=== PATIENT | female | born 1965 | race Caucasian/White ===

== ENCOUNTER 2017-06-29 08:18 | Day surgery (SDC) | payer OTHER ==
--- NOTE | 2017-06-16 23:54 | HP ---
CC: Marbin Gomes DO, [facility] * ADMISSION HISTORY AND PHYSICAL: DATE OF ADMISSION: 06/29/17 ATTENDING SURGEON: Jc Kaplan MD * (EULOGIO Davidson, dictating). CHIEF COMPLAINT: Symptomatic cholelithiasis. HISTORY OF PRESENT ILLNESS: This is a 51-year-old female who over the past year or so has been experiencing recurrent right upper quadrant abdominal pain. She describes pain sometimes before and sometimes after eating that occurs in the right upper quadrant and radiates to the right scapular region. She has accompanying nausea, queasiness, belching and bloating. She has not really had any change in her stools. She denies dark urine. She has not had any fevers or chills. She did present to the [facility] ED and workup at that time included an ultrasound on 04/03/17 showing multiple gallstones, but no evidence of acute cholecystitis. She was placed on Actigall by her PCP, Dr. Gomes. At the time of followup, there was apparently some improvement while on Actigall, but not consistently. She was referred to our office. There is a positive family history of gallbladder disease in her mother. She was seen by Dr. Kaplan on 06/13/17, at which time her history and studies were reviewed. Of note, she did have normal liver function tests on lab work from 04/14/17. CBC at that time was also normal. Dr. Kaplan has discussed with her the indications for surgery, the risks, benefits, and alternatives. She understands the expected perioperative course, she would like to proceed as scheduled with laparoscopic cholecystectomy. PAST MEDICAL HISTORY: 1. Morbid obesity (the patient has lost a total of 173 pounds related to both intentional efforts as well as to consequences from recent separation from her . She feels that her weight has stabilized and in fact has increased a few pounds in the recent months). 2. Obstructive sleep apnea (diagnosed when she was morbidly obese. She never tolerated CPAP. She feels that it is currently not a problem for her as she does not have witnessed apneic episodes). 3. Postoperative DVT following arthroscopic knee surgery in 2009 without any other episodes. She has bilateral carpal tunnel syndrome for which she uses wrist splints p.r.n. 4. She is treated for hypertension. She has history of asthma, GERD, anxietyand depression, and osteoarthritis involving primarily the knees. PAST SURGICAL HISTORY: Includes: 1. Laparoscopic Mckenzie fundoplication approximately 20 years ago. 2. Right knee arthroscopy in 2009. 3. x3 via a low transverse incision with tubal ligation at the time of the last . No surgical or anesthesia complications other than the postoperative DVT as noted above. CURRENT MEDICATIONS: 1. Metoprolol 50 mg once daily. 2. Ursodiol 300 mg b.i.d. 3. Potassium chloride 10 mEq daily. 4. Omeprazole 20 mg daily. 5. Diclofenac 50 mg daily. 6. Escitalopram 20 mg daily. 7. Magnesium oxide 400 mg 2 tablets q.h.s. 8. Multivitamin once daily. 9. ProAir HFA MDI p.r.n. (does not use frequently). 10. Tramadol 50 mg q.6 hours p.r.n. (does not use frequently) DRUG ALLERGIES: CECLOR (the patient does not recall reaction; she has taken amoxicillin without any problems). VICODIN (exacerbation of her asthma; she has tolerated Tylenol with codeine without problems). FAMILY HISTORY: Negative for anesthesia problems, bleeding or clotting disorders. SOCIAL HISTORY: The patient currently lives alone, though does have a boyfriend who sometimes stays with her. 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 She denies use of tobacco. She drinks alcohol rarely. She denies other drug use. REVIEW OF SYSTEMS: General: No recent constitutional symptoms or acute illnesses other than those described in the HPI and past medical history. Cardiovascular: She is treated for hypertension. She was evaluated twice in the past for chest pain and tightness with a negative nuclear stress test at each of those times. Respiratory: No recent exacerbations of her asthma. GI: As above per HPI. She does have some GERD symptoms, which are well controlled with omeprazole. She underwent colonoscopy in 2015, which by her chart record was a normal study. : No problems reported. Endocrine: No diabetes or thyroid dysfunction. VASCULAR TECHNOLOGIST: She is up-to-date with mammogram done this month reportedly normal. Pelvic exam and Pap smear is due. No interval problems reported. PHYSICAL EXAMINATION GENERAL: Well-nourished obese female, in no acute distress. VITAL SIGNS: Height 60 inches, weight 194 pounds, BMI 38. Temperature 98.1, blood pressure 122/80, pulse 64 and regular. HEENT: Pupils equal and round, reactive. EOMs intact. No conjunctival pallor. Oropharynx: Teeth in good repair. No intraoral lesions. NECK: No lymphadenopathy, thyromegaly, or masses. HEART: Regular rate and rhythm. No murmur noted. LUNGS: Clear to auscultation. No rales or wheezes. BREASTS: Not examined. ABDOMEN: Well-healed laparoscopic incisions in the upper abdomen and low transverse incision by history. Soft with mild tenderness in the right upper quadrant. Negative Alvarez sign. No palpable masses or organomegaly. No other areas of tenderness. GENITALIA: Not done. RECTAL: Not done. BACK: No spinous process or CVA tenderness. EXTREMITIES: No edema. NEUROLOGICAL: Grossly intact. SKIN: Warm and dry. No suspicious rashes or lesions noted. IMPRESSION: Symptomatic cholelithiasis. PLAN: Laparoscopic cholecystectomy. EULOGIO DAVIDSON [id number]/CPS #: [id number] MTDD
[~2017-06-29 08:18] MED LIST: Buffered Lidocaine 0.9% SYRIN* 5 ML/SYR SYRINGE INTRADERM ONE
[2017-06-29] MEDS ORDERED: ceFAZolin 2 GM PREMIX (*) 2 GM/50 ML BAG IVPB ONE (08:32)
[2017-06-29] MEDS ORDERED: Buffered Lidocaine 0.9% SYRIN* 5 ML/SYR SYRINGE ONE (08:33)
[2017-06-29] MEDS ORDERED: Famotidine IV* 10 MG/ML 2 ML (20 mg) ONE (09:51)
[2017-06-29] MEDS ORDERED: Midazolam* 1 MG/ML 2 ML VIAL (2 MG) ONE (09:51)
[2017-06-29] MEDS ORDERED: Bupivacaine 0.25% SDV* 30 ML ONE (10:50)
[2017-06-29] MEDS ORDERED: Cisatracurium* 2 MG/ML MDV 5 ML ONE (11:08)
[2017-06-29] MEDS ORDERED: fentaNYL* 50 MCG/ML 2 ML VIAL (100 MCG VIAL) ONE ×2 (11:17→12:31)
[2017-06-29] MEDS ORDERED: Labetalol IV* 5 MG/ML 20 ML VIAL ONE (11:20)
[2017-06-29] MEDS ORDERED: fentaNYL* 50 MCG/ML 2 ML VIAL (100 MCG VIAL) IV PRN (11:45)
[2017-06-29] MEDS ORDERED: DiMENhydriNATE IV* 50 MG/ML VIAL IV PUSH PRN (11:45)
[2017-06-29] MEDS ORDERED: PROCHLORPERAZINE INJ 5 MG/ML 2 ML VIAL IV PRN (11:45)
[2017-06-29] MEDS ORDERED: Acetaminophen TAB* 325 MG PO PRN (11:45)
[2017-06-29] MEDS ORDERED: Ondansetron INJ* 2 MG/ML VIAL IV PRN (11:45)
[2017-06-29] MEDS ORDERED: Levalbuterol 1.25MG/0.5ML NEB INH PRN (11:45)
[2017-06-29] MEDS ORDERED: Ketorolac INJ* 30 MG/ML 1 ML VIAL ONE (11:57)
--- NOTE | 2017-06-29 12:04 | PN ---
Progress Note - Progress Note Date of Service: 06/29/17 Note: Brief Operative Note: Preop Dx: symptomatic cholelithiasis Postop Dx: same Procedure: laparoscopic cholecystectomy Anesthesia: GET Surgeon: Rosaura Asst: EULOGIO Carlson Fluids: 1300ml EBL: 50 ml Drains: none Specimen: GB Findings: dictated
[2017-06-29] MEDS ORDERED: Acetaminop/Codeine 30 MG TAB* 1 TAB (300 MG/30 MG) PO PRN (12:05)
[2017-06-29] MEDS ORDERED: Levalbuterol HFA INHALER* 1 PUFF MDI ONE (12:12)
[2017-06-29] MEDS ORDERED: Acetaminop/Codeine 30 MG TAB* 1 TAB (300 MG/30 MG) ONE (13:12)
[2017-06-29 14:44] VITALS: BP 142/80
--- NOTE | 2017-06-29 23:47 | OP ---
CC: Dr. Marbin Gomes * DATE OF OPERATION: 06/29/17 - [facility] DATE OF : 63 SURGEON: Jc Kaplan MD LITHOGRAPHIC PROOFER: EULOGIO Davidson ANESTHESIOLOGIST: Albania Hall MD ANESTHESIA: General anesthetic, local infiltration. PRE-OP DIAGNOSIS: Symptomatic cholelithiasis. POST-OP DIAGNOSIS: Symptomatic cholelithiasis. OPERATIVE PROCEDURE: Laparoscopic cholecystectomy. DESCRIPTION OF PROCEDURE: The patient was supine on the operative table. After adequate general anesthetic, compression stockings, Vesta Hugger warmer, and intravenous antibiotics, the abdomen was prepped with antiseptic, draped in a sterile fashion. Local infiltrative anesthesia was administered and right upper quadrant 5-mm incision was created and Visiport cannula was placed under direct vision. Peritoneum was insufflated with carbon dioxide. Additional cannulae, 5 mm supraumbilical and anterior axillary line and 12 mm subxiphoid, were placed through small stab wounds under direct vision. The gallbladder was not acutely inflamed. It was tented upward. Areolar tissue was taken down off the cystic duct and cystic artery. Cystic artery had an anterior and posterior branch. Cystic duct was taken well clear of the common duct, clipped and divided. Artery branches were clipped and divided. Gallbladder was taken off the liver bed with electrocautery. Hemostasis was excellent. There was no spillage. The gallbladder was removed through the subxiphoid port without difficulty. The operative field was well irrigated with warm saline solution. Free fluid was suctioned out. Hemostasis was again confirmed. The epigastric port was closed using an Endo Close device using 0 Vicryl and then skin was closed with 5-0 Vicryl in all cases followed by Steri-Strips. She tolerated the procedure well, was awakened, extubated, and brought to Recovery in good condition. No complications. No drains. Pathologic specimen gallbladder. Sponge and instrument counts were correct. Estimated blood loss was 50 mL. [id number]/[facility] #: [id number] [facility] HOSPITALBelinda
== END 2017-06-29 14:44 | disposition home or self-care (01) ==
LOC: OR 08:18
PROVIDERS: ATTEND Surgery
DX: K80.10 Calculus of gallbladder with chronic cholecystitis without obstruction (principal); E66.01 Morbid (severe) obesity due to excess calories; Z68.38 Body mass index [BMI] 38.0-38.9, adult; I10 Essential (primary) hypertension; J45.909 Unspecified asthma, uncomplicated; G47.33 Obstructive sleep apnea (adult) (pediatric); K21.9 Gastro-esophageal reflux disease without esophagitis; F41.9 Anxiety disorder, unspecified; F32.9 Major depressive disorder, single episode, unspecified; Z88.5 Allergy status to narcotic agent; Z88.1 Allergy status to other antibiotic agents
CPT/HCPCS: 88304; A9270-GY; J0690; J1885; J2250; J3010

== ENCOUNTER 2017-12-26 11:00 | Inpatient (IN) | payer OTHER ==
--- NOTE | 2018-04-23 20:46 | HP ---
HISTORY AND PHYSICAL: DATE OF ADMISSION/SURGERY: 05/01/18 DATE OF OFFICE VISIT: 04/18/18 SURGEON: Saray Cummings MD * (DICTATED BY EULOGIO MADERA) PROCEDURE: Right total knee arthroplasty. CHIEF COMPLAINT: Right knee pain. HISTORY OF PRESENT ILLNESS: Ms. Carpenter is a 52-year-old female with complaints of right knee pain. She has failed conservative treatment and elected to proceed with a right total knee arthroplasty, which is scheduled for 05/01/18. PAST MEDICAL HISTORY: 1. Hypertension. 2. History of a DVT following a knee scope. 3. Asthma. 4. Depression. 5. Anxiety. 6. GERD. 7. Melanoma. PAST SURGICAL HISTORY: 1. Cholecystectomy. 2. Melanoma removal. 3. Right knee arthroscopy. 4. Hernia repair. 5. x3. 6. Tubal ligation. CURRENT MEDICATIONS: 1. Tramadol 50 mg 3 times a day. 2. Omeprazole 20 mg daily. 3. ProAir HFA. 4. Metoprolol 50 mg daily. 5. Tylenol as needed. 6. Sulindac. 7. Vitamin D. 8. Hair, Skin and Nail vitamin. 9. Metformin b.i.d. ALLERGIES: CECLOR, VICODIN, ORANGES. FAMILY HISTORY: Cancer, diabetes, stroke, and rheumatoid arthritis. SOCIAL HISTORY: She is a 52-year-old female. She lives with her partner. She does not smoke, use drugs or alcohol. REVIEW OF SYSTEMS: A complete 14-point review of systems was reviewed with the patient. It was positive for GERD, asthma, and DVT in 2009 following a right knee scope. She denies history of HIV, hepatitis, or anesthesia problems. PHYSICAL EXAMINATION GENERAL: She is well developed, well nourished, in no acute distress. VITAL SIGNS: She stands 5 feet tall, weighs 232 pounds. Her blood pressure is 140/86, her heart rate is 64. HEENT: Normocephalic, atraumatic. NECK: Supple. No palpable lymph nodes. PULMONARY: Lungs are clear to auscultation bilaterally. CARDIO: Regular rate and rhythm. Strong S1, S2. ABDOMEN: Soft, nontender, nondistended. NEUROLOGICAL: She is alert and oriented x3. MUSCULOSKELETAL: Right lower extremity, the skin is intact. There are no open wounds or abrasions. There is a moderate joint effusion. She has tenderness over the medial and lateral joint line. Range of motion 10 to 120 degrees of flexion with patellofemoral crepitus. There is a 15 degree valgus deformity of the right knee. ASSESSMENT AND PLAN: Ms. Carpenter is a 52-year-old female with end-stage osteoarthritis of the right knee. She has failed conservative treatment and elected to proceed with a right total knee arthroplasty, which is scheduled for 05/01/[address] Cummings discussed the risks, the benefits of the surgery at today's visit and all of her questions were answered. She will follow with Dr. Cummings 2 weeks after the surgery. EULOGIO MADERA [id number]/[facility] #: [id number] MTDD
[2018-04-30] MEDS ORDERED: Buffered Lidocaine 0.9% SYRIN* 5 ML/SYR SYRINGE INTRADERM ONE (15:22)
[2018-05-01] MEDS ORDERED: Famotidine IV* 10 MG/ML 2 ML (20 mg) IV ONE (06:00)
--- OUTSIDE RECORDS SUMMARY | 2018-05-01 08:37 | XMS REPORT ---
:1965 External Reference #:[id number] Author Organization [facility] Address [address] [place] [address] [place] [address] Phone [phone] Care Team Providers Name Role Phone Hattie Lawson DO Primary Care Physician Unavailable Payers Type Date Identification Numbers Payment Provider Subscriber Commercial Effective: Policy Number: [id number] Masoud Brady 2017 Group Number: [id number] [address] PayID: [id number] [place] [address] Medigap Part B Expires: 2017 Policy Number: BS Lizzie Brady [id number] PayID: [id number] [address] [address] [place]arden [address] Medigap Part B Effective: 2009 Policy Number: BS Monserrat MAHI Brady [id number] Expires: 2009 PayID: [id number] [address] [address] [place] Bearden [address] Problems Date Description Provider Status Onset: 02/26/2015 Carpal tunnel syndrome Velma Perez M.D. Active Onset: 02/26/2015 Muscle twitch Velma Perez M.D. Active Onset: 11/27/2017 Localized, primary osteoarthritis Saray Cummings M.D. Active Onset: 03/01/2018 Skin sensation disturbance Waldo Mcconnell M.D. Active Onset: 03/01/2018 Neck pain Waldo Mcconnell M.D. Active Onset: 03/01/2018 Abnormal results function studies of Waldo Mcconnell M.D. Active central nervous system Onset: 03/01/2018 Chronic fatigue syndrome Waldo Mcconnell M.D. 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 Cigarette Use Never Smoked Cigarettes ETOH Use Rarely consumes alcohol Smoking Patient has never smoked Recreational Drug Use Denies Drug Use Daily Caffeine Ice tea twice a week Exercise Type/Frequency Exercises sporadically Allergies, Adverse Reactions, Alerts Date Description Reaction Status Severity Comments 09/24/2004 Ceclor active 02/25/2015 Vicodin "Asthma attack" active Severe 04/28/2015 Oranges active 04/03/2007 NKDA inactive Medications Medication Date Status Form Strength Qnty SIG Indications Ordering Provider Alprazolam 03/01 Active Tablets 2mg 2tabs take 1 45 R94.02 /2017 min prior Justin Mcconnell to MRI, may repeat X 1 at time of MRI if remains anxious. Do not drive after taking Tramadol HCL Active Tablets 50mg 1 tab po Unknown /0000 tid prn pain Omeprazole Active Tablets 20mg 1 by Unknown /0000 DR mouth every day Proair HFA Active Aerosol 108(90Bas 2 puffs Unknown /0000 e) by mouth mcg/Act every 4 - 6 hours as needed Metoprolol Active Tablets 50mg 1 by Unknown Tartrate /0000 mouth daily Tylenol Active Tablets 325mg 2 po as Unknown /0000 needed Sulindac Active 1 tAB Unknown /0000 Everyday Vitamin D 1000MG 00 Active Unknown /0000 Metformin HCL 00 Active Tablets 500mg 1 Tab Unknown /0000 Twice Daily Fluconazole 07/07 Hx Tablets 150mg 2tabs One Saida Pritchett /2016 tablet MD Jc - once 02/28 daily directed Acetaminophen-Cod 06/16 Hx Tablets 300-15mg 20tab 1-2 tabs Saida quintanilla # s by mouth MD Jc - every 4h 02/28 as needed pain Flexeril 05/26 Hx Tablets 10mg 21tab 1 po tid Rodney Mckeon /2007 s prn Justin James - 06/25 Amoxicillin 05/23 Hx Tablets 500mg 30tab 1 po tid Rodney Mckeon s jl James M.D. - days 06/25 Proventil Hx Aerosol 90mcg/Act 2 Puffs Unknown /0000 PO qid - 04/27 Motrin Hx Tablets 200mg 120ta 1 PO prn Evaristo, /0000 bs EULOGIO Linda - 01/28 Flovent Hx Aerosol 220mcg/Ac 2 Puffs Barken, /0000 t PO bid MD Garry - 06/25 Serevent Diskus Hx Aerosol 50mcg/Dos 3unit 1 puff Barken, / e s bid MD Garry - 06/25 Hydrochlorothiazi Hx Tablets 12.5mg 16tab 1 po qd Rodney Campa. de / buffy James M.D. - 06/25 Benicar Hx Tablets 20mg 16tab 1 po qd Rodney E. / buffy James M.D. - 06/25 Diclofenac Sodium Hx Tablets 50mg take one Unknown /0000 DR tablet by - mouth 02/28 Furosemide Hx Tablets 20mg 1 by Unknown /0000 mouth every morning Potassium Hx Capsules 10Meq 1 by Unknown Chloride ER /0000 ER mouth - every day 02/28 Ursodiol Hx Capsules 300mg take 1 Unknown /0000 capsule - by mouth 02/28 twice a day Vitamin Minerals Hx Unknown For Hair And Skin / - 02/28 Medications Administered in Office Medication Date Status Form Strength Qnty SIG Indications Ordering Provider Inj, Administered Injection Uriahtono Hamilton Regadenoson, 015 Barton, 0.1 MG M.D., FACC, FASNC Inj, Administered Injection Laly Regadenoson, 015 [place], 0.1 MG M.D. Technetium TC Administered Injection Uriah Hamilton 99M 015 Nicol Barton M.D., FACC, Per Unit Dose FASNC Up To 40 Millicuries Technetium TC Administered Injection Laly 99M 015 Nicol Hathaway M.D. Per Unit Dose Up To 40 Millicuries Vital Signs Date Vital Result Comment 04/18/2018 Height 60 inches 5'0" Weight 232.00 lb Heart Rate 64 /min BP Systolic 140 mmHg BP Diastolic 86 mmHg BMI (Body Mass Index) 45.3 kg/m2 03/01/2018 Height 60 inches 5'0" Weight 226.50 lb Heart Rate 76 /min BP Systolic 152 mmHg BP Diastolic 90 mmHg BMI (Body Mass Index) 44.2 kg/m2 11/27/2017 Height 60 inches 5'0" Weight 222.00 lb Heart Rate 58 /min BP Systolic 126 mmHg BP Diastolic 80 mmHg Respiratory Rate 20 /min Body Temperature 97.6 F Pain Level 9 BMI (Body Mass Index) 43.4 kg/m2 07/07/2017 Heart Rate 72 /min BP Systolic Sitting 146 mmHg BP Diastolic Sitting 92 mmHg Respiratory Rate 16 /min Body Temperature 97.8 F 06/16/2017 Heart Rate 64 /min BP Systolic 122 mmHg BP Diastolic 80 mmHg Respiratory Rate 16 /min Body Temperature 98.1 F 06/13/2017 Height 60 inches 5'0" Weight 194.00 lb Heart Rate 64 /min BP Systolic 134 mmHg BP Diastolic 84 mmHg Respiratory Rate 16 /min Body Temperature 97.9 F BMI (Body Mass Index) 37.9 kg/m2 12/22/2015 Height 60 inches 5'0" Weight 297.00 lb Heart Rate 64 /min BP Systolic Sitting 122 mmHg BP Diastolic Sitting 70 mmHg Respiratory Rate 14 /min BMI (Body Mass Index) 58.0 kg/m2 05/11/2015 Height 60 inches 5'0" Weight 311.00 lb no shoes Heart Rate 66 /min BP Systolic Sitting 126 mmHg Ra, Lg cuff BP Diastolic Sitting 78 mmHg Ra, Lg cuff BP Systolic Standing 128 mmHg Ra BP Diastolic Standing 78 mmHg Ra Respiratory Rate 16 /min BMI (Body Mass Index) 60.7 kg/m2 Ejection Fraction 50-60% 10/27/2009 04/28/2015 Height 60 inches 5'0" Weight 313.00 lb Heart Rate 64 /min 74 BP Systolic Sitting 110 mmHg right arm, large cuff BP Diastolic Sitting 72 mmHg right arm, large cuff BP Systolic Standing 110 mmHg right arm, large cuff BP Diastolic Standing 68 mmHg right arm, large cuff Respiratory Rate 20 /min BMI (Body Mass Index) 61.1 kg/m2 Ejection Fraction 55-60% 10/27/09 02/26/2015 Height 60 inches 5'0" Weight 308.00 lb Heart Rate 64 /min BP Systolic Sitting 138 mmHg BP Diastolic Sitting 76 mmHg Respiratory Rate 16 /min BMI (Body Mass Index) 60.1 kg/m2 11/10/2008 Height 59.5 inches 4'11.50" Weight 126.00 lb Heart Rate 68 /min BP Systolic Sitting 136 mmHg BP Diastolic Sitting 86 mmHg BMI (Body Mass Index) 25.0 kg/m2 06/25/2008 Height 60 inches 5'0" Weight 292.00 lb Heart Rate 85 /min BP Systolic Sitting 136 mmHg BP Diastolic Sitting 90 mmHg BMI (Body Mass Index) 57.0 kg/m2 05/26/2008 Height 60 inches 5'0" BP Systolic Sitting 146 mmHg BP Diastolic Sitting 84 mmHg 05/23/2008 Height 60 inches 5'0" Weight 297.00 lb Heart Rate 60 /min BP Systolic Sitting 140 mmHg BP Diastolic Sitting 80 mmHg BMI (Body Mass Index) 58.0 kg/m2 04/04/2007 Height 60 inches 5'0" Weight 282.00 lb Heart Rate 80 /min BP Systolic Sitting 104 mmHg BP Diastolic Sitting 80 mmHg BMI (Body Mass Index) 55.1 kg/m2 Results Test Date Test Result H/L Range Note CBC Auto Diff 04/18/2018 White Blood Count 7.7 10^3/uL 3.5-10.8 1 Red Blood Count 4.64 10^6/uL 4.00-5.40 1 Hemoglobin 14.5 g/dL 12.0-16.0 1 Hematocrit 43 % 35-47 1 Mean Corpuscular Volume 92 fL 80-97 1 Mean Corpuscular Hemoglobin 31 pg 27-31 1 Mean Corpuscular HGB Conc 34 g/dL 31-36 1 Red Cell Distribution Width 13 % 10.5-15 1 Platelet Count 303 10^3/uL 150-450 1 Mean Platelet Volume 7.9 um3 7.4-10.4 1 Abs Neutrophils 3.9 10^3/uL 1.5-7.7 1 Abs Lymphocytes 3.0 10^3/uL 1.0-4.8 1 Abs Monocytes 0.6 10^3/uL 0-0.8 1 Abs Eosinophils 0.2 10^3/uL 0-0.6 1 Abs Basophils 0 10^3/uL 0-0.2 1 Abs Nucleated RBC 0 10^3/uL 1 Granulocyte % 50.4 % 38-83 1 Lymphocyte % 39.5 % 25-47 1 Monocyte % 7.4 % High 0-7 1 Eosinophil % 2.3 % 0-6 1 Basophil % 0.4 % 0-2 1 Nucleated Red Blood Cells % 0.1 1 Urinalysis Profile 04/18/2018 Urine Color Yellow 1 Urine Appearance Clear 1 Urine Specific [place] 1.027 1.010-1.030 1 Urine pH 5.0 5-9 1 Urine Urobilinogen Negative Negative 1 Urine Ketones Negative Negative 1 Urine Protein Negative Negative 1 Urine Leukocytes 1+ Negative 1 Urine Blood Negative Negative 1 Urine Nitrite Negative Negative 1 Urine Bilirubin Negative Negative 1 Urine Glucose Negative Negative 1 Urine White Blood Cell Trace(0-5/hpf) Absent 1 Urine Red Blood Cell 1+(3-5/hpf) Absent 1 Urine Bacteria Absent Absent 1 Urine Squamous Epithelial Cell Present Absent 1 Comp Metabolic Panel 04/18/2018 Sodium 140 mmol/L 135-145 1 Potassium 4.3 mmol/L 3.5-5.0 1 Chloride 104 mmol/L 101-111 1 Co2 Carbon Dioxide 30 mmol/L 22-32 1 Anion Gap 6 mmol/L 2-11 1 Glucose 64 mg/dL Low 70-100 1 Blood Urea Nitrogen 18 mg/dL 6-24 1 Creatinine 0.66 mg/dL 0.51-0.95 1 BUN/Creatinine Ratio 27.3 High 8-20 1 Calcium 9.2 mg/dL 8.6-10.3 1 Total Protein 6.5 g/dL 6.4-8.9 1 Albumin 3.9 g/dL 3.2-5.2 1 Globulin 2.6 g/dL 2-4 1 Albumin/Globulin Ratio 1.5 1-3 1 Total Bilirubin 0.40 mg/dL 0.2-1.0 1 Alkaline Phosphatase 73 U/L 34-104 1 Alt 11 U/L 7-52 1 Ast 15 U/L 13-39 1 Egfr Non- 93.7 >60 1 Egfr 113.4 >60 1, 2 Inr/Protime 04/18/2018 Inr 0.86 0.77-1.02 1 Laboratory test finding 04/18/2018 Partial Thrombo Time 33.8 seconds 26.0 -36.3 1, 3 PTT Type & Screen 04/18/2018 Patient Blood Type O Positive 1 Antibody Screen NEGATIVE 1 Urine Culture And 04/18/2018 Urine Culture SEE RESULT BELOW 1, 4 Sensitivities Vitamin B12 And Folate 03/09/2018 Vitamin B12 336 pg/mL 180-914 5 Serum Folic Acid (Folate) > 20.00 ng/mL >3.99 6 Laboratory test finding 03/09/2018 TSH (Thyroid Stim Horm) 1.60 mcIU/mL 0.34-5.60 7 Free T4 (Free Thyroxine) 1.02 ng/dL 0.61-1.12 8 Laboratory test finding 03/09/2018 Erythrocyte Sed Rate 22 mm/Hr 0-30 9 C Reactive Protein 1.35 mg/L <8.01 10 Basic Metabolic Panel 03/09/2018 Sodium 140 mmol/L 135-145 Potassium 4.2 mmol/L 3.5-5.0 Chloride 105 mmol/L 101-111 Co2 Carbon Dioxide 28 mmol/L 22-32 Anion Gap 7 mmol/L 2-11 Glucose 83 mg/dL 70-100 Blood Urea Nitrogen 18 mg/dL 6-24 Creatinine 0.60 mg/dL 0.51-0.95 BUN/Creatinine Ratio 30.0 High 8-20 Calcium 9.2 mg/dL 8.6-10.3 Egfr Non- 104.6 >60 Egfr 126.5 >60 11 Laboratory test 06/29/2017 Surgical Pathology SEE RESULT BELOW 12 finding Laboratory test 01/26/2016 Methylmalonic Acid Mma 0.12 nmol/mL <=0.40 13 finding C Reactive Protein 5.31 mg/L High < 5.00 14 Comp Metabolic Panel 12/02/2015 Sodium 138 mmol/L 133-145 Potassium 3.6 mmol/L 3.5-5.0 Chloride 98 mmol/L Low 101-111 Co2 Carbon Dioxide 27 mmol/L 22-32 Anion Gap 13 mmol/L High 2-11 Glucose 102 mg/dL High 70-100 Blood Urea Nitrogen 14 mg/dL 6-24 Creatinine 0.81 mg/dL 0.51-0.95 BUN/Creatinine Ratio 17.3 8-20 Calcium 9.6 mg/dL 8.6-10.3 Total Protein 7.2 g/dL 6.4-8.9 Albumin 4.2 g/dL 3.2-5.2 Globulin 3.0 g/dL 2-4 Albumin/Globulin Ratio 1.4 1-3 Total Bilirubin 1.10 mg/dL High 0.2-1.0 Alkaline Phosphatase 80 U/L 34-104 Alt 41 U/L 7-52 Ast 33 U/L 13-39 Egfr Non- 74.5 >60 Egfr 95.9 >60 15 Protein Electrophoresis 12/02/2015 Total Protein(Pep) 7.4 g/dL 6.3 - 7.9 Albumin 3.2 g/dL 3.4-4.7 Alpha-1 Globulin 0.3 g/dL 0.1-0.3 Alpha-2 Globulin 1.1 g/dL 0.6-1.0 Beta Globulin 1.5 g/dL 0.7-1.2 Gamma Globulin 1.3 g/dL 0.6-1.6 Albumin/Globulin Ratio 0.78 Impression See Comment 16 Volatiles Panel Serum 03/13/2015 Volatile Screen See Comment 17 Methanol Not Detected mg/dL 18 Ethanol Not Detected mg/dL 19 Acetone Level Not Detected mg/dL 20 Isopropanol Not Detected mg/dL 21 Ssa/SSB Abs Igg 03/13/2015 SS-A/Ro Antibody <0.2 U 22 SS-B/La Antibody <0.2 U 23 Laboratory test finding 03/13/2015 TSH (Thyroid Stim Horm) 2.74 ?IU/mL 0.34-5.60 Free T4 (Free Thyroxine) 0.87 ng/mL 0.61-1.12 Vitamin B12 276 pg/mL 180-914 24 Folic Acid (Folate) 19.03 ng/mL >3.99 Homocysteine 9 mcmol/L 25 Jojo (Antinuclear Antibodies) Negative Negative Erythrocyte Sed Rate 30 mm/Hr 0-30 C Reactive Protein 7.68 mg/L High < 5.00 26 Lyme Disease Serology Negative Negative 27 CMP Panel 03/13/2015 Sodium 139 mmol/L 133-145 Potassium 4.1 mmol/L 3.5-5.0 Chloride 102 mmol/L 101-111 Co2 Carbon Dioxide 30 mmol/L 22-32 Anion Gap 7 mmol/L 2-11 Glucose 101 mg/dL High 70-100 Blood Urea Nitrogen 14 mg/dL 6-24 Creatinine 0.73 mg/dL 0.51-0.95 BUN/Creatinine Ratio 19.2 8-20 Calcium 9.1 mg/dL 8.6-10.3 Total Protein 6.7 g/dL 6.4-8.9 Albumin 3.8 g/dL 3.2-5.2 Globulin 2.9 g/dL 2-4 Albumin/Globulin Ratio 1.3 1-3 Total Bilirubin 0.50 mg/dL 0.2-1.0 Alkaline Phosphatase 80 U/L 34-104 Alt 20 U/L 7-52 Ast 17 U/L 13-39 Egfr Non- 84.4 >60 Egfr 108.5 >60 28 CBC W/Auto Diff 03/13/2015 White Blood Count 7.9 10^3/uL 4.8-10.8 Red Blood Count 4.55 10^6/uL 4.0-5.4 Hemoglobin 13.5 g/dL 12.0-16.0 Hematocrit 41 % 35-47 Mean Corpuscular Volume 90 fL 80-97 Mean Corpuscular Hemoglobin 30 pg 27-31 Mean Corpuscular HGB Conc 33 g/dL 31-36 Red Cell Distribution Width 14 % 10.5-15 Platelet Count 295 10^3/uL 150-450 Mean Platelet Volume 8 um3 7.4-10.4 Abs Neutrophils 4.5 10^3/uL 1.5-7.7 Abs Lymphocytes 2.5 10^3/uL 1.0-4.8 Abs Monocytes 0.6 10^3/uL 0-0.8 Abs Eosinophils 0.2 10^3/uL 0-0.6 Abs Basophils 0 10^3/uL 0-0.2 Abs Nucleated RBC 0.01 10^3/uL Granulocyte % 57.3 % 38-83 Lymphocyte % 32.1 % 25-47 Monocyte % 7.5 % 1-9 Eosinophil % 2.7 % 0-6 Basophil % 0.4 % 0-2 Nucleated Red Blood Cells % 0.1 Comp Metabolic Panel 05/23/2007 One Over Creatinine 1.42 29 Anion Gap 6.0 mmol/L 2-11 29, 30 Albumin/Globulin Ratio 1.2 1-3 29 Albumin 3.5 GM/DL Low 3.6-5.4 29 Alkaline Phosphatase 67 U/L 30-110 29 Alt (SGPT) 24 U/L 14-54 29 Ast (Sgot) 19 U/L 12-42 29 BUN 5 mg/dL Low 6-24 29 Calcium 8.8 mg/dL 8.7-10.2 29 Chloride 106 mmol/L 101-111 29 Co2 (Carbon Dioxide) 28.0 mmol/L 22-32 29 Globulin 2.9 GM/DL 2-4 29 Glucose 89 mg/dL 70-105 29 Potassium 4.1 mmol/L 3.5-5.0 29 Sodium 140 mmol/L 135-145 29 Bilirubin Total 0.5 mg/dL 0.4-1.5 29 Total Protein 6.4 GM/DL 6.2-8.1 29 BUN/Creatinine Ratio 7.1 Low 8-20 29 Creatinine 0.7 mg/dL 0.5-1.4 29 Lipid Profile 05/23/2007 Cholesterol 213 mg/dL High Less Than 200 29, 31 (Trig/Chol/HDL) Triglyceride 106 mg/dL 40-200 29 High Density Lipoprotein 40 mg/dL 40-60 29 Low Density Lipoprotein 152 mg/dL High Less Than 100 29, 32 Cholesterol/HDL Ratio 5.33 AVERAGE High 1-4.44 29 Laboratory test finding 05/23/2007 TSH 1.79 MIU/ML 0.34-5.60 29 CBC W/ Electronic Diff 05/23/2007 White Blood Count 6.8 CUMM 4.8-10.8 33 Abs Basophils 0 0-0.2 33 Abs Eosinophils 0.1 0-0.6 33 Absolute Neutrophil Count 3.8 1.5-7.7 33 Abs Lymphs 2.5 1.0-4.8 33 Abs Mononuclear 0.4 0-0.8 33 Basophil % 0.2 % 0-2 33 Hematocrit 36 % 35-47 33 Hemoglobin 12.7 g/dL 12.0-16.0 33 Eosinophil % 1.6 % 0-6 33 Gran % 55.6 % 38-83 33 Lymph % 36.8 % 20-45 33 Mean Corpuscular HGB Cone 35 g/dL 32-36 33 Mean Corpuscular Hemoglob 31 pg 27-31 33 Mean Corpuscular Volume 88 um3 79-97 33 Mean Platelet Volume 7.8 um3 7.4-10.4 33 Mononuclear % 5.8 % 1-9 33 Platelet Count 339 CUMM 150-450 33 Red Cell Count 4.14 CUMM Low 4.2-5.4 33 Redcell Distribution WDTH 13 % 10.5-15 33 1 AA 10 2 Because ethnic data is not always readily available, this report includes an eGFR for both -Americans and non- Americans. The National Kidney Disease Education Program (NKDEP) does not endorse the use of the MDRD equation for patients that are not between the ages of 18 and 70, are , have extremes of body size, muscle mass, or nutritional status, or are non- or non-. According to the National Kidney Foundation, irrespective of diagnosis, the stage of the disease is based on the level of kidney function: Stage Description GFR(mL/min/1.73 m(2)) 1 Kidney damage with normal or decreased GFR 90 2 Kidney damage with mild decrease in GFR 60-89 3 Moderate decrease in GFR 30-59 4 Severe decrease in GFR 15-29 5 Kidney failure <15 (or dialysis) 3 05/01 4 SEE RESULT BELOW Name: EILEEN BRADY : [address]: Saray Cummings MD Acct: [id number] Unit: [id number] AGE: 52 Location: [facility] Re04/18/18 SEX: F Status: REG REF SPEC: [id number] NATA: 04/18/18-[address]: Saray Cummings MD REQ: [id number] RECD: 04/18/182480 STATUS: COMP _ SOURCE: URINE SPDESC: ORDERED: Urine Culture COMMENTS: 05/01 QUERIES: Urine Source: Clean Catch Procedure Result Reported Site Urine Culture Final 04/19/18- 1602 ML No growth of clinically significant organisms * ML - Main Lab . END OF REPORT DEPARTMENT OF PATHOLOGY, [address] [place] [address] Cameron Rojas M.D. Director [facility] # [id number] 5 Normal Range 180 to 914 Indeterminate Range 145 to 180 Deficient Range <145 6 [facility] lab Copy Result to: HATTIE LAWSON ([id number]) 7 [facility] lab Copy Result to: HATTIE LAWSON ([id number]) 8 [facility] lab Copy Result to: HATTIE LAWSON ([id number]) 9 [facility] lab Copy Result to: HATTIE LAWSON ([id number]) 10 [facility] lab Copy Result to: HATTIE LAWSON ([id number]) 11 Because ethnic data is not always readily available, this report includes an eGFR for both -Americans and non- Americans. The National Kidney Disease Education Program (NKDEP) does not endorse the use of the MDRD equation for patients that are not between the ages of 18 and 70, are , have extremes of body size, muscle mass, or nutritional status, or are non- or non-. According to the National Kidney Foundation, irrespective of diagnosis, the stage of the disease is based on the level of kidney function: Stage Description GFR(mL/min/1.73 m(2)) 1 Kidney damage with normal or decreased GFR 90 2 Kidney damage with mild decrease in GFR 60-89 3 Moderate decrease in GFR 30-59 4 Severe decrease in GFR 15-29 5 Kidney failure <15 (or dialysis) 12 SEE RESULT BELOW Name: EILEEN BRADY : [address]: Jc Kaplan MD Acct: [id number] Unit: [id number] AGE: 51 Location: [place] Re06/29/17 SEX: F Status: [facility] SPEC: [id number] NATA: 06/29/17- [facility] DR: Jc Kaplan MD REQ: [id number] RECD: 06/29/179915 STATUS: SOUT _ ORDERED: LEVEL 3 FINAL DIAGNOSIS Gallbladder, cholecystectomy: -- Chronic cholecystitis with cholelithiasis. PRE-OPERATIVE DIAGNOSIS Calculus of gallbladder with chronic cholecystitis GROSS DESCRIPTION The specimen is received in formalin labeled, Gallbladder, and consists of a 9.8 x 2.5 x 1.7 cm previously disrupted gallbladder. The serosa is glistening smooth to wrinkled will-pink. Within the lumen and the container there are multiple yellow-brown intact and fragmented choleliths ranging from minute to 0.7 cm in greatest dimension admixed with a small amount of yellow viscid bile. The mucosa is velvety to reticulated will and the wall thickness averages 0.1 cm. Cheese Pancake Roller sections, one cassette. Signed (signature on file) Cameron Rojas MD 1101 END OF REPORT * ML=Testing performed at Main Lab DEPARTMENT OF PATHOLOGY, [address] [place] [address] Cameron Rojas M.D. Director [facility] # [id number] 13 Test Performed by: [place] [address] Human Service Technician: Cj Zuniga II, M.D., Ph.D. 14 Acute inflammation: >10.00 15 Because ethnic data is not always readily available, this report includes an eGFR for both -Americans and non- Americans. The National Kidney Disease Education Program (NKDEP) does not endorse the use of the MDRD equation for patients that are not between the ages of 18 and 70, are , have extremes of body size, muscle mass, or nutritional status, or are non- or non-. According to the National Kidney Foundation, irrespective of diagnosis, the stage of the disease is based on the level of kidney function: Stage Description GFR(mL/min/1.73 m(2)) 1 Kidney damage with normal or decreased GFR 90 2 Kidney damage with mild decrease in GFR 60-89 3 Moderate decrease in GFR 30-59 4 Severe decrease in GFR 15-29 5 Kidney failure <15 (or dialysis) 16 RESULT: No apparent monoclonal protein on serum electrophoresis. Test Performed by: [address] [address] Human Service Technician: Cj Zuniga II, M.D., Ph.D. 17 Sample aliquot received, original unopened sample is preferred. 18 REFERENCE VALUE Not detected (Positive results are quantitated) >=10 (Toxic concentration) 19 REFERENCE VALUE Not detected (Positive results are quantitated) >=400 (Toxic concentration) 20 REFERENCE VALUE Not detected (Positive results are quantitated) >=10 (Toxic concentration) 21 REFERENCE VALUE Not detected (Positive results are quantitated) >=10 (Toxic concentration) Test Performed by: [address] [address] Human Service Technician: Cj Zuniga II, M.D., Ph.D. 22 REFERENCE VALUE <1.0 (Negative) 23 REFERENCE VALUE <1.0 (Negative) Test Performed by: [place] [address] Human Service Technician: Cj Zuniga II, M.D., Ph.D. 24 Normal Range 180 to 914 Indeterminate Range 145 to 180 Deficient Range <145 25 REFERENCE VALUE <=13 (Fasting) Test Performed by: [place] [address] Human Service Technician: Cj Zuniga II, M.D., Ph.D. 26 Acute inflammation: >10.00 27 Serologic response to B. burgdorferi infection is not detected, but cannot rule out early infection during which low or undetectable antibody levels to B. burgdorferi may be present. If clinically indicated, a new serum specimen should be submitted in 7-14 days. Test Performed by: [place] [address] Human Service Technician: Cj Zuniga II, M.D., Ph.D. 28 Because ethnic data is not always readily available, this report includes an eGFR for both -Americans and non- Americans. The National Kidney Disease Education Program (NKDEP) does not endorse the use of the MDRD equation for patients that are not between the ages of 18 and 70, are , have extremes of body size, muscle mass, or nutritional status, or are non- or non-. According to the National Kidney Foundation, irrespective of diagnosis, the stage of the disease is based on the level of kidney function: Stage Description GFR(mL/min/1.73 m(2)) 1 Kidney damage with normal or decreased GFR 90 2 Kidney damage with mild decrease in GFR 60-89 3 Moderate decrease in GFR 30-59 4 Severe decrease in GFR 15-29 5 Kidney failure <15 (or dialysis) 29 FASTING PATIENT MAY HAVE RESULTS PER DOCTOR'S AUTHORIZATION. Questions regarding this report should be directed to your doctor. 30 Anion gap measurement may be of limited value in the presence of any alkalosis, especially in a combined acid base disorder. . 31 Classification: Borderline High . 32 CALCULATED LDL APPROXIMATES THE VALUE OF A DIRECT LDL MEASUREMENT. Classification: Borderline High . 33 PATIENT MAY HAVE RESULTS PER DOCTOR'S AUTHORIZATION. Questions regarding this report should be directed to your doctor. Procedures Date CPT Code Description Status 03/15/2018 19488 Nerve Conduction 07-08 Studies Completed 06/29/2017 50116 Laparoscopy Cholecystectomy Completed 06/29/2017 70463 Laparoscopy Cholecystectomy Completed 12/01/2015 47360 Nerve Conduction 03-04 Studies Completed 05/04/2015 66083 Stress Test Completed 05/04/2015 70593 Myocardial Perfusion Imaging Tomographic (Spect) Completed Multiple Studies 05/04/2015 41743 Myocardial Perfusion Imaging Tomographic (Spect) Completed Multiple Studies 04/28/2015 08127 EKG Tracing & Interpretation Completed 03/31/2015 62379 Nerve Conduction 07-08 Studies Completed Encounters Type Date Location Provider CPT E/M Dx Office Visit 03/01/2018 [facility] Waldo Mcconnell M.D. 86354 R20.2 10:30a [facility] R25.3 M54.2 R94.02 R53.82 Office Visit 12/28/2017 8:50a [facility] [place] [address] L91.8 [place]acida L82.1 L81.3 D23.72 Z08 Z85.820 Office Visit 11/27/2017 8:30a [facility] Saray Cummings M.D. 05819 M25.561 C.M.A. M25.562 M25.461 M25.462 M17.0 M21.061 M21.062 Office Visit 06/13/2017 10:30a [facility] Kaplan, 72509 K80.10 Rocio Anderson Office Visit 12/22/2015 3:45p [facility] Velma Perez, 11120 R20.2 Services Of Rocio Anderson G56.02 G56.01 Office Visit 05/11/2015 1:40p [facility] Layne Delaney, 91654 R07.9 Community Chest Officer AT [facility] [place] DANIELLE SONG, [facility] Office Visit 04/28/2015 3:00p [facility], 66343 R07.9 Rocio AT [facility] [place] DANIELLE SONG, [facility] E66.09 G47.33 Office Visit 02/26/2015 9:30a [facility] Velma Perez, 33782 354.0 M.D. 781.0 780.57 782.0 794.09 Office Visit 10/18/2009 12:15a [facility] Benson Johnson M.D. 80983 780.59 Hospitalists 530.81 553.3 278.00 Office Visit 10/17/2009 3:30a [facility] Benson Johnson M.D. 00386 786.50 Hospitalists 401.9 272.4 278.00 530.81 Office Visit 06/25/2008 10:00a [facility] AT [facility], 59646 493.90 [facility] Office Visit 05/26/2008 10:15a [facility] AT [facility], 38319 723.1 [facility]. Office Visit 05/23/2008 9:40a [facility] AT [facility], 88903 465.9 [facility].D 401.1 493.90 Office Visit 05/23/2008 9:30a [facility] AT [facility], 24544 465.9 [facility].D 401.1 493.90 Office Visit 04/04/2007 3:30p [facility] AT [facility], 76374 493.90 [facility] 401[facility]1 Plan of Care Future Appointment(s):05/01/2018 9:30 am - Daniel Albert PA-C at [facility]05/01/2018 9:30 am - EULOGIO Rowland at [facility]05/11/2018 9:15 am - Saray Cummings M.D. at [facility]04/25/2018 2:00 pm - Waldo Mcconnell M.D. at [place]/ [facility]07/05/2018 1:20 pm - Gaston Hernandez MD at [facility] Dermat[facility] AT Oqvtcjxk25/02/2018 9:30 am - Saray Cummings [facility].D. [facility] - Saray Cummings M.D.M25.561 Pain in right kneeFollow up:Follow up: 2 weeks after xmxibclK33.461 Effusion, right kneeM17.11 Unilateral primary osteoarthritis, right kneeM21.061 Valgus deformity , not elsewhere classified, right knee
--- OUTSIDE RECORDS SUMMARY | 2018-05-01 08:37 | XMS REPORT ---
:1965 External Reference #:[id number] [facility] Address [address] [place] [address] [place] [address] Phone [phone] Care Team Providers Name Role Phone Hattie Lawson DO Primary Care Physician Unavailable Payers Type Date Identification Numbers Payment Provider Subscriber Commercial Effective: Policy Number: [id number] Masoud Brady 2017 Group Number: [id number] [address] PayID: [id number] [place] [address] Medigap Part B Expires: 2017 Policy Number: BS Lizzie Brady [id number] PayID: [id number] [address] [address] [place] [address] Medigap Part B Effective: 2009 Policy Number: BS Monserrat MAHI Brady [id number] Expires: 2009 PayID: [id number] [address] [address] [place] [address] Problems Date Description Provider Status Onset: 02/26/2015 [...] Marital Status 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 Cigarette Use Never Smoked Cigarettes ETOH [...] Form Strength Qnty SIG Indications Ordering Provider Tramadol HCL Active Tablets 50mg 1 tab po Unknown /0000 tid prn pain Omeprazole Active Tablets 20mg 1 by Unknown /0000 DR mouth twice daily Proair HFA Active Aerosol 108(90Bas 2 puffs Unknown /0000 e) by mouth mcg/Act every 4 - 6 hours as needed Metoprolol Active Tablets 50mg 1 by Unknown Tartrate /0000 mouth daily Tylenol Active Tablets 325mg 2 po as Unknown /0000 needed Sulindac Active 1 tAB Unknown /0000 Everyday Metformin HCL Active Tablets 500mg 1 Tab Unknown /0000 Twice Daily Multi Vitamin 00 Active Tablets 1 by Unknown Daily /0000 mouth every day Alprazolam 03/01 Hx Tablets 2mg 2tabs take 1 45 R94.02 Waldo /2017 min prior Jayesh M.D. - to MRI, 04/24 repeat X 1 at time of MRI if remains anxious. Do not drive after taking Fluconazole 07/07 Hx Tablets 150mg 2tabs One Saida Pritchett /2016 tablet MD Jc - once 02/28 daily directed Acetaminophen-Cod 06/16 Hx Tablets 300-15mg 20tab 1-2 tabs Saida Pritchett eine # s by mouth MD Jc - every 4h 02/28 as needed pain Flexeril 05/26 Hx Tablets 10mg 21tab 1 po tid Rodney Mckeon /German s prn Justin James - 06/25 Amoxicillin 05/23 Hx Tablets 500mg 30tab 1 po tid Rodney Mckeon s jl James M.D. - days 06/25 Proventil Hx Aerosol 90mcg/Act 2 Puffs Unknown /0000 PO qid - 04/27 Motrin Hx Tablets 200mg 120ta 1 PO prn Evaristo, /0000 bs EULOGIO Linda - 01/28 Flovent Hx Aerosol 220mcg/Ac 2 Puffs Barken, 0000 t PO bid MD Garry - 06/25 Serevent Diskus Hx Aerosol 50mcg/Dos 3unit 1 puff Barken, e s bid MD Garry - 06/25 Hydrochlorothiazi Hx Tablets 12.5mg 16tab 1 po qd Rodney Mckeon de buffy James M.D. - 06/25 Benicar Hx Tablets 20mg 16tab 1 po qd Rodney Mckeon buffy James M.D. - 06/25 Diclofenac Sodium [...] by mouth 02/28 twice a day Vitamin D 1000MG Hx Unknown /0000 - 04/24 Vitamin Minerals Hx Unknown For Hair And Skin - 02/28 Medications Administered in Office Medication Date Status Form Strength Qnty SIG Indications Ordering Provider Inj, Administered Injection Uriah Hamilton Regadenoson, 015 Mick, 0.1 MG M.D., FACC, FASNC Inj, Administered Injection Laly Regadenoson, 015 [place], 0.1 MG M.D. Technetium TC Administered Injection Uriah Hamilton 99M Nicol Dao M.D., DANIELLE, Per Unit Dose FASNC Up To 40 Millicuries Technetium TC Administered Injection Laly 99M Nicol Clancy M.D. Per Unit Dose Up To 40 Millicuries Vital Signs Date Vital Result Comment 04/25/2018 Height 60 inches 5'0" Weight 233.00 lb Heart Rate 58 /min BP Systolic 118 mmHg BP Diastolic 76 mmHg Respiratory Rate 20 /min Pain Level 6 O2 % BldC Oximetry 98 % BMI (Body Mass Index) 45.5 kg/m2 04/18/2018 Height 60 inches 5'0" Weight 232.00 [...] 1 Urine Appearance Clear 1 Urine Specific [place] 1.027 1.010-1.030 1 Urine pH 5.0 5-9 [...] Distribution WDTH 13 % 10.5-15 33 1 05/01 2 Because ethnic data is not always [...] [address]: Saray Cummings MD Acct: [id number] Unit: [id number] AGE: 52 Location: [facility] Re04/18/18 SEX: F Status: REG REF SPEC: [id number] NATA: 04/18/18-[address] [facility] [address]: Saray Cummings MD REQ: [id number] RECD: 04/18/18 STATUS: COMP _ SOURCE: URINE SPDESC: ORDERED: Urine Culture COMMENTS: JOZEF 05/01 QUERIES: Urine Source: Clean Catch Procedure Result Reported Site Urine Culture Final 04/19/18- 1602 ML No growth of clinically significant organisms * ML - Main Lab . END OF REPORT DEPARTMENT OF PATHOLOGY, [address] [place] [address] Cameron Rojas M.D. Director [facility] # [id number] 5 Normal Range 180 to 914 Indeterminate Range 145 to 180 Deficient Range <145 6 [facility] Copy Result to: HATTIE LAWSON ([id number]) 7 [facility] Copy Result to: HATTIE LAWSON ([id number]) 8 [facility] Copy Result to: LOURDES LAWSONZEB DAWKINS ([id number]) 9 [facility] Copy Result to: HATTIE LAWSON MARIZA ([id number]) 10 [facility] Copy Result to: RENNY HATTIE MARIZA ([id number]) 11 Because ethnic data is not always [...] [address]: Jc Kaplan MD Acct: [id number] Unit: [id number] AGE: 51 Location: [place] Re06/29/17 SEX: F Status: [facility] SPEC: [id number] NATA: 06/29/17- [facility] DR: Jc Kaplan MD REQ: [id number] RECD: 06/29/17 STATUS: SOUT _ ORDERED: LEVEL 3 FINAL [...] and the wall thickness averages 0.1 cm. Laboratory Sampler sections, one cassette. Signed (signature on file) Cameron Rojas MD 110 END OF REPORT * ML=Testing performed at Main Lab DEPARTMENT OF PATHOLOGY, [address] [place] [address] Cameron Rojas M.D. Director [facility] # [id number] 13 Test Performed by: [facility] [place] [address] Validation Technician: Cj Zuniga II, M.D., Ph.D. 14 [...] protein on serum electrophoresis. Test Performed by: [place] [address] Validation Technician: Cj Zuniga II, M.D., Ph.D. 17 [...] quantitated) >=10 (Toxic concentration) Test Performed by: [address] [address] Validation Technician: Cj Zuniga II, M.D., Ph.D. 22 REFERENCE VALUE <1.0 (Negative) 23 REFERENCE VALUE <1.0 (Negative) Test Performed by: [place] [address] Validation Technician: Cj Zuniga II, M.D., Ph.D. 24 Normal Range 180 to 914 Indeterminate Range 145 to 180 Deficient Range <145 25 REFERENCE VALUE <=13 (Fasting) Test Performed by: [place] [address] Validation Technician: Cj Zuniga II, M.D., Ph.D. 26 Acute inflammation: >10.00 27 Serologic response to B. burgdorferi infection is not detected, but cannot rule out early infection during which low or undetectable antibody levels to B. burgdorferi may be present. If clinically indicated, a new serum specimen should be submitted in 7-14 days. Test Performed by: [place] [address] Validation Technician: Cj Zuniga II, M.D., Ph.D. 28 [...] Procedures Date CPT Code Description Status 03/15/2018 89308 Nerve Conduction 07-08 Studies Completed 06/29/2017 98093 Laparoscopy Cholecystectomy Completed 06/29/2017 81988 Laparoscopy Cholecystectomy Completed 12/01/2015 80166 Nerve Conduction 03-04 Studies Completed 05/04/2015 70303 Stress Test Completed 05/04/2015 69925 Myocardial Perfusion Imaging Tomographic (Spect) Completed Multiple Studies 05/04/2015 04985 Myocardial Perfusion Imaging Tomographic (Spect) Completed Multiple Studies 04/28/2015 01201 EKG Tracing & Interpretation Completed 03/31/2015 05317 Nerve Conduction 07-08 Studies Completed Encounters Type Date Location Provider CPT E/M Dx Office Visit 03/01/2018 [place] Suha Mcconnell M.D. 18963 R20.2 10:30a Services Of Rocio R25.3 M54.2 R94.02 R53.82 Office Visit 12/28/2017 8:50a [facility] [place] [address] L91.8 [place] L82.1 L81.3 D23.72 Z08 Z85.820 Office Visit 11/27/2017 8:30a [facility] Saray Cummings M.D. 18036 M25.561 [facility] M25.562 M25.461 M25.462 M17.0 M21.061 M21.062 Office Visit 06/13/2017 10:30a [facility] Jc Kaplan, 44763 K80.10 Rocio Anderson Office Visit 12/22/2015 3:45p [place] [facility] Velma Perez, 24020 R20.2 Services Of Rocio Anderson G56.02 G56.01 Office Visit 05/11/2015 1:40p [facility] Layne Delaney, 87756 R07.9 [place] AT [facility] [place] , DANIELLE, [facility] Office Visit 04/28/2015 3:00p [facility] Layne Delaney, 35370 R07.9 [place] AT [facility] [place] DANIELLE SONG, FSCAI E66.09 G47.33 Office Visit 02/26/2015 9:30a [facility] Velma Perez, 69464 354.0 M.DYen 781.0 780.57 782.0 794.09 Office Visit 10/18/2009 12:15a [facility] Benson Johnson M.D. 09352 780.59 Hospitalists 530.81 553.3 278.00 Office Visit 10/17/2009 3:30a [facility] Benson Johnson M.D. 81955 786.50 Hospitalists 401.9 272.4 278.00 530.81 Office Visit 06/25/2008 10:00a [facility] AT [facility], 39741 493.90 [facility] M.D. 401.1 Office Visit 05/26/2008 10:15a [facility] AT [facility], 21298 723.1 [facility] M.D. Office Visit 05/23/2008 9:40a [facility] AT [facility], 11698 465.9 [facility] M.D. 401.1 493.90 Office Visit 05/23/2008 9:30a [facility] AT [facility], 57150 465.9 [facility] M.D. 401.1 493.90 Office Visit 04/04/2007 3:30p [facility] AT [facility], 82247 493.90 [facility] M.D. 401.1 Plan of Care Future Appointment(s):07/11/2018 8:15 am - Waldo Mcconnell M.D. at [place]/ [place] [facility]05/01/2018 11:30 am - Daniel Albert PA-C at [facility]05/01/2018 11:30 am - EULOGIO Rowland at [facility]05/11/2018 9:15 am - Saray Cummings M.D. at [facility]07/05/2018 1:20 pm - Gaston Hernandez MD at [facility] Dermat[facility] AT Cexxobgp70/02/2018 11:30 am - Saray Cummings M.D. at [facility]04/25/2018 - Waldo Mcconnell M.D.R25.3 FasciculationFollow up:Follow up 12 gcpiuF41.02 Abnormal brain scanR53.82 Chronic fatigue, ekowjhrabjcX19.02 Carpal tunnel syndrome, left upper limb
--- OUTSIDE RECORDS SUMMARY | 2018-05-01 08:38 | XMS REPORT ---
:1965 External Reference #:[id number] Author Organization [facility] Address [address] [place] [address] [place] [address] Phone [phone] Care Team Providers Name Role Phone Hattie Lawson DO Primary Care Physician Unavailable Payers Type Date Identification Numbers Payment Provider Subscriber Commercial Effective: Policy Number: [id number] Masoud Brady 2017 Group Number: [id number] [address] PayID: [id number] [place] [address] Medigap Part B Expires: 2017 Policy Number: BS Lizzie Brady [id number] PayID: [id number] [address] [address] [place] [address] Medigap Part B Effective: 2009 Policy Number: BS Monserrat MAHI rBady [id number] Expires: 2009 PayID: [id number] [address] [address] [place]arden [address] Problems Date Description Provider Status Onset: 02/26/2015 [...] Marital Status 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 Technetium TC Administered Injection [...] Test Date Test Result H/L Range Note Basic Metabolic Panel 03/09/2018 Sodium 140 mmol/L 135-145 Potassium 4.2 mmol/L 3.5-5.0 Chloride 105 mmol/L 101-111 Co2 Carbon Dioxide 28 mmol/L 22-32 Anion Gap 7 mmol/L 2-11 Glucose 83 mg/dL 70-100 Blood Urea Nitrogen 18 mg/dL 6-24 Creatinine 0.60 mg/dL 0.51-0.95 BUN/Creatinine Ratio 30.0 High 8-20 Calcium 9.2 mg/dL 8.6-10.3 Egfr Non- 104.6 >60 Egfr 126.5 >60 1 Laboratory test finding 03/09/2018 Erythrocyte Sed Rate 22 mm/Hr 0-30 2 C Reactive Protein 1.35 mg/L <8.01 3 Vitamin B12 And Folate Serum 03/09/2018 Vitamin B12 336 pg/mL 180-914 4 Folic Acid (Folate) > 20.00 ng/mL >3.99 5 Laboratory test finding 03/09/2018 TSH (Thyroid Stim Horm) 1.60 mcIU/mL 0.34-5.60 6 Free T4 (Free Thyroxine) 1.02 ng/dL 0.61-1.12 7 Laboratory test 06/29/2017 Surgical Pathology SEE RESULT BELOW 8 finding Laboratory test 01/26/2016 Methylmalonic Acid Mma 0.12 nmol/mL <=0.40 9 finding C Reactive Protein 5.31 mg/L High < 5.00 10 Comp Metabolic Panel 12/02/2015 Sodium 138 mmol/L [...] Egfr Non- 74.5 >60 Egfr 95.9 >60 11 Protein Electrophoresis 12/02/2015 Total Protein(Pep) 7.4 g/dL 6.3 - 7.9 Albumin 3.2 g/dL 3.4-4.7 Alpha-1 Globulin 0.3 g/dL 0.1-0.3 Alpha-2 Globulin 1.1 g/dL 0.6-1.0 Beta Globulin 1.5 g/dL 0.7-1.2 Gamma Globulin 1.3 g/dL 0.6-1.6 Albumin/Globulin Ratio 0.78 Impression See Comment 12 Volatiles Panel Serum 03/13/2015 Volatile Screen See Comment 13 Methanol Not Detected mg/dL 14 Ethanol Not Detected mg/dL 15 Acetone Level Not Detected mg/dL 16 Isopropanol Not Detected mg/dL 17 Ssa/SSB Abs Igg 03/13/2015 SS-A/Ro Antibody <0.2 U 18 SS-B/La Antibody <0.2 U 19 Laboratory test finding 03/13/2015 TSH (Thyroid Stim Horm) 2.74 ?IU/mL 0.34-5.60 Free T4 (Free Thyroxine) 0.87 ng/mL 0.61-1.12 Vitamin B12 276 pg/mL 180-914 20 Folic Acid (Folate) 19.03 ng/mL >3.99 Homocysteine 9 mcmol/L 21 Jojo (Antinuclear Antibodies) Negative Negative Erythrocyte Sed Rate 30 mm/Hr 0-30 C Reactive Protein 7.68 mg/L High < 5.00 22 Lyme Disease Serology Negative Negative 23 CMP Panel 03/13/2015 Sodium 139 mmol/L 133-145 [...] Egfr Non- 84.4 >60 Egfr 108.5 >60 24 CBC W/Auto Diff 03/13/2015 White Blood Count [...] Metabolic Panel 05/23/2007 One Over Creatinine 1.42 25 Anion Gap 6.0 mmol/L 2-11 25, 26 Albumin/Globulin Ratio 1.2 1-3 25 Albumin 3.5 GM/DL Low 3.6-5.4 25 Alkaline Phosphatase 67 U/L 30-110 25 Alt (SGPT) 24 U/L 14-54 25 Ast (Sgot) 19 U/L 12-42 25 BUN 5 mg/dL Low 6-24 25 Calcium 8.8 mg/dL 8.7-10.2 25 Chloride 106 mmol/L 101-111 25 Co2 (Carbon Dioxide) 28.0 mmol/L 22-32 25 Globulin 2.9 GM/DL 2-4 25 Glucose 89 mg/dL 70-105 25 Potassium 4.1 mmol/L 3.5-5.0 25 Sodium 140 mmol/L 135-145 25 Bilirubin Total 0.5 mg/dL 0.4-1.5 25 Total Protein 6.4 GM/DL 6.2-8.1 25 BUN/Creatinine Ratio 7.1 Low 8-20 25 Creatinine 0.7 mg/dL 0.5-1.4 25 Lipid Profile 05/23/2007 Cholesterol 213 mg/dL High Less Than 200 25, 27 (Trig/Chol/HDL) Triglyceride 106 mg/dL 40-200 25 High Density Lipoprotein 40 mg/dL 40-60 25 Low Density Lipoprotein 152 mg/dL High Less Than 100 25, 28 Cholesterol/HDL Ratio 5.33 AVERAGE High 1-4.44 25 Laboratory test finding 05/23/2007 TSH 1.79 MIU/ML 0.34-5.60 25 CBC W/ Electronic Diff 05/23/2007 White Blood Count 6.8 CUMM 4.8-10.8 29 Abs Basophils 0 0-0.2 29 Abs Eosinophils 0.1 0-0.6 29 Absolute Neutrophil Count 3.8 1.5-7.7 29 Abs Lymphs 2.5 1.0-4.8 29 Abs Mononuclear 0.4 0-0.8 29 Basophil % 0.2 % 0-2 29 Hematocrit 36 % 35-47 29 Hemoglobin 12.7 g/dL 12.0-16.0 29 Eosinophil % 1.6 % 0-6 29 Gran % 55.6 % 38-83 29 Lymph % 36.8 % 20-45 29 Mean Corpuscular HGB Cone 35 g/dL 32-36 29 Mean Corpuscular Hemoglob 31 pg 27-31 29 Mean Corpuscular Volume 88 um3 79-97 29 Mean Platelet Volume 7.8 um3 7.4-10.4 29 Mononuclear % 5.8 % 1-9 29 Platelet Count 339 CUMM 150-450 29 Red Cell Count 4.14 CUMM Low 4.2-5.4 29 Redcell Distribution WDTH 13 % 10.5-15 29 1 Because ethnic data is not always readily [...] 15-29 5 Kidney failure <15 (or dialysis) 2 [facility] Copy Result to: HATTIE LAWSON ([id number]) 3 [facility] Copy Result to: HATTIE LAWSON ([id number]) 4 Normal Range 180 to 914 Indeterminate Range 145 to 180 Deficient Range <145 5 [facility] Result to: HATTIE LAWSON ([id number]) 6 [facility] Copy Result to: HATTIE LAWSON ([id number]) 7 [facility] Copy Result to: HATTIE LAWSON ([id number]) 8 SEE RESULT BELOW Name: EILEEN BRADY : [address]: Jc Kaplan MD Acct: [id number] Unit: [id number] AGE: 51 Location: OR Re06/29/17 SEX: F Status: DEP [facility] SPEC: [id number] NATA: 06/29/17- [facility] DR: Jc Kaplan MD REQ: [id number] RECD: 06/29/172040 STATUS: SOUT _ ORDERED: LEVEL 3 FINAL [...] and the wall thickness averages 0.1 cm. Ordained Minister sections, one cassette. Signed (signature on file) Cameron Rojas MD 1101 END OF REPORT * ML=Testing performed at Main Lab DEPARTMENT OF PATHOLOGY, [address] [place] [address] Cameron Rojas M.D. Director [facility] # [id number] 9 Test Performed by: [place] [id number] Care Aide: Cj Zuniga II, M.D., Ph.D. 10 Acute inflammation: >10.00 11 Because ethnic data is not always [...] 5 Kidney failure <15 (or dialysis) 12 RESULT: No apparent monoclonal protein on serum electrophoresis. Test Performed by: [address] [address] Care Aide: Cj Zuniga II, M.D., Ph.D. 13 Sample aliquot received, original unopened sample is preferred. 14 REFERENCE VALUE Not detected (Positive results are quantitated) >=10 (Toxic concentration) 15 REFERENCE VALUE Not detected (Positive results are quantitated) >=400 (Toxic concentration) 16 REFERENCE VALUE Not detected (Positive results are quantitated) >=10 (Toxic concentration) 17 REFERENCE VALUE Not detected (Positive results are quantitated) >=10 (Toxic concentration) Test Performed by: [place] [address] Care Aide: Cj Zuniga II, M.D., Ph.D. 18 REFERENCE VALUE <1.0 (Negative) 19 REFERENCE VALUE <1.0 (Negative) Test Performed by: [address] [address] Care Aide: Cj Zuniga II, M.D., Ph.D. 20 Normal Range 180 to 914 Indeterminate Range 145 to 180 Deficient Range <145 21 REFERENCE VALUE <=13 (Fasting) Test Performed by: [place] [id number] Care Aide: Cj Zuniga II, M.D., Ph.D. 22 Acute inflammation: >10.00 23 Serologic response to B. burgdorferi infection is not detected, but cannot rule out early infection during which low or undetectable antibody levels to B. burgdorferi may be present. If clinically indicated, a new serum specimen should be submitted in 7-14 days. Test Performed by: [place] [address] Care Aide: Cj Zuniga II, M.D., Ph.D. 24 Because ethnic data is not always readily [...] 15-29 5 Kidney failure <15 (or dialysis) 25 FASTING PATIENT MAY HAVE RESULTS PER DOCTOR'S AUTHORIZATION. Questions regarding this report should be directed to your doctor. 26 Anion gap measurement may be of limited value in the presence of any alkalosis, especially in a combined acid base disorder. . 27 Classification: Borderline High . 28 CALCULATED LDL APPROXIMATES THE VALUE OF A DIRECT LDL MEASUREMENT. Classification: Borderline High . 29 PATIENT MAY HAVE RESULTS PER DOCTOR'S AUTHORIZATION. Questions regarding this report should be directed to your doctor. Procedures Date CPT Code Description Status 03/15/2018 03730 Nerve Conduction 07-08 Studies Completed 06/29/2017 14417 Laparoscopy Cholecystectomy Completed 06/29/2017 03455 Laparoscopy Cholecystectomy Completed 12/01/2015 86150 Nerve Conduction 03-04 Studies Completed 05/04/2015 84010 Stress Test Completed 05/04/2015 14709 Myocardial Perfusion Imaging Tomographic (Spect) Completed Multiple Studies 05/04/2015 28586 Myocardial Perfusion Imaging Tomographic (Spect) Completed Multiple Studies 04/28/2015 89658 EKG Tracing & Interpretation Completed 03/31/2015 42329 Nerve Conduction 07-08 Studies Completed Encounters Type Date Location Provider CPT E/M Dx Office Visit 03/01/2018 [facility] Waldo Mcconnell M.D. 36896 R20.2 10:30a [facility] [place] R25.3 M54.2 R94.02 R53.82 Office Visit 12/28/2017 8:50a [facility] [place] [address] L91.8 [place] L82.1 L81.3 D23.72 Z08 Z85.820 Office Visit 11/27/2017 8:30a [facility] Saray Cummings M.D. 23331 M25.561 C.M.AYen M25.562 M25.461 M25.462 M17.0 M21.061 M21.062 Office Visit 06/13/2017 10:30a [facility] Jc Kaplan, 49344 K80.10 Rocio Anderson Office Visit 12/22/2015 3:45p [facility] Velma Perez, 51351 R20.2 Services Of Rocio Anderson G56.02 G56.01 Office Visit 05/11/2015 1:40p [facility] Layne Delaney, 50073 R07.9 [place] AT [facility] DANIELLE SONG, [facility] Office Visit 04/28/2015 3:00p [facility] Layne Delaney, 49053 R07.9 Rocio AT [facility] DANIELLE SONG, [facility] E66.09 G47.33 Office Visit 02/26/2015 9:30a [facility] Velma Perez, 70350 354.0 M.Melba 781.0 780.57 782.0 794.09 Office Visit 10/18/2009 12:15a [facility] Assmey vaughan M.D. 38072 780.59 Hospitalists 530.81 553.3 278.00 Office Visit 10/17/2009 [facility] 13593 786.50 Hospitalists 401.9 272.4 278.00 530.81 Office Visit 06/25/2008 10:00a [facility], [address]1978 493.90 [facility] Office Visit 05/26/2008 10:15a [facility], 84163 723.1 [facility] Visit 05/23/2008 9:40a [facility], 02108 465.9 [facility] 401.1 493.90 Office Visit 05/23/2008 9:30a [facility], 96427 465.9 [facility] 401.1 493.90 Office Visit 04/04/2007 3:30p [facility], 01326 493.90 [facility] 401.1 Plan of Care Future Appointment(s):05/11/2018 9:15 am - Saray Cummings M.D. at [facility]04/25/2018 2:00 pm - Waldo Mcconnell M.D. at [place]07/05/2018 1:20 pm - Gaston Hernandez MD at [facility] Dermat[facility] AT [place]50/02/2018 9:30 am - Saray Cummings M.D. at [facility]04/18/2018 - Saray Cummings M.D.M25.561 Pain in right kneeFollow up:Follow up: 2 weeks after mmadqmwV07.461 Effusion, right kneeM17.11 Unilateral primary osteoarthritis, right kneeM21.061 Valgus deformity , not elsewhere classified, right knee
[2018-05-01] MEDS ORDERED: Famotidine IV* 10 MG/ML 2 ML (20 mg) ONE (08:49)
[2018-05-01] MEDS ORDERED: ceFAZolin 2 GM in NS PREMIX(*) 2 GM/100 ML BAG IVPB ONE (08:50)
[2018-05-01] MEDS ORDERED: Lidocaine 2% PF * 5 ML VIAL ONE ×3 (09:27→12:00)
[2018-05-01] MEDS ORDERED: Ondansetron INJ* 2 MG/ML VIAL ONE (09:27)
[2018-05-01] MEDS ORDERED: Propofol* 10 MG/ML 20 ML BTL IV PUSH ONE (09:27)
[2018-05-01] MEDS ORDERED: ROPIVACAINE 5 MG/ML 30 ML BTL (0.5%) ONE ×2 (09:27→10:55)
[2018-05-01] MEDS ORDERED: Ketorolac INJ* 30 MG/ML 1 ML VIAL ONE (09:27)
[2018-05-01] MEDS ORDERED: Dexamethasone IV* 4 MG/ML 1 ML (4 MG) ONE (09:27)
[2018-05-01] MEDS ORDERED: KETAMINE HCL* 50 MG/ML 10 ML VIAL ONE (09:28)
[2018-05-01] MEDS ORDERED: fentaNYL* 50 MCG/ML 2 ML VIAL (100 MCG VIAL) ONE ×2 (09:28→15:59)
[2018-05-01] MEDS ORDERED: Midazolam* 1 MG/ML 10 ML VIAL (10 MG) ONE (09:28)
[2018-05-01] MEDS ORDERED: Levalbuterol 0.63MG/3ML NEB* UNIT OF USE INH ONE (10:27)
[2018-05-01] MEDS ORDERED: Bupivacaine 0.5% SDV PF* 30ML VIAL ONE ×2 (10:58→11:18)
[2018-05-01] MEDS ORDERED: EPHEDrine (Pressors)* 50 MG/ML VIAL ONE (11:54)
[2018-05-01] MEDS ORDERED: Propofol* 500 MG/50 ML BTL ONE (12:00)
[2018-05-01] MEDS ORDERED: Phenylephrine INJ* 10 MG/ML 1 ML VIAL (10 MG) ONE (12:10)
[2018-05-01] MEDS ORDERED: Levalbuterol 0.63MG/3ML NEB* UNIT OF USE INH PRN (13:28)
[2018-05-01] MEDS ORDERED: Acetaminophen IV 1GM/100ML * 1,000 MG/100 ML VIAL IVPB ONE (13:28)
[2018-05-01] MEDS ORDERED: Ondansetron INJ* 2 MG/ML VIAL IV PRN ×2 (13:28→14:25)
[2018-05-01] MEDS ORDERED: Phenylephrine INJ* 50 MG in NS 0.9% 250 ML* 245 ML IV PRN (13:28)
[2018-05-01] MEDS ORDERED: Naloxone* 0.4 MG/ML 1 ML VIAL IV PRN (13:28)
[2018-05-01] MEDS ORDERED: oxyCODONE TAB* 5 MG TAB PO PRN (14:18)
[2018-05-01] MEDS ORDERED: Acetaminophen TAB* 325 MG PO PRN (14:18)
[2018-05-01] MEDS ORDERED: oxyCODONE/Acetamin 5/325 MG* TAB PO PRN (14:18)
[2018-05-01] MEDS ORDERED: Magnesium Hydroxide LIQ* 30 ML UDC PO PRN (14:18)
[2018-05-01] MEDS ORDERED: diPHENhydraMINE PO* 25 MG PO PRN (14:25)
[2018-05-01] MEDS ORDERED: diPHENhydraMINE IV* 50 MG/ML 1 ml VIAL (BENADRYL) IV PRN (14:25)
[2018-05-01] MEDS ORDERED: Bisacodyl SUPP* 10 MG SUPP PR PRN (14:25)
[2018-05-01] MEDS ORDERED: Ondansetron ODT TAB* 4 MG PO PRN (14:25)
[2018-05-01] MEDS ORDERED: Nystatin CREAM* 15 GM TUBE TOPICAL PRN (14:28)
[2018-05-01] MEDS ORDERED: Albuterol 2.5 MG/3 ML NEB.SOL* (0.083%) INH PRN (14:28)
[2018-05-01] MEDS ORDERED: Fluticasone NASAL SPRAY 50MCG* 16 gm SPRAY BTL BOTH NARES PRN (14:28)
[2018-05-01] MEDS ORDERED: Albuterol HFA INHALER* 8 gm MDI INH PRN (14:28)
--- NOTE | 2018-05-01 15:00 | RAD ---
HISTORY: sp right total knee replacement COMPARISONS: November 27, 2017 VIEWS: 2 , Frontal and lateral views of the right knee FINDINGS: BONE DENSITY: Normal. BONES: The patient is status post right knee arthroplasty. There is no hardware failure or osteolysis. JOINTS: The patient is status post right knee arthroplasty. ALIGNMENT: There is no dislocation. SOFT TISSUES: There is post surgical change to the soft tissue. OTHER FINDINGS: None. IMPRESSION: STATUS POST RIGHT KNEE ARTHROPLASTY.
[2018-05-01] MEDS ORDERED: Acetaminophen IV 1GM/100ML * 100 ML ONE (15:47)
[2018-05-01] MEDS: fentaNYL* 50 MCG/ML 2 ML VIAL (100 MCG VIAL) IV PRN ×2 (16:00→16:39)
[2018-05-01] MEDS: Morphine INJ* 4 MG/ML 1 ML SYRINGE (NEW SYRINGE VERSION) IV PRN ×2 (18:20→21:38)
[2018-05-01] MEDS ORDERED: oxyCODONE TAB* 5 MG TAB ONE (18:41)
[2018-05-01] MEDS: Clindamycin 600 MG IVPREMIX(* 600 MG/50 ML SDV IV SCH (20:45)
[2018-05-01] MEDS: Magnesium Oxide TAB* 400 MG PO SCH (21:00)
[2018-05-01] MEDS: oxyCODONE/Acetamin 5/325 MG* TAB PO PRN (21:00)
[2018-05-01] MEDS ORDERED: metFORMIN* 500 MG TAB PO SCH (21:00)
[2018-05-01] MEDS: Docusate CAP* 100 MG PO SCH (21:01)
[2018-05-01] MEDS: Magnesium Hydroxide LIQ* 30 ML UDC PO SCH (21:01)
[2018-05-01] MEDS: Cyclobenzaprine TAB* 10 MG PO PRN (21:08)
[2018-05-01] MEDS: oxyCODONE TAB* 5 MG TAB PO PRN (23:07)
[2018-05-01] MEDS ORDERED: HYDROmorphone INJ1* 1 MG/ML SYRINGE IV PRN (23:28)
--- NOTE | 2018-05-02 00:32 | CONS ---
CC: Dr. Cummings; Dr. Gomes * DATE OF CONSULTATION: 05/01/18 REQUESTING PHYSICIAN: Dr. Cummings ATTENDING PHYSICIAN WHILE IN THE HOSPITAL: Dr. Kenny (report is dictated by Juliana Dillon, ANA) PRIMARY CARE PROVIDER: Dr. Gomes REASON FOR CONSULTATION: Evaluation of medical management of comorbid medical problems. HISTORY OF PRESENT ILLNESS: I will refer you to Dr. Cummings's H and P for further details. In short, Ms. Carpenter is a 52-year-old female who has a history of hypertension, a remote hx of a provoked DVT following a knee scope (not currently on anti coagulant), GERD, and arthritis. She presents to Dr. Cummings's service with significant right knee pain for some time. She was found to have arthritis. She failed conservative therapy and elected to have a right total knee replacement which was done today. Because of her medical complexities, we are asked to evaluate in consult. She was evaluated in the PACU. The patient says that she is feeling well. Denies chest and shortness of breath. Denies lightheaded or dizziness. Denies nausea and vomiting. Denies abdominal discomfort or. Sensation grossly intact. PAST MEDICAL HISTORY: Includes: 1. Hypertension. 2. Remote hx of provoked DVT following the knee scope (not currently anti coagulated) 3. Asthma. 4. Depression. 5. Anxiety. 6. GERD. 7. Melanoma. 8. Schwartz's palsy. 9. Neuropathy bilateral feet. 10. Bilateral carpal tunnel. PAST SURGICAL HISTORY: 1. Cholecystectomy. 2. Melanoma removal in her genital region. 3. Right knee arthroscopy. 4. Hernia repair. 5. x3. 6. Tubal ligation. MEDICATIONS: As per home medications: 1. Tramadol 50 mg t.i.d. p.r.n. for pain. 2. Omeprazole 20 mg daily. 3. ProAir prn asthma. 4. Metoprolol 50 mg daily. 5. Tylenol prn. 6. Multivitamin. 7. Metformin 500 mg b.i.d. (which she takes for weight loss, not diabetes) ALLERGIES: CECLOR, VICODIN, and ORANGES. Reports VICODIN allergy occurred when she was on the high doses after the knee scope and caused her to have an asthma attack but not anaphylaxis. FAMILY HISTORY: Cancer, diabetes, stroke, and rheumatoid arthritis. SOCIAL HISTORY: Denies smoking and drug use. Rarely consume alcohol. Rarely consumes caffeine. She lives with her male partner/boyfriend who is also at bedside. Her surrogate is her boyfriend/partner Sonia Clifford. Independent with ADLs at baseline REVIEW OF SYSTEMS: There is no documented fever. No visual changes. Denies ear , nose, throat symptoms. Denies chest pain and palpitations. Denies shortness of breath, cough, or wheezing. Denies nausea, vomiting, abdominal pain. Denies seizures, loss of consciousness, itching. Review of 14 system was completed, otherwise negative. PHYSICAL EXAM: Vital Signs: BP 131/70, O2 95%, HR 64, temp 97. Ms. Carpenter is a 52-year- old female. She is lying on the stretcher in the PACU. Does not appear to be in any acute distress. She is tolerating Kwasi crackers, appears to be well nourished, well developed. HEENT: Head is atraumatic, normocephalic. EOMs are intact. Sclerae are normal. Neck is supple. Oral mucosa appears moist. Heart: Sounds S1, S2 present. Regular rate and rhythm. No murmurs, rubs, or gallops. Peripheral pulses present and strong in all extremities. Lungs: Clear to auscultation. No wheezes, rales, or rhonchi. Abdomen: Soft and nontender. Bowel sounds are present. Able to move all extremities. CMS intact. She has no peripheral edema. Neurologically, she is awake, alert, and she is oriented. Tongue is midline. Film Recordist were equal. No gross focal deficits. Her skin is grossly intact. DIAGNOSTIC STUDIES/LAB DATA: WBC 7.7, RBC 4.64, hemoglobin 14.5, hematocrit 43 , platelet count 303. PTT 33.8. Sodium 140, potassium 4.3, chloride 104, , glucose 64, creatinine 0.66 and these labs were obtained on 04/18/18 during her preoperative evaluation. She also had a urinalysis which was unremarkable. During her preop examination she also had an EKG that was normal sinus rhythm with no ST elevations or T wave inversions. In addition, chest x-ray at her preop which showed stigmata of probable obstructive lung disease but no acute pulmonary or cardiac disease. ASSESSMENT AND PLAN: Ms. Carpenter is a 52-year-old female with hx of htn, GERD, remote hx of provoked dvt. She is evaluated in the PACU setting after having the right total knee replacement. We are asked to evaluate in consult given her medical complexity. My recommendation at this point are: 1. Status post right total knee replacement, I will defer the management to Dr. Cummings and her team. 2. Hypertension. Assessment: BP stable. Plan: Continue her metoprolol. Monitor her blood pressure and heart rate routinely. 3. Asthma: Assessment: Stable. Plan: Inhalers/Nebulizers ordered by Dr. Cummings and her team. 4. Gastroesophageal reflux disease: Assessment: Stable. Plan: Omeprazole has been ordered by Dr. Cummings and her team. 5. Weight loss: We are stopping the metformin which she reports she takes for "weight loss" and we will allow her to resume that after discharge. 6. As for DVT prophylaxis. She has been placed on anticoagulation by Dr. Cummings and her team, we will continue the same. 7. Code Status: Full code. TIME SPENT: On the consult 60 minutes was spent, greater than half time was spent face to face with the patient, obtaining my history and physical, other half time was spent going over the plan of care with the patient and implementing the plan of care. I discussed the plan of care with my attending Dr. Kenny and she is in agreement with the plan. Thank you for the consultation. The patient can resume her metformin after discharge, we will consult pleesa JULIANA DILLON, ANA [id number]/[facility] #: [id number] ANISA
[2018-05-02] MEDS: Morphine INJ* 4 MG/ML 1 ML SYRINGE (NEW SYRINGE VERSION) IV PRN ×3 (03:39→20:55)
[2018-05-02] MEDS: oxyCODONE/Acetamin 5/325 MG* TAB PO PRN ×5 (03:42→22:42)
[2018-05-02] MEDS: Clindamycin 600 MG IVPREMIX(* 600 MG/50 ML SDV IV SCH ×2 (03:43→12:07)
[2018-05-02] MEDS: oxyCODONE TAB* 5 MG TAB PO PRN ×4 (06:11→19:10)
[2018-05-02 07:07] LABS: Hematocrit 31 % (35-47); Hemoglobin 10.7 g/dl (12.0-16.0); Mean Platelet Volume 8.1 um3 (7.4-10.4); Platelet Count 251 10^3/ul (150-450)
[2018-05-02 07:38] LABS: EGFR Non-African American 108.7 (>60)
[2018-05-02] MEDS: Magnesium Hydroxide LIQ* 30 ML UDC PO SCH ×2 (08:39→21:00)
[2018-05-02] MEDS: Docusate CAP* 100 MG PO SCH ×2 (08:39→20:58)
[2018-05-02] MEDS: Omeprazole CAP* 20 MG PO SCH (08:40)
[2018-05-02] MEDS: Multivitamins/Minerals TAB PO SCH (08:40)
[2018-05-02] MEDS: Metoprolol Succinate XL TAB* 50 MG PO SCH (08:40)
--- NOTE | 2018-05-02 11:34 | PN ---
Progress Note - Progress Note Date of Service: 05/02/18 SOAP: Subjective: [] Patient was seen and examined at bedside. Knee pain is rated at 6/10 and is tolerable. Denies chest pain, shortness of breath, dizziness, nausea or leg numbness. Objective: [] General: Well appearing, NAD RLE: Right knee dressing CDI without erythema surrounding. Thigh is soft. DF/PF intact. Dp2+, capillary refill less than two seconds distally. BL calves supple and nontender without erythema, edema or palpable cords Assessment: []POD 1 sp right total knee arthroplasty Plan: []WBAT PT/OT Xarelto 10 mg qd x 30 days starting today. Does have a history of DVT after a right knee scope Vital Signs Temp 99.1 F 05/02/18 07:42 Pulse 62 05/02/18 07:42 Resp 18 05/02/18 10:45 BP 137/72 05/02/18 07:42 Pulse Ox 100 05/02/18 07:43 Intake & Output 05/01/18 05/02/18 05/02/18 18:59 06:59 18:59 Intake Total 3000 1840 320 Output Total 525 710 315 Balance 2475 1130 5 Weight 229 lb Intake: IV Fluids 2600 LR 2500 NS 100ML, Cefazolin 2G 100 Oral 400 1840 320 Output: Urine 315 Arndt 275 710 Estimated Blood Loss 250 Other: # Bowel Movements 0 Laboratory Last Values Hgb 10.7 g/dl (12.0-16.0) L 05/02/18 06:24 Hct 31 % (35-47) L 05/02/18 06:24 Plt Count 251 10^3/ul (150-450) 05/02/18 06:24 MPV 8.1 um3 (7.4-10.4) 05/02/18 06:24 Sodium 135 mmol/L (135-145) 05/02/18 06:23 Potassium 3.9 mmol/L (3.5-5.0) 05/02/18 06:23 Chloride 100 mmol/L (101-111) L 05/02/18 06:23 Carbon Dioxide 30 mmol/L (22-32) 05/02/18 06:23 Anion Gap 5 mmol/L (2-11) 05/02/18 06:23 BUN 13 mg/dL (6-24) 05/02/18 06:23 Creatinine 0.58 mg/dL (0.51-0.95) 05/02/18 06:23 Est GFR ( Amer) 131.6 (>60) 05/02/18 06:23 Est GFR (Non-Af Amer) 108.7 (>60) 05/02/18 06:23 BUN/Creatinine Ratio 22.4 (8-20) H 05/02/18 06:23 Glucose 142 mg/dL (70-100) H 05/02/18 06:23 POC Glucose (mg/dL) 100 mg/dL (70-100) 05/01/18 09:00 Calcium 8.2 mg/dL (8.6-10.3) L 05/02/18 06:23
[2018-05-02] MEDS: Rivaroxaban TAB(*) 10 MG PO SCH (12:07)
--- NOTE | 2018-05-02 13:19 | OP ---
OPERATIVE REPORT: DATE OF OPERATION: 05/01/18 DATE OF : 63 SURGEON: Saray Cummings MD ONLINE MEDIA BUYER: EULOGIO Guerrero Ms. Ballard did help throughout the procedure with preparation of the leg, wound retraction, manipulati on of the knee, and wound closure. ANESTHESIOLOGIST: Dr. Sanchez. ANESTHESIA: Spinal. PRE-OP DIAGNOSIS: Severe end-stage degenerative osteoarthritis of the right knee joint with valgus d eformity. POST-OP DIAGNOSIS: Severe end-stage degenerative osteoarthritis of the right knee joint with valgus deformity. OPERATIVE PROCEDURE: Right total knee arthroplasty. INDICATIONS: Ms. Carpenter is a 52-year-old female with severe end-stage arthritis of the right knee join t. She developed increasing pain over the years with valgus deformity. Radiographs showed bone-on-b one arthritis. She failed conservative treatment with antiinflammatories, brace wear, physical thera py, and intra- articular injections. She elected to undergo right total knee arthroplasty due to con tinued pain and decreased quality of life as well as feelings of knee instability. Informed consent was obtained from the patient. She understood the risks of surgery, included but were not limited to bleeding, infection, damage to nearby structures, continued pain, need for further surgery, intraope rative fracture, nerve palsy, hardware failure or loosening, knee stiffness, loss of motion, stroke, heart attack, blood clot, and . She wished to proceed. TOURNIQUET TIME: 55 minutes. COMPLICATIONS: None. ESTIMATED BLOOD LOSS: 200 mL. SPECIMENS: Bone and cartilage from the right knee joint. HARDWARE USED: This is a cemented Alvarez [employer] Nephew total knee arthroplasty hardware. Two packages o f Simplex bone cement. For the femur, a size 5 Narrow right Oxinium Legion posterior stabilized Narr ow femoral component. For the tibia, a size 3 right Paz II tibial baseplate. For the insert, an 11-mm posterior stabilized articular insert size 3-4. For the patella, a 32-mm 3-peg all poly gallegos la with 7.5 thickness. INTRAOPERATIVE FINDINGS: Intraoperatively, the patient had a flexion contracture of 15 degrees and a valgus deformity of 12 degrees at the start of the case. This was corrected to full extension and v algus alignment of 3 degrees. She had extensive loss of cartilage in all 3 compartments. The patient had severe osteophyte formati on and multiple loose bodies in the suprapatellar pouch and posterior capsule regions. DESCRIPTION OF PROCEDURE: Ms. Carpenter was identified in the preanesthesia unit. Her right lower extrem ity was marked as the correct operative side. Informed consent was signed and placed in the chart. The patient was taken to the operating room and placed under spinal anesthesia. A Arndt catheter was placed. Tourniquet was placed on the right side. Right lower extremity was prepped and draped in t he usual sterile fashion. Preop time-out was made to correctly identify the patient's side and site. Appropriate perioperative antibiotics were given within 1 hour of incision. Tourniquet was inflated and total tourniquet time for this procedure was 55 minutes. A midline incis ion was made with a 10-blade and carried down to the extensor mechanism. A new 10-blade was used to make a standard medial parapatellar arthrotomy. The patella was subluxed laterally. Electrocautery was used to elevate soft tissue off the superomedial tibia subperiosteally. This was performed to th e mid sagittal plane. The knee was flexed up. The anterior horn of the lateral meniscus and ACL wer e sharply released. A drill was used to enter the distal femur. Intramedullary distal femoral cutti ng guide was pinned on the distal femur. Oscillating saw was used to make the distal femoral cut. N ext, the external rotation guide was pinned on the distal femur and the distal femur was sized to a s ize 5. A size 5 multi-cutting jig was pinned on the distal femur. Oscillating saw was used to make t he appropriate 4 chamfer cuts. The PCL was completely released. Tibia was subluxed anteriorly. Extramedullary tibial cutting guide was pinned on the proximal tibia. Oscillating saw was used to make the proximal tibial cut. This c ut was made perpendicular to the mechanical axis of the tibia. The bone was carefully removed. The knee was brought out into full extension. There was small amount of tightness laterally, therefore e lectrocautery was used to release any posterolateral capsule. Any lateral osteophytes were carefully released. Spacer block had good fit with the knee in full extension. Medial and lateral ligamentou s balancing was satisfactory. Some MCL laxity was noted. Flexion and extension gaps were well anuradha roselyn. The knee was flexed up. Lamina letter of credit document examiner was placed both medially and laterally. Any remaining meniscus was carefully removed using electrocautery. Curved osteotome was used to remove any key bed installer ior osteophytes. Significant amount of loose bodies and osteophytes were removed from the posterior capsule. Tibial tray and drop kristy were placed and once again a satisfactory tibial cut. A right size 5 Narrow femoral trial was impacted onto the distal femur. The box for the posterior st abilized implant was prepared using a reamer and box cut osteotome. Size 3 tibial tray trial with an 11-mm insert trial was placed and the knee was taken through a range of motion. The knee had full e xtension to 130 degrees of flexion with satisfactory patellofemoral tracking. The patella was everte d. A 7-mm of patellar bone and cartilage were carefully removed using an oscillating saw. The gallegos la was sized to a size 32. Three peg holes were drilled through the size 32 guide. A 32 trial gallegos la with 7.5 thickness was placed and the knee was taken through a range of motion. There was satisfa ctory patellofemoral tracking. All trials were carefully removed. The tibia was subluxed anteriorly and sized to a size 5. Proximal tibia was prepared using a size 5 keel punch. All bony cut surfaces were copiously irrigated with sterile saline. Final implants were cemented int o place starting with the tibia, followed by the femur, and last the patella. An 11-mm insert trial was placed and the knee was brought out into full extension. Tourniquet was turned down at 55 minute s. The knee was copiously irrigated with sterile saline. Electrocautery was used to obtain meticulo us hemostasis. Once the cement had fully cured, the insert trial was removed. Any excess cement was removed from around the capsule and hardware. Final insert chosen was an 11-mm posterior stabilized articular insert size 3-4. This was locked into position on the tibial tray. Stability of the inse rt was checked and rechecked and noted to be stable. The knee was once again copiously irrigated with sterile saline. The extensor mechanism was closed u sing interrupted #1 Vicryls. The rest of the incision was closed using 0 and 2-0 Vicryls. Skin was closed using running 3-0 nylon suture. Sterile Xeroform, 4x4s, and Webril were used to cover the inci ivan. Fred wrap and cold pack were placed over this. The patient's anesthesia was reversed without d ifficulty. She was taken to the PACU in stable condition. Intended weightbearing will be weightbear ing as tolerated. Intended DVT prophylaxis will be Coumadin with a Lovenox bridge. [id number]/[facility] #: [id number]
--- NOTE | 2018-05-02 15:55 | PN ---
Subjective Date of Service: 05/02/18 Interval History: Mrs. Carpenter reports doing well overall. She just finished her PT earlier today, some right knee pain, tolerated with narcotics. Denies chest pain, palpitations or SOB. Arndt catheter d/c'ed this AM, voiding well. Denies cough, dyspnea or wheezing. She has no complaints today. Family History: Unchanged from Admission Social History: Unchanged from Admission Past Medical History: Unchanged from Admission Objective Active Medications: Acetaminophen (Tylenol Tab*) 650 mg PO Q4H PRN PRN Reason: FEVER/PAIN Albuterol (Ventolin 2.5 Mg/3 Ml Neb.Marry*) 2.5 mg INH ONCE PRN PRN Reason: asthma Albuterol (Ventolin Hfa Inhaler*) 2 puff INH Q4H PRN PRN Reason: WHEEZING Bisacodyl (Dulcolax Supp*) 10 mg ME DAILY PRN PRN Reason: constipation Cyclobenzaprine HCl (Flexeril Tab*) 10 mg PO TID PRN PRN Reason: SPASMS Last Admin: 05/01/18 21:08 Dose: 10 mg Diphenhydramine HCl (Benadryl Iv*) 25 mg IV Q6H PRN PRN Reason: itching Diphenhydramine HCl (Benadryl Po*) 25 mg PO Q6H PRN PRN Reason: itching Docusate Sodium (Colace Cap*) 100 mg PO BID [facility] Last Admin: 05/02/18 08:39 Dose: 100 mg Fluticasone Propionate (Flonase Nasal [place] 50mcg*) 2 spray BOTH NARES DAILY PRN PRN Reason: Allergy Symptoms Hydromorphone HCl (Dilaudid Inj1s*) 0.5 mg IV Q2H PRN PRN Reason: REFRACTORY SEVERE PAIN Lactated Ringer's (Lactated Ringers 1000 Ml Bag*) 1,000 mls @ 100 mls/hr IV PER RATE [facility] Last Admin: 05/02/18 03:48 Dose: 100 mls/hr Magnesium Hydroxide (Milk Of Magnesia Liq*) 30 ml PO BID [facility] Last Admin: 05/02/18 08:39 Dose: 30 ml Magnesium Hydroxide (Milk Of Magnesia Liq*) 30 ml PO Q6H PRN PRN Reason: constipation Magnesium Oxide (Magox 400 Tab*) 800 mg PO BEDTIME [facility] Last Admin: 05/01/18 21:00 Dose: 800 mg Metoprolol Succinate (Toprol Xl Tab*) 50 mg PO [facility] Last Admin: 05/02/18 08:40 Dose: 50 mg Morphine Sulfate (Morphine Inj (Syringe)*) 2 mg IV Q2H PRN PRN Reason: PAIN - UNRELIEVED Last Admin: 05/02/18 10:45 Dose: 2 mg Multivitamins/Minerals (Theragran/Minerals Tab*) 1 tab PO [facility] Last Admin: 05/02/18 08:40 Dose: 1 tab Nystatin (Nystatin Cream*) 1 applic TOPICAL TID PRN PRN Reason: RASH Omeprazole (Prilosec Cap*) 20 mg PO [facility] Last Admin: 05/02/18 08:40 Dose: 20 mg Ondansetron HCl (Zofran Inj*) 4 mg IV Q6H PRN PRN Reason: nausea Ondansetron HCl (Zofran Odt Tab*) 4 mg PO Q6H PRN PRN Reason: NAUSEA Oxycodone HCl (Roxycodone Tab*) 5 mg PO Q4H PRN PRN Reason: PAIN - BREAKTHROUGH Oxycodone HCl (Roxycodone Tab*) 10 mg PO Q4H PRN PRN Reason: PAIN Last Admin: 05/02/18 14:58 Dose: 10 mg Oxycodone/Acetaminophen (Percocet 5/325 Tab*) 1 tab PO Q4H PRN PRN Reason: PAIN - MODERATE Oxycodone/Acetaminophen (Percocet 5/325 Tab*) 2 tab PO Q4H PRN PRN Reason: PAIN - SEVERE Last Admin: 05/02/18 12:07 Dose: 2 tab Rivaroxaban (Xarelto(*)) 10 mg PO Q24H [facility] Last Admin: 05/02/18 12:07 Dose: 10 mg Vital Signs - 8 hr 05/02/18 05/02/18 05/02/18 08:00 08:38 10:00 Temperature Pulse Rate Respiratory 18 18 18 Rate Blood Pressure (mmHg) O2 Sat by Pulse 99 Oximetry 05/02/18 05/02/18 05/02/18 10:03 10:45 11:25 Temperature 98.6 F Pulse Rate 66 Respiratory 18 18 16 Rate Blood Pressure 115/60 (mmHg) O2 Sat by Pulse 96 Oximetry 05/02/18 05/02/18 05/02/18 12:00 12:06 12:07 Temperature Pulse Rate Respiratory 16 18 18 Rate Blood Pressure (mmHg) O2 Sat by Pulse 96 Oximetry 05/02/18 05/02/18 05/02/18 12:09 14:00 14:57 Temperature Pulse Rate Respiratory 18 20 16 Rate Blood Pressure (mmHg) O2 Sat by Pulse Oximetry 05/02/18 14:58 Temperature Pulse Rate Respiratory 16 Rate Blood Pressure (mmHg) O2 Sat by Pulse Oximetry Oxygen Devices in Use Now: None Appearance: Obese middel aged female, appears comfortable and in NAD Eyes: No Scleral Icterus, PERRLA Ears/Nose/Mouth/Throat: Clear Oropharnyx, Mucous Membranes Moist Neck: NL Appearance and Movements; NL JVP, Trachea Midline Respiratory: Symmetrical Chest Expansion and Respiratory Effort, Clear to Auscultation Cardiovascular: NL Sounds; No Murmurs; No JVD, RRR Abdominal: NL Sounds; No Tenderness; No Distention Extremities: No Edema Neurological: Alert and Oriented x 3 Nutrition: Taking PO's Result Diagrams: 05/02/18 06:24 05/02/18 06:23 Additional Lab and Data: . Microbiology and Other Data: . Diagnostic Imaging: . EKG Data: . Assess/Plan/Problems-Billing Assessment: A 52 y/o female with PMH asthma, HTN, GERD and Schwartz's palsy, who is POD#1 s/p right total knee arthroplasty, clinically stable. and doing well. - Patient Problems (1) Status post right knee replacement Current Visit: Yes Status: Acute Comment: - Management per ortho team - Pain appears to be well controlled - Continue PT (2) HTN (hypertension) Current Visit: Yes Status: Acute Comment: - Continue Metoprolol with holding parameters - Has been normotensive today (3) Asthma Current Visit: Yes Status: Acute Comment: - Continue home inhalers, prn albuterol nebs while in hosiptal (4) GERD (gastroesophageal reflux disease) Current Visit: Yes Status: Acute Comment: - Continue PPI coverage (5) Morbid obesity Current Visit: Yes Status: Acute Comment: - Supportive care (6) DVT prophylaxis Current Visit: Yes Status: Acute Comment: - On Rivaroxaban (7) Full code status Current Visit: Yes Status: Acute Status and Disposition: Inpatient. Anticipate discharge once medically stable per ortho team.
[2018-05-02] MEDS: Magnesium Oxide TAB* 400 MG PO SCH (20:58)
[2018-05-02] MEDS: Cyclobenzaprine TAB* 10 MG PO PRN (20:58)
[2018-05-03] MEDS: oxyCODONE/Acetamin 5/325 MG* TAB PO PRN ×2 (02:44→07:10)
[2018-05-03 05:36] LABS: Hematocrit 31 % (35-47); Hemoglobin 10.6 g/dl (12.0-16.0); Mean Platelet Volume 7.8 um3 (7.4-10.4); Platelet Count 229 10^3/ul (150-450)
[2018-05-03] MEDS: Magnesium Hydroxide LIQ* 30 ML UDC PO SCH (08:10)
[2018-05-03] MEDS: Omeprazole CAP* 20 MG PO SCH (08:17)
[2018-05-03] MEDS: Metoprolol Succinate XL TAB* 50 MG PO SCH (08:17)
[2018-05-03] MEDS: Multivitamins/Minerals TAB PO SCH (08:17)
[2018-05-03] MEDS: Docusate CAP* 100 MG PO SCH (08:17)
[2018-05-03] MEDS: oxyCODONE TAB* 5 MG TAB PO PRN (10:08)
--- NOTE | 2018-05-03 10:17 | PN ---
Progress Note - Progress Note Date of Service: 05/03/18 SOAP: Subjective: 52 y/o female s/p RTK 05/01/[address] Cummings. patient doing well, pain well controlled, vss afebrile overnight. no questions/ concerns, discharge discussed with patient. Objective: General- resting in bed comfortably, NAD, answering questions well, fatigued appearing MSK- R knee- Dressing changed by Dr. Cummings in AM, no drainage noted, no induration/ erythema. + DF/PF, PT2+, no edema noted. SITLT Vital Signs Temp 99.1 F 05/03/18 07:24 Pulse 66 05/03/18 07:24 Resp 18 05/03/18 10:08 BP 150/73 05/03/18 07:24 Pulse Ox 99 05/03/18 08:00 Intake & Output 05/02/18 05/03/18 05/03/18 18:59 06:59 18:59 Intake Total 2199 920 360 Output Total 1865 2350 300 Balance 334 -1430 60 Intake: IV Fluids 829 ABX - CLINDAMYCIN 165 LR 664 Oral 1370 920 360 Output: Urine 1865 2350 300 Other: Date of Last Bowel 05/03/18 Movement # Bowel Movements 1 Estimated Stool Amount Medium Assessment: Stable 52 y.o female s/p RTK 05/01/[address] Cummings. Plan: - D/C to home today w boyfriend caring for patient at home - Continue PT at home. - Xarelto for DVT prophylaxis Active Medications Generic Name Dose Route Start Last Admin Trade Name Freq PRN Reason Stop Dose Admin Acetaminophen 650 mg 05/01/18 14:18 Tylenol Tab* PO Q4H PRN FEVER/PAIN Albuterol 2.5 mg 05/01/18 14:28 Ventolin 2.5 Mg/3 Ml Neb.Marry* INH ONCE PRN asthma Albuterol 2 puff 05/01/18 14:28 Ventolin Hfa Inhaler* INH Q4H PRN WHEEZING Bisacodyl 10 mg 05/01/18 14:25 Dulcolax Supp* IN DAILY PRN constipation Cyclobenzaprine HCl 10 mg 05/01/18 14:25 05/02/18 20:58 Flexeril Tab* PO 10 mg TID PRN Administration SPASMS Diphenhydramine HCl 25 mg 05/01/18 14:25 Benadryl Iv* IV Q6H PRN itching Diphenhydramine HCl 25 mg 05/01/18 14:25 Benadryl Po* PO Q6H PRN itching Docusate Sodium 100 mg 05/01/18 21:00 05/03/18 08:17 Colace Cap* PO 100 mg BID CLARIBEL Administration Fluticasone Propionate 2 spray 05/01/18 14:28 Flonase Nasal [place] 50mcg* BOTH NARES DAILY PRN Allergy Symptoms Hydromorphone HCl 0.5 mg 05/01/18 23:28 Dilaudid Inj1s* IV Q2H PRN REFRACTORY SEVERE PAIN Lactated Ringer's 1,000 mls @ 100 mls/hr 05/01/18 15:00 05/02/18 03:48 Lactated Ringers 1000 Ml Bag* IV 100 mls/hr PER RATE [facility] Administration Magnesium Hydroxide 30 ml 05/01/18 21:00 05/03/18 08:10 Milk Of Magnesia Liq* PO Not Given BID [facility] Magnesium Hydroxide 30 ml 05/01/18 14:18 Milk Of Magnesia Liq* PO Q6H PRN constipation Magnesium Oxide 800 mg 05/01/18 21:00 05/02/18 20:58 Magox 400 Tab* PO 800 mg BEDTIME CL[facility]EL Administration Metoprolol Succinate 50 mg 05/02/18 09:00 05/03/18 08:17 Toprol Xl Tab* PO 50 mg QAM [facility] Administration Morphine Sulfate 2 mg 05/01/18 14:18 05/02/18 20:55 Morphine Inj (Syringe)* IV 2 mg Q2H PRN Administration PAIN - UNRELIEVED Multivitamins/Minerals 1 tab 05/02/18 09:00 05/03/18 08:17 Theragran/Minerals Tab* PO 1 tab QAM [facility] Administration Nystatin 1 applic 05/01/18 14:28 Nystatin Cream* TOPICAL TID PRN RASH Omeprazole 20 mg 05/02/18 09:00 05/03/18 08:17 Prilosec Cap* PO 20 mg QAM [facility] Administration Ondansetron HCl 4 mg 05/01/18 14:25 Zofran Inj* IV Q6H PRN nausea Ondansetron HCl 4 mg 05/01/18 14:25 Zofran Odt Tab* PO Q6H PRN NAUSEA Oxycodone HCl 5 mg 05/01/18 14:18 Roxycodone Tab* PO Q4H PRN PAIN - BREAKTHROUGH Oxycodone HCl 10 mg 05/01/18 19:41 05/03/18 10:08 Roxycodone Tab* PO 10 mg Q4H PRN Administration PAIN Oxycodone/Acetaminophen 1 tab 05/01/18 14:18 Percocet 5/325 Tab* PO Q4H PRN PAIN - MODERATE Oxycodone/Acetaminophen 2 tab 05/01/18 14:18 05/03/18 07:10 Percocet 5/325 Tab* PO 2 tab Q4H PRN Administration PAIN - SEVERE Rivaroxaban 10 mg 05/02/18 12:00 05/02/18 12:07 Xarelto(*) PO 10 mg Q24H [facility] Administration Laboratory Results - last 24 hr 05/03/18 05:10 Hgb 10.6 L Hct 31 L Plt Count 229 MPV 7.8
[2018-05-03 11:35] VITALS: BP 134/71
[2018-05-03] MEDS: Rivaroxaban TAB(*) 10 MG PO SCH (11:45)
--- NOTE | 2018-05-04 00:51 | DS ---
DISCHARGE SUMMARY: DATE OF ADMISSION: 05/01/18 DATE OF DISCHARGE: 05/03/18 ATTENDING PROVIDER: Dr. Cummings.* (DICTATED BY EULOGIO MONTES) PRINCIPAL DIAGNOSIS: Right knee osteoarthritis. DISCHARGE DIAGNOSIS: Osteoarthritis, right knee, status post right total knee arthroplasty. HISTORY OF PRESENT ILLNESS: Ms. Carpenter is a very pleasant 52-year-old female with complaints of right knee pain due to end-stage osteoarthritis. She failed conservative treatment and elected to proceed with a right total knee arthroplasty by Dr. Saray Cummings on 05/01/18. HOSPITAL COURSE: Ms. Carpenter was admitted to [facility] on 05/01/18 and underwent a right total knee arthroplasty, which was uncomplicated with an estimated blood loss of 200 mL. Postoperatively, she recovered on the surgical short-stay unit. She was placed on Xarelto 10 mg daily for DVT prophylaxis due to prior history of DVT. She worked well with Physical Therapy and was cleared for home. On postoperative day 1, her H and H was 10.7 and 31 and on postoperative day 2, 10.6 and 31. Her pain was controlled with p.o. pain medications and her wound was clean, dry, and intact. She was ambulating well with the aid of a walker. She was discharged to home in stable condition with home PT services. DISCHARGE MEDICATIONS: 1. Albuterol nebulizer 1 neb once p.r.n. 2. Albuterol inhaler 2 puffs inhalation q.4 hours p.r.n. 3. Vitamin D3 10,000 international units p.o. q.a.m. 4. Celexa 40 mg p.o. q.a.m. 5. Flexeril 10 mg p.o. t.i.d. p.r.n. for muscle spasms. 6. Colace 100 mg p.o. b.i.d. 7. Flonase nasal spray 2 sprays both nares daily. 8. Magnesium oxide 400 mg tablet 2 tablets p.o. at bedtime. 9. Metformin 500 mg p.o. b.i.d. 10. Metoprolol ER 50 mg p.o. q.a.m. 11. Daily multivitamin. 12. Nystatin 1 application topically t.i.d. p.r.n. 13. Prilosec 20 mg p.o. q.a.m. 14. Percocet 1 to 2 tablets every 4 hours as needed for pain, not to exceed 7 tabs per day. 15. Xarelto 10 mg p.o. q.24 hours for 30 days. 16. Sulindac 150 mg p.o. q.a.m. PHYSICAL EXAMINATION: On date of discharge, the patient was alert and oriented , resting comfortably in bed, in no acute distress. Vitals were blood pressure of 134/71, 97% on room air, heart rate of 63, respirations 16, and temperature of 98.7. The patient's dressing was changed by Dr. Cummings and was intact with no sign of drainage. There was no induration or erythema. No calf pain. Positive dorsiflexion and plantarflexion bilaterally. Posterior tibial pulses 2 +. Sensation intact to light touch. DISCHARGE INSTRUCTIONS: The patient was discharged to home with physical therapy for home. She was allowed to shower on postop day 3 and to reapply a dry gauze and Fred over the incision. She will call the office if any fever, chills, redness around the incision site or drainage. She will go immediately to the ER with any shortness of breath or chest pain. She will follow up with Dr. Cummings in approximately 10 days. She will take Xarelto 10 mg p.o. daily for DVT prophylaxis and Percocet and Flexeril for pain. EULOGIO MONTES [id number]/[facility] #: [id number] ANISA
== END 2018-05-03 12:00 | disposition home health service (06) | DRG 302 ==
LOC: AA 05-01 08:31 → SSU 05-01 17:39
PROVIDERS: ADMIT Orthopaedic Surgery Adult Reconstructive Orthopaedic Surgery; ATTEND Orthopaedic Surgery Adult Reconstructive Orthopaedic Surgery
PROC: 0SRC069 Replacement of Right Knee Joint with Oxidized Zirconium on Polyethylene Synthetic Substitute, Cemented, Open Approach (ICD-10-PCS; principal; 2018-05-01 11:00)
DX: M17.0 Bilateral primary osteoarthritis of knee (principal); Z68.41 Body mass index [BMI] 40.0-44.9, adult; I10 Essential (primary) hypertension; J45.909 Unspecified asthma, uncomplicated; F32.9 Major depressive disorder, single episode, unspecified; F41.9 Anxiety disorder, unspecified; K21.9 Gastro-esophageal reflux disease without esophagitis; M25.461 Effusion, right knee; M21.061 Valgus deformity, not elsewhere classified, right knee; E66.01 Morbid (severe) obesity due to excess calories; G62.9 Polyneuropathy, unspecified; M25.761 Osteophyte, right knee; Z86.718 Personal history of other venous thrombosis and embolism; Z79.84 Long term (current) use of oral hypoglycemic drugs; Z85.820 Personal history of malignant melanoma of skin; Z90.49 Acquired absence of other specified parts of digestive tract; Z98.51 Tubal ligation status; Z88.8 Allergy status to other drugs, medicaments and biological substances; Z91.018 Allergy to other foods; Z80.9 Family history of malignant neoplasm, unspecified; Z82.61 Family history of arthritis; Z82.49 Family history of ischemic heart disease and other diseases of the circulatory system
CPT/HCPCS: 36415; 80048; 85014; 85018; 85049; A9270-GY; C1776; J0690; J1100; J1885; J2250; J2270; J2405; J2704; J2795; J3010

== ENCOUNTER → 2018-01-09 09:58 | Day surgery (SDC) | payer OTHER ==
[~2018-01-09 09:58] MED LIST changes: +Buffered Lidocaine 0.9% SYRIN* 5 ML/SYR SYRINGE ONE; +Bupivacaine 0.25% SDV* 30 ML ONE; +Dexamethasone IV* 4 MG/ML 1 ML (4 MG) IV SLOW PU ONE; +Dexamethasone IV* 4 MG/ML 1 ML (4 MG) ONE; +DiMENhydriNATE IV* 50 MG/ML VIAL ONE; +Famotidine IV* 10 MG/ML 2 ML (20 mg) IV ONE; +Famotidine IV* 10 MG/ML 2 ML (20 mg) ONE; +Heparin VIAL(*) 5000 UNITS/ML VIAL (FIVE THOUSAND) ONE; +KETAMINE HCL* 50 MG/ML 10 ML VIAL ONE; +Lidocain 1% EPI 1:100,000 * 30 ML MDV ONE; +Methylene Blue 0.5 %* 50 MG/10 ML AMP IV ONE; +Midazolam* 1 MG/ML 2 ML VIAL (2 MG) ONE; +Midazolam* 1 MG/ML 5 ML VIAL (5 MG) ONE; +Mineral Oil Sterile, TOPICAL* 25 ML BTL ONE; +Naloxone* 0.4 MG/ML 1 ML VIAL IV PRN; +ceFAZolin 2 GM PREMIX (*) 2 GM/50 ML BAG IVPB ONE; +fentaNYL* 50 MCG/ML 2 ML VIAL (100 MCG VIAL) IV PRN; +fentaNYL* 50 MCG/ML 2 ML VIAL (100 MCG VIAL) ONE
[2018-01-09 13:23] VITALS: BP 149/86
== END | disposition home or self-care (01) ==
LOC: OR 09:58
PROVIDERS: ATTEND Plastic Surgery
DX: D03.59 Melanoma in situ of other part of trunk (principal); I10 Essential (primary) hypertension; J45.909 Unspecified asthma, uncomplicated; K21.9 Gastro-esophageal reflux disease without esophagitis; Z86.718 Personal history of other venous thrombosis and embolism; F41.8 Other specified anxiety disorders
CPT/HCPCS: 88305; A9270-GY; J0690; J1100; J1240; J1644; J2250; J3010

== ENCOUNTER 2018-10-09 12:19 | Inpatient (IN) | payer OTHER ==
--- NOTE | 2018-09-26 13:14 | HP ---
HISTORY AND PHYSICAL: DATE OF ADMISSION/SURGERY: 10/09/18 DATE OF OFFICE VISIT: 09/26/18 SURGEON: Saray Cummings MD* (DICTATED BY EULOGIO MADERA) PROCEDURE: Left total knee arthroplasty. CHIEF COMPLAINT: Left knee pain. HISTORY OF PRESENT ILLNESS: Ms. Carpenter is a 53-year-old female who has continued complaints of left knee pain. She has failed conservative treatment and elected to proceed with a left total knee arthroplasty. PAST MEDICAL HISTORY: History of a DVT, hypertension, asthma, anxiety, depression, GERD, melanoma, and sleep apnea. PAST SURGICAL HISTORY: Cholecystectomy, melanoma removal, right knee arthroscopy, right total knee arthroplasty, hernia repair, , and tubal ligation. CURRENT MEDICATIONS: 1. Gabapentin 200 mg 2 tabs 3 times a day. 2. Flexeril 10 mg 2 to 3 times a day as needed. 3. Colace as needed. 4. Tramadol 50 mg every 4 hours as needed. 5. ProAir HFA. 6. Omeprazole 20 mg twice a day. 7. Metoprolol 50 mg a day. 8. Tylenol as needed. 9. Sulindac 1 tab daily. 10. Hydroxyzine 25 mg twice a day. 11. Multivitamin. 12. 1000 mg a day. ALLERGIES: To CECLOR, VICODIN, and ORANGES. FAMILY HISTORY: Diabetes, coronary artery disease, stroke, and cancer. SOCIAL HISTORY: She is a 53-year-old female. She lives with her partner. She does not smoke. Uses alcohol rarely. Denies the use of drugs. REVIEW OF SYSTEMS: A complete 14-point review of systems was reviewed with the patient. It was positive for GERD and history of a DVT. She denies a history of HIV, hepatitis, MRSA, or anesthesia problems. PHYSICAL EXAMINATION GENERAL: She is well developed, well nourished, in no acute distress. VITAL SIGNS: She stands 5 feet 3 inches tall, weighs 252 pounds. Her blood pressure is 166/100 and heart rate is 68. HEENT: Normocephalic, atraumatic. NECK: Supple. No palpable lymph nodes. PULMONARY: The lungs are clear to auscultation bilaterally. CARDIO: Regular rate and rhythm. Strong S1, S2. ABDOMEN: Soft, nontender, nondistended. NEUROLOGICAL: She is alert and oriented x3. MUSCULOSKELETAL: Left lower extremity: The skin is intact. There are no open wounds or abrasions. There is a moderate effusion of the left knee, some tenderness along the medial joint line. Range of motion is 10 to 115 degrees of flexion. She has a 2+ dorsalis pedis pulse. She is able to dorsiflex and plantarflex and has intact sensation. ASSESSMENT AND PLAN: Ms. Carpenter is a 53-year-old female with end-stage osteoarthritis of the left knee. She has failed conservative treatment and elected to proceed with a left total knee arthroplasty. Surgery is scheduled for 10/09/[address] Cummings discussed the risks and benefits of the surgery at today's visit and all of her questions were answered. She will follow up with Dr. Cummings 2 weeks after the surgery. No TXA will be used on this patient because of the history of a DVT following the right knee scope. EULOGIO MADERA [id number]/[facility] #: [id number] ANISA
[~2018-10-09 12:19] MED LIST changes: +Acetaminophen IV 1GM/100ML * 1,000 MG/100 ML VIAL IVPB ONE; -Buffered Lidocaine 0.9% SYRIN* 5 ML/SYR SYRINGE INTRADERM ONE; -Buffered Lidocaine 0.9% SYRIN* 5 ML/SYR SYRINGE ONE; +Buffered Lidocaine 1% SYRIN* 1 ML/SYRINGE INTRADERM ONE; -Bupivacaine 0.25% SDV* 30 ML ONE; -Dexamethasone IV* 4 MG/ML 1 ML (4 MG) ONE; -DiMENhydriNATE IV* 50 MG/ML VIAL ONE; -Famotidine IV* 10 MG/ML 2 ML (20 mg) IV ONE; -Famotidine IV* 10 MG/ML 2 ML (20 mg) ONE; -Heparin VIAL(*) 5000 UNITS/ML VIAL (FIVE THOUSAND) ONE; -KETAMINE HCL* 50 MG/ML 10 ML VIAL ONE; +Lactated Ringers 1000 ML Bag* 1,000 ML IV SCH; -Lidocain 1% EPI 1:100,000 * 30 ML MDV ONE; -Methylene Blue 0.5 %* 50 MG/10 ML AMP IV ONE; -Midazolam* 1 MG/ML 2 ML VIAL (2 MG) ONE; -Midazolam* 1 MG/ML 5 ML VIAL (5 MG) ONE; -Mineral Oil Sterile, TOPICAL* 25 ML BTL ONE; -Naloxone* 0.4 MG/ML 1 ML VIAL IV PRN; -ceFAZolin 2 GM PREMIX (*) 2 GM/50 ML BAG IVPB ONE; +celeCOXIB CAP* 200 MG PO ONE; -fentaNYL* 50 MCG/ML 2 ML VIAL (100 MCG VIAL) IV PRN; -fentaNYL* 50 MCG/ML 2 ML VIAL (100 MCG VIAL) ONE
--- OUTSIDE RECORDS SUMMARY | 2018-10-09 12:24 | XMS REPORT | Continuity of Care Document ---
:1965 External Reference #:[id number] Author Name Diana Muniz Care Team Providers Name Role Phone Hattie Lawson DO Primary Care Physician Unavailable Payers Date Identification Numbers Payment Provider Subscriber Effective: 2017 Policy Number: [id number] Masoud Brady Group Number: [id number] [address] PayID: [id number] [place] [address] Expires: 2017 Policy Number: [id number] Facets Eileen Brady PayID: [id number] [address] [address] [place] [address] Effective: 2009 Policy Number: [id number] BS Of MAHI Brady Expires: 2009 PayID: [id number] [place] [address] Policy Number: [id number] [facility]ileen [facility] [address] [address] [place] [address] Advance Directives Description No Information Available Problems Date Description Provider Status Onset: 02/26/2015 [...] Chronic fatigue syndrome Waldo Mcconnell M.D. Active Onset: 07/11/2018 Polyneuropathy Waldo Mcconnell M.D. Active Onset: 05/11/2018 Arthroplasty of knee Saray Cummings M.D. Active Family History Date Family Member(s) Observation Comments General Heart Disease General Hypertension General Coronary Artery Disease (CAD) Both grandmothers General Diabetes Maternal grandmother General Obesity Father Hodgkin's Lymphoma age 33yrs Mother Hypercholesterolemia Mother Osteoporosis Social History Type Date Description Comments Sex Unknown Marital Status Lives With Male Partner Occupation Unemployed Tobacco Use Start: Unknown Never Smoked Cigarettes Smoking Status Reviewed: 09/26/18 Never Smoked Cigarettes ETOH Use Rarely consumes alcohol Tobacco Use Start: Unknown Patient has never smoked Recreational Drug Use Denies Drug Use Exercise Type/Frequency Exercises sporadically Allergies, Adverse Reactions, Alerts Date Description Reaction Status Severity Comments 09/24/2004 Ceclor Active 02/25/2015 Vicodin "Asthma attack" Active Severe 04/28/2015 Oranges Active 04/03/2007 NKDA Inactive Medications Medication Date Status Form Strength Qnty SIG Indications Ordering Provider Wrist Brace 08/22/19 Active Misc 2unit l and r Waldo Ultra-Lite 19 s wrist Justin Mcconnell Carpal braces Tunnel/One Size for carpal tunnel symptoms Gabapentin 07/26/20 Active Capsules 100mg 180ca 2 by R2Abril.2 Waldo 18 ps mouth Justin Mcconnell three times a day Cyclobenzaprine 05/04/20 Active Tablets 10mg 90tab take 1 Saray HCL 18 s tab by Justin Cummings mouth 2-3 times a day as needed Colace 05/03/20 Active Capsules 100mg 60cap one Saray 18 s tablet Justin Cummings twice daily post-ope ratively Raised Toliet 04/30/20 Active 1unit rasied Saray Seat 18 s tolilet Justin Cummings seat without handles Walker 04/27/20 Active Misc 1unit front Saray 18 s wheeled Justin Cummings walker dx: severe right knee OA Toilet Seat 04/27/20 Active Misc 1unit raised Saray Elevator 18 s toilet Justin Cummings seat with handles s/p total knee replacem ent Shower Chair 04/27/20 Active 1unit s/p Saray 18 s right Justin Cummings TKA Tramadol HCL Active Tablets 50mg 60tab 1 tab by Saray 00 s mouth Justin Cummings every 4 hours as needed for pain Omeprazole Active Tablets 20mg [address] mouth twice daily Proair HFA Active Aerosol 108(90Bas 2 puffs Unknown 00 e) by mouth mcg/Act every 4 - 6 hours as needed Metoprolol Active Tablets 50mg 1 by Unknown Tartrate 00 mouth daily Tylenol Active Tablets 325mg 2 po as Unknown 00 needed Sulindac Active 1 tAB Unknown 00 Everyday Multi Vitamin Active Tablets 1 by Unknown Daily 00 mouth every day Hydroxyzine Active Capsules 25mg 1-2 caps Unknown Pamoate 00 by mouth bid as needed for anxiety Gabapentin 07/11/20 Hx Capsules 100mg 90cap 1 R20.2 Waldo 18 - s capsule Justin Mcconnell 07/26/20 three 18 times daily. Percocet 05/03/20 Hx Tablets 5-325mg 40tab 1-2 Saray 18 - s tablet Justin Cummings 09/06/19 every 8 19 hours as needed for pain. generic ok Xarelto 05/03/20 Hx Tablets 10mg 30tab one Saray 18 - s tablet Justin Cummings 06/12/20 daily x 18 30 days Alprazolam 03/01/20 Hx Tablets 2mg 2tabs take 1 R94.02 Waldo 18 - 45 min Justin Mcconnell 04/24/20 prior to 18 MRI, may repeat X 1 at time of MRI if remains anxious. Do not drive after taking Fluconazole 07/07/20 Hx Tablets 150mg 2tabs One Saida Pritchett 17 - tablet MD Jc 02/29/20 once 18 daily as directed Acetaminophen-C 06/16/20 Hx Tablets 300-15mg 20tab 1-2 tabs Saida Pritchett odeine #2 17 - s by mouth MD Jc 02/29/20 every 4h 18 as needed pain Flexeril 05/26/20 Hx Tablets 10mg 21tab 1 po tid Rodney E. 08 - s prn Erika, M.D. 06/25/20 08 Amoxicillin 05/23/20 Hx Tablets 500mg 30tab 1 po tid Rodney Last s for Heather James M.D. 06/25/20 days 08 Proventil Hx Aerosol 90mcg/Act 2 Puffs Unknown 00 - PO qid 04/27/20 15 Motrin Hx Tablets 200mg 120ta 1 PO prn Evaristo, 00 - bs EULOGIO Linda 01/29/20 15 Flovent Hx Aerosol 220mcg/Ac 2 Puffs Barken, 00 - t PO bid MD Garry 06/25/20 08 Serevent Diskus Hx Aerosol 50mcg/Dos 3unit 1 puff Fer 00 - e s bid MD Garry 06/25/20 08 Hydrochlorothia Hx Tablets 12.5mg 16tab 1 po qd Rodney James M.D. 06/25/20 08 Benicar Hx Tablets 20mg 16tab 1 po qd Rodney James M.D. 06/25/20 08 Diclofenac Hx Tablets 50mg take one Unknown Sodium 00 - DR tablet 02/29/20 by mouth 18 daily Furosemide Hx Tablets 20mg 1 by Unknown 00 - mouth Unknown every morning Potassium Hx Capsules 10Meq 1 by Unknown Chloride ER 00 - ER mouth 02/29/20 every 18 day Ursodiol Hx Capsules 300mg take 1 Unknown 00 - capsule 02/29/20 by mouth 18 twice a day Vitamin D Hx Unknown 1000MG - 04/24/20 18 Vitamin Hx Unknown Minerals For 00 - Hair And Skin 02/29/20 18 Metformin HCL Hx Tablets 500mg 1 Tab Unknown 00 - Twice 09/06/19 Daily 19 Medications Administered in Office Medication Date Status Form Strength Qnty SIG Indications Ordering Provider Inj, Administered Injection Uriah Scruggs, Julio Cesar Barton, 0.1 MG Justin, FACC, FASNC Inj, Administered Injection Laly Regadenoson, 015 Gipsy, 0.1 MG M.D. Technetium TC Administered Injection Uriah Hamilton 99M 015 Josselin BartonofosminJustin, [facility], Per Unit Dose FASNC Up To 40 Millicuries Technetium TC Administered Injection Laly 99M 015 Mag TetrofosminJustin Per Unit Dose Up To 40 Millicuries Immunizations Description No Information Available Vital Signs Date Vital Result Comment 09/26/2018 10:53am Height 60 inches 5'0" Weight 252.00 lb Heart Rate 68 /min BP Systolic 166 mmHg BP Diastolic 100 mmHg Body Temperature 96.1 F Pain Level 6 BMI (Body Mass Index) 49.2 kg/m2 09/07/2018 8:16am Height 60 inches 5'0" Weight 243.00 lb Heart Rate 49 /min BP Systolic 128 mmHg BP Diastolic 60 mmHg Respiratory Rate 16 /min Body Temperature 98.0 F Pain Level 5 BMI (Body Mass Index) 47.5 kg/m2 07/11/2018 8:02am Height 60 inches 5'0" Weight 236.00 lb Heart Rate 58 /min BP Systolic Sitting 132 mmHg R BP Diastolic Sitting 86 mmHg R Respiratory Rate 16 /min O2 % BldC Oximetry 98 % BMI (Body Mass Index) 46.1 kg/m2 06/13/2018 9:31am Height 60 inches 5'0" Weight 223.00 lb BP Systolic 134 mmHg BP Diastolic 80 mmHg Body Temperature 98.6 F BMI (Body Mass Index) 43.5 kg/m2 05/16/2018 8:58am Height 60 inches 5'0" Weight 223.00 lb BP Systolic 120 mmHg BP Diastolic 80 mmHg Body Temperature 98.0 F BMI (Body Mass Index) 43.5 kg/m2 05/11/2018 9:06am Height 60 inches 5'0" Weight 220.00 lb BP Systolic 118 mmHg BP Diastolic 70 mmHg Body Temperature 98.0 F Pain Level 6 BMI (Body Mass Index) 43.0 kg/m2 04/25/2018 2:09pm Height 60 inches 5'0" Weight 233.00 lb Heart Rate 58 /min BP Systolic 118 mmHg BP Diastolic 76 mmHg Respiratory Rate 20 /min Pain Level 6 O2 % BldC Oximetry 98 % BMI (Body Mass Index) 45.5 kg/m2 04/18/2018 8:11am Height 60 inches 5'0" Weight 232.00 lb Heart Rate 64 /min BP Systolic 140 mmHg BP Diastolic 86 mmHg BMI (Body Mass Index) 45.3 kg/m2 03/01/2018 10:17am Height 60 inches 5'0" Weight 226.50 lb Heart Rate 76 /min BP Systolic 152 mmHg BP Diastolic 90 mmHg BMI (Body Mass Index) 44.2 kg/m2 11/27/2017 8:55am Height 60 inches 5'0" Weight 222.00 lb Heart Rate 58 /min BP Systolic 126 mmHg BP Diastolic 80 mmHg Respiratory Rate 20 /min Body Temperature 97.6 F Pain Level 9 BMI (Body Mass Index) 43.4 kg/m2 07/07/2017 1:26pm Heart Rate 72 /min BP Systolic Sitting 146 mmHg BP Diastolic Sitting 92 mmHg Respiratory Rate 16 /min Body Temperature 97.8 F 06/16/2017 1:00pm Heart Rate 64 /min BP Systolic 122 mmHg BP Diastolic 80 mmHg Respiratory Rate 16 /min Body Temperature 98.1 F 06/13/2017 10:38am Height 60 inches 5'0" Weight 194.00 lb Heart Rate 64 /min BP Systolic 134 mmHg BP Diastolic 84 mmHg Respiratory Rate 16 /min Body Temperature 97.9 F BMI (Body Mass Index) 37.9 kg/m2 12/22/2015 3:48pm Height 60 inches 5'0" Weight 297.00 lb Heart Rate 64 /min BP Systolic Sitting 122 mmHg BP Diastolic Sitting 70 mmHg Respiratory Rate 14 /min BMI (Body Mass Index) 58.0 kg/m2 05/11/2015 1:04pm Height 60 inches 5'0" Weight 311.00 lb no shoes Heart Rate 66 /min BP Systolic Sitting 126 mmHg Ra, Lg cuff BP Diastolic Sitting 78 mmHg Ra, Lg cuff BP Systolic Standing 128 mmHg Ra BP Diastolic Standing 78 mmHg Ra Respiratory Rate 16 /min BMI (Body Mass Index) 60.7 kg/m2 Ejection Fraction 50-60% 10/27/2009 04/28/2015 2:42pm Height 60 inches 5'0" Weight 313.00 lb Heart Rate 64 /min 74 BP Systolic Sitting 110 mmHg right arm, large cuff BP Diastolic Sitting 72 mmHg right arm, large cuff BP Systolic Standing 110 mmHg right arm, large cuff BP Diastolic Standing 68 mmHg right arm, large cuff Respiratory Rate 20 /min BMI (Body Mass Index) 61.1 kg/m2 Ejection Fraction 55-60% 10/27/09 02/26/2015 9:30am Height 60 inches 5'0" Weight 308.00 lb Heart Rate 64 /min BP Systolic Sitting 138 mmHg BP Diastolic Sitting 76 mmHg Respiratory Rate 16 /min BMI (Body Mass Index) 60.1 kg/m2 11/10/2008 2:45pm Height 59.5 inches 4'11.50" Weight 126.00 lb Heart Rate 68 /min BP Systolic Sitting 136 mmHg BP Diastolic Sitting 86 mmHg BMI (Body Mass Index) 25.0 kg/m2 06/25/2008 10:00am Height 60 inches 5'0" Weight 292.00 lb Heart Rate 85 /min BP Systolic Sitting 136 mmHg BP Diastolic Sitting 90 mmHg BMI (Body Mass Index) 57.0 kg/m2 05/26/2008 10:30am Height 60 inches 5'0" BP Systolic Sitting 146 mmHg BP Diastolic Sitting 84 mmHg 05/23/2008 9:44am Height 60 inches 5'0" Weight 297.00 lb Heart Rate 60 /min BP Systolic Sitting 140 mmHg BP Diastolic Sitting 80 mmHg BMI (Body Mass Index) 58.0 kg/m2 04/04/2007 3:49pm Height 60 inches 5'0" Weight 282.00 lb Heart Rate 80 /min BP Systolic Sitting 104 mmHg BP Diastolic Sitting 80 mmHg BMI (Body Mass Index) 55.1 kg/m2 Results Test Date Facility Test Result H/L Range Note Urinalysis Profile 09/26/2018 [facility] Urine [place] [address] [phone] Urine Appearance Cloudy Urine Specific Dennison 1.011 N 1.010-1.030 Urine pH 5.0 N 5-9 Urine Urobilinogen Negative Negative Urine Ketones Negative Negative Urine Protein Negative Negative Urine Leukocytes Negative Negative Urine Blood Negative Negative Urine Nitrite Negative Negative Urine Bilirubin Negative Negative Urine Glucose Negative Negative CBC Auto Diff 09/26/2018 [facility] White Blood 7.1 10^3/uL N 3.5-10.[address] [place] [address] [phone] Red Blood Count 4.68 10^6/uL N 4.00-5.40 Hemoglobin 14.2 g/dL N 12.0-16.0 Hematocrit 41 % N 35-47 Mean Corpuscular Volume 88 fL N 80-97 Mean Corpuscular Hemoglobin 30 pg N 27-31 Mean Corpuscular HGB Conc 34 g/dL N 31-36 Red Cell Distribution Width 14 % N 10.5-15 Platelet Count 354 10^3/uL N 150-450 Mean Platelet Volume 7.4 fL N 7.4-10.4 Abs Neutrophils 3.4 10^3/uL N 1.5-7.7 Abs Lymphocytes 3.1 10^3/uL N 1.0-4.8 Abs Monocytes 0.5 10^3/uL N 0-0.8 Abs Eosinophils 0.1 10^3/uL N 0-0.6 Abs Basophils 0 10^3/uL N 0-0.2 Abs Nucleated RBC 0 10^3/uL Granulocyte % 47.3 % Lymphocyte % 43.6 % Monocyte % 7.2 % Eosinophil % 1.4 % Basophil % 0.5 % Nucleated Red Blood Cells % 0.1 Inr/Protime 09/26/2018 [facility] Inr 0.96 N 0.77-1.[address] [place] [address] [phone] Laboratory test 09/26/2018 [facility] Partial 33.1 seconds N 26.0-36.[address] [place] [address] PTT [phone] Comp Metabolic 09/26/2018 [facility] Sodium 140 mmol/L N 135- [address] [place] [address] [phone] Potassium 4.0 mmol/L N 3.5-5.0 Chloride 103 mmol/L N 101-111 Co2 Carbon Dioxide 30 mmol/L N 22-32 Anion Gap 7 mmol/L N 2-11 Glucose 84 mg/dL N 70-100 Blood Urea Nitrogen 17 mg/dL N 6-24 Creatinine 0.74 mg/dL N 0.51-0.95 BUN/Creatinine Ratio 23.0 High 8-20 Calcium 9.2 mg/dL N 8.6-10.3 Total Protein 6.7 g/dL N 6.4-8.9 Albumin 3.8 g/dL N 3.2-5.2 Globulin 2.9 g/dL N 2-4 Albumin/Globulin Ratio 1.3 N 1-3 Total Bilirubin 0.40 mg/dL N 0.2-1.0 Alkaline Phosphatase 78 U/L N 34-104 Alt 11 U/L N 7-52 Ast 13 U/L N 13-39 Egfr Non- 81.8 >60 Egfr 99.0 >60 1 Type & Screen 09/26/2018 [facility] Patient Blood Type O Positive [address] [place] [address] [phone] Antibody Screen NEGATIVE Urine Culture 09/26/2018 [facility] Urine SEE RESULT [address] Culture [place] [address] [phone] HIV 1/2 AB 09/26/2018 [facility] HIV 1 2 Nonreactive Nonreactive [address] [place] [address] [phone] Urinalysis 04/18/2018 [facility] Urine Color Yellow [address] [place] [address] [phone] Urine Appearance Clear Urine Specific Dennison 1.027 N 1.010-1.030 Urine pH 5.0 N 5-9 Urine Urobilinogen Negative Negative Urine Ketones Negative Negative Urine Protein Negative Negative Urine Leukocytes 1+ Abnormal Negative Urine Blood Negative Negative Urine Nitrite Negative Negative Urine Bilirubin Negative Negative Urine Glucose Negative Negative Urine White Blood Cell Trace(0-5/hpf) Absent Urine Red Blood Cell 1+(3-5/hpf) Abnormal Absent Urine Bacteria Absent Absent Urine Squamous Epithelial Cell Present Abnormal Absent Comp Metabolic Panel 04/18/2018 [facility] Sodium 140 mmol/L N 135-[address] [place] [address] [phone] Potassium 4.3 mmol/L N 3.5-5.0 Chloride 104 mmol/L N 101-111 Co2 Carbon Dioxide 30 mmol/L N 22-32 Anion Gap 6 mmol/L N 2-11 Glucose 64 mg/dL Low 70-100 Blood Urea Nitrogen 18 mg/dL N 6-24 Creatinine 0.66 mg/dL N 0.51-0.95 BUN/Creatinine Ratio 27.3 High 8-20 Calcium 9.2 mg/dL N 8.6-10.3 Total Protein 6.5 g/dL N 6.4-8.9 Albumin 3.9 g/dL N 3.2-5.2 Globulin 2.6 g/dL N 2-4 Albumin/Globulin Ratio 1.5 N 1-3 Total Bilirubin 0.40 mg/dL N 0.2-1.0 Alkaline Phosphatase 73 U/L N 34-104 Alt 11 U/L N 7-52 Ast 15 U/L N 13-39 Egfr Non- 93.7 >60 Egfr 113.4 >60 5 Inr/Protime 04/18/2018 [facility] Inr 0.86 N 0.77-1.[address] [place] [address] [phone] Laboratory test 04/18/2018 [facility] Partial 33.8 seconds N 26.0-36.3 [address] [place] [address] PTT [phone] Type & Screen 04/18/2018 [facility] Patient O Positive [address] [place] [address] [phone] Antibody Screen NEGATIVE Urine Culture And 04/18/2018 [facility] Urine Culture SEE RESULT [address] [place] [address] [phone] CBC Auto Diff 04/18/2018 [facility] White Blood 7.7 10^3/uL N 3.5-[address] Count .8 [place] [address] [phone] Red Blood Count 4.64 10^6/uL N 4.00-5.40 Hemoglobin 14.5 g/dL N 12.0-16.0 Hematocrit 43 % N 35-47 Mean Corpuscular Volume 92 fL N 80-97 Mean Corpuscular Hemoglobin 31 pg N 27-31 Mean Corpuscular HGB Conc 34 g/dL N 31-36 Red Cell Distribution Width 13 % N 10.5-15 Platelet Count 303 10^3/uL N 150-450 Mean Platelet Volume 7.9 um3 N 7.4-10.4 Abs Neutrophils 3.9 10^3/uL N 1.5-7.7 Abs Lymphocytes 3.0 10^3/uL N 1.0-4.8 Abs Monocytes 0.6 10^3/uL N 0-0.8 Abs Eosinophils 0.2 10^3/uL N 0-0.6 Abs Basophils 0 10^3/uL N 0-0.2 Abs Nucleated RBC 0 10^3/uL Granulocyte % 50.4 % N 38-83 Lymphocyte % 39.5 % N 25-47 Monocyte % 7.4 % High 0-7 Eosinophil % 2.3 % N 0-6 Basophil % 0.4 % N 0-2 Nucleated Red Blood Cells % 0.1 Basic Metabolic Panel 03/09/2018 [facility] Sodium 140 mmol/L N 135-[address] [place] [address] [phone] Potassium 4.2 mmol/L N 3.5-5.0 Chloride 105 mmol/L N 101-111 Co2 Carbon Dioxide 28 mmol/L N 22-32 Anion Gap 7 mmol/L N 2-11 Glucose 83 mg/dL N 70-100 Blood Urea Nitrogen 18 mg/dL N 6-24 Creatinine 0.60 mg/dL N 0.51-0.95 BUN/Creatinine Ratio 30.0 High 8-20 Calcium 9.2 mg/dL N 8.6-10.3 Egfr Non- 104.6 >60 Egfr 126.5 >60 8 Laboratory test 03/09/2018 [facility] Erythrocyte Sed 22 mm/Hr N 0-[address] [place] [address] [phone] C Reactive Protein 1.35 mg/L N <8.01 10 Vitamin B12 And 03/09/2018 [facility] Vitamin B12 336 pg/mL N 180-[address] [place] [address] [phone] Folic Acid (Folate) > 20.00 ng/mL >3.99 12 Laboratory test 03/09/2018 [facility] TSH (Thyroid 1.60 mcIU/mL N 0.34-5.[address] Stim Horm) [place] [address] [phone] Free T4 (Free Thyroxine) 1.02 ng/dL N 0.61-1.12 14 Laboratory test 06/29/2017 [facility] Surgical Pathology SEE RESULT [address] [place] [address] [phone] Laboratory test 01/26/2016 [facility] Methylmalonic Acid 0.12 N <=0.4 [address] Mma nmol/mL 0 [place] [address] [phone] C Reactive Protein 5.31 mg/L High < 5.00 17 Protein 12/02/2015 [facility] Total 7.4 g/dL N 6.3 - Electrophoresis [address] Protein(Pep) 7.9 [place], [place] [address] [phone] Albumin 3.2 g/dL Abnormal 3.4-4.7 Alpha-1 Globulin 0.3 g/dL N 0.1-0.3 Alpha-2 Globulin 1.1 g/dL Abnormal 0.6-1.0 Beta Globulin 1.5 g/dL Abnormal 0.7-1.2 Gamma Globulin 1.3 g/dL N 0.6-1.6 Albumin/Globulin Ratio 0.78 N Impression See Comment N 18 Comp Metabolic Panel 12/02/2015 [facility] Sodium 138 mmol/L N 133-[address] [place] [address] [phone] Potassium 3.6 mmol/L N 3.5-5.0 Chloride 98 mmol/L Low 101-111 Co2 Carbon Dioxide 27 mmol/L N 22-32 Anion Gap 13 mmol/L High 2-11 Glucose 102 mg/dL High 70-100 Blood Urea Nitrogen 14 mg/dL N 6-24 Creatinine 0.81 mg/dL N 0.51-0.95 BUN/Creatinine Ratio 17.3 N 8-20 Calcium 9.6 mg/dL N 8.6-10.3 Total Protein 7.2 g/dL N 6.4-8.9 Albumin 4.2 g/dL N 3.2-5.2 Globulin 3.0 g/dL N 2-4 Albumin/Globulin Ratio 1.4 N 1-3 Total Bilirubin 1.10 mg/dL High 0.2-1.0 Alkaline Phosphatase 80 U/L N 34-104 Alt 41 U/L N 7-52 Ast 33 U/L N 13-39 Egfr Non- 74.5 N >60 Egfr 95.9 N >60 19 CBC W/Auto 03/13/2015 [facility] White Blood 7.9 10^3/uL N 4.8 -10.[address] [place] [address] [phone] Red Blood Count 4.55 10^6/uL N 4.0-5.4 Hemoglobin 13.5 g/dL N 12.0-16.0 Hematocrit 41 % N 35-47 Mean Corpuscular Volume 90 fL N 80-97 Mean Corpuscular Hemoglobin 30 pg N 27-31 Mean Corpuscular HGB Conc 33 g/dL N 31-36 Red Cell Distribution Width 14 % N 10.5-15 Platelet Count 295 10^3/uL N 150-450 Mean Platelet Volume 8 um3 N 7.4-10.4 Abs Neutrophils 4.5 10^3/uL N 1.5-7.7 Abs Lymphocytes 2.5 10^3/uL N 1.0-4.8 Abs Monocytes 0.6 10^3/uL N 0-0.8 Abs Eosinophils 0.2 10^3/uL N 0-0.6 Abs Basophils 0 10^3/uL N 0-0.2 Abs Nucleated RBC 0.01 10^3/uL N Granulocyte % 57.3 % N 38-83 Lymphocyte % 32.1 % N 25-47 Monocyte % 7.5 % N 1-9 Eosinophil % 2.7 % N 0-6 Basophil % 0.4 % N 0-2 Nucleated Red Blood Cells % 0.1 N CMP Panel 03/13/2015 [facility] Sodium 139 mmol/L N 133-[address] [place] [address] [phone] Potassium 4.1 mmol/L N 3.5-5.0 Chloride 102 mmol/L N 101-111 Co2 Carbon Dioxide 30 mmol/L N 22-32 Anion Gap 7 mmol/L N 2-11 Glucose 101 mg/dL High 70-100 Blood Urea Nitrogen 14 mg/dL N 6-24 Creatinine 0.73 mg/dL N 0.51-0.95 BUN/Creatinine Ratio 19.2 N 8-20 Calcium 9.1 mg/dL N 8.6-10.3 Total Protein 6.7 g/dL N 6.4-8.9 Albumin 3.8 g/dL N 3.2-5.2 Globulin 2.9 g/dL N 2-4 Albumin/Globulin Ratio 1.3 N 1-3 Total Bilirubin 0.50 mg/dL N 0.2-1.0 Alkaline Phosphatase 80 U/L N 34-104 Alt 20 U/L N 7-52 Ast 17 U/L N 13-39 Egfr Non- 84.4 N >60 Egfr 108.5 N >60 20 Laboratory test 03/13/2015 [facility] TSH (Thyroid 2.74 ?IU/mL N 0.34-5.[address] Stim Horm) [place] [address] [phone] Free T4 (Free Thyroxine) 0.87 ng/mL N 0.61-1.12 Vitamin B12 276 pg/mL N 180-914 21 Folic Acid (Folate) 19.03 ng/mL N >3.99 Homocysteine 9 mcmol/L N 22 Jojo (Antinuclear Antibodies) Negative N Negative Erythrocyte Sed Rate 30 mm/Hr N 0-30 C Reactive Protein 7.68 mg/L High < 5.00 23 Lyme Disease Serology Negative N Negative 24 Ssa/SSB Abs Igg 03/13/2015 [facility] SS-A/Ro Antibody <0.2 U N 25 [address] [place] [address] [phone] SS-B/La Antibody <0.2 U N 26 Volatiles Panel 03/13/2015 [facility] Volatile Screen See Comment N 27 Serum [address] [place] [address] [phone] Methanol Not Detected mg/dL N 28 Ethanol Not Detected mg/dL N 29 Acetone Level Not Detected mg/dL N 30 Isopropanol Not Detected mg/dL N 31 CBC W/ Electronic 05/23/2007 [facility] White Blood 6.8 CUMM 4.8-10.8 [address] [place] [address] [phone] Abs Basophils 0 0-0.2 Abs Eosinophils 0.1 0-0.6 Absolute Neutrophil Count 3.8 1.5-7.7 Abs Lymphs 2.5 1.0-4.8 Abs Mononuclear 0.4 0-0.8 Basophil % 0.2 % 0-2 Hematocrit 36 % 35-47 Hemoglobin 12.7 g/dL 12.0-16.0 Eosinophil % 1.6 % 0-6 Gran % 55.6 % 38-83 Lymph % 36.8 % 20-45 Mean Corpuscular HGB Cone 35 g/dL 32-36 Mean Corpuscular Hemoglob 31 pg 27-31 Mean Corpuscular Volume 88 um3 79-97 Mean Platelet Volume 7.8 um3 7.4-10.4 Mononuclear % 5.8 % 1-9 Platelet Count 339 CUMM 150-450 Red Cell Count 4.14 CUMM Low 4.2-5.4 Redcell Distribution WDTH 13 % 10.5-15 Comp Metabolic 05/23/2007 [facility] One Over Creatinine 1.42 [address] [place] [address] [phone] Anion Gap 6.0 mmol/L 2-11 34 Albumin/Globulin Ratio 1.2 1-3 Albumin 3.5 GM/DL Low 3.6-5.4 Alkaline Phosphatase 67 U/L 30-110 Alt (SGPT) 24 U/L 14-54 Ast (Sgot) 19 U/L 12-42 BUN 5 mg/dL Low 6-24 Calcium 8.8 mg/dL 8.7-10.2 Chloride 106 mmol/L 101-111 Co2 (Carbon Dioxide) 28.0 mmol/L 22-32 Globulin 2.9 GM/DL 2-4 Glucose 89 mg/dL 70-105 Potassium 4.1 mmol/L 3.5-5.0 Sodium 140 mmol/L 135-145 Bilirubin Total 0.5 mg/dL 0.4-1.5 Total Protein 6.4 GM/DL 6.2-8.1 BUN/Creatinine Ratio 7.1 Low 8-20 Creatinine 0.7 mg/dL 0.5-1.4 Lipid Profile 05/23/2007 [facility] Cholesterol 213 mg/dL High Less 35 (Trig/Chol/HDL) [address] [place] [address] [phone] Triglyceride 106 mg/dL 40-200 High Density Lipoprotein 40 mg/dL 40-60 Low Density Lipoprotein 152 mg/dL High Less Than 100 36 Cholesterol/HDL Ratio 5.33 AVERAGE High 1-4.44 Laboratory test 05/23/2007 [facility] TSH 1.79 MIU/ML 0.34- 5.[address] [place] [address] [phone] 1 Because ethnic data is not always [...] 5 Kidney failure <15 (or dialysis) 2 SEE RESULT BELOW Name: EILEEN BRADY : [address]: Carolyn KRISHNAN Acct: [id number] Unit: [id number] AGE: 53 Location: LAB Re09/26/18 SEX: F Status: REG REF SPEC: [id number] NATA: 09/26/18-1411 [facility] DR: Saray Cummings MD REQ: [id number] RECD: [id number] STATUS: JI CASTILLO DR: Hattie Lawson DO _ SOURCE: URINE SPDESC: ORDERED: Urine Culture QUERIES: Urine Source: Clean Catch Procedure Result Reported Site Urine Culture Final 09/27/18- 1234 ML No Growth (<1,000 CFU/mL) * ML - Main Lab . END OF REPORT DEPARTMENT OF PATHOLOGY, [address] [place] [address] Cameron Rojas M.D. Director [facility] # [id number] 3 It is recognized that currently available assays for the detection of antibodies to HIV-1 and/or HIV-2 may not detect all infected individuals. HIV antibodies may be undetectable in some stages of the infection and in some clinical conditions. The performance of this assay has not been established for populations of infants or children. Assayed by Chemiluminescence Microparticle Immunoassay on the Siemens Advia Centaur CP. Values obtained with different methods or kits cannot be used interchangeably.The diagnostic specificity of the ADVIA Centaur 1/O/2 Enhanced assay in the low risk population was 99.90% (6037/6022) with a 95% confidence interval of 99.78 to 99.96%. 4 05/01 5 Because ethnic data is not always readily [...] 15-29 5 Kidney failure <15 (or dialysis) 6 05/01 7 SEE RESULT BELOW Name: EILEEN BRADY : [address]: Saray Cummings MD Acct: [id number] Unit: [id number] AGE: 52 Location: [facility] Re04/18/18 SEX: F Status: REG REF SPEC: [id number] NATA: 04/18/18-[address]: Saray Cummings MD REQ: [id number] RECD: 04/18/181230 STATUS: COMP _ SOURCE: URINE SPDESC: ORDERED: Urine Culture COMMENTS: 05/01 QUERIES: Urine Source: Clean Catch Procedure Result Reported Site Urine Culture Final 04/19/18- 1602 ML No growth of clinically significant organisms * ML - Main Lab . END OF REPORT DEPARTMENT OF PATHOLOGY, [address] [place] [address] Cameron Rojas M.D. Director [facility] # [id number] 8 Because ethnic data is not always readily [...] 15-29 5 Kidney failure <15 (or dialysis) 9 [facility] lab Copy Result to: HATTIE LAWSON ([id number]) 10 [facility] lab Copy Result to: HATTIE LAWSON ([id number]) 11 Normal Range 180 to 914 Indeterminate Range 145 to 180 Deficient Range <145 12 [facility] lab Copy Result to: HATTIE LAWSON ([id number]) 13 [facility] lab Copy Result to: HATTIE LAWSON ([id number]) 14 [facility] lab Copy Result to: HATTIE LAWSON ([id number]) 15 SEE RESULT BELOW Name: EILEEN BRADY : [address]: Jc Kaplan MD Acct: [id number] Unit: [id number] AGE: 51 Location: [place] Re06/29/17 SEX: F Status: [facility] SPEC: [id number] NATA: 06/29/17- [facility] DR: Jc Kaplna MD REQ: [id number] RECD: 06/29/179517 STATUS: SOUT _ ORDERED: LEVEL 3 FINAL [...] and the wall thickness averages 0.1 cm. 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 Signed (signature on file) Cameron Rojas MD 1101 END OF REPORT * ML=Testing performed at Main [facility] DEPARTMENT OF PATHOLOGY, [address] [place] [address] Cameron Rojas M.D. Director [facility] # [id number] 16 Test Performed by: [place] [address] [employer] Assembly Supervisor: Cj Zuniga II, M.D., Ph.D. 17 Acute inflammation: >10.00 18 RESULT: No apparent monoclonal protein on serum electrophoresis. Test Performed by: [place] [address] [employer] Supervisor: Cj Zuniga II, M.D., Ph.D. 19 Because ethnic data is not always readily [...] 15-29 5 Kidney failure <15 (or dialysis) 20 Because ethnic data is not always readily [...] 15-29 5 Kidney failure <15 (or dialysis) 21 Normal Range 180 to 914 Indeterminate Range 145 to 180 Deficient Range <145 22 REFERENCE VALUE <=13 (Fasting) Test Performed by: [place] [address] [employer] Supervisor: Cj Zuniga II, M.D., Ph.D. 23 Acute inflammation: >10.00 24 Serologic response to B. burgdorferi infection is not detected, but cannot rule out early infection during which low or undetectable antibody levels to B. burgdorferi may be present. If clinically indicated, a new serum specimen should be submitted in 7-14 days. Test Performed by: [place] [address] [employer] Instrument Assembly Supervisor: Cj Zuniga II, M.D., Ph.D. 25 REFERENCE VALUE <1.0 (Negative) 26 REFERENCE VALUE <1.0 (Negative) Test Performed by: [place] [address] [employer] Supervisor: Cj Zuniga II, M.D., Ph.D. 27 Sample aliquot received, original unopened sample is preferred. 28 REFERENCE VALUE Not detected (Positive results are quantitated) >=10 (Toxic concentration) 29 REFERENCE VALUE Not detected (Positive results are quantitated) >=400 (Toxic concentration) 30 REFERENCE VALUE Not detected (Positive results are quantitated) >=10 (Toxic concentration) 31 REFERENCE VALUE Not detected (Positive results are quantitated) >=10 (Toxic concentration) Test Performed by: [place] [address] [employer] Assembly Supervisor: Cj Zuniga II, M.D., Ph.D. 32 PATIENT MAY HAVE RESULTS PER DOCTOR'S AUTHORIZATION. Questions regarding this report should be directed to your doctor. 33 FASTING PATIENT MAY HAVE RESULTS PER DOCTOR'S AUTHORIZATION. Questions regarding this report should be directed to your doctor. 34 Anion gap measurement may be of limited value in the presence of any alkalosis, especially in a combined acid base disorder. . 35 Classification: Borderline High . 36 CALCULATED LDL APPROXIMATES THE VALUE OF A DIRECT LDL MEASUREMENT. Classification: Borderline High . Procedures Date Code Description Status 05/01/2018 95506 TKR Total Knee Replacement Completed 05/01/2018 54181 TKR Total Knee Replacement Completed 04/18/2018 34020 EKG, Interpretation Only Completed 03/15/2018 60859 Nerve Conduction 07-08 Studies Completed 06/29/2017 53592 Laparoscopy Cholecystectomy Completed 06/29/2017 93918 Laparoscopy Cholecystectomy Completed 12/01/2015 03090 Nerve Conduction 03-04 Studies Completed 05/04/2015 70671 Stress Test Completed 05/04/2015 60577 Myocardial Perfusion Imaging Tomographic (Spect) Multiple Completed Studies 05/04/2015 05574 Myocardial Perfusion Imaging Tomographic (Spect) Multiple Completed Studies 04/28/2015 02785 EKG Tracing & Interpretation Completed 03/31/2015 60040 Nerve Conduction 07-08 Studies Completed Encounters Type Date Location Provider Dx Diagnosis Office Visit 09/07/2018 Orthopedic Saray Cummings, M25.562 Pain in left knee 8:45a Services Of [place] Anderson M25.561 Pain in right knee M25.462 Effusion, left knee M17.12 Unilateral primary osteoarthritis, left knee Z96.651 Presence of right artificial knee joint Office Visit 07/11/2018 [place] Waldo R20.2 Paresthesia of 8:15a Neurologic Serv Of Justin Mcconnell skin [facility] G62.9 Polyneuropathy, unspecified G56.03 Carpal tunnel syndrome, bilateral upper limbs Office Visit 07/05/2018 1:20p [facility] AT Gaston Hernandez, L82.1 Other seborrheic Giuseppe SONG keratosis L91.8 Other hypertrophic disorders of the skin L70.0 Acne vulgaris D23.72 Ot benign neoplasm skin/ left lower limb, including hip Z08 Encntr for follow-up exam after trtmt for malignant neoplasm Z85.820 Personal history of malignant melanoma of skin Office Visit 05/02/2018 [facility] I10 Essential 9:13a Assoc,pc EULOGIO Avery (primary) Hospitalists hypertension J45.909 Unspecified asthma, uncomplicated Z96.651 Presence of right artificial knee joint Z68.42 Body mass index (BMI) 45.0-49.9, adult E66.01 Morbid (severe) obesity due to excess calories Office Visit 04/25/2018 [place] R25.3 Fasciculation 2:00p Neurologic Serv Of Justin Mcconnell [facility] R94.02 Abnormal brain scan R53.82 Chronic fatigue, unspecified G56.02 Carpal tunnel syndrome, left upper limb R29.810 Facial weakness Office Visit 03/01/2018 [place] Waldo Mcconnell R20.2 Paresthesia of 10:30a Neurologic MYenDYen skin [facility] R25.3 Fasciculation M54.2 Cervicalgia R94.02 Abnormal brain scan R53.82 Chronic fatigue, unspecified Office Visit 12/28/2017 8:50a [facility] Gaston Hernandez, L91.8 Other hypertrophic AT [place] disorders of the skin L82.1 Other seborrheic keratosis L81.3 Cafe au lait spots D23.72 Ot benign neoplasm skin/ left lower limb, including hip Z08 Encntr for follow-up exam after trtmt for malignant neoplasm Z85.820 Personal history of malignant melanoma of skin Office Visit 11/27/2017 8:30a Orthopedic Services Saray Emiliano, M25.561 Pain in right Of [facility] M.[facility]. knee M25.562 Pain in left knee M25.461 Effusion, right knee M25.462 Effusion, left knee M17.0 Bilateral primary osteoarthritis of knee M21.061 Valgus deformity, not elsewhere classified, right knee M21.062 Valgus deformity, not elsewhere classified, left knee Office Visit 06/13/2017 10:30a Surgical Jc Cifuentes80.10 [facility] Justin Kaplan gallbladder w chronic cholecyst w/o obstruction Office Visit 12/22/2015 3:45p [place] [facility] Velma Maddox R20.2 Paresthesia of [facility] Justin Perez skin G56.02 Carpal tunnel syndrome, left upper limb G56.01 Carpal tunnel syndrome, right upper limb Office Visit 05/11/2015 1:40p [place] [facility] Layne Dailey R07.9 Chest pain, Of [facility] AT [facility] MD Rhett, unspecified [facility], [facility] Office Visit 04/28/2015 3:00p [facility] Charlesmargarita CuochYen R07.9 Chest pain, Of [facility] AT [facility] MD Rhett, unspecified [facility] E66.09 Other obesity due to excess calories G47.33 Obstructive sleep apnea (adult) (pediatric) Office Visit 02/26/2015 Neurohospitalist Velma Maddox 354.0 Carpal Tunnel 9:30a Clinic Justin Perez Syndrome 781.0 Abnormal Involuntary Movements 780.57 Unspecified Sleep Apnea 782.0 Skin Sensation Disturbance 794.09 Function Study Other Abnormal Brain & Central Nervous System Office Visit 10/18/2009 [facility] Benson Johnson, 780.59 Sleep Disturbances 12:15a Assoc,mey Anderson Other Hospitalists 530.81 Esophageal Reflux 553.3 Hernia Diaphragmatic 278.00 Obesity Unspec Office Visit 10/17/2009 3:30a [facility] Benson Johnson, 786.50 Pain Chest Assoc,mey Anderson Unspec Hospitalists 401.9 Hypertension Unspec 272.4 Hyperlipidemia Other Unspec 278.00 Obesity Unspec 530.81 Esophageal Reflux Office Visit 06/25/2008 10:00a [place] [facility] Rodney EYen 493.90 Asthma Unspec W /O Assoc AT Justin James [facility] 401.1 Hypertension Benign Office Visit 05/26/2008 10:15a [place] [facility] Rodney EYen 723.1 Cervicalgia Assoc AT Justin James [facility] Office Visit 05/23/2008 9:40a [place] [facility] Rodney EYen 465.9 URI Upper Assoc AT Justin James [facility] Infections Acute Unspec Sites 401.1 Hypertension Benign 493.90 Asthma Unspec W/O Status Asthmaticus Office Visit 05/23/2008 9:30a [place] [facility] Rodney EYen 465.9 URI Upper Assoc AT Justin James [facility] Infections Acute Unspec Sites 401.1 Hypertension Benign 493.90 Asthma Unspec W/O Status Asthmaticus Office Visit 04/04/2007 3:30p [place] [facility] Rodney EYen 493.90 Asthma Unspec W /O Assoc AT Justin James [facility] 401.1 Hypertension Benign Plan of Treatment Future Appointment(s):10/22/2018 1:15 pm - Saray Cummings M.D. at [facility]10/09/2018 4:30 pm - Daniel Albert PA-C at [facility]10/09/2018 4:30 pm - EULOGIO Rowland at [facility]10/09/2018 4:30 pm - Saray Cummings M.D. at [facility]12/05/2018 9:45 am - Waldo Mcconnell M.D. at [facility]01/08/2019 10:00 am - Gaston Hernandez MD at [facility] D[facility]at[facility] AT Qegqcwtc39/27/2019 - Saray Cummings M.D.M25.562 Pain in left kneeFollow up:Follow up: 2 weeks after mbajckfY23.462 Effusion, left kneeM17.12 Unilateral primary osteoarthritis, left knee
--- OUTSIDE RECORDS SUMMARY | 2018-10-09 12:25 | XMS REPORT | Continuity of Care Document ---
:1965 External Reference #:[id number] Author Name Gabriel Ramirez M.D. Address [address] [facility] [address] [place] [address] Care Team Providers Name Role Phone HCP given Primary Care Physician Unavailable Payers Date Identification Numbers Payment Provider Subscriber Policy Number: [id number] [facility] Eileen Brady PayID: [id number] [address] [place] [address] Advance Directives Description No Information Available Problems Date Description Provider Status Onset: 07/16/2014 Benign essential hypertension Hattie Lawson D.O. Active Onset: 10/03/2014 Extrinsic asthma without status Hattie Lawson D.O. Active asthmaticus Onset: 12/16/2014 Acute laryngopharyngitis Hattie Lawson D.O. Active Onset: 12/16/2014 Cough Hattie Lawson D.O. Active Onset: 04/24/2015 Essential hypertension Maddi Loera RPA-C Active Onset: 03/19/2015 Essential hypertension Maddi Loera RPA-C Active Onset: 12/02/2015 Morbid obesity Hattie Lawson D.O. Active Onset: 12/02/2015 Gastroesophageal reflux disease Hattie Lawson D.O. Active Onset: 02/24/2016 Disorder of magnesium metabolism Hattie Lawson D.O. Active Onset: 02/24/2016 Enthesopathy of knee Hattie Lawson D.O. Active Onset: 02/24/2016 Vitamin D deficiency Hattie Lawson D.O. Active Onset: 02/24/2016 Other idiopathic peripheral Hattie Lawson D.O. Active autonomic neuropathy Onset: 05/04/2016 Eating disorder Marivel Varela PA Active Onset: 07/27/2016 Anxiety state Hattie Lawson D.O. Active Onset: 07/27/2016 Recurrent major depressive episodes Hattie Lawson D.O. Active Onset: 04/25/2017 Plantar fascial fibromatosis Hattie Lawson D.O. Active Onset: 04/25/2017 Gallbladder calculus with acute Hattie Lawson D.O. Active cholecystitis and no obstruction Onset: 11/27/2017 Osteoarthritis Marivel Varela PA Active Onset: 12/15/2017 Uncomplicated moderate persistent Hattie Lawson D.O. 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 Work 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 Currently Working [employer] Dominance Right-handed Abuse No history of abuse Tobacco Use Start: Unknown Denies Cigarette Use ETOH Use Rarely consumes alcohol Recreational Drug Use Denies Drug Use Tobacco Use Start: Unknown Patient has never smoked Smoking Status Reviewed: 09/03/18 Patient has never smoked Enjoy Exercising Enjoys exercising but infreq due to bilateral knee pain Sun Exposure Does not use sunscreen Seat Belt/Car Seat always uses seat belt Guns in Home No Smoke Alarms Yes smoke alarm Currently Active Patient is currently sexually active Age [address] [place] 17 Years Old STD's No STD History Additional Info Sexual preference is men Allergies, Adverse Reactions, Alerts Date Description Reaction Status Severity Comments 11/27/2013 Vicodin Active Gives pt "asthma attack" Medications Medication Date Status Form Strength Qnty SIG Indications Ordering Provider Fluconazole 09/23/ Active Tablets 150mg 6tabs 1 tabs by B37.9 James, 2019 mouth x 3 cezar Rios, repeat M.D. in one week, also x 3 days for severe rash [facility] 09/23/ Active Cream 1% 14.200 Apply 2 B37.9 Silrebekah, Clotrimazole 2019 gm times a day Gabriel to control M.D. rash, discontinue 2 days after rash resolves Citalopram 09/11/ Active Tablets 20mg 90tabs 1 by mouth F43.23 Eliseo Hydrobromide 2019 every day Hattie D.O. Omeprazole 09/03/ Active Capsules 40mg 60caps 1 by mouth Eilseo 2019 twice every Hattie, day D.O. Tramadol HCL 09/02/ Active Tablets 50mg 1 tab po Unknown 2018 four times daily per Vistaril 08/27/ Active Capsules 25mg take one Unknown 2018 capsule by mouth for sleep at night Clotrimazole 08/13/ Active Cream 1% 56gm Apply to R21 Silcokimberli, Anti-Fungal 2019 affected Gabriel areas bid M.DYen B37.9 Fdbycjuzq-Ocmnu-A62-Acetylcyst 08/06/2018 Active Tablets 6-90.314-2-600mg 90tabs Take 1 G90.09 Sopchak, tablet by Hattie, mouth daily D.O. for nutritional support E53.8 F50.9 Cyclobenzaprine 05/01/2018 Active Tablets 10mg TK 1 T PO 2 To Unknown HCL 3 Times A Day as Needed. MDD 3 Cane 03/27/2018 Active Standard 1u Use to assist maxx Ramirez with walking guido Rios and balance M.DYen Proair HFA 01/30/2018 Active Aerosol 108(90 8. 2 puff [facility] 5u 4-6 Hours, as 6. Hattie mcg/Ac ni Needed 00 D.O. t ts Sulindac 11/13/2017 Active Tablets 150mg 18 150 mg orally M2 Eliseo, 0t twice daily 5. Hattie ab 56 D.O. s 9 Flonase Allergy 05/26/2017 Active Suspension 50mcg/ 47 2 sprays twice J0 Sopharsh, Relief Act .4 a day until 1. Melani Zazueta better. 00 D.O. ml Metoprolol 04/14/2017 Active Tablets ER 50mg 30 1 By Mouth Sopchak, Succinate ER 24HR ta Every Day aidan Zazueta D.O. Magox 400 02/24/2016 Active Tablets 400(24 18 2 tablets every E6 Sopchak, 1.3mg) 0t night at 6. mg Hattie ab bedtime as 01 D.O. s directed Vitamin D3 02/24/2016 Active Tablets 5000Un 90 1 tab by mouth E5 Sopchak, it ta every day or 7 5. aidan Zazueta tabs once a 9 D.O. week Multivitamin Adult 01/06/2016 Active Tablets 90 1 by mouth E6 Sopchak, ta every day 6. aidan Zazueta 01 D.O. Blood Pressure 07/07/2014 Active Misc Soplarryk, Monitor Allison Zazueta/Automatic D.O. Fluconazole 08/13/2018 - Hx Tablets 150mg 2t 1 tabs by mouth B3 Silcoff , 08/30/2018 ab 1 time per week 7. buffy Rios x 2 weeks for 9 M.D. rash Oxycodone-Acetamin 05/01/2018 - Hx Tablets 5-325m 1 every 4 hours Unknown ophen 08/05/2018 g as needed severe pain Xarelto 05/01/2018 - Hx Tablets 10mg one po daily Unknown 06/27/2018 Symbicort 03/27/2018 - Hx Aerosol 160-4. 1u inhale 2 puffs Silcoff, 08/05/2018 5mcg/A ni by mouth twice barbara Rios ts daily gargle M.D. after use for exacerbations (sample) Azithromycin 03/23/2018 - Hx Tablets 250mg 6t take 2 tablets J4 Silcoff , 03/28/2018 ab by mouth one 5. buffy Rios time on the 21 M.D. first day then take 1 tablet by mouth daily for 4 days Advair Diskus 02/21/2018 - Hx Aerosol 100-50 28 1 puff J4 Sopchak, 03/07/2018 mcg/Do un inhalation by 5. se Hattie it mouth every 12 21 D.O. s hours rinse mouth after use Citalopram 01/05/2018 - Hx Tablets 40mg 90 1 by mouth F4 Silcoff, Hydrobromide 09/11/2018 ta every day 3. aidan Rios 23 M.D. Ventolin HFA 12/19/2017 - Hx Aerosol 108(90 18 inhale 2 puffs R0 Sopchak, 01/30/2018 Base) un by mouth every 6. travis Zazueta/Hima petty 4 hours as 00 D.O. t s needed for bronchospasm Tramadol HCL 12/15/2017 - Hx Tablets 50mg 90 1 tab three M1 Sopchak, 05/09/2018 ta times a day as 7. aidan Zazueta needed for pain 12 D.O. Metformin HCL 12/11/2017 - Hx Tablets 500mg 60 Take 1 Tablet E6 Silcoff , 09/02/2018 ta Twice Daily 6. aidan Rios 01 M.D. Nystatin 10/30/2017 - Hx Ointment [id number] 60 apply to R2 Silcokimberli, 08/13/2018 Unit/G gm affected areas 1 Michelet Rios (not feet) 2-3 M.D. times a day until rash has gone for at least 2 days B37.9 Citalopram 10/20/2017 - Hx Tablets 20mg 90tabs 1 by mouth F43.23 Sopchak, Hydrobromide 01/05/2018 every day Karan Zazueta Citalopram 10/12/2017 - Hx Tablets 10mg 90tabs 1 by mouth F43.23 Soplarryk, Hydrobromide 10/20/2017 every day Karan Zazueta Escitalopram Oxalate 10/09/2017 - Hx Tablets 10mg 90tabs 1/2 tablets F43.23 Silcoff, 10/12/2017 by mouth Gabriel daily M.D. Citalopram 10/03/2017 - Hx Tablets 10mg 60tabs 1 tab every F43.23 Silcoff, Hydrobromide 10/09/2017 morning x 5 Gabriel, days then M.D. can increased to 2 tabs every morning Escitalopram Oxalate 08/31/2017 - Hx Tablets 10mg 90tabs 1 tablets Sopchak, 10/02/2017 by mouth Hattie, franklin D.O. Oxycodone HCL 08/31/2017 - Hx Capsules 5mg 60caps Take 1 M54.16 Sopchak , 10/12/2017 capsule by Hattie, mouth every D.O. 6 hours as needed for pain Potassium Chloride ER 05/30/2017 - Hx Capsules 10Meq 90caps 1 by mouth Sopchak, 08/30/2017 ER every day Hattie, with each D.O. tablet of furosemide Amoxicillin/Clavulana 05/26/2017 - Hx Tablets 875-1 20tabs 1 by [facility] Potassium 06/05/2017 25mg twice a day Hattie D.O. Afrin Sinus 05/26/2017 - Hx Solution 0.05% 15ml inhale 2 J01.00 [facility] , 05/29/2017 sprays into Hattie, nostril 2 D.O. times per day every 10 to 12 hours as needed for stuffy nose for 3 days only! Hydrochlorothiazide 04/24/2017 - Hx Tablets 25mg take 1 Unknown 04/25/2017 tablet every morning for high blood pressure Escitalopram Oxalate 04/14/2017 - Hx Tablets 20mg 90tabs 1 by mouth [facility], 08/31/2017 every day Hattie, D.O. Actigall 04/14/2017 - Hx Capsules 300mg 270caps Take One K80.10 [facility] , 08/30/2017 Capsule By Hattie, Mouth Three D.O. Times A Day For Gallstones Escitalopram Oxalate 12/07/2016 - Hx Tablets 10mg 90tabs 1 [facility] 04/14/2017 by mouth Hattie, daily D.O. Citalopram 07/27/2016 - Hx Tablets 10mg 30tabs 1 by mouth [facility], Hydrobromide 08/16/2016 every day Hattie, D.O. Hydrochlorothiazide 07/16/2016 - Hx Tablets 25mg 90tabs take 1 Sopchak , 12/07/2016 tablet by Hattie, mouth daily D.O. Diclofenac Sodium 06/16/2016 - Hx Tablets DR 50mg 90tabs Take 1 M25.569 [facility], 11/13/2017 Tablet By Hattie, Mouth 3 D.O. Times Per Day With Food Or Milk For Arthritis Metoprolol Succinate 04/26/2016 - Hx Tablets ER 50mg 30tabs 1 by mouth Sulyk, ER 04/14/2017 24HR every day Hattie, D.O. Potassium Chloride ER 04/12/2016 - Hx Capsules 10Meq 90caps 1 by mouth Sulyk, 07/27/2016 ER every day Hattie, with each D.O. tablet of furosemide Metoprolol Succinate 02/24/2016 - Hx Tablets ER 100mg 90tabs take one Soplarryk, ER 04/26/2016 24HR tablet by Hattie, mouth every D.O. morning for blood pressure Phendimetrazine 10/30/2015 - Hx Tablets 35mg 180tabs Take 2 E66.01 Sopchak, Tartrate 01/06/2016 tablets by Hattie, mouth 3 D.O. times per day 1 hour before a meal for weight loss Diflucan 09/02/2015 - Hx Tablets 150mg 2tabs [facility], 09/04/2015 mouth 3 Hattie, days apart. D.O. Singulair 11/03/2014 - Hx Tablets 10mg 30tabs 1 tablet by 493.00 Eliseo, 12/03/2014 mouth once Hattie, daily for D.O. allergies Irbesartan 11/03/2014 - Hx Tablets 75mg 30tabs 1 by mouth 401.1 [facility] , 12/03/2014 every day Hattie, D.O. Azithromycin 10/14/2014 - Hx Tablets 250mg 6tabs take 2 466.0 [facility], 10/19/2014 tablets by Hattie, mouth one D.O. time on the first day then take 1 tablet by mouth daily for 4 days Dulera 10/03/2014 - Hx Aerosol 100-5 2 puffs 493.00 [facility], 12/04/2014 mcg/A twice a day Hattie ct D.O. Diflucan 07/29/2014 - Hx Tablets 150mg 1tabs 1 cap by Eliseo, 2014 mouth once Hattie, D.O. Lisinopril 07/16/2014 - Hx Tablets 10mg 90tabs take 1 401.1 Silcoff, 11/03/2014 tablet by Gabriel, mouth daily M.D. for high blood pressure Tramadol HCL 07/07/2014 - Hx Tablets 50mg 90tabs 1 tab three M17.12 [facility], 08/31/2017 times a day Hattie, as needed D.O. for pain Prednisone 07/07/2014 - Hx Tablets 20mg 10tabs 2 tab every 719.46 [facility], 07/12/2014 morning for Hattie, 5 days D.O. Diclofenac Potassium 07/07/2014 - Hx Tablets 50mg 60tabs 1 [facility]17.[facility], 04/26/2016 twice a day Hattie, D.O. M72.2 Z01.818 Valium 06/16/2014 - Hx Tablets 5mg 2tabs 1 po 1 hour Cj Paiz 07/06/2014 prior to tommy Saleh M.D. may repeat 1 hour later as need. Potassium Chloride 12/20/2013 - Hx Solution 20Meq/ 450ml 3 tsp po qd Silcoff, 08/27/2014 15ML Gabriel (10%) VarshaDYen Potassium Acetate 12/02/2013 - Hx Solution 4Meq/M 150ml 1 tsp qd Silcoff, 12/20/2013 L Justin Rios Furosemide 11/26/2013 - Hx Tablets 20mg 60tabs 1 by mouth R60 [facility], 04/26/2016 every day for .0 Htatie, fluid D.O. retention Diclofenac Sodium 11/26/2013 - Hx Tablets DR 75mg [address] 07/07/2014 Proair HFA 11/26/2013 - Hx Aerosol 108(90 8.500gm 2 puff every R06 Sopchak, 12/19/2017 Base) 4-6 hours, as .00 Hattie, mcg/Ac needed D.O. t Tramadol HCL 11/26/2013 - Hx Tablets 50mg 60tabs 2 by mouth Unknown 07/06/2014 every 4- 6 hours as needed for pain Potassium Chloride 11/26/2013 - Hx Tablets ER 20Meq 90tabs Takes prn leg Unknown 12/02/2013 cramps Omeprazole 11/26/2013 - Hx Capsules 20mg 90caps 1 By Mouth Silcoff, 09/03/2018 Every Day Justin Rios Phendimetrazine 05/15/2013 - Hx Tablets 35mg 90tabs 1 by mouth 278 Silrebekah, Tartrate 06/03/2014 2-3 times a .00 Gabriel, day before M.DYen meals for weight loss Metoprolol - Hx Tablets 50mg 180tabs 1 by mouth Cj Paiz Tarderek 02/24/2016 every day for Klepack, blood M.D. pressure control Amoxicillin/Clavul - Hx Tablets 875-12 TK 1 T PO Unknown anate Potassium 2014 5mg bid Medications Administered in Office Medication Date Status Form Strength Qnty SIG Indications Ordering Provider B12 Injection Administered Injection Sopchak, 017 Hattie, D.O. SC/Im Administered Injection Sopchak, Injections 017 Hattie, D.O. injection, Administered Injection Sopchak, kenalog, 10 mg 016 Hattie, D.O. injection, Administered Injection Sopchak, kenalog, 10 mg 015 Hattie, D.O. SC/Im Administered Injection Sopchak, Injections 015 Hattie, D.O. H1N1 Swine Flu Administered Injection Unknown Vaccine 007 Immunizations CPT Code Status Date Vaccine Lot # [id number] Given 04/20/2018 Influenza Virus Vaccine, Quadrivalent, Split, [id number] Preservative Free 51314 Given 04/20/2018 Prevnar 13 [id number] 50453 Given 04/14/2017 Influenza Virus Vaccine, Quadrivalent, Split, [id number] Preservative Free 14151 Given 04/07/2016 Influenza Virus Vaccine, Quadrivalent, Split, [id number] Preservative Free 92528 Given 05/16/2015 Influenza Virus Vaccine, Quadrivalent, Split, [id number] Preservative Free 51669 Given 06/10/2014 Flu, Split Virus 3Yrs [id number] 65009 Given 12/10/2013 Adacel or Boostrix, TDaP 50103 Given 06/22/2012 Adacel or Boostrix, TDaP 08461 Given 04/29/2011 Pneumococcal Immunization 82292 Given 04/29/2011 Flu, Split Virus 3Yrs 23142 Given 05/29/2009 Flu, Split Virus 3Yrs 95815 Ordered 11/28/2013 Adacel or Boostrix, TDaP Vital Signs Date Vital Result Comment 09/25/2018 8:21am BP Systolic 160 mmHg BP Diastolic 88 mmHg BP Systolic Recheck 142 mmHg BP Diastolic Recheck 88 mmHg Heart Rate 56 /min O2 % BldC Oximetry 98 % Height 60 inches 5'0" Weight 253.00 lb BMI (Body Mass Index) 49.4 kg/m2 09/13/2018 12:33pm BP Systolic 128 mmHg BP Diastolic 80 mmHg Weight 249.00 lb 09/03/2018 1:49pm BP Systolic 132 mmHg BP Diastolic 80 mmHg Weight 248.00 lb 08/13/2018 12:58pm BP Systolic 126 mmHg BP Diastolic 74 mmHg 08/06/2018 9:51am BP Systolic 140 mmHg BP Diastolic 80 mmHg Weight 246.00 lb 06/28/2018 9:23am BP Systolic 142 mmHg BP Diastolic 82 mmHg BP Systolic Recheck 142 mmHg BP Diastolic Recheck 78 mmHg Weight 236.00 lb 05/10/2018 11:13am BP Systolic 128 mmHg BP Diastolic 80 mmHg Weight 221.00 lb with shoes 04/20/2018 9:43am BP Systolic 144 mmHg BP Diastolic 82 mmHg BP Systolic Recheck 136 mmHg BP Diastolic Recheck 80 mmHg Heart Rate 66 /min Respiratory Rate 16 /min Height 60 inches 5'0" Weight 233.00 lb BMI (Body Mass Index) 45.5 kg/m2 03/27/2018 9:07am BP Systolic 150 mmHg BP Diastolic 80 mmHg BP Systolic Recheck 138 mmHg BP Diastolic Recheck 90 mmHg O2 % BldC Oximetry 98 % Weight 225.00 lb 03/23/2018 11:16am BP Systolic 128 mmHg BP Diastolic 70 mmHg Weight 224.00 lb 03/15/2018 9:30am BP Systolic 142 mmHg BP Diastolic 86 mmHg BP Systolic Recheck 130 mmHg BP Diastolic Recheck 82 mmHg Weight 229.00 lb 02/21/2018 4:16pm BP Systolic 164 mmHg BP Diastolic 88 mmHg Weight 225.50 lb 01/05/2018 8:59am BP Systolic 122 mmHg BP Diastolic 80 mmHg Weight 220.00 lb 12/15/2017 9:48am BP Systolic 118 mmHg BP Diastolic 70 mmHg 12/14/2017 1:53pm BP Systolic 108 mmHg BP Diastolic 68 mmHg Heart Rate 55 /min Weight 221.50 lb 12/11/2017 8:40am BP Systolic 128 mmHg BP Diastolic 74 mmHg Height 60 inches 5'0" Weight 218.00 lb BMI (Body Mass Index) 42.6 kg/m2 11/13/2017 10:49am BP Systolic 136 mmHg BP Diastolic 80 mmHg Weight 219.00 lb 10/30/2017 9:19am BP Systolic 158 mmHg pt has not taken BP meds yet this Am BP Diastolic 90 mmHg pt has not taken BP meds yet this Am Weight 217.00 lb 10/12/2017 4:25pm BP Systolic 134 mmHg BP Diastolic 90 mmHg Heart Rate 57 /min Weight 214.00 lb 10/09/2017 11:08am BP Systolic 152 mmHg BP Diastolic 96 mmHg Height 60 inches 10/03/17 Weight 213.00 lb 10/03/17 BMI (Body Mass Index) 41.6 kg/m2 10/03/2017 4:22pm BP Systolic 136 mmHg BP Diastolic 88 mmHg Height 60 inches 5'0" Weight 213.00 lb BMI (Body Mass Index) 41.6 kg/m2 08/31/2017 8:50am BP Systolic 135 mmHg BP Diastolic 80 mmHg Height 60 inches 5'0" Weight 206.00 lb BMI (Body Mass Index) 40.2 kg/m2 05/26/2017 1:47pm BP Systolic 112 mmHg BP Diastolic 78 mmHg Weight 194.00 lb with shoes 04/25/2017 9:30am BP Systolic 110 mmHg BP Diastolic 78 mmHg Weight 193.00 lb 04/14/2017 9:09am BP Systolic 120 mmHg BP Diastolic 70 mmHg Weight 190.00 lb 12/07/2016 4:29pm BP Systolic 118 mmHg BP Diastolic 75 mmHg Height 60 inches 5'0" Weight 191.00 lb BMI (Body Mass Index) 37.3 kg/m2 07/27/2016 3:21pm BP Systolic 120 mmHg BP Diastolic 80 mmHg Weight 217.00 lb 05/11/2016 3:07pm BP Systolic 121 mmHg BP Diastolic 70 mmHg Heart Rate 73 /min Weight 246.00 lb 05/04/2016 1:34pm BP Systolic 118 mmHg BP Diastolic 80 mmHg 04/26/2016 5:02pm BP Systolic 118 mmHg BP Diastolic 70 mmHg Heart Rate 58 /min Weight 246.00 lb 04/07/2016 11:02am BP Systolic 120 mmHg BP Diastolic 80 mmHg Weight 260.00 lb 02/24/2016 1:56pm BP Systolic 154 mmHg BP Diastolic 100 mmHg Height 60 inches 5'0" Weight 274.00 lb BMI (Body Mass Index) 53.5 kg/m2 01/06/2016 4:42pm BP Systolic 134 mmHg BP Diastolic 80 mmHg Weight 297.00 lb 12/02/2015 5:08pm BP Systolic 138 mmHg BP Diastolic 88 mmHg Weight 306.00 lb 10/30/2015 4:30pm BP Systolic 144 mmHg BP Diastolic 80 mmHg Height 60 inches 5'0" Weight 328.00 lb BMI (Body Mass Index) 64.1 kg/m2 05/16/2015 10:01am BP Systolic 148 mmHg BP Diastolic 76 mmHg Heart Rate 37 /min Height 60.25 inches 5'0.25" Weight 310.00 lb BMI (Body Mass Index) 60.0 kg/m2 04/24/2015 3:45pm BP Systolic 152 mmHg thigh cuff BP Diastolic 88 mmHg thigh cuff Heart Rate 68 /min reg Weight 315.00 lb 01/22/2015 9:34am BP Systolic 134 mmHg BP Diastolic 88 mmHg Heart Rate 60 /min reg Respiratory Rate 14 /min unlab Height 60.25 inches 5'0.25" Weight 311.00 lb BMI (Body Mass Index) 60.2 kg/m2 12/16/2014 2:34pm BP Systolic 146 mmHg BP Diastolic 84 mmHg Body Temperature 98.4 F Weight 308.00 lb 12/04/2014 4:22pm BP Systolic 140 mmHg BP Diastolic 80 mmHg Weight 307.00 lb shoes on 11/03/2014 4:13pm BP Systolic 136 mmHg BP Diastolic 80 mmHg Weight 305.00 lb 10/14/2014 1:36pm BP Systolic 126 mmHg BP Diastolic 82 mmHg Body Temperature 98.4 F Weight 303.00 lb 10/03/2014 4:23pm BP Systolic 162 mmHg BP Diastolic 78 mmHg 09/25/2014 11:12am BP Systolic 140 mmHg BP Diastolic 86 mmHg O2 % BldC Oximetry 9798 % Body Temperature 98.8 F Height 60.25 inches 5'0.25" Weight 315.00 lb BMI (Body Mass Index) 61.0 kg/m2 08/27/2014 4:19pm BP Systolic 130 mmHg BP Diastolic 90 mmHg Weight 308.00 lb 07/16/2014 4:05pm BP Systolic 164 mmHg BP Diastolic 86 mmHg 07/07/2014 9:50am BP Systolic 166 mmHg BP Diastolic 100 mmHg BP Systolic Recheck 174 mmHg rt large cuff BP Diastolic Recheck 104 mmHg rt large cuff Body Temperature 98.6 F Height 60.25 inches 5'0.25" Weight 307.00 lb BMI (Body Mass Index) 59.5 kg/m2 06/10/2014 9:12am BP Systolic 150 mmHg BP Diastolic 94 mmHg Body Temperature 98.0 F Weight 306.00 lb 02/14/2014 10:27am BP Systolic 154 mmHg BP Diastolic 86 mmHg Heart Rate 64 /min Weight 300.00 lb 12/16/2013 4:39pm BP Systolic 120 mmHg BP Diastolic 80 mmHg Body Temperature 98.6 F 12/02/2013 4:12pm BP Systolic 144 mmHg BP Diastolic 105 mmHg 12/02/2013 3:25pm BP Systolic 140 mmHg BP Diastolic 100 mmHg Weight 296.00 lb 11/27/2013 4:55pm BP Systolic 124 mmHg BP Diastolic 88 mmHg Height 60 inches 5'0" Weight 280.00 lb BMI (Body Mass Index) 54.7 kg/m2 Results Test Date Facility Test Result H/L Range Note HIV 1/2 AB [facility] HIV 1 2 Nonreactive Nonreactive 1 Evaluation 9 [phone] Antibody Urinalysis [facility] Urine Color Yellow Profile 9 [phone] Urine Appearance Cloudy Urine Specific Ewing 1.011 N 1.010-1.030 Urine pH 5.0 N 5-9 Urine Urobilinogen Negative Negative Urine Ketones Negative Negative Urine Protein Negative Negative Urine Leukocytes Negative Negative Urine Blood Negative Negative Urine Nitrite Negative Negative Urine Bilirubin Negative Negative Urine Glucose Negative Negative CBC Auto Diff 09/26/2018 [facility] White Blood Count 7.1 10^3/uL N 3.5-10.8 [phone] Red Blood Count 4.68 10^6/uL N 4.00-5.40 [...] Red Blood Cells % 0.1 Inr/Protime 09/26/2018 [facility] Inr 0.96 N 0.77-1.02 [phone] Laboratory test 09/26/2018 [facility] Partial 33.1 seconds N 26.0- 36.3 finding [phone] Thrombo Time PTT Comp Metabolic 09/26/2018 [facility] Sodium 140 mmol/L N 135-145 Panel [phone] Potassium 4.0 mmol/L N 3.5-5.0 Chloride 103 [...] Egfr Non- 81.8 >60 Egfr 99.0 >60 2 Type & Screen 09/26/2018 [facility] Patient Blood Type O Positive [phone] Antibody Screen NEGATIVE Urine Culture And 09/26/2018 [facility] Urine Culture SEE RESULT 3 Sensitivities [phone] BELOW CBC Auto Diff 09/03/2018 [facility] White Blood 7.5 10^3/uL N 3.5- 10. [phone] Count 8 Red Blood Count 4.83 10^6/uL N 4.00-5.40 Hemoglobin 14.6 g/dL N 12.0-16.0 Hematocrit 43 % N 35-47 Mean Corpuscular Volume 88 fL N 80-97 Mean Corpuscular Hemoglobin 30 pg N 27-31 Mean Corpuscular HGB Conc 34 g/dL N 31-36 Red Cell Distribution Width 15 % N 10.5-15 Platelet Count 348 10^3/uL N 150-450 Mean Platelet Volume 7.9 fL N 7.4-10.4 Abs Neutrophils 3.6 10^3/uL N 1.5-7.7 Abs Lymphocytes 3.3 10^3/uL N 1.0-4.8 Abs Monocytes 0.6 10^3/uL N 0-0.8 Abs Eosinophils 0.1 10^3/uL N 0-0.6 Abs Basophils 0 10^3/uL N 0-0.2 Abs Nucleated RBC 0 10^3/uL Granulocyte % 47.4 % Lymphocyte % 43.3 % Monocyte % 7.4 % Eosinophil % 1.4 % Basophil % 0.5 % Nucleated Red Blood Cells % 0 Comp Metabolic Panel 09/03/2018 [facility] Sodium 139 mmol/L N 135- 145 [phone] Potassium 4.3 mmol/L N 3.5-5.0 Chloride 103 mmol/L N 101-111 Co2 Carbon Dioxide 30 mmol/L N 22-32 Anion Gap 6 mmol/L N 2-11 Glucose 88 mg/dL N 70-100 Blood Urea Nitrogen 17 mg/dL N 6-24 Creatinine 0.72 mg/dL N 0.51-0.95 BUN/Creatinine Ratio 23.6 High 8-20 Calcium 9.5 mg/dL N 8.6-10.3 Total Protein 6.8 g/dL N 6.4-8.9 Albumin 4.1 g/dL N 3.2-5.2 Globulin 2.7 g/dL N 2-4 Albumin/Globulin Ratio 1.5 N 1-3 Total Bilirubin 0.50 mg/dL N 0.2-1.0 Alkaline Phosphatase 72 U/L N 34-104 Alt 16 U/L N 7-52 Ast 15 U/L N 13-39 Egfr Non- 84.4 >60 Egfr 102.1 >60 4 Laboratory test finding 09/03/2018 [facility] Amylase 20 U/L Low 29- 103 [phone] Lipase 17 U/L N 11.0-82.0 Magnesium 1.7 mg/dL Low 1.9-2.7 Erythrocyte Sed Rate 21 mm/Hr N 0-30 C Reactive Protein 2.40 mg/L N <8.01 Urine Culture And 09/02/2018 [facility] Urine SEE RESULT 5, 6 Sensitivities [phone] Culture BELOW Poc Urinalysis 09/02/2018 [facility] Poc Glucose, Negative Negative [phone] Urine Poc Bilirubin, Urine Negative Negative Poc Ketone, Urine Negative Negative Poc Specific Ewing, Urine 1.025 N 1.010-1.030 Poc Blood, Urine Negative Negative Poc pH, Urine 6.0 N 5-9 Poc Protein, Urine Negative Negative Poc Urobilinogen, Urine 0.2 Negative Poc Nitrite, Urine Negative Negative Poc Leukocytes, Urine Trace Abnormal Negative Poc Color, Urine Dark yellow Poc Clarity, Urine Clear 7 Ua Inhouse 03/15/2018 In House Ua Glucose - 8 Ua Bilirubin - Ua Ketones - Ua Specific Ewing 1.030 Ua Blood - Ua PH 6.0 Ua Protein - Ua Urobilinogen - Ua Nitrite - Ua Leukocytes - Basic Metabolic Panel 03/09/2018 [facility] Sodium 140 mmol/L N 135- 145 [phone] Potassium 4.2 mmol/L N 3.5-5.0 Chloride 105 mmol/L N 101-111 Co2 Carbon Dioxide 28 mmol/L N 22-32 Anion Gap 7 mmol/L N 2-11 Glucose 83 mg/dL N 70-100 Blood Urea Nitrogen 18 mg/dL N 6-24 Creatinine 0.60 mg/dL N 0.51-0.95 BUN/Creatinine Ratio 30.0 High 8-20 Calcium 9.2 mg/dL N 8.6-10.3 Egfr Non- 104.6 >60 Egfr 126.5 >60 9 Laboratory test 03/09/2018 [facility] C Reactive Protein 1.35 mg/L N <8.01 10 finding [phone] TSH (Thyroid Stim Horm) 1.60 mcIU/mL N 0.34-5.60 11 Free T4 (Free Thyroxine) 1.02 ng/dL N 0.61-1.12 12 Folic Acid (Folate) > 20.00 ng/mL >3.99 13 Vitamin B12 336 pg/mL N 180-914 14 Erythrocyte Sed Rate 22 mm/Hr N 0-30 15 Laboratory test 01/09/2018 [facility] Surgical SEE RESULT 16 finding [phone] Pathology BELOW Laboratory test 12/08/2017 [facility] Surgical SEE RESULT 17 finding [phone] Pathology BELOW GC/Chlamydia 12/05/2017 [facility] Chlamydia Negative Negative Amplified Rna [phone] trachomatis Rna Neisseria gonorrhoeae (GC) Rna Negative Negative Laboratory test 12/05/2017 [facility] Cytology SEE RESULT 18 finding [phone] BELOW Laboratory test 10/30/2017 [facility] Insulin Level 6.6 2.6 19 finding [phone] mcIU/mL - 24.9 Laboratory test 10/17/2017 [facility]. Sedimentation Rate 17 mm /hr N 0-30 20, 21 finding LABORATORY [phone] C-Reactive Protein,Quant < 2.9 mg/L <3.0 Magnesium 1.9 mg/dL N 1.8-2.4 Thyroid Stim Hormone 1.46 uIU/mL N 0.30-4.20 Vitamin B12 460 pg/mL N [phone] CBC Auto Diff 10/17/2017 [facility]. White Blood 7.2 K/uL N 3.1-10.7 LABORATORY Count [phone] Red Blood Count 4.72 M/uL N 3.90-5.40 Hemoglobin 14.8 gm/dL N 11.6-15.8 Hematocrit 43.2 % N 36.0-46.1 Mean Cell Volume 91.5 fl N 80.9-99.0 Mean Corpuscular HGB 31.4 pg N 25.9-32.7 Mean Corpuscular HGB Conc 34.3 g/dL N 30.8-34.3 Platelet Count 314 K/uL N 155-360 Red Cell Distri Width SD 43.3 fl N 3-47 Red Cell Distri Width %CV 13.1 % N 11.7-14.4 Mean Platelet Volume 10.0 fL N 8.9-12.4 Neut% 60.4 % N 40.4-72.8 Lymph % 30.5 % N 20.0-42.0 [place] % 7.1 % N 4.3-13.2 Eo% 1.7 % N 0.0-6.6 Bas% 0.3 % N 0.0-1.1 Neut# 4.37 K/uL N 1.8-7.0 Lymph # 2.20 K/uL N 1.0-4.0 [place] # 0.51 K/uL N 0.3-0.9 Eos # 0.12 K/uL N 0.0-0.5 Baso # 0.02 K/uL N 0.0-0.1 Comp Metabolic Panel 10/17/2017 [facility]. Glucose 97 mg/dL N 74-106 LABORATORY [phone] BUN 16 mg/dL N 7-18 Creatinine 0.7 mg/dL N 0.6-1.3 Glom Filtration Rate, Estimate >60 mL/min >60 If >60 mL/min >60 22 BUN/Creat 22.8 ratio Sodium 140 mmol/L N 136-145 Potassium 3.9 mmol/L N 3.5-5.1 Chloride 106 mmol/L N 98-107 Carbon Dioxide 31 mmol/L N 21-32 Anion Gap 3 mEq/L Low 8-16 Calcium 9.1 mg/dL N 8.5-10.1 Total Protein 7.4 g/dL N 6.4-8.2 Albumin 3.5 g/dL N 3.4-5.0 Globulin 3.9 g/dL N 1.9-4.3 Alb/Glob 0.9 ratio Bilirubin,Total 0.4 mg/dL N 0.2-1.0 Sgot/Ast 17 U/L N 15-37 SGPT/Alt 21 U/L N 12-78 Alkaline Phosphatase 78 U/L N 45-117 Comprehensive Yovana 10/17/2017 [facility]. Anti-Dna <1 IU/mL 0 -9 23 Panel LABORATORY Antibody [phone] ([place]) SM Antibody <0.2 AI 0.0-0.9 ATTORNEY LAW[employer]ER Antibody <0.2 AI 0.0-0.9 Sjogrens Antibodies (Ssa) <0.2 AI 0.0-0.9 Antichromatin Antibodies <0.2 AI 0.0-0.9 Radha-1 Antibody <0.2 AI 0.0-0.9 Sjogrens Antibodies (SSB) <0.2 AI 0.0-0.9 Centromere B Antibodies < 0.2 AI 0.0-0.9 Scleroderma Antibodies, SCL-70 <0.2 AI 0.0-0.9 See below: (SEE NOTE) 24 CBC Auto Diff 08/31/2017 [facility] White Blood Count 6.7 10^3/uL N 3.5-10.8 [phone] Red Blood Count 4.51 10^6/uL N 4.0-5.4 Hemoglobin 14.1 g/dL N 12.0-16.0 Hematocrit 41 % N 35-47 Mean Corpuscular Volume 91 fL N 80-97 Mean Corpuscular Hemoglobin 31 pg N 27-31 Mean Corpuscular HGB Conc 35 g/dL N 31-36 Red Cell Distribution Width 13 % N 10.5-15 Platelet Count 286 10^3/uL N 150-450 Mean Platelet Volume 8 um3 N 7.4-10.4 Abs Neutrophils 3.5 10^3/uL N 1.5-7.7 Abs Lymphocytes 2.6 10^3/uL N 1.0-4.8 Abs Monocytes 0.4 10^3/uL N 0-0.8 Abs Eosinophils 0.1 10^3/uL N 0-0.6 Abs Basophils 0 10^3/uL N 0-0.2 Abs Nucleated RBC 0 10^3/uL Granulocyte % 52.7 % N 38-83 Lymphocyte % 39.2 % N 25-47 Monocyte % 6.3 % N 1-9 Eosinophil % 1.3 % N 0-6 Basophil % 0.5 % N 0-2 Nucleated Red Blood Cells % 0.1 Comp Metabolic Panel 08/31/2017 [facility] Sodium 139 mmol/L N 133- 145 [phone] Potassium 4.1 mmol/L N 3.5-5.0 Chloride 102 mmol/L N 101-111 Co2 Carbon Dioxide 31 mmol/L N 22-32 Anion Gap 6 mmol/L N 2-11 Glucose 89 mg/dL N 70-100 Blood Urea Nitrogen 20 mg/dL N 6-24 Creatinine 0.70 mg/dL N 0.51-0.95 BUN/Creatinine Ratio 28.6 High 8-20 Calcium 9.6 mg/dL N 8.6-10.3 Total Protein 6.4 g/dL N 6.4-8.9 Albumin 3.8 g/dL N 3.2-5.2 Globulin 2.6 g/dL N 2-4 Albumin/Globulin Ratio 1.5 N 1-3 Total Bilirubin 0.60 mg/dL N 0.2-1.0 Alkaline Phosphatase 56 U/L N 34-104 Alt 16 U/L N 7-52 Ast 16 U/L N 13-39 Egfr Non- 87.5 >60 Egfr 112.6 >60 25 Laboratory test 08/31/2017 [facility] C Reactive < 1.00 mg/L N < 5.00 26 finding [phone] Protein Erythrocyte Sed Rate 19 mm/Hr N 0-30 Magnesium 1.7 mg/dL Low 1.9-2.7 TSH (Thyroid Stim Horm) 2.82 mcIU/mL N 0.34-5.60 Uric Acid 5.0 mg/dL N 2.3-6.6 Vitamin B12 362 pg/mL N 180-914 27 Laboratory test 04/14/2017 [facility] Magnesium 1.8 mg/dL Low 1.9- 2.7 finding [phone] CBC Auto Diff 04/14/2017 [facility] White Blood 6.2 10^3/uL N 3.5- 10.8 [phone] Count Red Blood Count 4.50 10^6/uL N 4.0-5.4 Hemoglobin 14.0 g/dL N 12.0-16.0 Hematocrit 41 % N 35-47 Mean Corpuscular Volume 91 fL N 80-97 Mean Corpuscular Hemoglobin 31 pg N 27-31 Mean Corpuscular HGB Conc 34 g/dL N 31-36 Red Cell Distribution Width 13 % N 10.5-15 Platelet Count 341 10^3/uL N 150-450 Mean Platelet Volume 8 um3 N 7.4-10.4 Abs Neutrophils 3.1 10^3/uL N 1.5-7.7 Abs Lymphocytes 2.6 10^3/uL N 1.0-4.8 Abs Monocytes 0.4 10^3/uL N 0-0.8 Abs Eosinophils 0 10^3/uL N 0-0.6 Abs Basophils 0 10^3/uL N 0-0.2 Abs Nucleated RBC 0 10^3/uL N Granulocyte % 49.9 % N 38-83 Lymphocyte % 41.7 % N 25-47 Monocyte % 7.0 % N 1-9 Eosinophil % 0.8 % N 0-6 Basophil % 0.6 % N 0-2 Nucleated Red Blood Cells % 0.1 N Comp Metabolic Panel 04/14/2017 [facility] Sodium 140 mmol/L N 133- 145 [phone] Potassium 3.3 mmol/L Low 3.5-5.0 Chloride 100 mmol/L Low 101-111 Co2 Carbon Dioxide 34 mmol/L High 22-32 Anion Gap 6 mmol/L N 2-11 Glucose 85 mg/dL N 70-100 Blood Urea Nitrogen 21 mg/dL N 6-24 Creatinine 0.72 mg/dL N 0.51-0.95 BUN/Creatinine Ratio 29.2 High 8-20 Calcium 9.4 mg/dL N 8.6-10.3 Total Protein 6.5 g/dL N 6.4-8.9 Albumin 3.8 g/dL N 3.2-5.2 Globulin 2.7 g/dL N 2-4 Albumin/Globulin Ratio 1.4 N 1-3 Total Bilirubin 0.50 mg/dL N 0.2-1.0 Alkaline Phosphatase 52 U/L N 34-104 Alt 10 U/L N 7-52 Ast 13 U/L N 13-39 Egfr Non- 85.1 N >60 Egfr 109.4 N >60 28 Laboratory test 04/14/2017 [facility] Erythrocyte Sed Rate 19 mm/Hr N 0-30 finding [phone] TSH (Thyroid Stim Horm) 1.36 mcIU/mL N 0.34-5.60 Phosphorus 3.2 mg/dL N 2.5-5.0 Vitamin B12 > 1450 pg/mL High 180-914 29 Vitamin D Total 25(Oh) 26.5 ng/mL N 20-50 Folic Acid (Folate) 17.43 ng/mL N >3.99 CBS W/Automated 04/03/2017 [facility]. White Blood 7.6 K/uL N 3.1-10.7 30 Diff LABORATORY Count [phone] Red Blood Count 4.51 M/uL N 3.90-5.40 Hemoglobin 14.4 gm/dL N 11.6-15.8 Hematocrit 41.5 % N 36.0-46.1 Mean Cell Volume 92.0 fl N 80.9-99.0 Mean Corpuscular HGB 31.9 pg N 25.9-32.7 Mean Corpuscular HGB Conc 34.7 g/dL High 30.8-34.3 Platelet Count 325 K/uL N 150-400 Red Cell Distri Width SD 44.1 fl N 3-47 Red Cell Distri Width %CV 13.4 % N 11.7-14.4 Mean Platelet Volume 9.8 fL N 8.9-12.4 Neut% 45.3 % N 40.4-72.8 Lymph % 45.1 % High 20.0-42.0 [place] % 8.2 % N 4.3-13.2 Eo% 1.1 % N 0.0-6.6 Bas% 0.3 % N 0.0-1.1 Neut# 3.43 K/uL N 1.8-7.0 Lymph # 3.41 K/uL N 1.0-4.0 [place] # 0.62 K/uL N 0.3-0.9 Eos # 0.08 K/uL N 0.0-0.5 Baso # 0.02 K/uL N 0.0-0.1 Laboratory test 04/03/2017 [facility]. D-Dimer, 0.25 31 finding LABORATORY Quantitative ug/mL [phone] Comprehensive 04/03/2017 [facility]. Glucose 118 mg/dL High 74-1 Metabolic Panel LABORATORY 06 [phone] BUN 25 mg/dL High 7-18 Creatinine 0.8 mg/dL N 0.6-1.3 Glom Filtration Rate, Estimate >60 mL/min >60 If >60 mL/min >60 32 BUN/Creat 31.2 ratio Sodium 141 mmol/L N 136-145 Potassium 3.5 mmol/L N 3.5-5.1 Chloride 104 mmol/L N 98-107 Carbon Dioxide 30 mmol/L N 21-32 Anion Gap 7 mEq/L Low 8-16 Calcium 9.0 mg/dL N 8.5-10.1 Total Protein 7.1 g/dL N 6.4-8.2 Albumin 3.4 g/dL N 3.4-5.0 Globulin 3.7 g/dL N 1.9-4.3 Alb/Glob 0.9 ratio Bilirubin,Total 0.5 mg/dL N 0.2-1.0 Sgot/Ast 15 U/L N 15-37 SGPT/Alt 17 U/L N 12-78 Alkaline Phosphatase 67 U/L N 45-117 Laboratory test finding 04/03/2017 [facility]. Lipase 120 U/L N 73-393 LABORATORY [phone] HCG,Serum (Qualitative) NEGATIVE (Negative) Ua RFX Micro & 04/03/2017 [facility] Urine Color YELLOW Yellow Culture II LABORATORY [phone] Urine Clarity CLEAR Clear Urine Glucose - Dipstick NEGATIVE mg/dL Negative Urine Bilirubin - Dipstick NEGATIVE Negative Urine Ketone NEGATIVE mg/dL Negative Urine Specific Ewing 1.025 N 1.010-1.030 Urine Blood NEGATIVE Negative Urine PH 5.5 Low 6.5-7.5 Urine Protein - Dipstick NEGATIVE mg/dL Negative Urine Urobilinogen - Dipstick 0.2 E.U./dL N 0.2-1.0 Urine Nitrite - Dipstick NEGATIVE Negative Urine Leuk Esterase NEGATIVE Negative Source: URINE, CLEAN CAT <SEE NOTE> 33 CBC No Diff 12/09/2016 [facility] White Blood Count 8.3 10^3/uL N 3.5 -10.8 [phone] Red Blood Count 4.56 10^6/uL N 4.0-5.4 Hemoglobin 14.1 g/dL N 12.0-16.0 Hematocrit 42 % N 35-47 Mean Corpuscular Volume 92 fL N 80-97 Mean Corpuscular Hemoglobin 31 pg N 27-31 Mean Corpuscular HGB Conc 34 g/dL N 31-36 Red Cell Distribution Width 14 % N 10.5-15 Platelet Count 304 10^3/uL N 150-450 Mean Platelet Volume 9 um3 N 7.4-10.4 Laboratory test 12/09/2016 [facility] Hemoglobin A1c 5.0 % N Less than 34 finding [phone] (Glyco HGB) 6.0 Comp Metabolic 12/09/2016 [facility] Sodium 142 mmol/L N 133-145 Panel [phone] Potassium 3.3 mmol/L Low 3.5-5.0 Chloride 102 mmol/L N 101-111 Co2 Carbon Dioxide 32 mmol/L N 22-32 Anion Gap 8 mmol/L N 2-11 Glucose 102 mg/dL High 70-100 Blood Urea Nitrogen 17 mg/dL N 6-24 Creatinine 0.76 mg/dL N 0.51-0.95 BUN/Creatinine Ratio 22.4 High 8-20 Calcium 9.0 mg/dL N 8.6-10.3 Total Protein 6.3 g/dL Low 6.4-8.9 Albumin 3.6 g/dL N 3.2-5.2 Globulin 2.7 g/dL N 2-4 Albumin/Globulin Ratio 1.3 N 1-3 Total Bilirubin 0.50 mg/dL N 0.2-1.0 Alkaline Phosphatase 52 U/L N 34-104 Alt 10 U/L N 7-52 Ast 12 U/L Low 13-39 Egfr Non- 79.9 N >60 Egfr 102.8 N >60 35 Lipid Profile 12/09/2016 [facility] Triglycerides 109 mg/dL N 36 (Trig/Chol/HDL) [phone] Cholesterol 211 mg/dL N 37 HDL Cholesterol 40.8 mg/dL N 38 LDL Cholesterol 148 mg/dL N 39 Laboratory test finding 12/09/2016 [facility] Magnesium 1.6 mg/dL Low 1.9-2.7 [phone] TSH (Thyroid Stim Horm) 2.28 mcIU/mL N 0.34-5.60 T3 Free 3.10 pg/mL N 2.5-3.9 Free T4 (Free Thyroxine) 1.03 ng/dL N 0.61-1.12 Vitamin B12 118 pg/mL Low 180-914 40 Vitamin D Total 25(Oh) 17.2 ng/mL Low 30-50 Insulin Level 11.3 mcIU/mL N 2.6 - 24.9 41 Aot Request 07/13/2016 [facility]. Aot Request Test(s) added N 42, 43 LABORATORY [phone] Tests to be added: RPR, FT4, TSH Instructions: ADD ON TO ER BLO <SEE NOTE> 44 Urinalysis With 07/12/2016 [facility]. Urine Color YELLOW N Yellow Microscopic LABORATORY [phone] Urine Clarity SL CLOUDY N Clear Urine Glucose - Dipstick NEGATIVE mg/dL N Negative Urine Bilirubin - Dipstick NEGATIVE N Negative Urine Ketone NEGATIVE mg/dL N Negative Urine Specific Ewing >=1.030 N 1.010-1.030 Urine Blood MODERATE Abnormal Negative Urine PH 5.0 Low 6.5-7.5 Urine Protein - Dipstick NEGATIVE mg/dL N Negative Urine Urobilinogen - Dipstick 0.2 E.U./dL N 0.2-1.0 Urine Nitrite - Dipstick NEGATIVE N Negative Urine Leuk Esterase TRACE Abnormal Negative Urine RBC 2-5 rbc/hpf N 0-2 Urine WBC 0-2 wbc/hpf N 0-7 Urine Epithelial Cells MANY /lpf N None Seen 45 Urine Bacteria FEW N None Seen Urine Fine Gran Cast 0-2 #/lpf N None Seen Source: URINE, CLEAN CAT <SEE NOTE> 46 Chlamydia/GC 07/12/2016 [facility]. Chlamydia Negative N Negative Martha, Urine LABORATORY Trachomatis,Ur [phone] -Martha Neisseria Gonorrhoeae,Ur -Martha Negative N Negative 47 CBS W/Automated 07/12/2016 [facility]. White Blood 7.1 K/uL N 3.1-10.7 Diff LABORATORY Count [phone] Red Blood Count 4.67 M/uL N 3.90-5.40 Hemoglobin 15.0 gm/dL N 11.6-15.8 Hematocrit 43.3 % N 36.0-46.1 Mean Cell Volume 92.7 fl N 80.9-99.0 Mean Corpuscular HGB 32.1 pg N 25.9-32.7 Mean Corpuscular HGB Conc 34.6 g/dL High 30.8-34.3 Platelet Count 275 K/uL N 155-360 Red Cell Distri Width SD 46.0 fl N 3-47 Red Cell Distri Width %CV 13.8 % N 11.7-14.4 Mean Platelet Volume 10.4 fL N 8.9-12.4 Neut% 54.9 % N 40.4-72.8 Lymph % 34.1 % N 17.0-46.1 [place] % 9.3 % N 4.3-13.2 Eo% 1.4 % N 0.0-6.6 Bas% 0.3 % N 0.0-1.1 Neut# 3.89 K/uL N 1.8-7.0 Lymph # 2.42 K/uL N 1.8-7.0 [place] # 0.66 K/uL N 0.3-0.9 Eos # 0.10 K/uL N 0.0-0.5 Baso # 0.02 K/uL N 0.0-0.1 Laboratory test 07/12/2016 [facility]. Ethyl Alcohol < 3.0 mg/ dL N finding LABORATORY [phone] Comprehensive 07/12/2016 [facility]. Glucose 100 mg/dL N 74- 106 Metabolic Panel LABORATORY [phone] BUN 12 mg/dL N 7-18 Creatinine 0.8 mg/dL N 0.6-1.3 Glom Filtration Rate, Estimate >60 mL/min N >60 If >60 mL/min N >60 48 BUN/Creat 15.0 ratio N Sodium 143 mmol/L N 136-145 Potassium 3.8 mmol/L N 3.5-5.1 Chloride 107 mmol/L N 98-107 Carbon Dioxide 26 mmol/L N 21-32 Anion Gap 10 mEq/L N 8-16 Calcium 9.0 mg/dL N 8.5-10.1 Total Protein 6.7 g/dL N 6.4-8.2 Albumin 3.3 g/dL Low 3.4-5.0 Globulin 3.4 g/dL N 1.9-4.3 Alb/Glob 1.0 ratio N Bilirubin,Total 0.6 mg/dL N 0.2-1.0 Sgot/Ast 17 U/L N 15-37 SGPT/Alt 22 U/L N 12-78 Alkaline Phosphatase 64 U/L N 45-117 Laboratory 07/12/2016 [facility]. Treponema Nonreactive N Nonreactive 49 test finding LABORATORY Antibody [phone] [place] Urine Culture 07/12/2016 [facility] Urine URETHRAL REANE LABORATORY Culture [phone] Quantity > 100,000 CFU/mL N 50 Laboratory test 07/12/2016 [facility] Ethyl Alcohol < 3.0 mg/ dL N 51 finding LABORATORY [phone] Drugs Of 07/12/2016 [facility] Amphetamines Negative N Abuse-Urine LABORATORY (Urine) Screen 7 [phone] Barbiturates (Urine) Negative N Benzodiazepines (Urine) Negative N Cannabinoids (Urine) Negative N Cocaine Metabolite (Urine) Negative N Methadone (Urine) Negative N Opiates (Urine) Negative N Urine Cutoffs * N 52 Basic Metabolic Panel 07/05/2016 [facility] Sodium 139 mmol/L N 133- 145 [phone] Potassium 4.1 mmol/L N 3.5-5.0 Chloride 102 mmol/L N 101-111 Co2 Carbon Dioxide 31 mmol/L N 22-32 Anion Gap 6 mmol/L N 2-11 Glucose 122 mg/dL High 70-100 Blood Urea Nitrogen 16 mg/dL N 6-24 Creatinine 0.75 mg/dL N 0.51-0.95 BUN/Creatinine Ratio 21.3 High 8-20 Calcium 10.0 mg/dL N 8.6-10.3 Egfr Non- 81.5 N >60 Egfr 104.8 N >60 53 Basic Metabolic Panel 04/07/2016 [facility] Sodium 140 mmol/L N 133- 145 [phone] Potassium 3.4 mmol/L Low 3.5-5.0 Chloride 101 mmol/L N 101-111 Co2 Carbon Dioxide 28 mmol/L N 22-32 Anion Gap 11 mmol/L N 2-11 Glucose 98 mg/dL N 70-100 Blood Urea Nitrogen 14 mg/dL N 6-24 Creatinine 0.84 mg/dL N 0.51-0.95 BUN/Creatinine Ratio 16.7 N 8-20 Calcium 9.5 mg/dL N 8.6-10.3 Egfr Non- 71.5 N >60 Egfr 91.9 N >60 54 Laboratory test 01/26/2016 [facility] C Reactive 5.31 mg/L High < 5.00 55 finding [phone] Protein Methylmalonic Acid Mma 0.12 nmol/mL N <=0.40 56 Laboratory test 01/07/2016 [facility]. Vitamin B12 475 pg/mL [phone] 57 finding LABORATORY [phone] Magnesium 1.8 mg/dL 1.8-2.4 Vitamin B1 (Thiamine),WB 93.1 nmol/L 66.5-200.0 Copper, Serum 132 g/dL 72-166 58 Zinc, Whole Blood 676 g/dL 440-860 59 Vitamin D,25-Hydroxy 22.0 ng/mL Low 30.0-100.0 60 Chlamydia/GC 12/16/2015 [facility] Chlamydia Negative Negative Martha, Urine LABORATORY Trachomatis,Ur [phone] -Martha Neisseria Gonorrhoeae,Ur -Martha Negative Negative 61 Laboratory test 12/15/2015 [facility] Urine HCG NEGATIVE Negative 62 finding LABORATORY (Qualitative) [phone] Urinalysis With 12/15/2015 [facility] Urine Color RED Yellow Microscopic LABORATORY [phone] Urine Clarity CLOUDY Clear Urine Glucose - Dipstick 100 mg/dL High Negative Urine Bilirubin - Dipstick MODERATE High Negative Urine Ketone TRACE mg/dL High Negative Urine Specific Ewing 1.010 1.010-1.030 Urine Blood LARGE High Negative Urine PH 7.0 6.5-7.5 Urine Protein - Dipstick >=300 mg/dL High Negative Urine Urobilinogen - Dipstick 1.0 E.U./dL 0.2-1.0 Urine Nitrite - Dipstick POSITIVE High Negative Urine Leuk Esterase LARGE High Negative Urine RBC >50 rbc/hpf High 0-2 Urine WBC 20-30 wbc/hpf High 0-7 Urine Epithelial Cells FEW NONESEEN/lpf Urine Uric Acid Crystals FEW NONESEEN Urine Bacteria MODERATE NONESEEN High Urine Amorph Sediment SMALL Negative Laboratory test 12/15/2015 [facility]. Culture If See Note 63 finding LABORATORY Indicated Comment [phone] Ua RFX Micro + Culture II See Note 64 Urine Culture See Note 65 Comp Metabolic Panel 12/02/2015 [facility] Sodium 138 mmol/L N 133- 145 [phone] Potassium 3.6 mmol/L N 3.5-5.0 Chloride 98 [...] 74.5 N >60 Egfr 95.9 N >60 66 Protein 12/02/2015 [facility] Total 7.4 g/dL N 6.3 - Electrophoresis [phone] Protein(Pep) 7.9 Albumin 3.2 g/dL Abnormal 3.4-4.7 Alpha-1 Globulin 0.3 g/dL N 0.1-0.3 Alpha-2 Globulin 1.1 g/dL Abnormal 0.6-1.0 Beta Globulin 1.5 g/dL Abnormal 0.7-1.2 Gamma Globulin 1.3 g/dL N 0.6-1.6 Albumin/Globulin Ratio 0.78 N Impression See Comment N 67 Laboratory test 05/25/2015 [facility] Trichomonas Negative N Negative 68, 69 finding [phone] vaginalis Rna Gardnerella/Yeast: Vaginal Dna SEE RESULT BELOW 70 GC/Chlamydia 05/25/2015 [facility] Chlamydia Negative N Negative Amplified Rna [phone] trachomatis Rna Neisseria gonorrhoeae (GC) Rna Negative N Negative 71 Urine Micro Inhouse 01/22/2015 In House Ua WBC - 72 Ua RBC - Ua Casts - Ua Epi - Ua Other - Ua Glucose - Ua Bilirubin - Ua Ketones - Ua Specific Ewing 1.010 Ua Blood - Ua PH 5.0 Ua Protein - Ua Urobilinogen - Ua Nitrite - Ua Leukocytes - Comp Metabolic Panel 01/15/2015 [facility] Sodium 138 mmol/L N 133- 145 [phone] Potassium 4.3 mmol/L N 3.5-5.0 Chloride 103 mmol/L N 101-111 Co2 Carbon Dioxide 29 mmol/L N 22-32 Anion Gap 6 mmol/L N 2-11 Glucose 107 mg/dL High 70-100 Blood Urea Nitrogen 15 mg/dL N 6-24 Creatinine 0.72 mg/dL N 0.51-0.95 BUN/Creatinine Ratio 20.8 High 8-20 Calcium 9.3 mg/dL N 8.6-10.3 Total Protein 6.7 g/dL N 6.4-8.9 Albumin 3.8 g/dL N 3.2-5.2 Globulin 2.9 g/dL N 2-4 Albumin/Globulin Ratio 1.3 N 1-3 Total Bilirubin 0.60 mg/dL N 0.2-1.0 Alkaline Phosphatase 83 U/L N 34-104 Alt 24 U/L N 7-52 Ast 16 U/L N 13-39 Egfr Non- 85.7 N >60 Egfr 110.3 N >60 73 Lipid Profile 01/15/2015 [facility] Triglycerides 102 mg/dL N 74 (Trig/Chol/HDL) [phone] Cholesterol 189 mg/dL N 75 HDL Cholesterol 39.4 mg/dL N 76 LDL Cholesterol 129 mg/dL N 77 Comprehensive 09/25/2014 [facility]. Glucose 108 mg/dL High 74-106 Metabolic Panel LABORATORY [phone] BUN 12 mg/dL 7-18 Creatinine 0.8 mg/dL 0.6-1.3 Glom Filtration Rate, Estimate >60 mL/min >60 If >60 mL/min >60 78 BUN/Creat 15.0 ratio Sodium 143 mmol/L 136-145 Potassium 4.1 mmol/L 3.5-5.1 Chloride 106 mmol/L 98-107 Carbon Dioxide 30 mmol/L 21-32 Anion Gap 7 mEq/L Low 8-16 Calcium 8.8 mg/dL 8.5-10.1 Total Protein 7.3 g/dL 6.4-8.2 Albumin 3.5 g/dL 3.4-5.0 Globulin 3.8 g/dL 1.9-4.3 Alb/Glob 0.9 ratio Bilirubin,Total 0.4 mg/dL 0.2-1.0 Sgot/Ast 13 U/L Low 15-37 79 SGPT/Alt 31 U/L 12-78 Alkaline Phosphatase 104 U/L 45-117 Laboratory test 09/25/2014 [facility]. Troponin-I < 0.02 ng/mL 80 finding LABORATORY [phone] Thyroid Stim Hormone 2.45 uIU/mL 0.36-3.74 CBC/Manual 09/25/2014 [facility]. White Blood 8.0 K/uL 3.1- 10.7 Differential LABORATORY Count [phone] Red Blood Count 4.47 M/uL 3.90-5.40 Hemoglobin 13.5 gm/dL 11.6-15.8 Hematocrit 41.2 % 36.0-46.1 Mean Cell Volume 92.2 fl 80.9-99.0 Mean Corpuscular HGB 30.2 pg 25.9-32.7 Mean Corpuscular HGB Conc 32.8 g/dL 30.8-34.3 Platelet Count 319 K/uL 155-360 Red Cell Distri Width %CV 14.2 % 11.7-14.4 Mean Platelet Volume 10.3 fL 8.9-12.4 Total Cells Counted 100 #CELLS Neutrophils% 49 % 33-73 Lymph% 36 % 17-56 Platelet Estimate NORMAL Atypical Lymph% 4 % 0-7 Monocyte% 10 % 0-10 Basophil% 1 % 0-2 Stomatocyte 2+ Laboratory test 09/25/2014 [facility]. D-Dimer, 1.09 ug/mL High 81 finding LABORATORY Quantitative [phone] CBC Auto Diff 07/07/2014 [facility] White Blood Count 7.5 N 4.8-2 [phone] 10^3/uL 0.8 Red Blood Count 4.40 10^6/uL N 4.0-5.4 Hemoglobin 13.3 g/dL N 12.0-16.0 Hematocrit 39 % N 35-47 Mean Corpuscular Volume 88 fL N 80-97 Mean Corpuscular Hemoglobin 30 pg N 27-31 Mean Corpuscular HGB Conc 34 g/dL N 31-36 Red Cell Distribution Width 14 % N 10.5-15 Platelet Count 273 10^3/uL N 150-450 Mean Platelet Volume 8 um3 N 7.4-10.4 Abs Neutrophils 4.1 10^3/uL N 1.5-7.7 Abs Lymphocytes 2.7 10^3/uL N 1.0-4.8 Abs Monocytes 0.5 10^3/uL N 0-0.8 Abs Eosinophils 0.1 10^3/uL N 0-0.6 Abs Basophils 0.1 10^3/uL N 0-0.2 Abs Nucleated RBC 0.01 10^3/uL N Granulocyte % 54.5 % N 38-83 Lymphocyte % 36.3 % N 25-47 Monocyte % 6.4 % N 1-9 Eosinophil % 1.8 % N 0-6 Basophil % 1.0 % N 0-2 Nucleated Red Blood Cells % 0.1 N Comp Metabolic Panel 07/07/2014 [facility] Sodium 139 mmol/L N 133- 145 [phone] Potassium 3.8 mmol/L N 3.5-5.0 Chloride 104 mmol/L N 101-111 Co2 Carbon Dioxide 30 mmol/L N 22-32 Anion Gap 5 mmol/L N 2-11 Glucose 97 mg/dL N 70-100 Blood Urea Nitrogen 16 mg/dL N 6-24 Creatinine 0.69 mg/dL N 0.51-0.95 BUN/Creatinine Ratio 23.2 High 8-20 Calcium 9.0 mg/dL N 8.6-10.3 Total Protein 6.5 g/dL N 6.4-8.9 Albumin 3.8 g/dL N 3.2-5.2 Globulin 2.7 g/dL N 2-4 Albumin/Globulin Ratio 1.4 N 1-3 Total Bilirubin 0.50 mg/dL N 0.2-1.0 Alkaline Phosphatase 79 U/L N 34-104 Alt 20 U/L N 7-52 Ast 16 U/L N 13-39 Egfr Non- 90.4 N >60 Egfr 116.3 N >60 82 Laboratory test 07/07/2014 [facility] Erythrocyte Sed 29 mm/Hr High 0 -14 finding [phone] Rate Uric Acid 6.6 mg/dL N 2.3-6.6 Laboratory test 06/10/2014 [facility] Erythrocyte Sed 27 mm/Hr High 0 -14 finding [phone] Rate CBC Auto Diff 06/10/2014 [facility] White Blood Count 7.8 N 4.8-10.8 [phone] 10^3/uL Red Blood Count 4.38 10^6/uL N 4.0-5.4 Hemoglobin 13.2 g/dL N 12.0-16.0 Hematocrit 39 % N 35-47 Mean Corpuscular Volume 90 fL N 80-97 Mean Corpuscular Hemoglobin 30 pg N 27-31 Mean Corpuscular HGB Conc 34 g/dL N 31-36 Red Cell Distribution Width 14 % N 10.5-15 Platelet Count 311 10^3/uL N 150-450 Mean Platelet Volume 8 um3 N 7.4-10.4 Abs Neutrophils 4.7 10^3/uL N 1.5-7.7 Abs Lymphocytes 2.3 10^3/uL N 1.0-4.8 Abs Monocytes 0.5 10^3/uL N 0-0.8 Abs Eosinophils 0.1 10^3/uL N 0-0.6 Abs Basophils 0.1 10^3/uL N 0-0.2 Abs Nucleated RBC 0.01 10^3/uL N Granulocyte % 60.3 % N 38-83 Lymphocyte % 30.1 % N 25-47 Monocyte % 6.7 % N 1-9 Eosinophil % 1.8 % N 0-6 Basophil % 1.1 % N 0-2 Nucleated Red Blood Cells % 0.1 N Wound 12/10/2013 [facility] Wound/Misc (SEE 83 Culture/Sensi [phone] Culture-Gram NOTE) Stain Laboratory test 11/29/2013 [facility]. Sedimentation 30 mm/hr High 0-20 84 finding LABORATORY Rate [phone] CBC/Manual 11/29/2013 [facility]. White Blood Count 7.2 K/uL 3.1- Differential LABORATORY 10.7 [phone] Red Blood Count 4.49 M/uL 3.90-5.40 Hemoglobin 13.2 gm/dL 11.6-15.8 Hematocrit 40.3 % 36.0-46.1 Mean Cell Volume 89.8 fl 80.9-99.0 Mean Corpuscular HGB 29.4 pg 25.9-32.7 Mean Corpuscular HGB Conc 32.8 g/dL 30.8-34.3 Platelet Count 315 K/uL 155-360 Red Cell Distri Width %CV 14.2 % 11.7-14.4 Mean Platelet Volume 10.1 fL 8.9-12.4 Total Cells Counted 100 #CELLS Neutrophils% 50 % 33-73 Lymph% 41 % 17-56 Platelet Estimate NORMAL Monocyte% 5 % 0-10 Eosinophil% 4 % 0-5 RBC Morphology NORMAL Laboratory test finding 11/29/2013 [facility]. Amylase 23 U/L 18-98 85 LABORATORY [phone] Lipase 121 U/L 28-380 86 Comprehensive 11/29/2013 [facility]. Glucose 103 mg/dL 76- 115 Metabolic Panel LABORATORY [phone] BUN 17 mg/dL 5-23 Creatinine 0.8 mg/dL 0.5-1.4 Glom Filtration Rate, Estimate >60 mL/min >60 If >60 mL/min >60 87 BUN/Creat 21.2 ratio Sodium 141 mmol/L 136-145 Potassium 3.3 mmol/L Low 3.5-5.1 Chloride 105 mmol/L 98-107 Carbon Dioxide 30 mEq/L High 18-29 Anion Gap 9 mEq/L 8-16 Calcium 9.3 mg/dL 8.5-10.1 Total Protein 7.4 g/dL 6.3-8.0 Albumin 3.5 g/dL 3.5-5.0 Globulin 3.9 g/dL 1.9-4.3 Alb/Glob 0.9 ratio Bilirubin,Total 0.6 mg/dL 0.2-1.2 Sgot/Ast 20 U/L 16-40 SGPT/Alt 36 U/L 30-65 Alkaline Phosphatase 92 U/L 50-136 1 It is recognized that currently available assays [...] in the low risk population was 99.90% (6052/6058) with a 95% confidence interval of 99.78 to 99.96%. 2 Because ethnic data is not always [...] 5 Kidney failure <15 (or dialysis) 3 SEE RESULT BELOW Name: EILEEN BRADY :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
--- OUTSIDE RECORDS SUMMARY | 2018-10-09 12:25 | XMS REPORT | Continuity of Care Document ---
:1965 External Reference #:[id number] Author Name Aliyah Dao Care Team Providers Name Role Phone Hattie Lawson DO Primary Care Physician Unavailable Payers Date Identification Numbers Payment Provider Subscriber Effective: 2017 Policy Number: [id number] Masoud Brady Group Number: [id number] [address] PayID: [id number] [place] [address] Expires: 2017 Policy Number: [id number] Facets Eileen Brady PayID: [id number] [address] [address] [place] [address] Effective: 2009 Policy Number: [id number] BS Of MAHI Brady Expires: 2009 PayID: [id number] [place] [address] Policy Number: [id number] [facility] Eileen Brady [address] [address] [place] [address] Advance Directives Description No Information Available Problems [...] 07/26/20 Active Capsules 100mg 180ca 2 by Suzanne.2 Waldo 18 ps mouth Justin Mcconnell three [...] Tablets 10mg 21tab 1 po tid Rodney James M.D. 06/25/20 08 Amoxicillin 05/23/20 Hx Tablets 500mg 30tab 1 po tid Rodney Ramsey - s for Heather James M.D. 06/25/20 days 08 Proventil Hx Aerosol 90mcg/Act 2 Puffs Unknown 00 - PO qid 04/27/20 15 Motrin Hx Tablets 200mg 120ta 1 PO prn Evaristo 00 - bs EULOGIO Linda 01/29/20 15 Flovent Hx Aerosol 220mcg/Ac 2 Puffs Barken, 00 - t PO bid MD Garry 06/25/20 08 Serevent Diskus Hx Aerosol 50mcg/Dos 3unit 1 puff Fer, 00 - e s bid MD Garry 06/25/20 08 Hydrochlorothia Hx Tablets 12.5mg 16tab 1 po qd Rodney James M.D. 06/25/20 08 Benicar Hx Tablets 20mg 16tab 1 po qd Rodney Jmaes M.D. 06/25/20 08 Diclofenac Hx Tablets 50mg [...] Ordering Provider Inj, Administered Injection Uriah Scruggs, 015 Barton, 0.1 MG M.D., FACC, FASNC Inj, 10/05/2 Administered Injection Laly Regadenoson, 015 Mag, 0.1 MG M.D. Technetium TC Administered Injection Uriah Hamilton 99M 015 Josselin BartonofosminJairon., FACC, Per Unit Dose FASNC Up To 40 Millicuries Technetium TC Administered Injection Laly 99M 015 Mag TetrofosminVarshaD. Per Unit Dose Up To 40 Millicuries [...] Date Facility Test Result H/L Range Note Urine Culture And 04/18/2018 [facility] Urine Culture SEE RESULT 1, [address] [place] [address] [phone] Type & Screen 04/18/2018 [facility] Patient Blood O Positive [address] [place] [address] [phone] Antibody Screen NEGATIVE Laboratory test 04/18/2018 [facility] Partial 33.8 seconds N 26.0-36.3 [address] [place] [address] PTT [phone] CBC Auto Diff 04/18/2018 [facility] White Blood 7.7 10^3/uL N 3.5-10.[address] [place] [address] [phone] Red Blood Count 4.64 10^6/uL N 4.00-5.40 [...] 0-2 Nucleated Red Blood Cells % 0.1 Urinalysis Profile 04/18/2018 [facility] Urine Color Yellow [address] [place] [address] [phone] Urine Appearance Clear Urine Specific [place] 1.027 N 1.010-1.030 Urine pH 5.0 N [...] Present Abnormal Absent Comp Metabolic Panel 04/18/2018 [facility] Sodium 140 mmol/L N 135-145 [address] [place] [address] [phone] Potassium 4.3 mmol/L N 3.5-5.0 Chloride 104 [...] Egfr Non- 93.7 >60 Egfr 113.4 >60 4 Inr/Protime 04/18/2018 [facility] Inr 0.86 N 0.77-1.[address] [place] [address] [phone] Basic Metabolic 03/09/2018 [facility] Sodium 140 mmol/L N 135- [address] [place] [address] [phone] Potassium 4.2 mmol/L N 3.5-5.0 Chloride 105 mmol/L N 101-111 Co2 Carbon Dioxide 28 mmol/L N 22-32 Anion Gap 7 mmol/L N 2-11 Glucose 83 mg/dL N 70-100 Blood Urea Nitrogen 18 mg/dL N 6-24 Creatinine 0.60 mg/dL N 0.51-0.95 BUN/Creatinine Ratio 30.0 High 8-20 Calcium 9.2 mg/dL N 8.6-10.3 Egfr Non- 104.6 >60 Egfr 126.5 >60 5 Laboratory test 03/09/2018 [facility] Erythrocyte Sed 22 mm/Hr N 0-30 [address] [place] [address] [phone] C Reactive Protein 1.35 mg/L N <8.01 7 Vitamin B12 And 03/09/2018 [facility] Vitamin B12 336 pg/mL N 180-914 8 Folate Serum [address] [place] [address] [phone] Folic Acid (Folate) > 20.00 ng/mL >3.99 9 Laboratory test 03/09/2018 [facility] TSH (Thyroid 1.60 mcIU/mL N 0.34-5.60 [address] Stim [place]) [place] [address] [phone] Free T4 (Free Thyroxine) 1.02 ng/dL N 0.61-1.12 11 Laboratory test 06/29/2017 [facility] Surgical Pathology SEE RESULT [address] [place] [address] [phone] Laboratory test 01/26/2016 [facility] Methylmalonic Acid 0.12 N <=0.4 [address] Mma nmol/mL 0 [place] [address] [phone] C Reactive Protein 5.31 mg/L High < 5.00 14 Comp Metabolic Panel 12/02/2015 [facility] Sodium 138 mmol/L N 133-[address] [place] [address] [phone] Potassium 3.6 mmol/L N 3.5-5.0 Chloride 98 [...] 74.5 N >60 Egfr 95.9 N >60 15 Protein 12/02/2015 [facility] Total 7.4 g/dL N 6.3 - Electrophoresis [address] Protein(Pep) 7.9 [place] [address] [phone] Albumin 3.2 g/dL Abnormal 3.4-4.7 Alpha-1 Globulin 0.3 g/dL N 0.1-0.3 Alpha-2 Globulin 1.1 g/dL Abnormal 0.6-1.0 Beta Globulin 1.5 g/dL Abnormal 0.7-1.2 Gamma Globulin 1.3 g/dL N 0.6-1.6 Albumin/Globulin Ratio 0.78 N Impression See Comment N 16 Volatiles Panel 03/13/2015 [facility] Volatile Screen See Comment N 17 Serum [address] [place] [address] [phone] Methanol Not Detected mg/dL N 18 Ethanol Not Detected mg/dL N 19 Acetone Level Not Detected mg/dL N 20 Isopropanol Not Detected mg/dL N 21 Ssa/SSB Abs Igg 03/13/2015 [facility] SS-A/Ro Antibody <0.2 U N 22 [address] [place] [address] [phone] SS-B/La Antibody <0.2 U N 23 Laboratory test 03/13/2015 [facility] TSH (Thyroid 2.74 ?IU/mL N 0.34-5.60 finding [address] [facility] [place] [address] [phone] Free T4 (Free Thyroxine) 0.87 ng/mL N 0.61-1.12 Vitamin B12 276 pg/mL N 180-914 24 Folic Acid (Folate) 19.03 ng/mL N >3.99 Homocysteine 9 mcmol/L N 25 Jojo (Antinuclear Antibodies) Negative N Negative Erythrocyte Sed Rate 30 mm/Hr N 0-30 C Reactive Protein 7.68 mg/L High < 5.00 26 Lyme Disease Serology Negative N Negative 27 CMP Panel 03/13/2015 [facility] Sodium 139 mmol/L N 133-145 [address] [place] [address] [phone] Potassium 4.1 mmol/L N 3.5-5.0 Chloride 102 [...] 84.4 N >60 Egfr 108.5 N >60 28 CBC W/Auto 03/13/2015 [facility] White Blood 7.9 10^3/uL N 4.8 -10.[address] [place] [address] [phone] Red Blood Count 4.55 10^6/uL N 4.0-5.4 [...] Nucleated Red Blood Cells % 0.1 N Lipid Profile 05/23/2007 [facility] Cholesterol 213 High Less 29, 30 (Trig/Chol/HDL) [address] mg/[place] [address] [phone] Triglyceride 106 mg/dL 40-200 High Density Lipoprotein 40 mg/dL 40-60 Low Density Lipoprotein 152 mg/dL High Less Than 100 31 Cholesterol/HDL Ratio 5.33 AVERAGE High 1-4.44 Laboratory test 05/23/2007 [facility] TSH 1.79 MIU/ML 0.34- 5.[address] [place] [address] [phone] Comp Metabolic 05/23/2007 [facility] One Over 1.[address] [place] [address] [phone] Anion Gap 6.0 mmol/L 2-11 32 Albumin/Globulin Ratio 1.2 1-3 Albumin 3.5 GM/DL [...] 7.1 Low 8-20 Creatinine 0.7 mg/dL 0.5-1.4 CBC W/ Electronic 05/23/2007 [facility] White Blood 6.8 CUMM 4.8-10.8 [address] [place] [address] [phone] Abs Basophils 0 0-0.2 Abs Eosinophils 0.1 [...] 4.2-5.4 Redcell Distribution WDTH 13 % 10.5-15 1 05/01 2 SEE RESULT BELOW Name: EILEEN BRADY : [address]: Saray Cummings MD Acct: [id number] Unit: [id number] AGE: 52 Location: [facility] Re04/18/18 SEX: F Status: REG REF SPEC: [id number] NATA: 04/18/18-[address] [facility] [address]: Saray Cummings MD REQ: [id number] RECD: 04/18/18-123 STATUS: COMP _ SOURCE: URINE SPDESC: ORDERED: Urine Culture COMMENTS: AA 05/01 QUERIES: Urine Source: Clean Catch Procedure Result Reported Site Urine Culture Final 04/19/18- 1602 ML No growth of clinically significant organisms * ML - Main Lab . END OF REPORT DEPARTMENT OF PATHOLOGY, [address] [place] [address] Cameron Rojas M.D. Director [facility] # [id number] 3 05/01 4 Because ethnic data is not always [...] 5 Kidney failure <15 (or dialysis) 5 Because ethnic data is not always [...] 5 Kidney failure <15 (or dialysis) 6 Tendr lab Copy Result to: HATTIE LAWSON ([id number]) 7 Tendr lab Copy Result to: HATTIE LAWSON ([id number]) 8 Normal Range 180 to 914 Indeterminate Range 145 to 180 Deficient Range <145 9 Tendr lab Copy Result to: HATTIE LAWSON ([id number]) 10 Tendr lab Copy Result to: HATTIE LAWSON ([id number]) 11 Tendr lab Copy Result to: HATTIE LAWSON ([id number]) 12 SEE RESULT BELOW Name: EILEEN BRADY : [address]: Jc Kaplan MD Acct: [id number] Unit: [id number] AGE: 51 Location: [place] Re06/29/17 SEX: F Status: GARRY CASTELAN SPEC: [id number] NATA: 06/29/17- [facility] DR: Jc Kaplan MD REQ: [id number] RECD: 06/29/171431 STATUS: SOUT _ ORDERED: LEVEL 3 FINAL [...] and the wall thickness averages 0.1 cm. Driver Operator sections, one cassette. Signed (signature on file) Cameron Rojas MD 1101 END OF REPORT * ML=Testing performed at Main Lab DEPARTMENT OF PATHOLOGY, [address] [place] [address] Cameron Rojas M.D. Director [facility] # [id number] 13 Test Performed by: [address] [address] Monorail Operator: Cj Zuniga II, M.D., Ph.D. 14 Acute [...] protein on serum electrophoresis. Test Performed by: [place] [address] Monorail Operator: Cj Zuniga II, M.D., Ph.D. 17 Sample [...] quantitated) >=10 (Toxic concentration) Test Performed by: [place] [address] Monorail Operator: Cj Zuniga II, M.D., Ph.D. 22 REFERENCE VALUE <1.0 (Negative) 23 REFERENCE VALUE <1.0 (Negative) Test Performed by: [place] [address] Monorail Operator: Cj Zuniga II, M.D., Ph.D. 24 Normal Range 180 to 914 Indeterminate Range 145 to 180 Deficient Range <145 25 REFERENCE VALUE <=13 (Fasting) Test Performed by: [place] [address] Monorail Operator: Cj Zuniga II, M.D., Ph.D. 26 Acute inflammation: >10.00 27 Serologic response to B. burgdorferi infection is not detected, but cannot rule out early infection during which low or undetectable antibody levels to B. burgdorferi may be present. If clinically indicated, a new serum specimen should be submitted in 7-14 days. Test Performed by: [place] [address] Monorail Operator: Cj Zuniga II, M.D., Ph.D. 28 Because [...] should be directed to your doctor. 30 Classification: Borderline High . 31 CALCULATED LDL APPROXIMATES THE VALUE OF A DIRECT LDL MEASUREMENT. Classification: Borderline High . 32 Anion gap measurement may be of limited value in the presence of any alkalosis, especially in a combined acid base disorder. . 33 PATIENT MAY HAVE RESULTS PER DOCTOR'S AUTHORIZATION. Questions regarding this report should be directed to your doctor. Procedures Date Code Description Status 05/01/2018 38275 TKR Total Knee Replacement Completed 05/01/2018 48016 TKR Total Knee Replacement Completed 04/18/2018 82053 EKG, Interpretation Only Completed 03/15/2018 16076 Nerve Conduction 07-08 Studies Completed 06/29/2017 23293 Laparoscopy Cholecystectomy Completed 06/29/2017 07603 Laparoscopy Cholecystectomy Completed 12/01/2015 94174 Nerve Conduction 03-04 Studies Completed 05/04/2015 23263 Stress Test Completed 05/04/2015 44397 Myocardial Perfusion Imaging Tomographic (Spect) Multiple Completed Studies 05/04/2015 58002 Myocardial Perfusion Imaging Tomographic (Spect) Multiple Completed Studies 04/28/2015 34563 EKG Tracing & Interpretation Completed 03/31/2015 02017 Nerve Conduction 07-08 Studies Completed Encounters Type Date Location Provider Dx Diagnosis Office Visit 09/07/2018 Orthopedic Saray Emiliano, M25.562 Pain in left knee 8:45a Services Of Trinidad Anderson M25.561 Pain in right knee M25.462 Effusion, left knee M17.12 Unilateral primary osteoarthritis, left knee Z96.651 Presence of right artificial knee joint Office Visit 07/11/2018 Giuseppe/Krysta Haas R20.2 Paresthesia of 8:15a Neurologic Serv Of Justin Mcconnell skin [employer]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 G62.9 Polyneuropathy, unspecified G56.03 Carpal tunnel syndrome, bilateral upper limbs Office Visit 07/05/2018 1:20p 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 Dermatology AT Gaston Hernandez, L82.1 Other seborrheic Giuseppe SONG keratosis L91.8 Other hypertrophic disorders of the skin L70.0 Acne vulgaris D23.72 Ot benign neoplasm skin/ left lower limb, including hip Z08 Encntr for follow-up exam after trtmt for malignant neoplasm Z85.820 Personal history of malignant melanoma of skin Office Visit 05/02/2018 [facility] I10 Essential 9:13a Assoc,pc EULOGIO Avery (primary) Hospitalists hypertension J45.909 Unspecified asthma, uncomplicated Z96.651 Presence of right artificial knee joint Z68.42 Body mass index (BMI) 45.0-49.9, adult E66.01 Morbid (severe) obesity due to excess calories Office Visit 04/25/2018 [place] Waldo R25.3 Fasciculation 2:00p Neurologic Serv Of Justin Mcconnell [facility] R94.02 Abnormal brain scan R53.82 Chronic fatigue, unspecified G56.02 Carpal tunnel syndrome, left upper limb R29.810 Facial weakness Office Visit 03/01/2018 [employer] Waldo Mcconnell, R20.2 Paresthesia of 10:30a Neurologic M.D. skin Services Of [facility] R25.3 Fasciculation M54.2 Cervicalgia R94.02 Abnormal brain scan R53.82 Chronic fatigue, unspecified Office Visit 12/28/2017 8:50a [facility] Dermatology Gaston Hernandez, L91.8 Other hypertrophic AT [place] MD disorders of the skin L82.1 Other seborrheic keratosis L81.3 Cafe au la[employer] spots D23.72 Ot benign neoplasm skin/ left lower limb, including hip Z08 Encntr for follow-up exam after trtmt for malignant neoplasm Z85.820 Personal history of malignant melanoma of skin Office Visit 11/27/2017 8:30a Orthopedic Services Saray Cummings, M25.561 Pain in right Of C.M.A. M.D. knee M25.562 Pain in left knee M25.461 Effusion, right knee M25.462 Effusion, left knee M17.0 Bilateral primary osteoarthritis of knee M21.061 Valgus deformity, not elsewhere classified, right knee M21.062 Valgus deformity, not elsewhere classified, left knee Office Visit 06/13/2017 10:30a Surgical Jc Merida.10 Calculus of [facility] Justin Kaplan gallbladder w chronic cholecyst w/o obstruction Office Visit 12/22/2015 3:45p [employer] Neurologic Velma Maddox R20.2 Paresthesia of Services Of [employer]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 Justin Perez skin G56.02 Carpal tunnel syndrome, left upper limb G56.01 Carpal tunnel syndrome, right upper limb Office Visit 05/11/2015 1:40p [facility] Layne Dailey R07.9 Chest pain, Of [facility] AT [facility] MD Rhett, unspecified [facility] Office Visit 04/28/2015 3:00p [facility] Layne Dailey R07.9 Chest pain, Of [facility] AT [facility] MD Rhett, unspecified [facility] E66.09 Other obesity due to excess calories G47.33 Obstructive sleep apnea (adult) (pediatric) Office Visit 02/26/2015 Neurohospitalist Velma Maddox 354.0 Carpal Tunnel 9:30a Clinic Justin Perez Syndrome 781.0 Abnormal Involuntary Movements 780.57 Unspecified Sleep Apnea 782.0 Skin Sensation Disturbance 794.09 Function Study Other Abnormal Brain & Central Nervous System Office Visit 10/18/2009 [facility] Benson Johnson, 780.59 Sleep Disturbances 12:15a Assocmey M.D. Other Hospitalists 530.81 Esophageal Reflux 553.3 Hernia Diaphragmatic 278.00 Obesity Unspec Office Visit 10/17/2009 3:30a [facility] Benson Johnson, 786.50 Pain Chest Assocmey M.D. Unspec Hospitalists 401.9 Hypertension Unspec 272.4 Hyperlipidemia Other Unspec 278.00 Obesity Unspec 530.81 Esophageal Reflux Office Visit 06/25/2008 10:00a [employer] Thomas Mckeon 493.90 Asthma Unspec W /O Assoc AT Justin James Status Asthmaticus [facility] 401.1 Hypertension Benign Office Visit 05/26/2008 10:15a [employer] Thomas Mckeon 723.1 Cervicalgia Assoc AT Justin James [facility] Office Visit 05/23/2008 9:40a [employer] Mckoen 465.9 URI Upper Assoc AT Justin James Respiratory [facility] Infections Acute Unspec Sites 401.1 Hypertension Benign 493.90 Asthma Unspec W/O Status Asthmaticus Office Visit 05/23/2008 9:30a [employer] Med Rodney E. 465.9 URI Upper Assoc AT Justin James Respiratory [facility] Infections Acute Unspec Sites 401.1 Hypertension Benign 493.90 Asthma Unspec W/O Status Asthmaticus Office Visit 04/04/2007 3:30p [employer] Med Rodney E. 493.90 Asthma Unspec W /O Assoc AT Justin James Status Asthmaticus [facility] 401.1 Hypertension Benign Plan of Treatment Future Appointment(s):10/22/2018 1:15 pm - Saray Cummings M.D. at [facility].10/09/2018 4:30 pm - Daniel Albert PA-C at [facility].A.10/09/2018 4:30 pm - EULOGIO Rowland at [facility].A.10/09/2018 4:30 pm - Saray Cummings M.D. at [facility] M.A12/05/2018 9:45 am - Waldo Mcconnell M.D. at [facility] Neurologic Serv Of [facility]01/08/2019 10:00 am - Gaston Hernandez MD at [facility] Dermatology AT Owwqyqgp50/27/2019 - Saray Cummings M.D.M25.562 Pain in left kneeFollow up:Follow up: 2 weeks after xomazivM63.462 Effusion, left kneeM17.12 Unilateral primary osteoarthritis, left knee
--- OUTSIDE RECORDS SUMMARY | 2018-10-09 12:26 | XMS REPORT | Continuity of Care Document ---
:1965 External Reference #:[id number] Author Name Hattie Lawson D.O. 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 [employer] Hand [...] Patient is currently sexually active Age 1st [place] 17 Years Old STD's No STD History Additional Info Sexual preference is men Allergies, Adverse Reactions, Alerts Date Description Reaction Status Severity Comments 11/27/2013 Vicodin Active Gives pt "asthma attack" Medications Medication Date Status Form Strength Qnty SIG Indications Ordering Provider Citalopram 09/11/ Active Tablets 20mg 90tabs 1 by mouth F43.23 Eliseo Hydrobroestebane 2018 every day Karan Zazueta Omeprazole 09/03/ Active Capsules 40mg 60caps 1 by mouth Eliseo 2019 DR baylee Zazueta, every day D.O. Tramadol HCL 09/02/ Active Tablets 50mg 1 tab po Unknown 2019 four times daily per Vistaril 08/27/ Active Capsules 25mg take one Unknown 2018 capsule by mouth for sleep at night Clotrimazole 08/13/ Active Cream 1% 56gm Apply to R21 James Anti-Fungal 2019 affected Gabriel, [facility] bid M.Melba B37.9 Rvnzrxonu-Jflnf-K58-Acetylcyst 08/06/2018 Active Tablets 6-90.314-2-600mg 90tabs Take 1 G90.09 Sopchak, tablet by Hattie, mouth daily D.O. for nutritional support E53.8 F50.9 Cyclobenzaprine 05/01/2018 Active Tablets 10mg TK 1 T PO 2 To Unknown HCL 3 Times A Day as Needed. MDD 3 Cane 03/27/2018 Active Standard 1u Use to assist maxx Ramirez with walking Gabriel and balance Justin Proair HFA 01/30/2018 Active Aerosol 108(90 8. 2 puff Every R0 Sopchak, Base) 5u 4-6 Hours, as 6. travis Zazueta/Hima ni Needed 00 D.O. t ts Sulindac 11/13/2017 Active Tablets 150mg 18 150 mg orally M2 Sopchak, 0t twice daily 5. ab Hattie 56 D.O. s 9 Flonase Allergy 05/26/2017 Active Suspension 50mcg/ 47 2 sprays twice J0 Sopchak, Relief Act .4 a day until 1. Melani Zazueta better. 00 D.O. ml Metoprolol 04/14/2017 Active Tablets ER 50mg 30 1 By Mouth [place], Succinate ER 24HR ta Every Day aidan Zazueta D.O. Magox 400 02/24/2016 Active Tablets 400(24 18 2 tablets every E6 Sopchak, 1.3mg) 0t night at 6. mg Hattie ab bedtime as 01 D.O. s directed Vitamin D3 02/24/2016 Active Tablets 5000Un 90 1 tab by mouth E5 Soplarryk, it ta every day or 7 5. aidan Zazueta tabs once a 9 D.O. week Multivitamin Adult 01/06/2016 Active Tablets 90 1 by mouth E6 Eliseo, ta every day 6. aidan Zazueta 01 [...] Base) un by mouth every 6. travis Zazueta/Ac it 4 hours as 00 D.O. t s needed for bronchospasm Tramadol HCL 12/15/2017 - Hx Tablets 50mg 90 1 tab three M2 Sopchak, 05/09/2018 ta times a day as 5. aidan Zazueta needed for pain 56 D.O. 2 Metformin HCL 12/11/2017 - Hx Tablets 500mg 60 Take 1 Tablet E6 Silcoff , 09/02/2018 ta Twice Daily 6. aidan Rios 01 M.D. Nystatin 10/30/2017 - Hx Ointment 825299 60 apply to R2 Dicokimberli, 08/13/2018 Unit/G gm affected areas 1 Michelet Rios (not feet) 2-3 M.D. times a day until rash has gone for at least 2 days B37.9 Citalopram 10/20/2017 - Hx Tablets 20mg 90tabs 1 by mouth F43.23 Sopchak, Hydrobromide 01/05/2018 every day Hattie D.OYen Citalopram 10/12/2017 - Hx Tablets 10mg 90tabs 1 by mouth F43.23 S[place]chak, Hydrobromide 10/20/2017 every day Belinda Zazueta.Joe Escitalopram Oxalate 10/09/2017 - Hx Tablets 10mg 90tabs 1/2 tablets F43.23 Silcoff, 10/12/2017 by mouth Gabriel, daily M.D. Citalopram 10/03/2017 - Hx Tablets 10mg 60tabs 1 tab every F43.23 Silcoff, Hydrobromide 10/09/2017 morning x 5 Gabriel, days then M.D. can increased to 2 tabs every morning Escitalopram Oxalate 08/31/2017 - Hx Tablets 10mg 90tabs 1 tablets [place]ak, 10/02/2017 by mouth Hattie, daily D.O. Oxycodone HCL 08/31/2017 - Hx Capsules 5mg 60caps Take 1 M54.16 Eliseo , 10/12/2017 capsule by Hattie, mouth every D.O. 6 hours as needed for pain Potassium Chloride ER 05/30/2017 - Hx Capsules 10Meq 90caps 1 by mouth Eliseo, 08/30/2017 ER every day Hattie, with each D.O. tablet of furosemide Amoxicillin/Clavulana 05/26/2017 - Hx Tablets 875-1 20tabs 1 by mouth J01.00 Eliseo, te Potassium 06/05/2017 25mg twice a day Karan Zazueta Afrin Sinus 05/26/2017 - Hx Solution 0.05% 15ml inhale 2 J01.00 [facility] , 05/29/2017 sprays into Hattie, nostril 2 D.O. times per day every 10 to 12 hours as needed for stuffy nose for 3 days only! Hydrochlorothiazide 04/24/2017 - Hx Tablets 25mg take 1 Unknown 04/25/2017 tablet every morning for high blood pressure Escitalopram Oxalate 04/14/2017 - Hx Tablets 20mg 90tabs 1 [facility], 08/31/2017 every day Hattie, D.O. Actigall 04/14/2017 - Hx Capsules 300mg 270caps Take One K80.10 [facility] , 08/30/2017 Capsule By Hattie, Mouth Three D.O. Times A Day For Gallstones Escitalopram Oxalate 12/07/2016 - Hx Tablets 10mg 90tabs 1 tablets [facility], 04/14/2017 by mouth Hattie, daily D.O. Citalopram 07/27/2016 - Hx Tablets 10mg 30tabs 1 by mouth [facility], Hydrobromide 08/16/2016 every day Hattie, D.O. Hydrochlorothiazide 07/16/2016 - Hx Tablets 25mg 90tabs take 1 [facility] , 12/07/2016 tablet by Hattie, mouth daily D.O. Diclofenac Sodium 06/16/2016 - Hx Tablets DR 50mg 90tabs Take 1 M25.569 [facility], 11/13/2017 Tablet By Hattie, Mouth 3 D.O. Times Per Day With Food Or Milk For Arthritis Metoprolol Succinate 04/26/2016 - Hx Tablets ER 50mg 30tabs 1 by mouth [facility], ER 04/14/2017 24HR every day Hattie, D.O. Potassium Chloride ER 04/12/2016 - Hx Capsules 10Meq 90caps 1 [facility] 07/27[facility]2016 ER every day Hattie, with each D.O. tablet of furosemide Metoprolol Succinate 02/24/2016 - Hx Tablets ER 100mg 90tabs take one [facility], ER 04/26/2016 24HR tablet by Hattie, mouth every D.O. morning for blood pressure Phendimetrazine 10/30/2015 - Hx Tablets 35mg 180tabs Take 2 E66.01 [facility], Tartrate 01/06/2016 tablets by Hattie, mouth 3 D.O. times per day 1 hour before a meal for weight loss Diflucan 09/02/2015 - Hx Tablets 150mg 2tabs 1 cap by Eliseo, 09/04/2015 mouth 3 Hattie, days apart. D.O. Singulair 11/03/2014 - Hx Tablets 10mg 30tabs [address] 12/[facility]2014 mouth once Hattie, daily for D.O. allergies Irbesartan 11/03/2014 - Hx Tablets 75mg 30tabs 1 by mouth 401.1 [facility] , 12/03/2014 every day Karan Zazueta Azithromycin 10/14/2014 - Hx Tablets 250mg 6tabs take 2 466.0 [facility], 10/19/2014 tablets by Hattie, mouth one D.O. time on the first day then take 1 tablet by mouth daily for 4 days Dulera 10/03/2014 - Hx Aerosol 100-5 2 puffs 493.00 [facility], 12/04/2014 mcg/A twice a day barbara Zazueta D.O. Diflucan 07/29/2014 - Hx Tablets 150mg 1tabs 1 cap by Eliseo, 2014 mouth once Hattie D.OYen Lisinopril 07/16/2014 - Hx Tablets 10mg 90tabs take 1 401.1 Silcoff, 11/03/2014 tablet by bryant Rios daily M.DYen for high blood pressure Tramadol HCL 07/07/2014 - Hx Tablets 50mg 90tabs 1 tab three M25.562 [facility], 08/31/2017 times a day Hattie, as needed D.O. for pain Prednisone 07/07/2014 - Hx Tablets 20mg 10tabs 2 tab every 719.46 [facility], 07/12/2014 morning for Hattie, 5 days D.O. Diclofenac Potassium 07/07/2014 - Hx Tablets 50mg 60tabs 1 by mouth M17.11 [facility], 04/26/2016 twice a day Karan Zazueta M72.2 Z01.818 Valium 06/16/2014 - Hx Tablets 5mg 2tabs 1 po 1 hour Cj A. 07/06/2014 prior to tommy Saleh M.D. may repeat 1 hour later as need. Potassium Chloride 12/20/2013 - Hx Solution 20Meq/ 450ml 3 tsp po qd Silcoff, 08/27/2014 15ML Gabriel (10%) Justin Potassium Acetate 12/02/2013 - Hx Solution 4Meq/M 150ml 1 tsp qd Silcoff, 12/20/2013 L Justin Rios Furosemide 11/26/2013 - Hx Tablets 20mg 60tabs 1 by mouth R60 S[place]chak, 04/26/2016 every day for .0 Hattie, fluid D.O. retention Diclofenac Sodium 11/26/2013 - [...] Tablets 35mg 90tabs 1 by mouth 278 Silcoff, Tartrate 06/03/2014 2-3 times a .00 Gabriel, day before M.DYen meals for weight loss Metoprolol - Hx Tablets 50mg 180tabs 1 by mouth Cj AYen Tartrate 02/24/2016 every day for [place], blood M.DYen pressure control Amoxicillin/Clavul - Hx Tablets 875-12 [...] CPT Code Status Date Vaccine Lot # [id number] Given 04/20/2018 Influenza Virus Vaccine, Quadrivalent, Split, [id number] Preservative Free 49204 Given 04/20/2018 Prevnar 13 [id number] 41997 Given 04/14/2017 Influenza Virus Vaccine, Quadrivalent, Split, [id number] Preservative Free 06770 Given 04/07/2016 Influenza Virus Vaccine, Quadrivalent, Split, [id number] Preservative Free 39986 Given 05/16/2015 Influenza Virus Vaccine, Quadrivalent, Split, [id number] Preservative Free 87650 Given 06/10/2014 Flu, Split Virus 3Yrs [id number] 16130 Given 12/10/2013 Adacel or Boostrix, TDaP 32214 Given 06/22/2012 Adacel or Boostrix, TDaP 31804 Given 04/29/2011 Pneumococcal Immunization 82960 Given 04/29/2011 Flu, Split Virus 3Yrs 59744 Given 05/29/2009 Flu, Split Virus 3Yrs 05405 Ordered 11/28/2013 Adacel or Boostrix, TDaP Vital Signs Date Vital Result Comment 09/03/2018 1:49pm BP Systolic 132 mmHg BP [...] Date Facility Test Result H/L Range Note CBC Auto Diff 09/03/2018 [facility] White Blood 7.5 10^3/uL N 3.5- 10.8 [phone] Count Red Blood Count 4.83 10^6/uL N 4.00-5.40 [...] Cells % 0 Comp Metabolic Panel 09/03/2018 [facility] Sodium 139 mmol/L N 135- 145 [phone] Potassium 4.3 mmol/L N 3.5-5.0 Chloride 103 [...] Egfr Non- 84.4 >60 Egfr 102.1 >60 1 Laboratory test finding 09/03/2018 [facility] Amylase 20 U/L Low 29- 103 [phone] Lipase 17 U/L N 11.0-82.0 Magnesium 1.7 mg/dL Low 1.9-2.7 Erythrocyte Sed Rate 21 mm/Hr N 0-30 C Reactive Protein 2.40 mg/L N <8.01 Urine Culture And 09/02/2018 [facility] Urine SEE RESULT 2, 3 Sensitivities [phone] Culture BELOW Poc Urinalysis 09/02/2018 [facility] Poc Glucose, Negative Negative [phone] Urine Poc Bilirubin, Urine Negative Negative Poc Ketone, Urine Negative Negative Poc Specific Lindsay, Urine 1.025 N 1.010-1.030 Poc Blood, Urine Negative Negative Poc pH, Urine 6.0 N 5-9 Poc Protein, Urine Negative Negative Poc Urobilinogen, Urine 0.2 Negative Poc Nitrite, Urine Negative Negative Poc Leukocytes, Urine Trace Abnormal Negative Poc Color, Urine Dark yellow Poc Clarity, Urine Clear 4 Ua Inhouse 03/15/2018 In House Ua Glucose - 5 Ua Bilirubin - Ua Ketones - Ua Specific Lindsay 1.030 Ua Blood - Ua PH 6.0 Ua Protein - Ua Urobilinogen - Ua Nitrite - Ua Leukocytes - Basic Metabolic Panel 03/09/2018 [facility] Sodium 140 mmol/L N 135- 145 [phone] Potassium 4.2 mmol/L N 3.5-5.0 Chloride 105 mmol/L N 101-111 Co2 Carbon Dioxide 28 mmol/L N 22-32 Anion Gap 7 mmol/L N 2-11 Glucose 83 mg/dL N 70-100 Blood Urea Nitrogen 18 mg/dL N 6-24 Creatinine 0.60 mg/dL N 0.51-0.95 BUN/Creatinine Ratio 30.0 High 8-20 Calcium 9.2 mg/dL N 8.6-10.3 Egfr Non- 104.6 >60 Egfr 126.5 >60 6 Laboratory test 03/09/2018 [facility] C Reactive Protein 1.35 mg/L N <8.01 7 finding [phone] TSH (Thyroid Stim Horm) 1.60 mcIU/mL N 0.34-5.60 8 Free T4 (Free Thyroxine) 1.02 ng/dL N 0.61-1.12 9 Folic Acid (Folate) > 20.00 ng/mL >3.99 10 Vitamin B12 336 pg/mL N 180-914 11 Erythrocyte Sed Rate 22 mm/Hr N 0-30 12 Laboratory test 01/09/2018 [facility] Surgical SEE RESULT 13 finding [phone] Pathology BELOW Laboratory test 12/08/2017 [facility] Surgical SEE RESULT 14 finding [phone] Pathology BELOW GC/Chlamydia 12/05/2017 [facility] Chlamydia Negative Negative Amplified Rna [phone] trachomatis Rna Neisseria gonorrhoeae (GC) Rna Negative Negative Laboratory test 12/05/2017 [facility] Cytology SEE RESULT 15 finding [phone] BELOW Laboratory test 10/30/2017 [facility] Insulin Level 6.6 2.6 16 finding [phone] mcIU/mL - 24.9 Laboratory test 10/17/2017 [facility]. Sedimentation Rate 17 mm /hr N 0-30 17, 18 finding LABORATORY [phone] C-Reactive Protein,Quant < 2.9 mg/L <3.0 Magnesium 1.9 mg/dL N 1.8-2.4 Thyroid Stim Hormone 1.46 uIU/mL N 0.30-4.20 Vitamin B12 460 pg/mL N [phone] CBC Auto Diff 10/17/2017 [facility]. White Blood 7.2 K/uL N 3.1-10.7 LABORATORY Count [phone] Red Blood Count 4.72 M/uL N 3.90-5.40 [...] 40.4-72.8 Lymph % 30.5 % N 20.0-42.0 [place] % 7.1 % N 4.3-13.2 Eo% 1.7 % N 0.0-6.6 Bas% 0.3 % N 0.0-1.1 Neut# 4.37 K/uL N 1.8-7.0 Lymph # 2.20 K/uL N 1.0-4.0 [place] # 0.51 K/uL N 0.3-0.9 Eos # 0.12 K/uL N 0.0-0.5 Baso # 0.02 K/uL N 0.0-0.1 Comp Metabolic Panel 10/17/2017 [facility]. Glucose 97 mg/dL N 74-106 LABORATORY [phone] BUN 16 mg/dL N 7-18 Creatinine 0.7 mg/dL N 0.6-1.3 Glom Filtration Rate, Estimate >60 mL/min >60 If >60 mL/min >60 19 BUN/Creat 22.8 ratio Sodium 140 mmol/L N [...] 78 U/L N 45-117 Comprehensive Yovana 10/17/2017 [facility]. Anti-Dna <1 IU/mL 0 -9 20 Panel LABORATORY Antibody [phone] ([place]) SM Antibody <0.2 AI 0.0-0.9 RAILROAD REPAIRER Antibody <0.2 AI 0.0-0.9 Sjogrens Antibodies (Ssa) <0.2 AI 0.0-0.9 Antichromatin Antibodies <0.2 AI 0.0-0.9 Radha-1 Antibody <0.2 AI 0.0-0.9 Sjogrens Antibodies (SSB) <0.2 AI 0.0-0.9 Centromere B Antibodies < 0.2 AI 0.0-0.9 Scleroderma Antibodies, SCL-70 <0.2 AI 0.0-0.9 See below: (SEE NOTE) 21 CBC Auto Diff 08/31/2017 [facility] White Blood Count 6.7 10^3/uL N 3.5-10.8 [phone] Red Blood Count 4.51 10^6/uL N 4.0-5.4 [...] Cells % 0.1 Comp Metabolic Panel 08/31/2017 [facility] Sodium 139 mmol/L N 133- 145 [phone] Potassium 4.1 mmol/L N 3.5-5.0 Chloride 102 [...] Egfr Non- 87.5 >60 Egfr 112.6 >60 22 Laboratory test 08/31/2017 [facility] C Reactive < 1.00 mg/L N < 5.00 23 finding [phone] Protein Erythrocyte Sed Rate 19 mm/Hr N 0-30 Magnesium 1.7 mg/dL Low 1.9-2.7 TSH (Thyroid Stim Horm) 2.82 mcIU/mL N 0.34-5.60 Uric Acid 5.0 mg/dL N 2.3-6.6 Vitamin B12 362 pg/mL N 180-914 24 Laboratory test 04/14/2017 [facility] Magnesium 1.8 mg/dL Low 1.9- 2.7 finding [phone] CBC Auto Diff 04/14/2017 [facility] White Blood 6.2 10^3/uL N 3.5- 10.8 [phone] Count Red Blood Count 4.50 10^6/uL N [...] % 0.1 N Comp Metabolic Panel 04/14/2017 [facility] Sodium 140 mmol/L N 133- 145 [phone] Potassium 3.3 mmol/L Low 3.5-5.0 Chloride 100 [...] 85.1 N >60 Egfr 109.4 N >60 25 Laboratory test 04/14/2017 [facility] Erythrocyte Sed Rate 19 mm/Hr N 0-30 finding [phone] TSH (Thyroid Stim Horm) 1.36 mcIU/mL N 0.34-5.60 Phosphorus 3.2 mg/dL N 2.5-5.0 Vitamin B12 > 1450 pg/mL High 180-914 26 Vitamin D Total 25(Oh) 26.5 ng/mL N 20-50 Folic Acid (Folate) 17.43 ng/mL N >3.99 CBS W/Automated 04/03/2017 [facility]. White Blood 7.6 K/uL N 3.1-10.7 27 Diff LABORATORY Count [phone] Red Blood Count 4.51 M/uL N 3.90-5.40 [...] 40.4-72.8 Lymph % 45.1 % High 20.0-42.0 [place] % 8.2 % N 4.3-13.2 Eo% 1.1 % N 0.0-6.6 Bas% 0.3 % N 0.0-1.1 Neut# 3.43 K/uL N 1.8-7.0 Lymph # 3.41 K/uL N 1.0-4.0 [place] # 0.62 K/uL N 0.3-0.9 Eos # 0.08 K/uL N 0.0-0.5 Baso # 0.02 K/uL N 0.0-0.1 Laboratory test 04/03/2017 [facility]. D-Dimer, 0.25 28 finding LABORATORY Quantitative ug/mL [phone] Comprehensive 04/03/2017 [facility]. Glucose 118 mg/dL High 74-1 Metabolic Panel LABORATORY 06 [phone] BUN 25 mg/dL High 7-18 Creatinine 0.8 mg/dL N 0.6-1.3 Glom Filtration Rate, Estimate >60 mL/min >60 If >60 mL/min >60 29 BUN/Creat 31.2 ratio Sodium 141 mmol/L N [...] U/L N 45-117 Laboratory test finding 04/03/2017 [facility] Lipase 120 U/L N 73-393 LABORATORY [phone] HCG,Serum (Qualitative) NEGATIVE (Negative) Ua RFX Micro & 04/03/2017 [facility] Urine Color YELLOW Yellow Culture II LABORATORY [phone] Urine Clarity CLEAR Clear Urine Glucose - Dipstick NEGATIVE mg/dL Negative Urine Bilirubin - Dipstick NEGATIVE Negative Urine Ketone NEGATIVE mg/dL Negative Urine Specific Lindsay 1.025 N 1.010-1.030 Urine Blood NEGATIVE Negative Urine PH 5.5 Low 6.5-7.5 Urine Protein - Dipstick NEGATIVE mg/dL Negative Urine Urobilinogen - Dipstick 0.2 E.U./dL N 0.2-1.0 Urine Nitrite - Dipstick NEGATIVE Negative Urine Leuk Esterase NEGATIVE Negative Source: URINE, CLEAN CAT <SEE NOTE> 30 CBC No Diff 12/09/2016 [facility] White Blood Count 8.3 10^3/uL N 3.5 -10.8 [phone] Red Blood Count 4.56 10^6/uL N 4.0-5.4 Hemoglobin 14.1 g/dL N 12.0-16.0 Hematocrit 42 % N 35-47 Mean Corpuscular Volume 92 fL N 80-97 Mean Corpuscular Hemoglobin 31 pg N 27-31 Mean Corpuscular HGB Conc 34 g/dL N 31-36 Red Cell Distribution Width 14 % N 10.5-15 Platelet Count 304 10^3/uL N 150-450 Mean Platelet Volume 9 um3 N 7.4-10.4 Laboratory test 12/09/2016 [facility] Hemoglobin A1c 5.0 % N Less than 31 finding [phone] (Glyco HGB) 6.0 Comp Metabolic 12/09/2016 [facility] Sodium 142 mmol/L N 133-145 Panel [phone] Potassium 3.3 mmol/L Low 3.5-5.0 Chloride 102 [...] 79.9 N >60 Egfr 102.8 N >60 32 Lipid Profile 12/09/2016 [facility] Triglycerides 109 mg/dL N 33 (Trig/Chol/HDL) [phone] Cholesterol 211 mg/dL N 34 HDL Cholesterol 40.8 mg/dL N 35 LDL Cholesterol 148 mg/dL N 36 Laboratory test finding 12/09/2016 [facility] Magnesium 1.6 mg/dL Low 1.9-2.7 [phone] TSH (Thyroid Stim Horm) 2.28 mcIU/mL N 0.34-5.60 T3 Free 3.10 pg/mL N 2.5-3.9 Free T4 (Free Thyroxine) 1.03 ng/dL N 0.61-1.12 Vitamin B12 118 pg/mL Low 180-914 37 Vitamin D Total 25(Oh) 17.2 ng/mL Low 30-50 Insulin Level 11.3 mcIU/mL N 2.6 - 24.9 38 Aot Request 07/13/2016 [facility]. Aot Request Test(s) added N 39, 40 LABORATORY [phone] Tests to be added: RPR, FT4, TSH Instructions: ADD ON TO ER BLO <SEE NOTE> 41 Urinalysis With 07/12/2016 [facility]. Urine Color YELLOW N Yellow Microscopic LABORATORY [phone] Urine Clarity SL CLOUDY N Clear Urine Glucose - Dipstick NEGATIVE mg/dL N Negative Urine Bilirubin - Dipstick NEGATIVE N Negative Urine Ketone NEGATIVE mg/dL N Negative Urine Specific Lindsay >=1.030 N 1.010-1.030 Urine Blood MODERATE Abnormal Negative Urine PH 5.0 Low 6.5-7.5 Urine Protein - Dipstick NEGATIVE mg/dL N Negative Urine Urobilinogen - Dipstick 0.2 E.U./dL N 0.2-1.0 Urine Nitrite - Dipstick NEGATIVE N Negative Urine Leuk Esterase TRACE Abnormal Negative Urine RBC 2-5 rbc/hpf N 0-2 Urine WBC 0-2 wbc/hpf N 0-7 Urine Epithelial Cells MANY /lpf N None Seen 42 Urine Bacteria FEW N None Seen Urine Fine Gran Cast 0-2 #/lpf N None Seen Source: URINE, CLEAN CAT <SEE NOTE> 43 Chlamydia/GC 07/12/2016 [facility]. Chlamydia Negative N Negative Martha, Urine LABORATORY Trachomatis,Ur [phone] -Martha Neisseria Gonorrhoeae,Ur -Martha Negative N Negative 44 CBS W/Automated 07/12/2016 [facility]. White Blood 7.1 K/uL N 3.1-10.7 Diff LABORATORY Count [phone] Red Blood Count 4.67 M/uL N 3.90-5.40 [...] 40.4-72.8 Lymph % 34.1 % N 17.0-46.1 [place] % 9.3 % N 4.3-13.2 Eo% 1.4 % N 0.0-6.6 Bas% 0.3 % N 0.0-1.1 Neut# 3.89 K/uL N 1.8-7.0 Lymph # 2.42 K/uL N 1.8-7.0 [place] # 0.66 K/uL N 0.3-0.9 Eos # 0.10 K/uL N 0.0-0.5 Baso # 0.02 K/uL N 0.0-0.1 Laboratory test 07/12/2016 [facility]. Ethyl Alcohol < 3.0 mg/ dL N finding LABORATORY [phone] Comprehensive 07/12/2016 [facility]. Glucose 100 mg/dL N 74- 106 Metabolic Panel LABORATORY [phone] BUN 12 mg/dL N 7-18 Creatinine 0.8 mg/dL N 0.6-1.3 Glom Filtration Rate, Estimate >60 mL/min N >60 If >60 mL/min N >60 45 BUN/Creat 15.0 ratio N Sodium 143 mmol/L [...] Phosphatase 64 U/L N 45-117 Laboratory 07/12/2016 [facility]. Treponema Nonreactive N Nonreactive 46 test finding LABORATORY Antibody [phone] [place] Urine Culture 07/12/2016 [facility]. Urine URETHRAL RENAE LABORATORY Culture [phone] Quantity > 100,000 CFU/mL N 47 Laboratory test 07/12/2016 [facility]. Ethyl Alcohol < 3.0 mg/ dL N 48 finding LABORATORY [phone] Drugs Of 07/12/2016 [facility]. Amphetamines Negative N Abuse-Urine LABORATORY (Urine) Screen 7 [phone] Barbiturates (Urine) Negative N Benzodiazepines (Urine) Negative N Cannabinoids (Urine) Negative N Cocaine Metabolite (Urine) Negative N Methadone (Urine) Negative N Opiates (Urine) Negative N Urine Cutoffs * N 49 Basic Metabolic Panel 07/05/2016 [facility] Sodium 139 mmol/L N 133- 145 [phone] Potassium 4.1 mmol/L N 3.5-5.0 Chloride 102 mmol/L N 101-111 Co2 Carbon Dioxide 31 mmol/L N 22-32 Anion Gap 6 mmol/L N 2-11 Glucose 122 mg/dL High 70-100 Blood Urea Nitrogen 16 mg/dL N 6-24 Creatinine 0.75 mg/dL N 0.51-0.95 BUN/Creatinine Ratio 21.3 High 8-20 Calcium 10.0 mg/dL N 8.6-10.3 Egfr Non- 81.5 N >60 Egfr 104.8 N >60 50 Basic Metabolic Panel 04/07/2016 [facility] Sodium 140 mmol/L N 133- 145 [phone] Potassium 3.4 mmol/L Low 3.5-5.0 Chloride 101 mmol/L N 101-111 Co2 Carbon Dioxide 28 mmol/L N 22-32 Anion Gap 11 mmol/L N 2-11 Glucose 98 mg/dL N 70-100 Blood Urea Nitrogen 14 mg/dL N 6-24 Creatinine 0.84 mg/dL N 0.51-0.95 BUN/Creatinine Ratio 16.7 N 8-20 Calcium 9.5 mg/dL N 8.6-10.3 Egfr Non- 71.5 N >60 Egfr 91.9 N >60 51 Laboratory test 01/26/2016 [facility] C Reactive 5.31 mg/L High < 5.00 52 finding [phone] Protein Methylmalonic Acid Mma 0.12 nmol/mL N <=0.40 53 Laboratory test 01/07/2016 [facility]. Vitamin B12 475 pg/mL [phone] 54 finding LABORATORY [phone] Magnesium 1.8 mg/dL 1.8-2.4 Vitamin B1 (Thiamine),WB 93.1 nmol/L 66.5-200.0 Copper, Serum 132 g/dL 72-166 55 Zinc, Whole Blood 676 g/dL 440-860 56 Vitamin D,25-Hydroxy 22.0 ng/mL Low 30.0-100.0 57 Chlamydia/GC 12/16/2015 [facility]. Chlamydia Negative Negative Martha, Urine LABORATORY Trachomatis,Ur [phone] -Martha Neisseria Gonorrhoeae,Ur -Martha Negative Negative 58 Laboratory test 12/15/2015 [facility] Urine HCG NEGATIVE Negative 59 finding LABORATORY (Qualitative) [phone] Urinalysis With 12/15/2015 [facility] Urine Color RED Yellow Microscopic LABORATORY [phone] Urine Clarity CLOUDY Clear Urine Glucose - Dipstick 100 mg/dL High Negative Urine Bilirubin - Dipstick MODERATE High Negative Urine Ketone TRACE mg/dL High Negative Urine Specific Lindsay 1.010 1.010-1.030 Urine Blood LARGE High Negative [...] Amorph Sediment SMALL Negative Laboratory test 12/15/2015 [facility]. Culture If See Note 60 finding LABORATORY Indicated Comment [phone] Ua RFX Micro + Culture II See Note 61 Urine Culture See Note 62 Comp Metabolic Panel 12/02/2015 [facility] Sodium 138 mmol/L N 133- 145 [phone] Potassium 3.6 mmol/L N 3.5-5.0 Chloride 98 [...] 74.5 N >60 Egfr 95.9 N >60 63 Protein 12/02/2015 [facility] Total 7.4 g/dL N 6.3 - Electrophoresis [phone] Protein(Pep) 7.9 Albumin 3.2 g/dL Abnormal 3.4-4.7 Alpha-1 Globulin 0.3 g/dL N 0.1-0.3 Alpha-2 Globulin 1.1 g/dL Abnormal 0.6-1.0 Beta Globulin 1.5 g/dL Abnormal 0.7-1.2 Gamma Globulin 1.3 g/dL N 0.6-1.6 Albumin/Globulin Ratio 0.78 N Impression See Comment N 64 Laboratory test 05/25/2015 [facility] Trichomonas Negative N Negative 65, 66 finding [phone] vaginalis Rna Gardnerella/Yeast: Vaginal Dna SEE RESULT BELOW 67 GC/Chlamydia 05/25/2015 [facility] Chlamydia Negative N Negative Amplified Rna [phone] trachomatis Rna Neisseria gonorrhoeae (GC) Rna Negative N Negative 68 Urine Micro Inhouse 01/22/2015 In House Ua WBC - 69 Ua RBC - Ua Casts - Ua Epi - Ua Other - Ua Glucose - Ua Bilirubin - Ua Ketones - Ua Specific Lindsay 1.010 Ua Blood - Ua PH 5.0 Ua Protein - Ua Urobilinogen - Ua Nitrite - Ua Leukocytes - Comp Metabolic Panel 01/15/2015 [facility] Sodium 138 mmol/L N 133- 145 [phone] Potassium 4.3 mmol/L N 3.5-5.0 Chloride 103 [...] 85.7 N >60 Egfr 110.3 N >60 70 Lipid Profile 01/15/2015 [facility] Triglycerides 102 mg/dL N 71 (Trig/Chol/HDL) [phone] Cholesterol 189 mg/dL N 72 HDL Cholesterol 39.4 mg/dL N 73 LDL Cholesterol 129 mg/dL N 74 Comprehensive 09/25/2014 [facility]. Glucose 108 mg/dL High 74-106 Metabolic Panel LABORATORY [phone] BUN 12 mg/dL 7-18 Creatinine 0.8 mg/dL 0.6-1.3 Glom Filtration Rate, Estimate >60 mL/min >60 If >60 mL/min >60 75 BUN/Creat 15.0 ratio Sodium 143 mmol/L 136-145 Potassium 4.1 mmol/L 3.5-5.1 Chloride 106 mmol/L 98-107 Carbon Dioxide 30 mmol/L 21-32 Anion Gap 7 mEq/L Low 8-16 Calcium 8.8 mg/dL 8.5-10.1 Total Protein 7.3 g/dL 6.4-8.2 Albumin 3.5 g/dL 3.4-5.0 Globulin 3.8 g/dL 1.9-4.3 Alb/Glob 0.9 ratio Bilirubin,Total 0.4 mg/dL 0.2-1.0 Sgot/Ast 13 U/L Low 15-37 76 SGPT/Alt 31 U/L 12-78 Alkaline Phosphatase 104 U/L 45-117 Laboratory test 09/25/2014 [facility]. Troponin-I < 0.02 ng/mL 77 finding LABORATORY [phone] Thyroid Stim Hormone 2.45 uIU/mL 0.36-3.74 CBC/Manual 09/25/2014 [facility]. White Blood 8.0 K/uL 3.1- 10.7 Differential LABORATORY Count [phone] Red Blood Count 4.47 M/uL 3.90-5.40 Hemoglobin [...] % 0-2 Stomatocyte 2+ Laboratory test 09/25/2014 [facility] D-Dimer, 1.09 ug/mL High 78 finding LABORATORY Quantitative [phone] CBC Auto Diff 07/07/2014 [facility] White Blood Count 7.5 N 4.8-7 [phone] 10^3/uL 0.8 Red Blood Count 4.40 10^6/uL [...] % 0.1 N Comp Metabolic Panel 07/07/2014 [facility] Sodium 139 mmol/L N 133- 145 [phone] Potassium 3.8 mmol/L N 3.5-5.0 Chloride 104 [...] 90.4 N >60 Egfr 116.3 N >60 79 Laboratory test 07/07/2014 [facility] Erythrocyte Sed 29 mm/Hr High 0 -14 finding [phone] Rate Uric Acid 6.6 mg/dL N 2.3-6.6 Laboratory test 06/10/2014 [facility] Erythrocyte Sed 27 mm/Hr High 0 -14 finding [phone] Rate CBC Auto Diff 06/10/2014 [facility] White Blood Count 7.8 N 4.8-10.8 [phone] 10^3/uL Red Blood Count 4.38 10^6/uL N [...] Blood Cells % 0.1 N Wound 12/10/2013 [facility] Wound/Misc (SEE 80 Culture/Sensi [phone] Culture-Gram NOTE) Stain Laboratory test 11/29/2013 [facility] Sedimentation 30 mm/hr High 0-20 81 finding LABORATORY Rate [phone] CBC/Manual 11/29/2013 [facility]. White Blood Count 7.2 K/uL 3.1- Differential LABORATORY 10.7 [phone] Red Blood Count 4.49 M/uL 3.90-5.40 Hemoglobin [...] RBC Morphology NORMAL Laboratory test finding 11/29/2013 [facility]. Amylase 23 U/L 18-98 82 LABORATORY [phone] Lipase 121 U/L 28-380 83 Comprehensive 11/29/2013 [facility]. Glucose 103 mg/dL 76- 115 Metabolic Panel LABORATORY [phone] BUN 17 mg/dL 5-23 Creatinine 0.8 mg/dL 0.5-1.4 Glom Filtration Rate, Estimate >60 mL/min >60 If >60 mL/min >60 84 BUN/Creat 21.2 ratio Sodium 141 mmol/L 136-145 [...] 30-65 Alkaline Phosphatase 92 U/L 50-136 1 Because ethnic data is not always [...] 5 Kidney failure <15 (or dialysis) 2 [id number] 3 SEE RESULT BELOW Name: EILEEN BRADY : [address]: Gurinder Alston MD Acct: [id number] Unit: [id number] AGE: 53 Location: [facility] Re09/02/18 SEX: F Status: DEP ER SPEC: [id number] NATA: 09/02/18-[address] [facility] [address]: Gurinder Alston MD REQ: [id number] RECD: 09/03/18-1051 STATUS: JI CASTILLO DR: [employer] [employer] Hattie Lawson DO _ SOURCE: URINE SPDESC: ORDERED: Urine Culture COMMENTS: [id number] Procedure Result Reported Site Urine Culture Final 09/04/18- 1245 ML No Growth (<1,000 CFU/mL) * ML - Main Lab . END OF REPORT DEPARTMENT OF PATHOLOGY, [address] [place] [address] Cameron Rojas M.D. Director [facility] # [id number] 4 Trial Examiner: [id number] 5 void, clear, dark yellow 6 Because ethnic data is not always readily [...] 15-29 5 Kidney failure <15 (or dialysis) 7 [facility] Copy Result to: HATTIE LAWSON ([id number]) 8 [facility] lab Copy Result to: HATTIE LAWSON ([id number]) 9 [facility] lab Copy Result to: HATTIE LAWSON ([id number]) 10 [facility] lab Copy Result to: HATTIE LAWSON ([id number]) 11 Normal Range 180 to 914 Indeterminate Range 145 to 180 Deficient Range <145 12 [facility] lab Copy Result to: HATTIE LAWSON ([id number]) 13 SEE RESULT BELOW Name: EILEEN BRADY : [address]: Jc Eduardo MD Acct: [id number] Unit: [id number] AGE: 52 Location: [place] Re01/09/18 SEX: F Status: REG [facility] SPEC: [id number] NATA: 01/09/18-[address] [facility] [address]: Jc Eduardo MD REQ: [id number] RECD: 01/09/18-914 STATUS: LINDA CASTILLO DR: Hattie Kapadia MD _ ORDERED: LEVEL 4 FINAL DIAGNOSIS Skin, left medial buttock, wide excision: -- Scar, widely excised. -- No evidence of residual malignant melanoma in situ. COMMENT: The previous lesion at this site ([id number]) has been completely excised. PRE-OPERATIVE DIAGNOSIS Melanoma [...] 1022 END OF REPORT DEPARTMENT OF PATHOLOGY, [address] [place] [address] Cameron Rojas M.D. Director [facility] # [id number] 14 SEE RESULT BELOW Name: EILEEN BRADY : [address]: Rocio Aguilar MD Acct: [id number] Unit: [id number] AGE: 52 Location: [facility] Re12/08/17 SEX: F Status: REG REF SPEC: [id number] NATA: 12/08/[address] [facility] [address]: Rocio Aguilar MD REQ: [id number] RECD: 12/08/17 STATUS: LINDA CASTILLO DR: Hattie Lawson DO _ ORDERED: LEVEL 4, IMMUNO-FIRST, IMMUNO-ADDL COMMENTS: [id number] THIS IS A CORRECTED REPORT 12/21/17 Corrected [...] and Reported on: Deloris Stanton MD 12/21/17 1422 END OF REPORT DEPARTMENT OF PATHOLOGY, [address] [place] [address] Cameron Rojas M.D. Director [facility] # [id number] 15 SEE RESULT BELOW Name: EILEEN BRADY : [address]: Rocoi Aguilar MD Acct: [id number] Unit: [id number] AGE: 52 Location: [facility] Re12/05/17 SEX: F Status: REG REF SPEC: [id number] NATA: 12/05/[address] [facility] [address]: Rocio Aguilar MD REQ: [id number] RECD: 12/05/17 STATUS: LINDA CASTILLO DR: Hattie Lawson DO _ ORDERED: TP IMAGE ANALYS, HPV/Thin Prep COMMENTS: [id number] Negative for Intraepithelial lesion or Malignancy A. [...] 68. Signed by and Reported on: BARBARA Flower(ASC) 1553 This Pap test was evaluated with the assistance of the [employer] System. Due to cytologic findings at the crewman armoured personnel carrier m113 microscope, comprehensive manual rescreening by a Desk Clerk may be required. The Pap Smear is [...] years. END OF REPORT DEPARTMENT OF PATHOLOGY, [address] [place] [address] Cameron Rojas M.D. Director [facility] # [id number] 16 Test Performed by: [facility] [address] [place] [address] 17 M70.51,E83.42,F50.9, 18 Method: Sediplast Modified Luis Eduardoergren 19 Note: Persistent reduction for 3 months or more in an eGFR <60 mL/min/1.73 m2 defines CKD. Patients with eGFR values >/=60 mL/min/1.73 m2 may also have CKD if evidence of persistent proteinuria is present. The original MDRD equation for estimated GFR is not valid for patients less than 18 years of age. Additional information may be found at www.kdoqi.org. 20 Negative <5 Equivocal 5 - 9 Positive >9 21 Autoantibody Disease Association Condition Frequency --------- Antinuclear Antibody, SLE, mixed connective Direct (YOVANA-D) tissue diseases --------- dsDNA SLE 40 - 60% --------- Chromatin Drug induced SLE 90% SLE 48 - 97% --------- SSA (Ro) SLE 25 - 35% Sjogren's Syndrome 40 - 70% Lupus 100% --------- SSB (La) SLE 10% Sjogren's Syndrome 30% --------- Sm (anti-Alvarez) SLE 15 - 30% --------- RAILROAD REPAIRER Mixed Connective Tissue Disease 95% (U1 nRNP, SLE 30 - 50% anti-ribonucleoprotein) Polymyositis and/or Dermatomyositis 20% --------- Scl-70 (antiDNA Scleroderma (diffuse) 20 - 35% topoisomerase) Crest 13% --------- Radha-1 Polymyositis and/or Dermatomyositis 20 - 40% --------- Centromere B Scleroderma - Crest variant 80% Performed at: - [facility] [id number] Locker Plant Attendant: Maryuri Mckeon MD, Phone: [phone] 22 Because ethnic data is not always readily [...] 15-29 5 Kidney failure <15 (or dialysis) 23 Acute inflammation: >10.00 24 Normal Range 180 to 914 Indeterminate Range 145 to 180 Deficient Range <145 25 Because ethnic data is not always [...] 5 Kidney failure <15 (or dialysis) 26 Normal Range 180 to 914 Indeterminate Range 145 to 180 Deficient Range <145 27 RT SIDE ABD PAIN SHOOTS TO BACK,NAUSEA,CHILLS 28 <=0.49 ug/mL - Low likelihood of DIC, DVT or Pulmonary Embolism >0.49 ug/mL - Additional testing should be done to rule out DIC, DVT, or Pulmonary embolism as clinically indicated. ([facility] has established a 97.89% negative predictive value for thrombotic disease when a cutoff value of 0.5 ug/mL is used.) 29 Note: Persistent reduction for 3 months or more in an eGFR <60 mL/min/1.73 m2 defines CKD. Patients with eGFR values >/=60 mL/min/1.73 m2 may also have CKD if evidence of persistent proteinuria is present. The original MDRD equation for estimated GFR is not valid for patients less than 18 years of age. Additional information may be found at www.kdoqi.org. 30 URINE, CLEAN CATCH 31 Therapeutic target for the treatment of diabetes Mellitus patients is <7% HBA1C, and in selective patients <6.0%.Please refer to [place] [employer] Diabetic care guidelines for further information. 32 Because ethnic data is not always readily [...] 15-29 5 Kidney failure <15 (or dialysis) 33 Desirable <150 Borderline high 150-199 High 200-499 Very High >500 34 Desirable <200 Borderline high 200-239 High >239 35 Low <40 Desirable: 40-60 High: >60 36 Desirable: <100 mg/dL Near Optimal: 100-129 mg/dL Borderline High: 130-159 mg/dL High: 160-189 mg/dL Very High: >189 mg/dL 37 Normal Range 180 to 914 Indeterminate Range 145 to 180 Deficient Range <145 38 Test Performed by: [place] [address] 39 [facility] 40 Tests: RPR, FT4, TSH Instructions: ADD ON TO ER BLOOD WORK 41 ADD ON TO ER BLOOD WORK 42 POSSIBLE UROGENITAL CONTAMINATION. 43 URINE, CLEAN CATCH 44 A negative result for either C. trachomatis and/or N. gonorrhoeae does not preclued an infection because results are dependent on adequate specimen collection, absence of inhibitors, and sufficient DNA to be detected. 45 Note: Persistent reduction for 3 months or more in an eGFR <60 mL/min/1.73 m2 defines CKD. Patients with eGFR values >/=60 mL/min/1.73 m2 may also have CKD if evidence of persistent proteinuria is present. The original MDRD equation for estimated GFR is not valid for patients less than 18 years of age. Additional information may be found at www.kdoqi.org. 46 Please Note: A nonreactive test result does not exclude the possibility of exposure to, or infection with syphilis. T. pallidum antibodies may be undetectable in some stages of the infection and in some clinical conditions. 47 > 100,000 CFU/mL 48 EVAL 49 URINE SPECIMENS ARE SCREENED AT THE LISTED CUTOFFS DRUG CLASS INITIAL TEST LEVEL Amphetamines 1000 ng/mL Barbiturates 200 ng/mL Benzodiazepines 200 ng/mL Cannabinoids 50 ng/mL Cocaine Metabolite 300 ng/mL Methadone 300 ng/mL Opiates 300 ng/mL Any PRESUMPTIVE POSITIVE findings are UNCONFIRMED. Confirmatory testing is suggested if findings are unexpected. Please contact laboratory if confirmatory testing is desired. SPECIMENS ARE HELD FOR 72 HOURS. 50 Because ethnic data is not always readily [...] 15-29 5 Kidney failure <15 (or dialysis) 51 Because ethnic data is not always readily [...] 15-29 5 Kidney failure <15 (or dialysis) 52 Acute inflammation: >10.00 53 Test Performed by: [facility] [address] [place] [address] Lockstitch Back Maker: Cj Zuniga II, M.D., Ph.D. 54 QUERY: Is Patient Fasting? N 55 The specimen was not submitted to the testing laboratory in the preferred certified metal free transfer tube. As of February 29, 2016, serum or plasma samples not submitted in the certified metal free transfer tubes will be rejected for trace metal analysis. Detection Limit=5 56 Performed at: [facility] [address] [id number] Locker Plant Attendant: Cj Henderson MD, Phone: [phone] 57 Vitamin D deficiency has been defined by the [place] of [employer] and an Endocrine Society practice guideline as a level of serum 25-OH vitamin D less than 20 ng/mL (1,2). The Endocrine Society went on to further define vitamin D insufficiency as a level between 21 and 29 ng/mL (2). 1. IOM ([place] of [employer]). 2010. Dietary reference intakes for calcium and D. [place]: The National Academies Press. 2. Urban MF, Bill NC, Shikha WINSTON, et al. Evaluation, treatment, and prevention of vitamin D deficiency: an Endocrine Society clinical practice guideline. JCEM. 2010; 96(7):1911-30. Performed at: - [facility] [id number] Locker Plant Attendant: Maryuri Mckeon MD, Phone: [phone] 58 A negative result for either C. trachomatis and/or N. gonorrhoeae does not preclued an infection because results are dependent on adequate specimen collection, absence of inhibitors, and sufficient DNA to be detected. 59 FIRST MORNING SPECIMENS GENERALLY CONTAIN THE HIGHEST CONCENTRATION OF HCG AND ARE RECOMMENDED FOR EARLY DETECTION OF . 60 CULTURE TO FOLLOW 61 12/15/15 LAB.TOW Deleted by Reflex Group [facility] 62 Organism 1 ! MIXED URETHRAL RENAE Quantity ! 10,000 - 50,000 CFU/mL SPECIMEN IS A MIX OF GRAM NEGATIVE AND GRAM POSITIVE ORGANISMS. UNABLE TO DETERMINE WHICH ORGANISMS ARE FROM THE URINARY TRACT OR THE RESULT OF SKIN/VAGINAL/PERIANAL CONTAMINATION DURING COLLECTION. SUGGEST REPEAT SPECIMEN IF CLINICALLY INDICATED. 63 Because ethnic data is not always readily [...] 15-29 5 Kidney failure <15 (or dialysis) 64 RESULT: No apparent monoclonal protein on serum electrophoresis. Test Performed by: [place] [address] Lockstitch Back Maker: Cj Zuniga II, M.D., Ph.D. 65 [facility] Specimen Source: CERVICAL 66 [facility] Specimen Source: CERVICAL GC/Chlamydia Source?: Endocervical Trichomonas Source: Endocervical 67 SEE RESULT BELOW Name: EILEEN BRADY : [address]: Amy Cleveland MD Acct: [id number] Unit: [id number] AGE: 49 Location: [facility] Re05/25/15 SEX: F Status: DEP ER SPEC: [id number] NATA: 05/25/[address] [facility] [address]: Amy Cleveland MD REQ: [id number] RECD: 05/25/15 STATUS: JI CASTILLO DR: Maddi [...] or failure. * ML - MAIN LAB ([facility]) . END OF REPORT * ML=Testing performed at Main Lab DEPARTMENT OF PATHOLOGY, [address] [place] [address] Cameron Rojas M.D. Director [facility] # [id number] 68 Female urine specimens have been self-validated by [facility] and have been granted conditional assay approval by [facility]. 69 [id number] 70 Because ethnic data is not always readily [...] 15-29 5 Kidney failure <15 (or dialysis) 71 Desirable <150 Borderline high 150-199 High 200-499 Very High >500 72 Desirable <200 Borderline high 200-239 High >239 73 Low <40 Desirable: 40-60 High: >60 74 Desirable: <100 mg/dL Near Optimal: 100-129 mg/dL Borderline High: 130-159 mg/dL High: 160-189 mg/dL Very High: >189 mg/dL 75 Note: Persistent reduction for 3 months or more in an eGFR <60 mL/min/1.73 m2 defines CKD. Patients with eGFR values >/=60 mL/min/1.73 m2 may also have CKD if evidence of persistent proteinuria is present. The original MDRD equation for estimated GFR is not valid for patients less than 18 years of age. Additional information may be found at www.kdoqi.org. 76 Values below the stated reference ranges of AST and ALT can be seen in normal populations. Clinical correlation is suggested. 77 0.0 - 0.045 ng/mL: Normal 0.046 - 0.5 ng/mL: Suggestive 0.6 - 1.5 ng/mL: Consistent 78 <=0.49 ug/mL - Low likelihood of DIC, DVT or Pulmonary Embolism >0.49 ug/mL - Additional testing should be done to rule out DIC, DVT, or Pulmonary embolism as clinically indicated. ([facility] has established a 97.89% negative predictive value for thrombotic disease when a cutoff value of 0.5 ug/mL is used.) 79 Because ethnic data is not always readily [...] 15-29 5 Kidney failure <15 (or dialysis) 80 RUN DATE: 12/12/13 [facility] LAB LIVE PAGE 1 RUN TIME: 1078 [address] [place], [place] [address] Specimen Inquiry Name: EILEEN BRADY : [address]: Payal Anderson MD Acct: [id number] Unit: [id number] AGE: 48 Location: [facility] Re12/10/13 SEX: F Status: DEP ER SPEC: [id number] NATA: 12/10/13-[address] [facility] [address]: Ruth KRISHNAN REQ: [id number] RECD: 12/10/13 STATUS: JI CASTILLO DR: Payal KRISHNAN _ S[facility] ORDERED: Culture Stain Procedure Result Verified Site Wound/Misc Gram Stain Final 12/10/13- 1513 ML 3+ Polys 2+ Gram Positive Cocci Possible 1+ Gram Positive Bacilli Wound/Misc Culture Final 12/12/13- 1105 ML Organism 1 NORMAL REANE Quantity 2+ END OF REPORT * ML=Testing performed at Main Lab DEPARTMENT OF PATHOLOGY, [address] [place] [address] Cameron Rojas M.D. Director [facility] # [id number] 81 FAX RESULTS TO CAROLYN Negron [phone] FAX RESULTS TO CAROLYN Negron [phone] FAX RESULTS TO CAROLYN Negron [phone] Note: Persistent reduction for 3 months or [...] at [email or web address]. Procedures Date Code Description Status 02/21/2018 51872 X-Ray Knee,Ap&Lateral Oblique Views Completed 01/05/2018 80155 Brief Emotional/Behav Assessment W/ Scoring Doc Per Completed Standard Inst 11/13/2017 99178 Brief Emotional/Behav Assessment W/ Scoring Doc Per Completed Standard Inst 05/31/2017 16003021 Mammogram Completed 04/14/2017 33017 SC/Im Injections Completed 05/11/2016 41373 Omt 3 To 4 Body Regions Involved Completed 04/26/2016 72032 Electrocardiogram Complete Completed 04/07/2016 89510 Inject/Drain Joint/Bursa Major Completed 05/16/2015 45883 SC/Im Injections Completed 05/16/2015 12854 Inject/Drain Joint/Bursa Major Completed 02/28/2015 96248916 Colonoscopy Completed 02/19/2015 96431 Dexa Bone Density Study One Or More Sites Axial Completed Skeleton 11/03/2014 66245 Bronchospasm Evaluation Pre & Post Completed 09/25/2014 19946 Electrocardiogram Complete Completed 07/07/2014 90792 X-Ray Knee,Ap&Lateral Oblique Views Completed Encounters Type Date Location Provider Dx Diagnosis Office Visit 09/03/2018 Main Office Sopchak, Hattie, R10.9 Unspecified abdominal 1:45p D.O. pain M72.2 Plantar fascial fibromatosis E66.01 Morbid (severe) obesity due to excess calories K21.9 Gastro-esophageal reflux disease without esophagitis Office Visit 08/13/2018 1:00p Main Office Carolyn Ng, E66.9 Obesity, unspecified P.A. B37.9 Candidiasis, unspecified Z71.3 Dietary counseling and surveillance Z68.42 Body mass index (BMI) 45.0-49.9, adult Office Visit 08/06/2018 9:30a Main Office Hattie Lawson D.O. M54.5 Low back pain M72.2 Plantar [...] for oth proc for purpose oth [facility] I10 Essential (primary) hypertension M25.561 Pain in right knee J45.40 Moderate persistent asthma, uncomplicated Z68.42 Body mass index (BMI) 45.0-49.9, adult Office Visit 03/27/2018 9:20a Main Office Jamil Escudero M79.672 Pain in left foot J45.21 Mild intermittent asthma with (acute) exacerbation R05 Cough I10 Essential (primary) hypertension Office Visit 03/23/2018 10:45a Main Office Marcello Lawsonon, M25.561 Pain in right D.O. knee M25.562 Pain in left knee G56.03 Carpal tunnel syndrome, bilateral upper limbs J45.21 Mild intermittent asthma with (acute) exacerbation R12 Heartburn Z79.891 alf (current) use of opiate analgesic Office Visit 03/15/2018 9:20a Main Office Carolyn Ng, I10 Essential ( primary) P.A. hypertension E66.01 Morbid (severe) obesity due to excess calories Z71.3 Dietary counseling and surveillance Z68.41 Body mass index (BMI) 40.0-44.9, adult Office Visit 02/21/2018 3:45p Main Office Eliseo Hattie, M25.561 Pain in right D.O. knee M25.562 [...] Office Visit 10/03/2017 4:20p Main Office Carolyn Ng, F43.23 Adjustment disorder P.A. with mixed anxiety and depressed mood E66.3 Overweight M17.9 Osteoarthritis of knee, unspecified Z68.41 Body mass index (BMI) 40.0-44.9, adult Office Visit 08/31/2017 8:45a Main Office Hattie Lawson D.O. E83.42 Hypomagnesemia [...] Office Visit 04/14/2017 9:15a Main Office Hattie Lawson, D.O. E83.42 Hypomagnesemia [...] Office Visit 07/27/2016 2:45p Main Office Hattie Lawson, F50.9 Eating disorder, D.O. unspecified R42 Dizziness [...] Encntr for oth proc for purpose oth [facility] Office Visit 04/24/2015 4:00p Main Office Maddi Loera, E66.01 Morbid (severe) RPA-C obesity due to excess calories I10 Essential (primary) hypertension R07.9 Chest pain, unspecified Z68.43 Body mass index (BMI) 50-59.9 , adult Office Visit 01/22/2015 9:40a Main Office Evaristo V70.0 Examination [facility] V72.31 Routine Regional Climate Change Analyst Examination V76.19 Screening Breast Exam Malignant Neoplasms [...] Visit 11/03/2014 4:00p Main Office Hattie Lawson D.Ancelmo. 278.01 Obesity Morbid 493.00 Asthma Extrinsic Unspecified 401.1 Hypertension Benign 786.05 Shortness Of Breath V85.44 Body Mass Index 60.0-69.9, Adult Office Visit 10/14/2014 1:30p Main Office Hattie Lawson, 493.00 Asthma Extrinsic D.O. Unspecified 401.1 Hypertension Benign 786.05 Shortness Of Breath V85.44 Body Mass Index 60.0-69.9, Adult 466.0 Bronchitis Acute 278.01 Obesity Morbid Office Visit 10/03/2014 4:00p Main Office Hattie Lawson D.O. 278.02 Overweight V85.44 Body Mass Index [...] Movements Office Visit 07/07/2014 10:00a Main Office Evaristo, Maddi, 719.46 Pain Joint RPA-C Lower Leg 729.5 Pain In Limb 401.1 Hypertension Benign 715.16 Osteoarthrosis Localized Prim Lower Leg 782.3 Edema Office Visit 06/10/2014 9:00a Main Office Maddi Loera, V41.1 Eye Problem RPA-C Other V04.81 Need For Prophylactic Vaccination & Inoculation/Influenza V07.2 Prophylactic Immunotherapy 351.9 Nerve Disorder Facial Unspec Office Visit 02/14/2014 10:20a Main Office Maggie EscuderoAYen 278.00 Obesity Unspec 457.1 Lymphedema Other V65.3 [...] Pain Abdominal Epigastric Plan of Treatment Future Appointment(s):09/25/2018 8:00 am - Jamil Escudero at Main [id number] 1:00 pm - Jamil Escudero at Main Luexuz7709/03/2018 - Hattie Lawson D.O.R10.9 Unspecified abdominal painFollow up:as rlsnmhuvdZ99.2 Plantar fascial lychtfjvplufZ78.01 Morbid (severe) obesity due to excess ynnapvfhO40.9 Gastro-esophageal reflux disease without esophagitis
--- OUTSIDE RECORDS SUMMARY | 2018-10-09 12:27 | XMS REPORT | Continuity of Care Document ---
:1965 External Reference #:[id number] Author Name Hattie Lawson D.O. 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 Nystatin 10/30/2017 - Hx Ointment [id number] apply to R2 Dicokimberli, 08/13/2018 Unit/G [...] Hx Solution 0.05% 15ml inhale 2 J01.00 [facility] , 05/29/2017 sprays into Hattie, nostril 2 D.O. times per day every 10 to 12 hours as needed for stuffy nose for 3 days only! Hydrochlorothiazide 04/24/2017 - Hx Tablets 25mg take 1 Unknown 04/25/2017 tablet every morning for high blood pressure Escitalopram Oxalate 04/14/2017 - Hx Tablets 20mg 90tabs 1 by mouth [facility] 08/31/2017 every day Hattie, D.O. Actigall 04/14/2017 - Hx Capsules 300mg 270caps Take One K80.10 [facility] , 08/30/2017 Capsule By Hattie, Mouth Three D.O. Times A Day For Gallstones Escitalopram Oxalate 12/07/2016 - Hx Tablets 10mg 90tabs 1 tablets [facility], 04/14/2017 by mouth Hattie, daily D.O. Citalopram 07/27/2016 - Hx Tablets 10mg 30tabs 1 by mouth Counts [facility], Hydrobromide 08/16/2016 every day Hattie, D.O. Hydrochlorothiazide 07/16/2016 - Hx Tablets 25mg 90tabs take 1 [facility] , 12/07/2016 tablet by Hattie, mouth daily D.O. Diclofenac Sodium 06/16/2016 - Hx Tablets DR 50mg 90tabs Take 1 M25.569 [facility], 11/13/2017 Tablet By Hattie, Mouth 3 D.O. Times Per Day With Food Or Milk For Arthritis Metoprolol Succinate 04/26/2016 - Hx Tablets ER 50mg 30tabs 1 by mouth [facility], ER 04/14/2017 24HR every day Hattie, D.O. Potassium Chloride ER 04/12/2016 - Hx Capsules 10Meq 90caps 1 [facility] 07[facility]2016 ER every day Hattie, with each D.O. tablet of furosemide Metoprolol Succinate 02/24/2016 - Hx Tablets ER 100mg 90tabs take one Counts Include [facility], ER 04/26/2016 24HR tablet by Hattie, mouth every D.O. morning for blood pressure Phendimetrazine 10/30/2015 - Hx Tablets 35mg 180tabs Take 2 E66.01 Counts [facility], Tartrate 01/06/2016 tablets by Hattie, mouth 3 D.O. times per day 1 hour before a meal for weight loss Diflucan 09/02/2015 - Hx Tablets 150mg 2tabs 1 cap by Eliseo, 09/04/2015 mouth 3 Hattie, days apart. D.O. Singulair 11/03/2014 - Hx Tablets 10mg 30tabs [facility] mouth once Hattie, daily for D.O. allergies Irbesartan 11/03/2014 - Hx Tablets 75mg 30tabs 1 by mouth 401.1 [facility] , 12/03/2014 every day Karan Zazueta Azithromycin 10/14/2014 - Hx Tablets 250mg 6tabs take 2 466.0 [facility], 10/19/2014 tablets by Hattie, mouth one D.O. time on the first day then take 1 tablet by mouth daily for 4 days Dulera 10/03/2014 - Hx Aerosol 100-5 2 puffs 493.00 [facility], 12/04/2014 mcg/A twice a day barbara Zazueta D.O. Diflucan 07/29/2014 - Hx Tablets 150mg 1tabs 1 cap by Eliseo, 2014 mouth once Hattie D.OYen Lisinopril 07/16/2014 - Hx Tablets 10mg 90tabs take 1 401.1 [facility], 11/03/2014 tablet by bryant Rios daily M.DYen for high blood pressure Tramadol HCL 07/07/2014 - Hx Tablets 50mg 90tabs 1 tab three M25.562 [facility], 08/31/2017 times a day Hattie, as needed D.O. for pain Prednisone 07/07/2014 - Hx Tablets 20mg 10tabs 2 tab every 719.46 [facility], 07/12/2014 morning for Hattie, 5 days D.O. Diclofenac Potassium 07/07/2014 - Hx Tablets 50mg 60tabs 1 by mouth M17.11 [facility], 04/26/2016 twice a day Karan Zazueta M72.2 [...] CPT Code Status Date Vaccine Lot # [id number] Given 04/20/2018 Influenza Virus Vaccine, Quadrivalent, Split, [id number] Preservative Free 91268 Given 04/20/2018 Prevnar 13 [id number] 35715 Given 04/14/2017 Influenza Virus Vaccine, Quadrivalent, Split, [id number] Preservative Free 28589 Given 04/07/2016 Influenza Virus Vaccine, Quadrivalent, Split, [id number] Preservative Free 27122 Given 05/16/2015 Influenza Virus Vaccine, Quadrivalent, Split, [id number] Preservative Free 84464 Given 06/10/2014 Flu, Split Virus 3Yrs [id number] 49861 Given 12/10/2013 Adacel or Boostrix, TDaP 07190 Given 06/22/2012 Adacel or Boostrix, TDaP 85944 Given 04/29/2011 Pneumococcal Immunization 22275 Given 04/29/2011 Flu, Split Virus 3Yrs 76647 Given 05/29/2009 Flu, Split Virus 3Yrs 59035 Ordered 11/28/2013 Adacel or Boostrix, TDaP Vital [...] H/L Range Note CBC Auto Diff 09/03/2018 [facility] White Blood 7.5 10^3/uL N 3.5- 10.8 [phone] Count Red Blood Count 4.83 10^6/uL N [...] Cells % 0 Comp Metabolic Panel 09/03/2018 [facility] Sodium 139 mmol/L N 135- 145 [phone] Potassium 4.3 mmol/L N 3.5-5.0 Chloride 103 [...] 102.1 >60 1 Laboratory test finding 09/03/2018 [facility] Amylase 20 U/L Low 29- 103 [phone] Lipase 17 U/L N 11.0-82.0 Magnesium 1.7 mg/dL Low 1.9-2.7 Erythrocyte Sed Rate 21 mm/Hr N 0-30 C Reactive Protein 2.40 mg/L N <8.01 Urine Culture And 09/02/2018 [facility] Urine SEE RESULT 2, 3 Sensitivities [phone] Culture BELOW Poc Urinalysis 09/02/2018 [facility] Poc Glucose, Negative Negative [phone] Urine Poc Bilirubin, Urine Negative Negative Poc Ketone, Urine Negative Negative Poc Specific Hawi, Urine 1.025 N 1.010-1.030 Poc Blood, Urine Negative Negative Poc pH, Urine 6.0 N 5-9 Poc Protein, Urine Negative Negative Poc Urobilinogen, Urine 0.2 Negative Poc Nitrite, Urine Negative Negative Poc Leukocytes, Urine Trace Abnormal Negative Poc Color, Urine Dark yellow Poc Clarity, Urine Clear 4 Ua Inhouse 03/15/2018 In House Ua Glucose - 5 Ua Bilirubin - Ua Ketones - Ua Specific Hawi 1.030 Ua Blood - Ua PH 6.0 Ua Protein - Ua Urobilinogen - Ua Nitrite - Ua Leukocytes - Basic Metabolic Panel 03/09/2018 [facility] Sodium 140 mmol/L N 135- 145 [phone] Potassium 4.2 mmol/L N 3.5-5.0 Chloride 105 mmol/L N 101-111 Co2 Carbon Dioxide 28 mmol/L N 22-32 Anion Gap 7 mmol/L N 2-11 Glucose 83 mg/dL N 70-100 Blood Urea Nitrogen 18 mg/dL N 6-24 Creatinine 0.60 mg/dL N 0.51-0.95 BUN/Creatinine Ratio 30.0 High 8-20 Calcium 9.2 mg/dL N 8.6-10.3 Egfr Non- 104.6 >60 Egfr 126.5 >60 6 Laboratory test 03/09/2018 [facility] C Reactive Protein 1.35 mg/L N <8.01 7 finding [phone] TSH (Thyroid Stim Horm) 1.60 mcIU/mL N 0.34-5.60 8 Free T4 (Free Thyroxine) 1.02 ng/dL N 0.61-1.12 9 Folic Acid (Folate) > 20.00 ng/mL >3.99 10 Vitamin B12 336 pg/mL N 180-914 11 Erythrocyte Sed Rate 22 mm/Hr N 0-30 12 Laboratory test 01/09/2018 [facility] Surgical SEE RESULT 13 finding [phone] Pathology BELOW Laboratory test 12/08/2017 [facility] Surgical SEE RESULT 14 finding [phone] Pathology BELOW GC/Chlamydia 12/05/2017 [facility] Chlamydia Negative Negative Amplified Rna [phone] trachomatis Rna Neisseria gonorrhoeae (GC) Rna Negative Negative Laboratory test 12/05/2017 [facility] Cytology SEE RESULT 15 finding [phone] BELOW Laboratory test 10/30/2017 [facility] Insulin Level 6.6 2.6 16 finding [phone] mcIU/mL - 24.9 Laboratory test 10/17/2017 [facility]. Sedimentation Rate 17 mm /hr N 0-30 17, 18 finding LABORATORY [phone] C-Reactive Protein,Quant < 2.9 mg/L <3.0 Magnesium 1.9 mg/dL N 1.8-2.4 Thyroid Stim Hormone 1.46 uIU/mL N 0.30-4.20 Vitamin B12 460 pg/mL N [phone] CBC Auto Diff 10/17/2017 [facility]. White Blood 7.2 K/uL N 3.1-10.7 LABORATORY Count [phone] Red Blood Count 4.72 M/uL N 3.90-5.40 [...] 40.4-72.8 Lymph % 30.5 % N 20.0-42.0 [place] % 7.1 % N 4.3-13.2 Eo% 1.7 % N 0.0-6.6 Bas% 0.3 % N 0.0-1.1 Neut# 4.37 K/uL N 1.8-7.0 Lymph # 2.20 K/uL N 1.0-4.0 [place] # 0.51 K/uL N 0.3-0.9 Eos # 0.12 K/uL N 0.0-0.5 Baso # 0.02 K/uL N 0.0-0.1 Comp Metabolic Panel 10/17/2017 [facility]. Glucose 97 mg/dL N 74-106 LABORATORY [phone] BUN 16 mg/dL N 7-18 Creatinine 0.7 [...] 78 U/L N 45-117 Comprehensive Yovana 10/17/2017 [facility]. Anti-Dna <1 IU/mL 0 -9 20 Panel LABORATORY Antibody [phone] (Elim Ira) SM Antibody <0.2 AI 0.0-0.9 R D INTERNSHIP Antibody <0.2 AI 0.0-0.9 Sjogrens Antibodies (Ssa) <0.2 AI 0.0-0.9 Antichromatin Antibodies <0.2 AI 0.0-0.9 Radha-1 Antibody <0.2 AI 0.0-0.9 Sjogrens Antibodies (SSB) <0.2 AI 0.0-0.9 Centromere B Antibodies < 0.2 AI 0.0-0.9 Scleroderma Antibodies, SCL-70 <0.2 AI 0.0-0.9 See below: (SEE NOTE) 21 CBC Auto Diff 08/31/2017 [facility] White Blood Count 6.7 10^3/uL N 3.5-10.8 [phone] Red Blood Count 4.51 10^6/uL N 4.0-5.4 [...] Cells % 0.1 Comp Metabolic Panel 08/31/2017 [facility] Sodium 139 mmol/L N 133- 145 [phone] Potassium 4.1 mmol/L N 3.5-5.0 Chloride 102 [...] Egfr 112.6 >60 22 Laboratory test 08/31/2017 [facility] C Reactive < 1.00 mg/L N < 5.00 23 finding [phone] Protein Erythrocyte Sed Rate 19 mm/Hr N 0-30 Magnesium 1.7 mg/dL Low 1.9-2.7 TSH (Thyroid Stim Horm) 2.82 mcIU/mL N 0.34-5.60 Uric Acid 5.0 mg/dL N 2.3-6.6 Vitamin B12 362 pg/mL N 180-914 24 Laboratory test 04/14/2017 [facility] Magnesium 1.8 mg/dL Low 1.9- 2.7 finding [phone] CBC Auto Diff 04/14/2017 [facility] White Blood 6.2 10^3/uL N 3.5- 10.8 [phone] Count Red Blood Count 4.50 10^6/uL N [...] % 0.1 N Comp Metabolic Panel 04/14/2017 [facility] Sodium 140 mmol/L N 133- 145 [phone] Potassium 3.3 mmol/L Low 3.5-5.0 Chloride 100 [...] 109.4 N >60 25 Laboratory test 04/14/2017 [facility] Erythrocyte Sed Rate 19 mm/Hr N 0-30 finding [phone] TSH (Thyroid Stim Horm) 1.36 mcIU/mL N 0.34-5.60 Phosphorus 3.2 mg/dL N 2.5-5.0 Vitamin B12 > 1450 pg/mL High 180-914 26 Vitamin D Total 25(Oh) 26.5 ng/mL N 20-50 Folic Acid (Folate) 17.43 ng/mL N >3.99 CBS W/Automated 04/03/2017 [facility]. White Blood 7.6 K/uL N 3.1-10.7 27 Diff LABORATORY Count [phone] Red Blood Count 4.51 M/uL N 3.90-5.40 [...] 40.4-72.8 Lymph % 45.1 % High 20.0-42.0 [place] % 8.2 % N 4.3-13.2 Eo% 1.1 % N 0.0-6.6 Bas% 0.3 % N 0.0-1.1 Neut# 3.43 K/uL N 1.8-7.0 Lymph # 3.41 K/uL N 1.0-4.0 [place] # 0.62 K/uL N 0.3-0.9 Eos # 0.08 K/uL N 0.0-0.5 Baso # 0.02 K/uL N 0.0-0.1 Laboratory test 04/03/2017 [facility]. D-Dimer, 0.25 28 finding LABORATORY Quantitative ug/mL [phone] Comprehensive 04/03/2017 [facility]. Glucose 118 mg/dL High 74-1 Metabolic Panel LABORATORY 06 [phone] BUN 25 mg/dL High 7-18 Creatinine 0.8 [...] U/L N 45-117 Laboratory test finding 04/03/2017 [facility] Lipase 120 U/L N 73-393 LABORATORY [phone] HCG,Serum (Qualitative) NEGATIVE (Negative) Ua RFX Micro & 04/03/2017 [facility] Urine Color YELLOW Yellow Culture II LABORATORY [phone] Urine Clarity CLEAR Clear Urine Glucose - Dipstick NEGATIVE mg/dL Negative Urine Bilirubin - Dipstick NEGATIVE Negative Urine Ketone NEGATIVE mg/dL Negative Urine Specific Hawi 1.025 N 1.010-1.030 Urine Blood NEGATIVE Negative Urine PH 5.5 Low 6.5-7.5 Urine Protein - Dipstick NEGATIVE mg/dL Negative Urine Urobilinogen - Dipstick 0.2 E.U./dL N 0.2-1.0 Urine Nitrite - Dipstick NEGATIVE Negative Urine Leuk Esterase NEGATIVE Negative Source: URINE, CLEAN CAT <SEE NOTE> 30 CBC No Diff 12/09/2016 [facility] White Blood Count 8.3 10^3/uL N 3.5 -10.8 [phone] Red Blood Count 4.56 10^6/uL N 4.0-5.4 Hemoglobin 14.1 g/dL N 12.0-16.0 Hematocrit 42 % N 35-47 Mean Corpuscular Volume 92 fL N 80-97 Mean Corpuscular Hemoglobin 31 pg N 27-31 Mean Corpuscular HGB Conc 34 g/dL N 31-36 Red Cell Distribution Width 14 % N 10.5-15 Platelet Count 304 10^3/uL N 150-450 Mean Platelet Volume 9 um3 N 7.4-10.4 Laboratory test 12/09/2016 [facility] Hemoglobin A1c 5.0 % N Less than 31 finding [phone] (Glyco HGB) 6.0 Comp Metabolic 12/09/2016 [facility] Sodium 142 mmol/L N 133-145 Panel [phone] Potassium 3.3 mmol/L Low 3.5-5.0 Chloride 102 [...] 102.8 N >60 32 Lipid Profile 12/09/2016 [facility] Triglycerides 109 mg/dL N 33 (Trig/Chol/HDL) [phone] Cholesterol 211 mg/dL N 34 HDL Cholesterol 40.8 mg/dL N 35 LDL Cholesterol 148 mg/dL N 36 Laboratory test finding 12/09/2016 [facility] Magnesium 1.6 mg/dL Low 1.9-2.7 [phone] TSH (Thyroid Stim Horm) 2.28 mcIU/mL N 0.34-5.60 T3 Free 3.10 pg/mL N 2.5-3.9 Free T4 (Free Thyroxine) 1.03 ng/dL N 0.61-1.12 Vitamin B12 118 pg/mL Low 180-914 37 Vitamin D Total 25(Oh) 17.2 ng/mL Low 30-50 Insulin Level 11.3 mcIU/mL N 2.6 - 24.9 38 Aot Request 07/13/2016 [facility]. Aot Request Test(s) added N 39, 40 LABORATORY [phone] Tests to be added: RPR, FT4, TSH Instructions: ADD ON TO ER BLO <SEE NOTE> 41 Urinalysis With 07/12/2016 [facility]. Urine Color YELLOW N Yellow Microscopic LABORATORY [phone] Urine Clarity SL CLOUDY N Clear Urine Glucose - Dipstick NEGATIVE mg/dL N Negative Urine Bilirubin - Dipstick NEGATIVE N Negative Urine Ketone NEGATIVE mg/dL N Negative Urine Specific Hawi >=1.030 N 1.010-1.030 Urine Blood MODERATE Abnormal [...] CLEAN CAT <SEE NOTE> 43 Chlamydia/GC 07/12/2016 [facility]. Chlamydia Negative N Negative Martha, Urine LABORATORY Trachomatis,Ur [phone] -Martha Neisseria Gonorrhoeae,Ur -Martha Negative N Negative 44 CBS W/Automated 07/12/2016 [facility]. White Blood 7.1 K/uL N 3.1-10.7 Diff LABORATORY Count [phone] Red Blood Count 4.67 M/uL N 3.90-5.40 [...] 40.4-72.8 Lymph % 34.1 % N 17.0-46.1 [place] % 9.3 % N 4.3-13.2 Eo% 1.4 % N 0.0-6.6 Bas% 0.3 % N 0.0-1.1 Neut# 3.89 K/uL N 1.8-7.0 Lymph # 2.42 K/uL N 1.8-7.0 [place] # 0.66 K/uL N 0.3-0.9 Eos # 0.10 K/uL N 0.0-0.5 Baso # 0.02 K/uL N 0.0-0.1 Laboratory test 07/12/2016 [facility]. Ethyl Alcohol < 3.0 mg/ dL N finding LABORATORY [phone] Comprehensive 07/12/2016 [facility]. Glucose 100 mg/dL N 74- 106 Metabolic Panel LABORATORY [phone] BUN 12 mg/dL N 7-18 Creatinine 0.8 [...] Phosphatase 64 U/L N 45-117 Laboratory 07/12/2016 [facility]. Treponema Nonreactive N Nonreactive 46 test finding LABORATORY Antibody [phone] [place] Urine Culture 07/12/2016 [facility]. Urine URETHRAL RENAE LABORATORY Culture [phone] Quantity > 100,000 CFU/mL N 47 Laboratory test 07/12/2016 [facility]. Ethyl Alcohol < 3.0 mg/ dL N 48 finding LABORATORY [phone] Drugs Of 07/12/2016 [facility]. Amphetamines Negative N Abuse-Urine LABORATORY (Urine) Screen 7 [phone] Barbiturates (Urine) Negative N Benzodiazepines (Urine) Negative N Cannabinoids (Urine) Negative N Cocaine Metabolite (Urine) Negative N Methadone (Urine) Negative N Opiates (Urine) Negative N Urine Cutoffs * N 49 Basic Metabolic Panel 07/05/2016 [facility] Sodium 139 mmol/L N 133- 145 [phone] Potassium 4.1 mmol/L N 3.5-5.0 Chloride 102 [...] N >60 50 Basic Metabolic Panel 04/07/2016 [facility] Sodium 140 mmol/L N 133- 145 [phone] Potassium 3.4 mmol/L Low 3.5-5.0 Chloride 101 mmol/L N 101-111 Co2 Carbon Dioxide 28 mmol/L N 22-32 Anion Gap 11 mmol/L N 2-11 Glucose 98 mg/dL N 70-100 Blood Urea Nitrogen 14 mg/dL N 6-24 Creatinine 0.84 mg/dL N 0.51-0.95 BUN/Creatinine Ratio 16.7 N 8-20 Calcium 9.5 mg/dL N 8.6-10.3 Egfr Non- 71.5 N >60 Egfr 91.9 N >60 51 Laboratory test 01/26/2016 [facility] C Reactive 5.31 mg/L High < 5.00 52 finding [phone] Protein Methylmalonic Acid Mma 0.12 nmol/mL N <=0.40 53 Laboratory test 01/07/2016 [facility]. Vitamin B12 475 pg/mL [phone] 54 finding LABORATORY [phone] Magnesium 1.8 mg/dL 1.8-2.4 Vitamin B1 (Thiamine),WB 93.1 nmol/L 66.5-200.0 Copper, Serum 132 g/dL 72-166 55 Zinc, Whole Blood 676 g/dL 440-860 56 Vitamin D,25-Hydroxy 22.0 ng/mL Low 30.0-100.0 57 Chlamydia/GC 12/16/2015 [facility]. Chlamydia Negative Negative Martha, Urine LABORATORY Trachomatis,Ur [phone] -Martha Neisseria Gonorrhoeae,Ur -Martha Negative Negative 58 Laboratory test 12/15/2015 [facility] Urine HCG NEGATIVE Negative 59 finding LABORATORY (Qualitative) [phone] Urinalysis With 12/15/2015 [facility] Urine Color RED Yellow Microscopic LABORATORY [phone] Urine Clarity CLOUDY Clear Urine Glucose - Dipstick 100 mg/dL High Negative Urine Bilirubin - Dipstick MODERATE High Negative Urine Ketone TRACE mg/dL High Negative Urine Specific Hawi 1.010 1.010-1.030 Urine Blood LARGE High Negative [...] Amorph Sediment SMALL Negative Laboratory test 12/15/2015 [facility]. Culture If See Note 60 finding LABORATORY Indicated Comment [phone] Ua RFX Micro + Culture II See Note 61 Urine Culture See Note 62 Comp Metabolic Panel 12/02/2015 [facility] Sodium 138 mmol/L N 133- 145 [phone] Potassium 3.6 mmol/L N 3.5-5.0 Chloride 98 [...] Egfr 95.9 N >60 63 Protein 12/02/2015 [facility] Total 7.4 g/dL N 6.3 - Electrophoresis [phone] Protein(Pep) 7.9 Albumin 3.2 g/dL Abnormal 3.4-4.7 Alpha-1 Globulin 0.3 g/dL N 0.1-0.3 Alpha-2 Globulin 1.1 g/dL Abnormal 0.6-1.0 Beta Globulin 1.5 g/dL Abnormal 0.7-1.2 Gamma Globulin 1.3 g/dL N 0.6-1.6 Albumin/Globulin Ratio 0.78 N Impression See Comment N 64 Laboratory test 05/25/2015 [facility] Trichomonas Negative N Negative 65, 66 finding [phone] vaginalis Rna Gardnerella/Yeast: Vaginal Dna SEE RESULT BELOW 67 GC/Chlamydia 05/25/2015 [facility] Chlamydia Negative N Negative Amplified Rna [phone] trachomatis Rna Neisseria gonorrhoeae (GC) Rna Negative N Negative 68 Urine Micro Inhouse 01/22/2015 In House Ua WBC - 69 Ua RBC - Ua Casts - Ua Epi - Ua Other - Ua Glucose - Ua Bilirubin - Ua Ketones - Ua Specific Hawi 1.010 Ua Blood - Ua PH 5.0 Ua Protein - Ua Urobilinogen - Ua Nitrite - Ua Leukocytes - Comp Metabolic Panel 01/15/2015 [facility] Sodium 138 mmol/L N 133- 145 [phone] Potassium 4.3 mmol/L N 3.5-5.0 Chloride 103 [...] 110.3 N >60 70 Lipid Profile 01/15/2015 [facility] Triglycerides 102 mg/dL N 71 (Trig/Chol/HDL) [phone] Cholesterol 189 mg/dL N 72 HDL Cholesterol 39.4 mg/dL N 73 LDL Cholesterol 129 mg/dL N 74 Comprehensive 09/25/2014 [facility]. Glucose 108 mg/dL High 74-106 Metabolic Panel LABORATORY [phone] BUN 12 mg/dL 7-18 Creatinine 0.8 mg/dL [...] Phosphatase 104 U/L 45-117 Laboratory test 09/25/2014 [facility]. Troponin-I < 0.02 ng/mL 77 finding LABORATORY [phone] Thyroid Stim Hormone 2.45 uIU/mL 0.36-3.74 CBC/Manual 09/25/2014 [facility]. White Blood 8.0 K/uL 3.1- 10.7 Differential LABORATORY Count [phone] Red Blood Count 4.47 M/uL 3.90-5.40 Hemoglobin [...] % 0-2 Stomatocyte 2+ Laboratory test 09/25/2014 [facility] D-Dimer, 1.09 ug/mL High 78 finding LABORATORY Quantitative [phone] CBC Auto Diff 07/07/2014 [facility] White Blood Count 7.5 N 4.8-6 [phone] 10^3/uL 0.8 Red Blood Count 4.40 10^6/uL [...] % 0.1 N Comp Metabolic Panel 07/07/2014 [facility] Sodium 139 mmol/L N 133- 145 [phone] Potassium 3.8 mmol/L N 3.5-5.0 Chloride 104 [...] 116.3 N >60 79 Laboratory test 07/07/2014 [facility] Erythrocyte Sed 29 mm/Hr High 0 -14 finding [phone] Rate Uric Acid 6.6 mg/dL N 2.3-6.6 Laboratory test 06/10/2014 [facility] Erythrocyte Sed 27 mm/Hr High 0 -14 finding [phone] Rate CBC Auto Diff 06/10/2014 [facility] White Blood Count 7.8 N 4.8-10.8 [phone] 10^3/uL Red Blood Count 4.38 10^6/uL N [...] Blood Cells % 0.1 N Wound 12/10/2013 [facility] Wound/Misc (SEE 80 Culture/Sensi [phone] Culture-Gram NOTE) Stain Laboratory test 11/29/2013 [facility] Sedimentation 30 mm/hr High 0-20 81 finding LABORATORY Rate [phone] CBC/Manual 11/29/2013 [facility]. White Blood Count 7.2 K/uL 3.1- Differential LABORATORY 10.7 [phone] Red Blood Count 4.49 M/uL 3.90-5.40 Hemoglobin [...] RBC Morphology NORMAL Laboratory test finding 11/29/2013 [facility]. Amylase 23 U/L 18-98 82 LABORATORY [phone] Lipase 121 U/L 28-380 83 Comprehensive 11/29/2013 [facility]. Glucose 103 mg/dL 76- 115 Metabolic Panel LABORATORY [phone] BUN 17 mg/dL 5-23 Creatinine 0.8 mg/dL [...] 5 Kidney failure <15 (or dialysis) 2 [id number] 3 SEE RESULT BELOW Name: EILEEN BRADY : [address]: Gurinder Alston MD Acct: [id number] Unit: [id number] AGE: 53 Location: [facility] Re09/02/18 SEX: F Status: DEP ER SPEC: [id number] NATA: 09/02/18-[address] [facility] [address]: Gurinder Alston MD REQ: [id number] RECD: 09/03/18-1051 STATUS: JI CASTILLO DR: [facility] Hattie Lawson DO _ SOURCE: URINE SPDESC: ORDERED: Urine Culture COMMENTS: [id number] Procedure Result Reported Site Urine Culture Final 09/04/18- 1245 ML No Growth (<1,000 CFU/mL) * ML - Main Lab . END OF REPORT DEPARTMENT OF PATHOLOGY, [address] [place] [address] Cameron Rojas M.D. Director [facility] # [id number] 4 Mobile Lounge Driver: [id number] 5 void, clear, dark yellow 6 Because [...] 5 Kidney failure <15 (or dialysis) 7 [facility] Copy Result to: HATTIE LAWSON ([id number]) 8 [facility] Copy Result to: HATTIE LAWSON ([id number]) 9 [facility] Copy Result to: HATTIE LAWSON ([id number]) 10 [facility] Copy Result to: HATTIE LAWSON ([id number]) 11 Normal Range 180 to 914 Indeterminate Range 145 to 180 Deficient Range <145 12 [facility] Copy Result to: HATTIE LAWSON ([id number]) 13 SEE RESULT BELOW Name: EILEEN BRADY : [address]: Jc Eduardo MD Acct: [id number] Unit: [id number] AGE: 52 Location: [place] Re01/09/18 SEX: F Status: REG [facility] [place] SPEC: [id number] NATA: 01/09/18-[address] [facility] [address]: Jc Eduardo MD REQ: [id number] RECD: 01/09/18-409 STATUS: LINDA CASTILLO DR: Hattie Kapadia MD _ ORDERED: LEVEL 4 FINAL DIAGNOSIS Skin, left medial buttock, wide excision: -- Scar, widely excised. -- No evidence of residual malignant melanoma in situ. COMMENT: The previous lesion at this site ([id number]) has been completely excised. PRE-OPERATIVE DIAGNOSIS Melanoma [...] 1022 END OF REPORT DEPARTMENT OF PATHOLOGY, [address] [place] [address] Cameron Rojas M.D. Director [facility] # [id number] 14 SEE RESULT BELOW Name: EILEEN BRADY : [address]: Rocio Aguilar MD Acct: [id number] Unit: [id number] AGE: 52 Location: [facility] Re12/08/17 SEX: F Status: REG REF SPEC: [id number] NATA: 12/08/17392 [facility] DR: Rocio Aguilar MD REQ: [id number] RECD: 12/08/17 STATUS: LINDA CASTILLO DR: Hattie Lawson DO _ ORDERED: LEVEL 4, IMMUNO-FIRST, IMMUNO-ADDL COMMENTS: [id number] THIS IS A CORRECTED REPORT 12/21/17 Corrected [...] 1422 END OF REPORT DEPARTMENT OF PATHOLOGY, [address] [place] [address] Cameron Rojas M.D. Director [facility] # [id number] 15 SEE RESULT BELOW Name: EILEEN BRADY : [address]: Rocio Aguilar MD Acct: [id number] Unit: [id number] AGE: 52 Location: [facility] Re12/05/17 SEX: F Status: REG REF SPEC: [id number] NATA: 12/05/[address] [facility] [address]: Rocio Aguilar MD REQ: [id number] RECD: 12/05/17 STATUS: LINDA CASTILLO DR: Hattie Lawson DO _ ORDERED: TP IMAGE ANALYS, HPV/Thin Prep COMMENTS: [id number] Negative for Intraepithelial lesion or Malignancy A. [...] was evaluated with the assistance of the Dine perfect Test Imaging System. Due to cytologic findings at the residency program coordinator microscope, comprehensive manual rescreening by a Production Administrator may be required. The Pap Smear is [...] years. END OF REPORT DEPARTMENT OF PATHOLOGY, [address] [place] [address] Cameron Rojas M.D. Director [facility] # [id number] 16 Test Performed by: [facility] [address] [place] [id number] 17 M70.51,E83.42,F50.9, 18 Method: Sediplast Modified Luis [...] Sm (anti-Alvarez) SLE 15 - 30% --------- R D INTERNSHIP Mixed Connective Tissue Disease 95% (U1 nRNP, SLE 30 - 50% anti-ribonucleoprotein) Polymyositis and/or Dermatomyositis 20% --------- Scl-70 (antiDNA Scleroderma (diffuse) 20 - 35% topoisomerase) Crest 13% --------- Radha-1 Polymyositis and/or Dermatomyositis 20 - 40% --------- Centromere B Scleroderma - Crest variant 80% Performed at: - [facility] [id number] Cager Operator: Maryuri Mckeon MD, Phone: [phone] 22 Because ethnic data is not always [...] DVT, or Pulmonary embolism as clinically indicated. ([facility] has established a 97.89% negative [...] and in selective patients <6.0%.Please refer to [place] [employer] Diabetic care guidelines for further [...] Deficient Range <145 38 Test Performed by: [place] [address] 39 [facility] 40 Tests: RPR, FT4, [...] Acute inflammation: >10.00 53 Test Performed by: [facility] [place], [facility] [address] [place] [address] Audio/Visual Manager: Cj Zuniga II, M.D., Ph.D. 54 QUERY: Is Patient Fasting? N 55 The specimen was not submitted to the testing laboratory in the preferred certified metal free transfer tube. As of February 29, 2016, serum or plasma samples not submitted in the certified metal free transfer tubes will be rejected for trace metal analysis. Detection Limit=5 56 Performed at: [facility] [id number] Cager Operator: Cj Henderson MD, Phone: [phone] 57 Vitamin D deficiency has been defined by the [place] [employer] and an Endocrine Society practice guideline as a level of serum 25-OH vitamin D less than 20 ng/mL (1,2). The Endocrine Society went on to further define vitamin D insufficiency as a level between 21 and 29 ng/mL (2). 1. IOM ([place] [employer]). 2010. Dietary reference intakes for calcium and D. [place]: The National Academies Press. 2. Urban MF, Bill NC, Shikha WINSTON, et al. Evaluation, treatment, and prevention of vitamin D deficiency: an Endocrine Society clinical practice guideline. JCEM. 2010; 96(7):1911-30. Performed at: - [facility] [id number] Cager Operator: Maryuri Mckeon MD, Phone: [phone] 58 A negative result for either C. trachomatis and/or N. gonorrhoeae does not preclued an infection because results are dependent on adequate specimen collection, absence of inhibitors, and sufficient DNA to be detected. 59 FIRST MORNING SPECIMENS GENERALLY CONTAIN THE HIGHEST CONCENTRATION OF HCG AND ARE RECOMMENDED FOR EARLY DETECTION OF . 60 CULTURE TO FOLLOW 61 12/15/15 LAB.TOW Deleted by Reflex Group [facility] 62 Organism 1 ! MIXED URETHRAL RENAE [...] protein on serum electrophoresis. Test Performed by: [place] [address] Audio/Visual Manager: Cj Zuniga II, M.D., Ph.D. 65 [facility] Specimen Source: CERVICAL 66 [facility] Specimen Source: CERVICAL GC/Chlamydia Source?: Endocervical Trichomonas Source: Endocervical 67 SEE RESULT BELOW Name: EILEEN BRADY : [address]: Amy Cleveland MD Acct: [id number] Unit: [id number] AGE: 49 Location: [facility] Re05/25/15 SEX: F Status: DEP ER SPEC: [id number] NATA: 05/25/[address] [facility] [address]: Amy Cleveland MD REQ: [id number] RECD: 05/25/15 STATUS: JI CASTILLO DR: Maddi [...] or failure. * ML - MAIN LAB ([facility]) . END OF REPORT * ML=Testing performed at Main Lab DEPARTMENT OF PATHOLOGY, [address] [place] [address] Cameron Rojas M.D. Director [facility] # [id number] 68 Female urine specimens have been self-validated by [facility] and have been granted conditional assay approval by [facility]. 69 [id number] 70 Because ethnic data is not always [...] DVT, or Pulmonary embolism as clinically indicated. ([facility] has established a 97.89% negative [...] <15 (or dialysis) 80 RUN DATE: 12/12/13 [facility] LIVE PAGE 1 RUN TIME: [address] [place], [place] [address] Specimen Inquiry Name: EILEEN BRADY : [address]: Payal Anderson MD Acct: [id number] Unit: [id number] AGE: 48 Location: [facility] Re12/10/13 SEX: F Status: DEP ER SPEC: [id number] NATA: 12/10/13-[address] [facility] [address]: Ruth KRISHNAN REQ: [id number] RECD: 12/10/13 STATUS: JI CASTILLO DR: Payal KRISHNAN _ [facility]: Culture Stain Procedure Result Verified Site Wound/Misc Gram Stain Final 12/10/13- 1513 ML 3+ Polys 2+ Gram Positive Cocci Possible 1+ Gram Positive Bacilli Wound/Misc Culture Final 12/12/13- 1105 ML Organism 1 NORMAL RENAE Quantity 2+ END OF REPORT * ML=Testing performed at Main Lab DEPARTMENT OF PATHOLOGY, [address] [place] [address] Cameron Rojas M.D. Director [facility] # [id number] 81 FAX RESULTS TO CAROLYN Negron [phone] FAX RESULTS TO CAROLYN Negron [phone] FAX RESULTS TO CAROLYN Negron [phone] Note: Persistent reduction for 3 months [...] [email or web address]. Procedures Date Code Description Status 02/21/2018 91010 X-Ray Knee,Ap&Lateral Oblique Views Completed 01/05/2018 78669 Brief Emotional/Behav Assessment W/ Scoring Doc Per Completed Standard Inst 11/13/2017 54710 Brief Emotional/Behav Assessment W/ Scoring Doc Per Completed Standard Inst 05/31/2017 67507696 Mammogram Completed 04/14/2017 56482 SC/Im Injections Completed 05/11/2016 69383 Omt 3 To 4 Body Regions Involved Completed 04/26/2016 31816 Electrocardiogram Complete Completed 04/07/2016 23537 Inject/Drain Joint/Bursa Major Completed 05/16/2015 97775 SC/Im Injections Completed 05/16/2015 18709 Inject/Drain Joint/Bursa Major Completed 02/28/2015 41622415 Colonoscopy Completed 02/19/2015 46161 Dexa Bone Density Study One Or More Sites Axial Completed Skeleton 11/03/2014 88517 Bronchospasm Evaluation Pre & Post Completed 09/25/2014 39442 Electrocardiogram Complete Completed 07/07/2014 74535 X-Ray Knee,Ap&Lateral Oblique Views Completed Encounters Type [...] asthma with (acute) exacerbation R12 Heartburn Z79.891 detention (current) use of opiate analgesic Office Visit [...] Encntr for oth proc for purpose [facility] Office Visit 04/24/2015 4:00p Main Office Maddi Loera, E66.01 Morbid (severe) RPA-C obesity due to excess calories I10 Essential (primary) hypertension R07.9 Chest pain, unspecified Z68.43 Body mass index (BMI) 50-59.9 , adult Office Visit 01/22/2015 9:40a Main Office Evaristo V70.0 Examination [facility] 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 However, does not appear to beDVT on exam, discussed w ptIf no DVT, recommend pt to contact Dr. Cummings. Also, need to work on wt loss at this iwxzaK67.3 Dietary counseling and surveillanceComments:pot frustrated w wt gain and is again talking about ++restriction to lose wt. is open to strict diet plan, partner, who is a contract associate, is open to assisting with tihs , will discuss next apptI10 Essential (primary) hypertensionComments:pt advised to report cp, change in angina , sob etContinue same meds with no change. Comply with diet and exercise. Lose weight and watch salt in diet.M54.5 Low back painZ68.42 Body mass index (BMI) 45.0-49.9, adult
--- OUTSIDE RECORDS SUMMARY | 2018-10-09 12:27 | XMS REPORT | Continuity of Care Document ---
:1965 External Reference #:[id number] Author Name Hattie Lawson D.O. 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 Nystatin 10/30/2017 - Hx Ointment [id number] apply to R2 Dicokimberli, 08/13/2018 Unit/G [...] Hx Tablets 20mg 90tabs 1 [facility], 08/[facility]2017 every day Hattie, D.O. Actigall 04/14/2017 - Hx Capsules 300mg 270caps Take One K80.10 [facility] , 08/30/2017 Capsule By Hattie, Mouth Three D.O. Times A Day For Gallstones Escitalopram Oxalate 12/07/2016 - Hx Tablets 10mg 90tabs 1 tablets [facility], 04/14/2017 by mouth Hattie, daily D.O. Citalopram 07/27/2016 - Hx Tablets 10mg 30tabs 1 by mouth [facility], Hydrobromide 08/16/2016 every day Hattie, D.O. [...] Hx Capsules 10Meq 90caps 1 [facility], 07/27/2016 ER every day Hattie, with each D.O. tablet of furosemide Metoprolol Succinate 02/24/2016 - Hx Tablets ER 100mg 90tabs take one [facility], ER 04/26/2016 24HR tablet by Hattie, mouth every D.O. morning for blood pressure Phendimetrazine 10/30/2015 - Hx Tablets 35mg 180tabs Take 2 E66.01 [facility], Tartrate 01/06/2016 tablets by Hattie, mouth 3 D.O. times per day 1 hour before a meal for weight loss Diflucan 09/02/2015 - Hx Tablets 150mg 2tabs 1 cap by Eliseo, 09/04/2015 mouth 3 Hattie, days apart. D.O. Singulair 11/03/2014 - Hx Tablets 10mg 30tabs [facility] 12[facility]2014 mouth once Hattie, daily for [...] CPT Code Status Date Vaccine Lot # [id number] Given 04/20/2018 Influenza Virus Vaccine, Quadrivalent, Split, [id number] Preservative Free 19476 Given 04/20/2018 Prevnar 13 [id number] 08103 Given 04/14/2017 Influenza Virus Vaccine, Quadrivalent, Split, [id number] Preservative Free 52223 Given 04/07/2016 Influenza Virus Vaccine, Quadrivalent, Split, [id number] Preservative Free 54992 Given 05/16/2015 Influenza Virus Vaccine, Quadrivalent, Split, [id number] Preservative Free 44891 Given 06/10/2014 Flu, Split Virus 3Yrs [id number] 70480 Given 12/10/2013 Adacel or Boostrix, TDaP 02050 Given 06/22/2012 Adacel or Boostrix, TDaP 21485 Given 04/29/2011 Pneumococcal Immunization 02021 Given 04/29/2011 Flu, Split Virus 3Yrs 20988 Given 05/29/2009 Flu, Split Virus 3Yrs 27244 Ordered 11/28/2013 Adacel or Boostrix, TDaP Vital [...] Range Note CBC Auto Diff 09/03/2018 [facility] White Blood 7.5 10^3/uL N 3.5- 10.8 [phone] Count Red Blood Count 4.83 10^6/uL N [...] % 0 Comp Metabolic Panel 09/03/2018 [facility] Sodium 139 mmol/L N 135- 145 [phone] Potassium 4.3 mmol/L N 3.5-5.0 Chloride 103 [...] >60 1 Laboratory test finding 09/03/2018 [facility] Amylase 20 U/L Low 29- 103 [phone] Lipase 17 U/L N 11.0-82.0 Magnesium 1.7 mg/dL Low 1.9-2.7 Erythrocyte Sed Rate 21 mm/Hr N 0-30 C Reactive Protein 2.40 mg/L N <8.01 Urine Culture And 09/02/2018 [facility] Urine SEE RESULT 2, 3 Sensitivities [phone] Culture BELOW Poc Urinalysis 09/02/2018 [facility] Poc Glucose, Negative Negative [phone] Urine Poc Bilirubin, Urine Negative Negative Poc Ketone, Urine Negative Negative Poc Specific Watkins, Urine 1.025 N 1.010-1.030 Poc Blood, Urine Negative Negative Poc pH, Urine 6.0 N 5-9 Poc Protein, Urine Negative Negative Poc Urobilinogen, Urine 0.2 Negative Poc Nitrite, Urine Negative Negative Poc Leukocytes, Urine Trace Abnormal Negative Poc Color, Urine Dark yellow Poc Clarity, Urine Clear 4 Ua Inhouse 03/15/2018 In House Ua Glucose - 5 Ua Bilirubin - Ua Ketones - Ua Specific Watkins 1.030 Ua Blood - Ua PH 6.0 Ua Protein - Ua Urobilinogen - Ua Nitrite - Ua Leukocytes - Basic Metabolic Panel 03/09/2018 [facility] Sodium 140 mmol/L N 135- 145 [phone] Potassium 4.2 mmol/L N 3.5-5.0 Chloride 105 mmol/L N 101-111 Co2 Carbon Dioxide 28 mmol/L N 22-32 Anion Gap 7 mmol/L N 2-11 Glucose 83 mg/dL N 70-100 Blood Urea Nitrogen 18 mg/dL N 6-24 Creatinine 0.60 mg/dL N 0.51-0.95 BUN/Creatinine Ratio 30.0 High 8-20 Calcium 9.2 mg/dL N 8.6-10.3 Egfr Non- 104.6 >60 Egfr 126.5 >60 6 Laboratory test 03/09/2018 [facility] C Reactive Protein 1.35 mg/L N <8.01 7 finding [phone] TSH (Thyroid Stim Horm) 1.60 mcIU/mL N 0.34-5.60 8 Free T4 (Free Thyroxine) 1.02 ng/dL N 0.61-1.12 9 Folic Acid (Folate) > 20.00 ng/mL >3.99 10 Vitamin B12 336 pg/mL N 180-914 11 Erythrocyte Sed Rate 22 mm/Hr N 0-30 12 Laboratory test 01/09/2018 [facility] Surgical SEE RESULT 13 finding [phone] Pathology BELOW Laboratory test 12/08/2017 [facility] Surgical SEE RESULT 14 finding [phone] Pathology BELOW GC/Chlamydia 12/05/2017 [facility] Chlamydia Negative Negative Amplified Rna [phone] trachomatis Rna Neisseria gonorrhoeae (GC) Rna Negative Negative Laboratory test 12/05/2017 [facility] Cytology SEE RESULT 15 finding [phone] BELOW Laboratory test 10/30/2017 [facility] Insulin Level 6.6 2.6 16 finding [phone] mcIU/mL - 24.9 Laboratory test 10/17/2017 [facility]. Sedimentation Rate 17 mm /hr N 0-30 17, 18 finding LABORATORY [phone] C-Reactive Protein,Quant < 2.9 mg/L <3.0 Magnesium 1.9 mg/dL N 1.8-2.4 Thyroid Stim Hormone 1.46 uIU/mL N 0.30-4.20 Vitamin B12 460 pg/mL N [phone] CBC Auto Diff 10/17/2017 [facility]. White Blood 7.2 K/uL N 3.1-10.7 LABORATORY Count [phone] Red Blood Count 4.72 M/uL N 3.90-5.40 [...] 40.4-72.8 Lymph % 30.5 % N 20.0-42.0 Gilmer % 7.1 % N 4.3-13.2 Eo% 1.7 % N 0.0-6.6 Bas% 0.3 % N 0.0-1.1 Neut# 4.37 K/uL N 1.8-7.0 Lymph # 2.20 K/uL N 1.0-4.0 Gilmer # 0.51 K/uL N 0.3-0.9 Eos # 0.12 K/uL N 0.0-0.5 Baso # 0.02 K/uL N 0.0-0.1 Comp Metabolic Panel 10/17/2017 [facility]. Glucose 97 mg/dL N 74-106 LABORATORY [phone] BUN 16 mg/dL N 7-18 Creatinine 0.7 [...] 78 U/L N 45-117 Comprehensive Yovana 10/17/2017 [facility]. Anti-Dna <1 IU/mL 0 -9 20 Panel LABORATORY Antibody [phone] ([place]) SM Antibody <0.2 AI 0.0-0.9 MOBILE LAB TECHNICIAN Antibody <0.2 AI 0.0-0.9 Sjogrens Antibodies (Ssa) <0.2 AI 0.0-0.9 Antichromatin Antibodies <0.2 AI 0.0-0.9 Radha-1 Antibody <0.2 AI 0.0-0.9 Sjogrens Antibodies (SSB) <0.2 AI 0.0-0.9 Centromere B Antibodies < 0.2 AI 0.0-0.9 Scleroderma Antibodies, SCL-70 <0.2 AI 0.0-0.9 See below: (SEE NOTE) 21 CBC Auto Diff 08/31/2017 [facility] White Blood Count 6.7 10^3/uL N 3.5-10.8 [phone] Red Blood Count 4.51 10^6/uL N 4.0-5.4 [...] % 0.1 Comp Metabolic Panel 08/31/2017 [facility] Sodium 139 mmol/L N 133- 145 [phone] Potassium 4.1 mmol/L N 3.5-5.0 Chloride 102 [...] 112.6 >60 22 Laboratory test 08/31/2017 [facility] C Reactive < 1.00 mg/L N < 5.00 23 finding [phone] Protein Erythrocyte Sed Rate 19 mm/Hr N 0-30 Magnesium 1.7 mg/dL Low 1.9-2.7 TSH (Thyroid Stim Horm) 2.82 mcIU/mL N 0.34-5.60 Uric Acid 5.0 mg/dL N 2.3-6.6 Vitamin B12 362 pg/mL N 180-914 24 Laboratory test 04/14/2017 [facility] Magnesium 1.8 mg/dL Low 1.9- 2.7 finding [phone] CBC Auto Diff 04/14/2017 [facility] White Blood 6.2 10^3/uL N 3.5- 10.8 [phone] Count Red Blood Count 4.50 10^6/uL N [...] 0.1 N Comp Metabolic Panel 04/14/2017 [facility] Sodium 140 mmol/L N 133- 145 [phone] Potassium 3.3 mmol/L Low 3.5-5.0 Chloride 100 [...] N >60 25 Laboratory test 04/14/2017 [facility] Erythrocyte Sed Rate 19 mm/Hr N 0-30 finding [phone] TSH (Thyroid Stim Horm) 1.36 mcIU/mL N 0.34-5.60 Phosphorus 3.2 mg/dL N 2.5-5.0 Vitamin B12 > 1450 pg/mL High 180-914 26 Vitamin D Total 25(Oh) 26.5 ng/mL N 20-50 Folic Acid (Folate) 17.43 ng/mL N >3.99 CBS W/Automated 04/03/2017 [facility]. White Blood 7.6 K/uL N 3.1-10.7 27 Diff LABORATORY Count [phone] Red Blood Count 4.51 M/uL N 3.90-5.40 [...] 40.4-72.8 Lymph % 45.1 % High 20.0-42.0 Gilmer % 8.2 % N 4.3-13.2 Eo% 1.1 % N 0.0-6.6 Bas% 0.3 % N 0.0-1.1 Neut# 3.43 K/uL N 1.8-7.0 Lymph # 3.41 K/uL N 1.0-4.0 Gilmer # 0.62 K/uL N 0.3-0.9 Eos # 0.08 K/uL N 0.0-0.5 Baso # 0.02 K/uL N 0.0-0.1 Laboratory test 04/03/2017 [facility]. D-Dimer, 0.25 28 finding LABORATORY Quantitative ug/mL [phone] Comprehensive 04/03/2017 [facility]. Glucose 118 mg/dL High 74-1 Metabolic Panel LABORATORY 06 [phone] BUN 25 mg/dL High 7-18 Creatinine 0.8 [...] U/L N 45-117 Laboratory test finding 04/03/2017 [facility] Lipase 120 U/L N 73-393 LABORATORY [phone] HCG,Serum (Qualitative) NEGATIVE (Negative) Ua RFX Micro & 04/03/2017 [facility] Urine Color YELLOW Yellow Culture II LABORATORY [phone] Urine Clarity CLEAR Clear Urine Glucose - Dipstick NEGATIVE mg/dL Negative Urine Bilirubin - Dipstick NEGATIVE Negative Urine Ketone NEGATIVE mg/dL Negative Urine Specific Watkins 1.025 N 1.010-1.030 Urine Blood NEGATIVE Negative Urine PH 5.5 Low 6.5-7.5 Urine Protein - Dipstick NEGATIVE mg/dL Negative Urine Urobilinogen - Dipstick 0.2 E.U./dL N 0.2-1.0 Urine Nitrite - Dipstick NEGATIVE Negative Urine Leuk Esterase NEGATIVE Negative Source: URINE, CLEAN CAT <SEE NOTE> 30 CBC No Diff 12/09/2016 [facility] White Blood Count 8.3 10^3/uL N 3.5 -10.8 [phone] Red Blood Count 4.56 10^6/uL N 4.0-5.4 [...] um3 N 7.4-10.4 Laboratory test 12/09/2016 [facility] Hemoglobin A1c 5.0 % N Less than 31 finding [phone] (Glyco HGB) 6.0 Comp Metabolic 12/09/2016 [facility] Sodium 142 mmol/L N 133-145 Panel [phone] Potassium 3.3 mmol/L Low 3.5-5.0 Chloride 102 [...] N >60 32 Lipid Profile 12/09/2016 [facility] Triglycerides 109 mg/dL N 33 (Trig/Chol/HDL) [phone] Cholesterol 211 mg/dL N 34 HDL Cholesterol 40.8 mg/dL N 35 LDL Cholesterol 148 mg/dL N 36 Laboratory test finding 12/09/2016 [facility] Magnesium 1.6 mg/dL Low 1.9-2.7 [phone] TSH (Thyroid Stim Horm) 2.28 mcIU/mL N 0.34-5.60 T3 Free 3.10 pg/mL N 2.5-3.9 Free T4 (Free Thyroxine) 1.03 ng/dL N 0.61-1.12 Vitamin B12 118 pg/mL Low 180-914 37 Vitamin D Total 25(Oh) 17.2 ng/mL Low 30-50 Insulin Level 11.3 mcIU/mL N 2.6 - 24.9 38 Aot Request 07/13/2016 [facility]. Aot Request Test(s) added N 39, 40 LABORATORY [phone] Tests to be added: RPR, FT4, TSH Instructions: ADD ON TO ER BLO <SEE NOTE> 41 Urinalysis With 07/12/2016 [facility]. Urine Color YELLOW N Yellow Microscopic LABORATORY [phone] Urine Clarity SL CLOUDY N Clear Urine Glucose - Dipstick NEGATIVE mg/dL N Negative Urine Bilirubin - Dipstick NEGATIVE N Negative Urine Ketone NEGATIVE mg/dL N Negative Urine Specific Watkins >=1.030 N 1.010-1.030 Urine Blood MODERATE Abnormal [...] CLEAN CAT <SEE NOTE> 43 Chlamydia/GC 07/12/2016 [facility]. Chlamydia Negative N Negative Martha, Urine LABORATORY Trachomatis,Ur [phone] -Martha Neisseria Gonorrhoeae,Ur -Martha Negative N Negative 44 CBS W/Automated 07/12/2016 [facility]. White Blood 7.1 K/uL N 3.1-10.7 Diff LABORATORY Count [phone] Red Blood Count 4.67 M/uL N 3.90-5.40 [...] 40.4-72.8 Lymph % 34.1 % N 17.0-46.1 Gilmer % 9.3 % N 4.3-13.2 Eo% 1.4 % N 0.0-6.6 Bas% 0.3 % N 0.0-1.1 Neut# 3.89 K/uL N 1.8-7.0 Lymph # 2.42 K/uL N 1.8-7.0 Gilmer # 0.66 K/uL N 0.3-0.9 Eos # 0.10 K/uL N 0.0-0.5 Baso # 0.02 K/uL N 0.0-0.1 Laboratory test 07/12/2016 [facility]. Ethyl Alcohol < 3.0 mg/ dL N finding LABORATORY [phone] Comprehensive 07/12/2016 [facility]. Glucose 100 mg/dL N 74- 106 Metabolic Panel LABORATORY [phone] BUN 12 mg/dL N 7-18 Creatinine 0.8 [...] Phosphatase 64 U/L N 45-117 Laboratory 07/12/2016 [facility]. Treponema Nonreactive N Nonreactive 46 test finding LABORATORY Antibody [phone] Stephens Urine Culture 07/12/2016 [facility]. Urine URETHRAL RENAE LABORATORY Culture [phone] Quantity > 100,000 CFU/mL N 47 Laboratory test 07/12/2016 [facility]. Ethyl Alcohol < 3.0 mg/ dL N 48 finding LABORATORY [phone] Drugs Of 07/12/2016 [facility]. Amphetamines Negative N Abuse-Urine LABORATORY (Urine) Screen 7 [phone] Barbiturates (Urine) Negative N Benzodiazepines (Urine) Negative N Cannabinoids (Urine) Negative N Cocaine Metabolite (Urine) Negative N Methadone (Urine) Negative N Opiates (Urine) Negative N Urine Cutoffs * N 49 Basic Metabolic Panel 07/05/2016 [facility] Sodium 139 mmol/L N 133- 145 [phone] Potassium 4.1 mmol/L N 3.5-5.0 Chloride 102 [...] >60 50 Basic Metabolic Panel 04/07/2016 [facility] Sodium 140 mmol/L N 133- 145 [phone] Potassium 3.4 mmol/L Low 3.5-5.0 Chloride 101 [...] N >60 51 Laboratory test 01/26/2016 [facility] C Reactive 5.31 mg/L High < 5.00 52 finding [phone] Protein Methylmalonic Acid Mma 0.12 nmol/mL N <=0.40 53 Laboratory test 01/07/2016 [facility]. Vitamin B12 475 pg/mL [phone] 54 finding LABORATORY [phone] Magnesium 1.8 mg/dL 1.8-2.4 Vitamin B1 (Thiamine),WB 93.1 nmol/L 66.5-200.0 Copper, Serum 132 g/dL 72-166 55 Zinc, Whole Blood 676 g/dL 440-860 56 Vitamin D,25-Hydroxy 22.0 ng/mL Low 30.0-100.0 57 Chlamydia/GC 12/16/2015 [facility]. Chlamydia Negative Negative Martha, Urine LABORATORY Trachomatis,Ur [phone] -Martha Neisseria Gonorrhoeae,Ur -Martha Negative Negative 58 Laboratory test 12/15/2015 [facility] Urine HCG NEGATIVE Negative 59 finding LABORATORY (Qualitative) [phone] Urinalysis With 12/15/2015 [facility] Urine Color RED Yellow Microscopic LABORATORY [phone] Urine Clarity CLOUDY Clear Urine Glucose - Dipstick 100 mg/dL High Negative Urine Bilirubin - Dipstick MODERATE High Negative Urine Ketone TRACE mg/dL High Negative Urine Specific Watkins 1.010 1.010-1.030 Urine Blood LARGE High Negative [...] Amorph Sediment SMALL Negative Laboratory test 12/15/2015 [facility]. Culture If See Note 60 finding LABORATORY Indicated Comment [phone] Ua RFX Micro + Culture II See Note 61 Urine Culture See Note 62 Comp Metabolic Panel 12/02/2015 [facility] Sodium 138 mmol/L N 133- 145 [phone] Potassium 3.6 mmol/L N 3.5-5.0 Chloride 98 [...] 95.9 N >60 63 Protein 12/02/2015 [facility] Total 7.4 g/dL N 6.3 - Electrophoresis [phone] Protein(Pep) 7.9 Albumin 3.2 g/dL Abnormal 3.4-4.7 Alpha-1 Globulin 0.3 g/dL N 0.1-0.3 Alpha-2 Globulin 1.1 g/dL Abnormal 0.6-1.0 Beta Globulin 1.5 g/dL Abnormal 0.7-1.2 Gamma Globulin 1.3 g/dL N 0.6-1.6 Albumin/Globulin Ratio 0.78 N Impression See Comment N 64 Laboratory test 05/25/2015 [facility] Trichomonas Negative N Negative 65, 66 finding [phone] vaginalis Rna Gardnerella/Yeast: Vaginal Dna SEE RESULT BELOW 67 GC/Chlamydia 05/25/2015 [facility] Chlamydia Negative N Negative Amplified Rna [phone] trachomatis Rna Neisseria gonorrhoeae (GC) Rna Negative N Negative 68 Urine Micro Inhouse 01/22/2015 In House Ua WBC - 69 Ua RBC - Ua Casts - Ua Epi - Ua Other - Ua Glucose - Ua Bilirubin - Ua Ketones - Ua Specific Watkins 1.010 Ua Blood - Ua PH 5.0 Ua Protein - Ua Urobilinogen - Ua Nitrite - Ua Leukocytes - Comp Metabolic Panel 01/15/2015 [facility] Sodium 138 mmol/L N 133- 145 [phone] Potassium 4.3 mmol/L N 3.5-5.0 Chloride 103 [...] N >60 70 Lipid Profile 01/15/2015 [facility] Triglycerides 102 mg/dL N 71 (Trig/Chol/HDL) [phone] Cholesterol 189 mg/dL N 72 HDL Cholesterol 39.4 mg/dL N 73 LDL Cholesterol 129 mg/dL N 74 Comprehensive 09/25/2014 [facility]. Glucose 108 mg/dL High 74-106 Metabolic Panel LABORATORY [phone] BUN 12 mg/dL 7-18 Creatinine 0.8 mg/dL [...] Phosphatase 104 U/L 45-117 Laboratory test 09/25/2014 [facility]. Troponin-I < 0.02 ng/mL 77 finding LABORATORY [phone] Thyroid Stim Hormone 2.45 uIU/mL 0.36-3.74 CBC/Manual 09/25/2014 [facility]. White Blood 8.0 K/uL 3.1- 10.7 Differential LABORATORY Count [phone] Red Blood Count 4.47 M/uL 3.90-5.40 Hemoglobin [...] % 0-2 Stomatocyte 2+ Laboratory test 09/25/2014 [facility] D-Dimer, 1.09 ug/mL High 78 finding LABORATORY Quantitative [phone] CBC Auto Diff 07/07/2014 [facility] White Blood Count 7.5 N 4.8-4 [phone] 10^3/uL 0.8 Red Blood Count 4.40 10^6/uL [...] 0.1 N Comp Metabolic Panel 07/07/2014 [facility] Sodium 139 mmol/L N 133- 145 [phone] Potassium 3.8 mmol/L N 3.5-5.0 Chloride 104 [...] N >60 79 Laboratory test 07/07/2014 [facility] Erythrocyte Sed 29 mm/Hr High 0 -14 finding [phone] Rate Uric Acid 6.6 mg/dL N 2.3-6.6 Laboratory test 06/10/2014 [facility] Erythrocyte Sed 27 mm/Hr High 0 -14 finding [phone] Rate CBC Auto Diff 06/10/2014 [facility] White Blood Count 7.8 N 4.8-10.8 [phone] 10^3/uL Red Blood Count 4.38 10^6/uL N [...] Cells % 0.1 N Wound 12/10/2013 [facility] Wound/Misc (SEE 80 Culture/Sensi [phone] Culture-Gram NOTE) Stain Laboratory test 11/29/2013 [facility] Sedimentation 30 mm/hr High 0-20 81 finding LABORATORY Rate [phone] CBC/Manual 11/29/2013 [facility]. White Blood Count 7.2 K/uL 3.1- Differential LABORATORY 10.7 [phone] Red Blood Count 4.49 M/uL 3.90-5.40 Hemoglobin [...] RBC Morphology NORMAL Laboratory test finding 11/29/2013 [facility]. Amylase 23 U/L 18-98 82 LABORATORY [phone] Lipase 121 U/L 28-380 83 Comprehensive 11/29/2013 [facility]. Glucose 103 mg/dL 76- 115 Metabolic Panel LABORATORY [phone] BUN 17 mg/dL 5-23 Creatinine 0.8 mg/dL [...] 5 Kidney failure <15 (or dialysis) 2 [id number] 3 SEE RESULT BELOW Name: EILEEN BRADY : [address]: Gurinder Alston MD Acct: [id number] Unit: [id number] AGE: 53 Location: [facility] Re09/02/18 SEX: F Status: DEP ER SPEC: [id number] NATA: 09/02/18-1341 [facility] DR: Gurinder Alston MD REQ: [id number] RECD: 09/03/18-1051 STATUS: JI CASTILLO DR: [facility] Hattie Lawson DO _ SOURCE: URINE SPDESC: ORDERED: Urine Culture COMMENTS: [id number] Procedure Result Reported Site Urine Culture Final 09/04/18- 1245 ML No Growth (<1,000 CFU/mL) * ML - Main Lab . END OF REPORT DEPARTMENT OF PATHOLOGY, [address] [place] [address] Cameron Rojas M.D. Director [facility] # [id number] 4 Corporation Officer: [id number] 5 void, clear, dark yellow 6 Because [...] 5 Kidney failure <15 (or dialysis) 7 [facility] lab Copy Result to: HATTIE LAWSON ([id number]) 8 [facility] lab Copy Result to: HATTIE LAWSON ([id number]) 9 [facility] lab Copy Result to: HATTIE LAWSON ([id number]) 10 [facility] lab Copy Result to: HATTIE LAWSON ([id number]) 11 Normal Range 180 to 914 Indeterminate Range 145 to 180 Deficient Range <145 12 [facility] lab Copy Result to: HATTIE LAWSON ([id number]) 13 SEE RESULT BELOW Name: EILEEN BRADY : [address]: Jc Eduardo MD Acct: [id number] Unit: [id number] AGE: 52 Location: [place] Re01/09/18 SEX: F Status: REG [facility] SPEC: [id number] NATA: 01/09/18-1204 [facility] DR: Jc Eduardo MD REQ: [id number] RECD: 01/09/18-748 STATUS: LINDA CASTILLO DR: Hattie Kapadia MD _ ORDERED: LEVEL 4 FINAL DIAGNOSIS Skin, left medial buttock, wide excision: -- Scar, widely excised. -- No evidence of residual malignant melanoma in situ. COMMENT: The previous lesion at this site ([id number]) has been completely excised. PRE-OPERATIVE DIAGNOSIS Melanoma [...] END OF REPORT DEPARTMENT OF PATHOLOGY, [address] [place] [address] Cameron Rojas M.D. Director [facility] # [id number] 14 SEE RESULT BELOW Name: EILEEN BRADY : [address]: Rocio Aguilar MD Acct: [id number] Unit: [id number] AGE: 52 Location: [facility] Re12/08/17 SEX: F Status: REG REF SPEC: [id number] NATA: 12/08/17474 [facility] DR: Rocio Aguilar MD REQ: [id number] RECD: 12/08/17 STATUS: LINDA CASTILLO DR: Hattie Lawson DO _ ORDERED: LEVEL 4, IMMUNO-FIRST, IMMUNO-ADDL COMMENTS: [id number] THIS IS A CORRECTED REPORT 12/21/17 Corrected [...] END OF REPORT DEPARTMENT OF PATHOLOGY, [address] [place] [address] Cameron Rojas M.D. Director [facility] # [id number] 15 SEE RESULT BELOW Name: EILEEN BRADY : [address]: Rocio Aguilar MD Acct: [id number] Unit: [id number] AGE: 52 Location: [facility] Re12/05/17 SEX: F Status: REG REF SPEC: [id number] NATA: 12/05/17 [facility] DR: Rocio Aguilar MD REQ: [id number] RECD: 12/05/17 STATUS: LINDA CASTILLO DR: Hattie Lawson DO _ ORDERED: TP IMAGE ANALYS, HPV/Thin Prep COMMENTS: [id number] Negative for Intraepithelial lesion or Malignancy A. [...] was evaluated with the assistance of the [employer] Test Imaging System. Due to cytologic findings at the human resource assistant microscope, comprehensive manual rescreening by a Location Man may be required. The Pap Smear is [...] END OF REPORT DEPARTMENT OF PATHOLOGY, [address] [place] [address] Cameron Rojas M.D. Director [facility] # [id number] 16 Test Performed by: [facility] [address] [place] [id number] 17 M70.51,E83.42,F50.9, 18 Method: Sediplast Modified Luis [...] Sm (anti-Alvarez) SLE 15 - 30% --------- MOBILE LAB TECHNICIAN Mixed Connective Tissue Disease 95% (U1 nRNP, SLE 30 - 50% anti-ribonucleoprotein) Polymyositis and/or Dermatomyositis 20% --------- Scl-70 (antiDNA Scleroderma (diffuse) 20 - 35% topoisomerase) Crest 13% --------- Radha-1 Polymyositis and/or Dermatomyositis 20 - 40% --------- Centromere B Scleroderma - Crest variant 80% Performed at: - [facility] [id number] Adjunct Writing Instructor: Maryuri Mckeon MD, Phone: [phone] 22 Because ethnic data is not always [...] DVT, or Pulmonary embolism as clinically indicated. ([facility] has established a 97.89% negative predictive [...] and in selective patients <6.0%.Please refer to [place] [employer] Diabetic care guidelines for further [...] Deficient Range <145 38 Test Performed by: [place] [address] 39 [facility] 40 Tests: RPR, FT4, [...] Acute inflammation: >10.00 53 Test Performed by: [facility] [address] [place] [address] Rug Renovator: Cj Zuniga II, M.D., Ph.D. 54 QUERY: Is Patient Fasting? N 55 The specimen was not submitted to the testing laboratory in the preferred certified metal free transfer tube. As of February 29, 2016, serum or plasma samples not submitted in the certified metal free transfer tubes will be rejected for trace metal analysis. Detection Limit=5 56 Performed at: [facility] [id number] Adjunct Writing Instructor: Cj Henderson MD, Phone: [phone] 57 Vitamin D deficiency has been defined by the [place] [employer] and an Endocrine Society practice guideline as a level of serum 25-OH vitamin D less than 20 ng/mL (1,2). The Endocrine Society went on to further define vitamin D insufficiency as a level between 21 and 29 ng/mL (2). 1. IOM ([place] of [employer]). 2010. Dietary reference intakes for calcium and D. [place]: The National Academies Press. 2. Urban MF, Bill NC, Shikha WINSTON, et al. Evaluation, treatment, and prevention of vitamin D deficiency: an Endocrine Society clinical practice guideline. JCEM. 2010; 96(7):1911-30. Performed at: - [facility] [id number] Adjunct Writing Instructor: Maryuri Mckeon MD, Phone: [phone] 58 A negative result for either C. trachomatis and/or N. gonorrhoeae does not preclued an infection because results are dependent on adequate specimen collection, absence of inhibitors, and sufficient DNA to be detected. 59 FIRST MORNING SPECIMENS GENERALLY CONTAIN THE HIGHEST CONCENTRATION OF HCG AND ARE RECOMMENDED FOR EARLY DETECTION OF . 60 CULTURE TO FOLLOW 61 12/15/15 LAB.TOW Deleted by Reflex Group [facility] 62 Organism 1 ! MIXED URETHRAL RENAE [...] protein on serum electrophoresis. Test Performed by: [place] [address] Rug Renovator: Cj Zuniga II, M.D., Ph.D. 65 [facility] Specimen Source: CERVICAL 66 [facility] Specimen Source: CERVICAL GC/Chlamydia Source?: Endocervical Trichomonas Source: Endocervical 67 SEE RESULT BELOW Name: EILEEN BRADY : [address]: Amy Cleveland MD Acct: [id number] Unit: [id number] AGE: 49 Location: [facility] Re05/25/15 SEX: F Status: DEP ER SPEC: [id number] NATA: 05/25/150 [facility] DR: Amy Cleveland MD REQ: [id number] RECD: 05/25/15 STATUS: JI CASTILLO DR: Maddi [...] or failure. * ML - MAIN LAB ([facility]) . END OF REPORT * ML=Testing performed at Main Lab DEPARTMENT OF PATHOLOGY, [address] [place] [address] Cameron Rojas M.D. Director [facility] # [id number] 68 Female urine specimens have been self-validated by [facility] and have been granted conditional assay approval by [facility]. 69 [id number] 70 Because ethnic data is not always [...] DVT, or Pulmonary embolism as clinically indicated. ([facility] has established a 97.89% negative predictive [...] <15 (or dialysis) 80 RUN DATE: 12/12/13 [facility] LIVE PAGE 1 RUN TIME: [id number] [place], [place] [address] Specimen Inquiry Name: EILEEN BRADY : [address]: Payal Anderson MD Acct: [id number] Unit: [id number] AGE: 48 Location: [facility] Re12/10/13 SEX: F Status: DEP ER SPEC: [id number] NATA: 12/10/13-1140 [facility] DR: Ruth KRISHNAN REQ: [id number] RECD: 12/10/13 STATUS: JI CASTILLO DR: Payal KRISHNAN _ S[facility]: Culture Stain Procedure Result Verified Site Wound/Misc Gram Stain Final 12/10/13- 1513 ML 3+ Polys 2+ Gram Positive Cocci Possible 1+ Gram Positive Bacilli Wound/Misc Culture Final 12/12/13- 1105 ML Organism 1 NORMAL RENAE Quantity 2+ END OF REPORT * ML=Testing performed at Main Lab DEPARTMENT OF PATHOLOGY, [address] [place] [address] Cameron Rojas M.D. Director [facility] # [id number] 81 FAX RESULTS TO CAROLYN Negron [phone] FAX RESULTS TO CAROLYN Negron [phone] FAX RESULTS TO CAROLYN Negron [phone] Note: Persistent reduction for 3 months [...] [email or web address]. Procedures Date Code Description Status 02/21/2018 36595 X-Ray Knee,Ap&Lateral Oblique Views Completed 01/05/2018 45724 Brief Emotional/Behav Assessment W/ Scoring Doc Per Completed Standard Inst 11/13/2017 80867 Brief Emotional/Behav Assessment W/ Scoring Doc Per Completed Standard Inst 05/31/2017 76370715 Mammogram Completed 04/14/2017 96698 SC/Im Injections Completed 05/11/2016 02776 Omt 3 To 4 Body Regions Involved Completed 04/26/2016 14188 Electrocardiogram Complete Completed 04/07/2016 24274 Inject/Drain Joint/Bursa Major Completed 05/16/2015 72025 SC/Im Injections Completed 05/16/2015 61697 Inject/Drain Joint/Bursa Major Completed 02/28/2015 01000986 Colonoscopy Completed 02/19/2015 82053 Dexa Bone Density Study One Or More Sites Axial Completed Skeleton 11/03/2014 92079 Bronchospasm Evaluation Pre & Post Completed 09/25/2014 05556 Electrocardiogram Complete Completed 07/07/2014 75445 X-Ray Knee,Ap&Lateral Oblique Views Completed Encounters Type [...] asthma with (acute) exacerbation R12 Heartburn Z79.891 snf (current) use of opiate analgesic Office Visit [...] Encntr for oth proc for purpose oth [facility] Office Visit 04/24/2015 4:00p Main Office Maddi Loera, E66.01 Morbid (severe) RPA-C obesity due to excess calories I10 Essential (primary) hypertension R07.9 Chest pain, unspecified Z68.43 Body mass index (BMI) 50-59.9 , adult Office Visit 01/22/2015 9:40a Main Office Evaristo V70.0 Examination [facility] V72.31 Routine Single End Sewer Examination V76.19 Screening Breast Exam Malignant Neoplasms [...] 8:00 am - Jamil Escudero at Main [id number] 1:00 pm - Jamil Escudero at Main Qdqcqc9509/03/2018 - Hattie Lawson D.O.R10.9 Unspecified abdominal painFollow up:as bbgkajqraI12.2 Plantar fascial toewmxjxfogjZ54.01 Morbid (severe) obesity due to excess jhkjawxiD38.9 Gastro-esophageal reflux disease without esophagitis
--- OUTSIDE RECORDS SUMMARY | 2018-10-09 12:28 | XMS REPORT | Continuity of Care Document ---
:1965 External Reference #:[id number] Author Name Hattie Lawson D.O. 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 Work Status Currently Working [employer] Hand [...] Patient is currently sexually active Age [address]st [place] 17 Years Old STD's No STD History Additional Info Sexual preference is men Allergies, Adverse Reactions, Alerts Date Description Reaction Status Severity Comments 11/27/2013 Vicodin Active Gives pt "asthma attack" Medications Medication Date Status Form Strength Qnty SIG Indications Ordering Provider Citalopram 09/11/ Active Tablets 20mg 90tabs 1 by mouth F43.23 Sopchak, Hydrobromide 2019 every day Karan Zazueta Omeprazole 09/03/ Active Capsules 40mg 60caps 1 by mouth K21.[address] baylee Zazueta, every day D.OYen Tramadol HCL 09/02/ Active Tablets 50mg 1 tab po Unknown 2019 four times daily per Vistaril 08/27/ Active Capsules 25mg take one Unknown 2019 capsule by mouth for sleep at night Clotrimazole 08/13/ Active Cream 1% 56gm Apply to R21 James, Anti-Fungal 2019 affected [place], areas bid M.D. B37.9 Sfcxltqjy-Gvmqg-D88-Acetylcyst 08/06/2018 Active Tablets 6-90.314-2-600mg 90tabs Take 1 G90.09 Soplarryk, tablet by Hattie, mouth daily D.O. for nutritional support E53.8 F50.9 Cyclobenzaprine 05/01/2018 Active Tablets 10mg TK 1 T PO 2 To Unknown HCL 3 Times A Day as Needed. MDD 3 Cane 03/27/2018 Active Standard 1u Use to assist M7 maxx Ramirez with walking 9. Gabriel ts and balance 67 M.D. 2 Proair HFA 01/30/2018 Active Aerosol 108(90 8. 2 puff Every R0 Sopchak, Base) 5u 4-6 Hours, as 6. Hattie, mcg/Ac ni Needed 00 D.O. t ts Sulindac 11/13/2017 Active Tablets 150mg 18 150 mg orally M2 Soplarryk, 0t twice daily 5. Hattie ab 56 D.O. s 9 Flonase Allergy 05/26/2017 Active Suspension 50mcg/ 47 2 sprays twice J0 Sopchak, Relief Act .4 a day until 1. Hattie, 00 better. 00 D.O. ml Metoprolol 04/14/2017 Active Tablets ER 50mg 30 1 By Mouth I1 Sopchak, Succinate ER 24HR ta Every Day 0 Hattie bs D.O. Magox 400 02/24/2016 Active Tablets 400(24 18 2 tablets every E6 Sopchak, 1.3mg) 0t night at 6. Hattie mg ab bedtime as 01 D.O. s directed Vitamin D3 02/24/2016 Active Tablets 5000Un 90 1 tab by mouth E5 Sopchak, it ta every day or 7 5. aidan Zazueta tabs once a 9 D.O. week Multivitamin Adult 01/06/2016 Active Tablets 90 1 by mouth E6 Sopchak, ta every day 6. aidan Zazueta 01 D.O. Blood Pressure 07/07/2014 Active Misc I1 Sopchak, Monitor 0 Hattie, Digital/Automatic D.O. Fluconazole 08/13/2018 - Hx Tablets 150mg [...] 01 M.D. Nystatin 10/30/2017 - Hx Ointment 102554 60 apply to R2 James, 08/13/2018 Unit/G gm affected areas 1 Michelet Rios (not feet) 2-3 M.D. times a day until rash has gone for at least 2 days B37.9 Citalopram 10/20/2017 - Hx Tablets 20mg 90tabs 1 by mouth F43.23 Sopchak, Hydrobromide 01/05/2018 every day Karan Zazueta Citalopram 10/12/2017 - Hx Tablets 10mg 90tabs 1 by mouth F43.23 Sopchak, Hydrobromide 10/20/2017 every day Karan Zazueta Escitalopram Oxalate 10/09/2017 - Hx Tablets 10mg 90tabs 1/2 tablets F43.23 Silcoff, 10/12/2017 by mouth Gabriel, daily M.D. Citalopram 10/03/2017 - Hx Tablets 10mg 60tabs 1 tab every F43.23 Silcoff, Hydrobromide 10/09/2017 morning x 5 Gabriel, days then M.D. can increased to 2 tabs every morning Escitalopram Oxalate 08/31/2017 - Hx Tablets 10mg 90tabs 1 tablets F33.9 Sopchak, 10/02/2017 by mouth Hattie, daily D.O. Oxycodone HCL 08/31/2017 - Hx Capsules 5mg 60caps Take 1 M54.16 Sulyk , 10/12/2017 capsule by Hattie, mouth every D.O. 6 hours as needed for pain Potassium Chloride ER 05/30/2017 - Hx Capsules 10Meq 90caps 1 by mouth Eliseo, 08/30/2017 ER every day Hattie, with each D.O. tablet of furosemide Amoxicillin/Clavulana 05/26/2017 - Hx Tablets 875-1 20tabs 1 by mouth J01.00 Eliseo te Potassium 06/05/2017 25mg twice a day Hattie, D.O. Afrin Sinus 05/26/2017 - Hx Solution 0.05% 15ml inhale 2 J01.00 Sopchak , 05/29/2017 sprays into Hattie, nostril 2 D.O. times per day every 10 to 12 hours as needed for stuffy nose for 3 days only! Hydrochlorothiazide 04/24/2017 - Hx Tablets 25mg take 1 Unknown 04/25/2017 tablet every morning for high blood pressure Escitalopram Oxalate 04/14/2017 - Hx Tablets 20mg 90tabs 1 by mouth F33.9 Sopchak, 08/31/2017 every day Hattie, D.O. Actigall 04/14/2017 - Hx Capsules 300mg 270caps [facility].10 [facility] 08/30[facility]2017 Capsule By Hattie, Mouth Three D.O. Times A Day For Gallstones Escitalopram Oxalate 12/07/2016 - Hx Tablets 10mg 90tabs 1 tablets F33.9 Sopchak, 04/14/2017 by mouth Hattie, daily D.O. Citalopram 07/27/2016 - Hx Tablets 10mg 30tabs 1 by mouth F33.9 [facility] , Hydrobromide 08/16/2016 every day Hattie, D.O. Hydrochlorothiazide 07/16/2016 - Hx Tablets 25mg 90tabs take 1 I10 Sopchak, 12/07/2016 tablet by Hattie, mouth daily D.O. Diclofenac Sodium 06/16/2016 - Hx Tablets DR 50mg 90tabs Take 1 M25.569 [facility], 11/13/2017 Tablet By Hattie, Mouth 3 D.O. Times Per Day With Food Or Milk For Arthritis Metoprolol Succinate 04/26/2016 - Hx Tablets ER 50mg 30tabs 1 by mouth I10 Sopchak, ER 04/14/2017 24HR every day Hattie, D.O. Potassium Chloride ER 04/12/2016 - Hx Capsules 10Meq 90caps 1 by mouth Sopchak, 07/27/2016 ER every day Hattie, with each D.O. tablet of furosemide Metoprolol Succinate 02/24/2016 - Hx Tablets ER 100mg 90tabs take one I10 Sopchak, ER 04/26/2016 24HR tablet by Hattie, mouth every D.O. morning for blood pressure Phendimetrazine 10/30/2015 - Hx Tablets 35mg 180tabs Take 2 [facility]66.01 [facility] Tart[facility] 01/06/2016 tablets by Hattie, mouth 3 D.O. times per day 1 hour before a meal for weight loss Diflucan 09/02/2015 - Hx Tablets 150mg 2tabs 1 cap by [facility], 09/04/2015 mouth 3 Hattie, days apart. D.O. Singulair 11/03/2014 - Hx Tablets 10mg 30tabs 1 tablet [facility] 493.00 [facility], 12/03/2014 mouth once Hattie, daily for D.O. allergies Irbesartan 11/03/2014 - Hx Tablets 75mg 30tabs 1 by mouth 401.1 [facility] , 12/03/2014 every day Vinayak Zazueta. Azithromycin 10/14/2014 - Hx Tablets 250mg 6tabs take 2 466.0 [facility], 10/19/2014 tablets by Hattie, mouth one D.O. time on the first day then take 1 tablet by mouth daily for 4 days Dulera 10/03/2014 - Hx Aerosol 100-5 2 puffs 493.00 [facility], 12/04/2014 mcg/A twice a day Hattie ct D.O. Diflucan 07/29/2014 - Hx Tablets 150mg 1tabs 1 cap by Eliseo, 2014 mouth once Hattie, D.O. Lisinopril 07/16/2014 - Hx Tablets 10mg 90tabs take 1 401.1 Silcoff, 11/03/2014 tablet by Gabriel, mouth daily M.D. for high blood pressure Tramadol HCL 07/07/2014 - Hx Tablets 50mg 90tabs 1 tab three M25.562 [facility], 08/31/2017 times a day Hattie, as needed D.O. for pain Prednisone 07/07/2014 - Hx Tablets 20mg 10tabs 2 tab every 719.46 [facility], 07/12/2014 morning for Hattie, 5 days D.O. Diclofenac Potassium 07/07/2014 - Hx Tablets 50mg 60tabs 1 by mouth M17.11 [facility], 04/26/2016 twice a day Vinayak Zazueta. M72.2 Z01.818 Valium 06/16/2014 - Hx Tablets [...] Hx Tablets DR 75mg 1 qd Unknown 07/07/2014 Proair HFA 11/26/2013 - Hx Aerosol [...] 12/02/2013 cramps Omeprazole 11/26/2013 - Hx Capsules DR 20mg 90caps 1 By Mouth K21 Silcokimberli, 09/03/2018 Every Day .9 Justin Rios Phendimetrazine 05/15/2013 - Hx Tablets 35mg 90tabs 1 by mouth 278 Silcoff, Tartrate 06/03/2014 2-3 times a .00 Gabriel, day before M.DYen meals for weight loss Metoprolol - Hx Tablets 50mg 180tabs 1 by mouth I10 Cj AYen Tartrate 02/24/2016 every day for jeffery Saleh M.D. pressure control Amoxicillin/Clavul - Hx Tablets [...] CPT Code Status Date Vaccine Lot # [id number] Given 04/20/2018 Influenza Virus Vaccine, Quadrivalent, Split, [id number] Preservative Free 59786 Given 04/20/2018 Prevnar 13 [id number] 31890 Given 04/14/2017 Influenza Virus Vaccine, Quadrivalent, Split, [id number] Preservative Free 01033 Given 04/07/2016 Influenza Virus Vaccine, Quadrivalent, Split, [id number] Preservative Free 24971 Given 05/16/2015 Influenza Virus Vaccine, Quadrivalent, Split, [id number] Preservative Free 92033 Given 06/10/2014 Flu, Split Virus 3Yrs [id number] 60071 Given 12/10/2013 Adacel or Boostrix, TDaP 96273 Given 06/22/2012 Adacel or Boostrix, TDaP 75842 Given 04/29/2011 Pneumococcal Immunization 42087 Given 04/29/2011 Flu, Split Virus 3Yrs 09147 Given 05/29/2009 Flu, Split Virus 3Yrs 79347 Ordered 11/28/2013 Adacel or Boostrix, TDaP Vital [...] H/L Range Note CBC Auto Diff 09/03/2018 [facility] White Blood 7.5 10^3/uL N 3.5- 10.8 [phone] Count Red Blood Count 4.83 10^6/uL N [...] Cells % 0 Comp Metabolic Panel 09/03/2018 [facility] Sodium 139 mmol/L N 135- 145 [phone] Potassium 4.3 mmol/L N 3.5-5.0 Chloride 103 [...] 102.1 >60 1 Laboratory test finding 09/03/2018 [facility] Amylase 20 U/L Low 29- 103 [phone] Lipase 17 U/L N 11.0-82.0 Magnesium 1.7 mg/dL Low 1.9-2.7 Erythrocyte Sed Rate 21 mm/Hr N 0-30 C Reactive Protein 2.40 mg/L N <8.01 Urine Culture And 09/02/2018 [facility] Urine SEE RESULT 2, 3 Sensitivities [phone] Culture BELOW Poc Urinalysis 09/02/2018 [facility] Poc Glucose, Negative Negative [phone] Urine Poc Bilirubin, Urine Negative Negative Poc Ketone, Urine Negative Negative Poc Specific [place], Urine 1.025 N 1.010-1.030 Poc Blood, Urine Negative Negative Poc pH, Urine 6.0 N 5-9 Poc Protein, Urine Negative Negative Poc Urobilinogen, Urine 0.2 Negative Poc Nitrite, Urine Negative Negative Poc Leukocytes, Urine Trace Abnormal Negative Poc Color, Urine Dark yellow Poc Clarity, Urine Clear 4 Ua Inhouse 03/15/2018 In House Ua Glucose - 5 Ua Bilirubin - Ua Ketones - Ua Specific [place] 1.030 Ua Blood - Ua PH 6.0 Ua Protein - Ua Urobilinogen - Ua Nitrite - Ua Leukocytes - Basic Metabolic Panel 03/09/2018 [facility] Sodium 140 mmol/L N 135- 145 [phone] Potassium 4.2 mmol/L N 3.5-5.0 Chloride 105 mmol/L N 101-111 Co2 Carbon Dioxide 28 mmol/L N 22-32 Anion Gap 7 mmol/L N 2-11 Glucose 83 mg/dL N 70-100 Blood Urea Nitrogen 18 mg/dL N 6-24 Creatinine 0.60 mg/dL N 0.51-0.95 BUN/Creatinine Ratio 30.0 High 8-20 Calcium 9.2 mg/dL N 8.6-10.3 Egfr Non- 104.6 >60 Egfr 126.5 >60 6 Laboratory test 03/09/2018 [facility] C Reactive Protein 1.35 mg/L N <8.01 7 finding [phone] TSH (Thyroid Stim Horm) 1.60 mcIU/mL N 0.34-5.60 8 Free T4 (Free Thyroxine) 1.02 ng/dL N 0.61-1.12 9 Folic Acid (Folate) > 20.00 ng/mL >3.99 10 Vitamin B12 336 pg/mL N 180-914 11 Erythrocyte Sed Rate 22 mm/Hr N 0-30 12 Laboratory test 01/09/2018 [facility] Surgical SEE RESULT 13 finding [phone] Pathology BELOW Laboratory test 12/08/2017 [facility] Surgical SEE RESULT 14 finding [phone] Pathology BELOW GC/Chlamydia 12/05/2017 [facility] Chlamydia Negative Negative Amplified Rna [phone] trachomatis Rna Neisseria gonorrhoeae (GC) Rna Negative Negative Laboratory test 12/05/2017 [facility] Cytology SEE RESULT 15 finding [phone] BELOW Laboratory test 10/30/2017 [facility] Insulin Level 6.6 2.6 16 finding [phone] mcIU/mL - 24.9 Laboratory test 10/17/2017 [facility]. Sedimentation Rate 17 mm /hr N 0-30 17, 18 finding LABORATORY [phone] C-Reactive Protein,Quant < 2.9 mg/L <3.0 Magnesium 1.9 mg/dL N 1.8-2.4 Thyroid Stim Hormone 1.46 uIU/mL N 0.30-4.20 Vitamin B12 460 pg/mL N [phone] CBC Auto Diff 10/17/2017 [facility]. White Blood 7.2 K/uL N 3.1-10.7 LABORATORY Count [phone] Red Blood Count 4.72 M/uL N 3.90-5.40 [...] 40.4-72.8 Lymph % 30.5 % N 20.0-42.0 [place] % 7.1 % N 4.3-13.2 Eo% 1.7 % N 0.0-6.6 Bas% 0.3 % N 0.0-1.1 Neut# 4.37 K/uL N 1.8-7.0 Lymph # 2.20 K/uL N 1.0-4.0 [place] # 0.51 K/uL N 0.3-0.9 Eos # 0.12 K/uL N 0.0-0.5 Baso # 0.02 K/uL N 0.0-0.1 Comp Metabolic Panel 10/17/2017 [facility]. Glucose 97 mg/dL N 74-106 LABORATORY [phone] BUN 16 mg/dL N 7-18 Creatinine 0.7 [...] U/L N 45-117 Comprehensive Yovana 10/17/2017 [facility] Anti-Dna <1 IU/mL 0 -9 20 Panel LABORATORY Antibody [phone] (Makah) SM Antibody <0.2 AI 0.0-0.9 DEVELOPING MACHINE OPERATOR Antibody <0.2 AI 0.0-0.9 Sjogrens Antibodies (Ssa) <0.2 AI 0.0-0.9 Antichromatin Antibodies <0.2 AI 0.0-0.9 Radha-1 Antibody <0.2 AI 0.0-0.9 Sjogrens Antibodies (SSB) <0.2 AI 0.0-0.9 Centromere B Antibodies < 0.2 AI 0.0-0.9 Scleroderma Antibodies, SCL-70 <0.2 AI 0.0-0.9 See below: (SEE NOTE) 21 CBC Auto Diff 08/31/2017 [facility] White Blood Count 6.7 10^3/uL N 3.5-10.8 [phone] Red Blood Count 4.51 10^6/uL N 4.0-5.4 [...] Cells % 0.1 Comp Metabolic Panel 08/31/2017 [facility] Sodium 139 mmol/L N 133- 145 [phone] Potassium 4.1 mmol/L N 3.5-5.0 Chloride 102 [...] Egfr 112.6 >60 22 Laboratory test 08/31/2017 [facility] C Reactive < 1.00 mg/L N < 5.00 23 finding [phone] Protein Erythrocyte Sed Rate 19 mm/Hr N 0-30 Magnesium 1.7 mg/dL Low 1.9-2.7 TSH (Thyroid Stim Horm) 2.82 mcIU/mL N 0.34-5.60 Uric Acid 5.0 mg/dL N 2.3-6.6 Vitamin B12 362 pg/mL N 180-914 24 Laboratory test 04/14/2017 [facility] Magnesium 1.8 mg/dL Low 1.9- 2.7 finding [phone] CBC Auto Diff 04/14/2017 [facility] White Blood 6.2 10^3/uL N 3.5- 10.8 [phone] Count Red Blood Count 4.50 10^6/uL N [...] % 0.1 N Comp Metabolic Panel 04/14/2017 [facility] Sodium 140 mmol/L N 133- 145 [phone] Potassium 3.3 mmol/L Low 3.5-5.0 Chloride 100 [...] 109.4 N >60 25 Laboratory test 04/14/2017 [facility] Erythrocyte Sed Rate 19 mm/Hr N 0-30 finding [phone] TSH (Thyroid Stim Horm) 1.36 mcIU/mL N 0.34-5.60 Phosphorus 3.2 mg/dL N 2.5-5.0 Vitamin B12 > 1450 pg/mL High 180-914 26 Vitamin D Total 25(Oh) 26.5 ng/mL N 20-50 Folic Acid (Folate) 17.43 ng/mL N >3.99 CBS W/Automated 04/03/2017 [facility]. White Blood 7.6 K/uL N 3.1-10.7 27 Diff LABORATORY Count [phone] Red Blood Count 4.51 M/uL N 3.90-5.40 [...] 40.4-72.8 Lymph % 45.1 % High 20.0-42.0 [place] % 8.2 % N 4.3-13.2 Eo% 1.1 % N 0.0-6.6 Bas% 0.3 % N 0.0-1.1 Neut# 3.43 K/uL N 1.8-7.0 Lymph # 3.41 K/uL N 1.0-4.0 [place] # 0.62 K/uL N 0.3-0.9 Eos # 0.08 K/uL N 0.0-0.5 Baso # 0.02 K/uL N 0.0-0.1 Laboratory test 04/03/2017 [facility]. D-Dimer, 0.25 28 finding LABORATORY Quantitative ug/mL [phone] Comprehensive 04/03/2017 [facility]. Glucose 118 mg/dL High 74-1 Metabolic Panel LABORATORY 06 [phone] BUN 25 mg/dL High 7-18 Creatinine 0.8 [...] U/L N 45-117 Laboratory test finding 04/03/2017 [facility] Lipase 120 U/L N 73-393 LABORATORY [phone] HCG,Serum (Qualitative) NEGATIVE (Negative) Ua RFX Micro & 04/03/2017 [facility] Urine Color YELLOW Yellow Culture II LABORATORY [phone] Urine Clarity CLEAR Clear Urine Glucose - Dipstick NEGATIVE mg/dL Negative Urine Bilirubin - Dipstick NEGATIVE Negative Urine Ketone NEGATIVE mg/dL Negative Urine Specific [place] 1.025 N 1.010-1.030 Urine Blood NEGATIVE Negative Urine PH 5.5 Low 6.5-7.5 Urine Protein - Dipstick NEGATIVE mg/dL Negative Urine Urobilinogen - Dipstick 0.2 E.U./dL N 0.2-1.0 Urine Nitrite - Dipstick NEGATIVE Negative Urine Leuk Esterase NEGATIVE Negative Source: URINE, CLEAN CAT <SEE NOTE> 30 CBC No Diff 12/09/2016 [facility] White Blood Count 8.3 10^3/uL N 3.5 -10.8 [phone] Red Blood Count 4.56 10^6/uL N 4.0-5.4 Hemoglobin 14.1 g/dL N 12.0-16.0 Hematocrit 42 % N 35-47 Mean Corpuscular Volume 92 fL N 80-97 Mean Corpuscular Hemoglobin 31 pg N 27-31 Mean Corpuscular HGB Conc 34 g/dL N 31-36 Red Cell Distribution Width 14 % N 10.5-15 Platelet Count 304 10^3/uL N 150-450 Mean Platelet Volume 9 um3 N 7.4-10.4 Laboratory test 12/09/2016 [facility] Hemoglobin A1c 5.0 % N Less than 31 finding [phone] (Glyco HGB) 6.0 Comp Metabolic 12/09/2016 [facility] Sodium 142 mmol/L N 133-145 Panel [phone] Potassium 3.3 mmol/L Low 3.5-5.0 Chloride 102 [...] 102.8 N >60 32 Lipid Profile 12/09/2016 [facility] Triglycerides 109 mg/dL N 33 (Trig/Chol/HDL) [phone] Cholesterol 211 mg/dL N 34 HDL Cholesterol 40.8 mg/dL N 35 LDL Cholesterol 148 mg/dL N 36 Laboratory test finding 12/09/2016 [facility] Magnesium 1.6 mg/dL Low 1.9-2.7 [phone] TSH (Thyroid Stim Horm) 2.28 mcIU/mL N 0.34-5.60 T3 Free 3.10 pg/mL N 2.5-3.9 Free T4 (Free Thyroxine) 1.03 ng/dL N 0.61-1.12 Vitamin B12 118 pg/mL Low 180-914 37 Vitamin D Total 25(Oh) 17.2 ng/mL Low 30-50 Insulin Level 11.3 mcIU/mL N 2.6 - 24.9 38 Aot Request 07/13/2016 [facility]. Aot Request Test(s) added N 39, 40 LABORATORY [phone] Tests to be added: RPR, FT4, TSH Instructions: ADD ON TO ER BLO <SEE NOTE> 41 Urinalysis With 07/12/2016 [facility]. Urine Color YELLOW N Yellow Microscopic LABORATORY [phone] Urine Clarity SL CLOUDY N Clear Urine Glucose - Dipstick NEGATIVE mg/dL N Negative Urine Bilirubin - Dipstick NEGATIVE N Negative Urine Ketone NEGATIVE mg/dL N Negative Urine Specific [place] >=1.030 N 1.010-1.030 Urine Blood MODERATE Abnormal [...] CLEAN CAT <SEE NOTE> 43 Chlamydia/GC 07/12/2016 [facility]. Chlamydia Negative N Negative Martha, Urine LABORATORY Trachomatis,Ur [phone] -Martha Neisseria Gonorrhoeae,Ur -Martha Negative N Negative 44 CBS W/Automated 07/12/2016 [facility]. White Blood 7.1 K/uL N 3.1-10.7 Diff LABORATORY Count [phone] Red Blood Count 4.67 M/uL N 3.90-5.40 [...] 40.4-72.8 Lymph % 34.1 % N 17.0-46.1 [place] % 9.3 % N 4.3-13.2 Eo% 1.4 % N 0.0-6.6 Bas% 0.3 % N 0.0-1.1 Neut# 3.89 K/uL N 1.8-7.0 Lymph # 2.42 K/uL N 1.8-7.0 [place] # 0.66 K/uL N 0.3-0.9 Eos # 0.10 K/uL N 0.0-0.5 Baso # 0.02 K/uL N 0.0-0.1 Laboratory test 07/12/2016 [facility]. Ethyl Alcohol < 3.0 mg/ dL N finding LABORATORY [phone] Comprehensive 07/12/2016 [facility]. Glucose 100 mg/dL N 74- 106 Metabolic Panel LABORATORY [phone] BUN 12 mg/dL N 7-18 Creatinine 0.8 [...] Phosphatase 64 U/L N 45-117 Laboratory 07/12/2016 [facility] Treponema Nonreactive N Nonreactive 46 test finding LABORATORY Antibody [phone] Giles Urine Culture 07/12/2016 [facility] Urine URETHRAL RENAE LABORATORY Culture [phone] Quantity > 100,000 CFU/mL N 47 Laboratory test 07/12/2016 [facility]. Ethyl Alcohol < 3.0 mg/ dL N 48 finding LABORATORY [phone] Drugs Of 07/12/2016 [facility]. Amphetamines Negative N Abuse-Urine LABORATORY (Urine) Screen 7 [phone] Barbiturates (Urine) Negative N Benzodiazepines (Urine) Negative N Cannabinoids (Urine) Negative N Cocaine Metabolite (Urine) Negative N Methadone (Urine) Negative N Opiates (Urine) Negative N Urine Cutoffs * N 49 Basic Metabolic Panel 07/05/2016 [facility] Sodium 139 mmol/L N 133- 145 [phone] Potassium 4.1 mmol/L N 3.5-5.0 Chloride 102 [...] N >60 50 Basic Metabolic Panel 04/07/2016 [facility] Sodium 140 mmol/L N 133- 145 [phone] Potassium 3.4 mmol/L Low 3.5-5.0 Chloride 101 mmol/L N 101-111 Co2 Carbon Dioxide 28 mmol/L N 22-32 Anion Gap 11 mmol/L N 2-11 Glucose 98 mg/dL N 70-100 Blood Urea Nitrogen 14 mg/dL N 6-24 Creatinine 0.84 mg/dL N 0.51-0.95 BUN/Creatinine Ratio 16.7 N 8-20 Calcium 9.5 mg/dL N 8.6-10.3 Egfr Non- 71.5 N >60 Egfr 91.9 N >60 51 Laboratory test 01/26/2016 [facility] C Reactive 5.31 mg/L High < 5.00 52 finding [phone] Protein Methylmalonic Acid Mma 0.12 nmol/mL N <=0.40 53 Laboratory test 01/07/2016 [facility] Vitamin B12 475 pg/mL [phone] 54 finding LABORATORY [phone] Magnesium 1.8 mg/dL 1.8-2.4 Vitamin B1 (Thiamine),WB 93.1 nmol/L 66.5-200.0 Copper, Serum 132 g/dL 72-166 55 Zinc, Whole Blood 676 g/dL 440-860 56 Vitamin D,25-Hydroxy 22.0 ng/mL Low 30.0-100.0 57 Chlamydia/GC 12/16/2015 [facility]. Chlamydia Negative Negative Martha, Urine LABORATORY Trachomatis,Ur [phone] -Martha Neisseria Gonorrhoeae,Ur -Martha Negative Negative 58 Laboratory test 12/15/2015 [facility] Urine HCG NEGATIVE Negative 59 finding LABORATORY (Sxhegtbleao) [phone] Urinalysis With 12/15/2015 [facility] Urine Color RED Yellow Microscopic LABORATORY [phone] Urine Clarity CLOUDY Clear Urine Glucose - Dipstick 100 mg/dL High Negative Urine Bilirubin - Dipstick MODERATE High Negative Urine Ketone TRACE mg/dL High Negative Urine Specific [place] 1.010 1.010-1.030 Urine Blood LARGE High Negative [...] Amorph Sediment SMALL Negative Laboratory test 12/15/2015 [facility]. Culture If See Note 60 finding LABORATORY Indicated Comment [phone] Ua RFX Micro + Culture II See Note 61 Urine Culture See Note 62 Comp Metabolic Panel 12/02/2015 [facility] Sodium 138 mmol/L N 133- 145 [phone] Potassium 3.6 mmol/L N 3.5-5.0 Chloride 98 [...] Egfr 95.9 N >60 63 Protein 12/02/2015 [facility] Total 7.4 g/dL N 6.3 - Electrophoresis [phone] Protein(Pep) 7.9 Albumin 3.2 g/dL Abnormal 3.4-4.7 Alpha-1 Globulin 0.3 g/dL N 0.1-0.3 Alpha-2 Globulin 1.1 g/dL Abnormal 0.6-1.0 Beta Globulin 1.5 g/dL Abnormal 0.7-1.2 Gamma Globulin 1.3 g/dL N 0.6-1.6 Albumin/Globulin Ratio 0.78 N Impression See Comment N 64 Laboratory test 05/25/2015 [facility] Trichomonas Negative N Negative 65, 66 finding [phone] vaginalis Rna Gardnerella/Yeast: Vaginal Dna SEE RESULT BELOW 67 GC/Chlamydia 05/25/2015 [facility] Chlamydia Negative N Negative Amplified Rna [phone] trachomatis Rna Neisseria gonorrhoeae (GC) Rna Negative N Negative 68 Urine Micro Inhouse 01/22/2015 In House Ua WBC - 69 Ua RBC - Ua Casts - Ua Epi - Ua Other - Ua Glucose - Ua Bilirubin - Ua Ketones - Ua Specific [place] 1.010 Ua Blood - Ua PH 5.0 Ua Protein - Ua Urobilinogen - Ua Nitrite - Ua Leukocytes - Comp Metabolic Panel 01/15/2015 [facility] Sodium 138 mmol/L N 133- 145 [phone] Potassium 4.3 mmol/L N 3.5-5.0 Chloride 103 [...] 110.3 N >60 70 Lipid Profile 01/15/2015 [facility] Triglycerides 102 mg/dL N 71 (Trig/Chol/HDL) [phone] Cholesterol 189 mg/dL N 72 HDL Cholesterol 39.4 mg/dL N 73 LDL Cholesterol 129 mg/dL N 74 Comprehensive 09/25/2014 [facility]. Glucose 108 mg/dL High 74-106 Metabolic Panel LABORATORY [phone] BUN 12 mg/dL 7-18 Creatinine 0.8 mg/dL [...] Phosphatase 104 U/L 45-117 Laboratory test 09/25/2014 [facility]. Troponin-I < 0.02 ng/mL 77 finding LABORATORY [phone] Thyroid Stim Hormone 2.45 uIU/mL 0.36-3.74 CBC/Manual 09/25/2014 [facility]. White Blood 8.0 K/uL 3.1- 10.7 Differential LABORATORY Count [phone] Red Blood Count 4.47 M/uL 3.90-5.40 Hemoglobin [...] % 0-2 Stomatocyte 2+ Laboratory test 09/25/2014 [facility]. D-Dimer, 1.09 ug/mL High 78 finding LABORATORY Quantitative [phone] CBC Auto Diff 07/07/2014 [facility] White Blood Count 7.5 N 4.8-7 [phone] 10^3/uL 0.8 Red Blood Count 4.40 10^6/uL [...] % 0.1 N Comp Metabolic Panel 07/07/2014 [facility] Sodium 139 mmol/L N 133- 145 [phone] Potassium 3.8 mmol/L N 3.5-5.0 Chloride 104 [...] 116.3 N >60 79 Laboratory test 07/07/2014 [facility] Erythrocyte Sed 29 mm/Hr High 0 -14 finding [phone] Rate Uric Acid 6.6 mg/dL N 2.3-6.6 Laboratory test 06/10/2014 [facility] Erythrocyte Sed 27 mm/Hr High 0 -14 finding [phone] Rate CBC Auto Diff 06/10/2014 [facility] White Blood Count 7.8 N 4.8-10.8 [phone] 10^3/uL Red Blood Count 4.38 10^6/uL N [...] Blood Cells % 0.1 N Wound 12/10/2013 [facility] Wound/Misc (SEE 80 Culture/Sensi [phone] Culture-Gram NOTE) Stain Laboratory test 11/29/2013 [facility]. Sedimentation 30 mm/hr High 0-20 81 finding LABORATORY Rate [phone] CBC/Manual 11/29/2013 [facility]. White Blood Count 7.2 K/uL 3.1- Differential LABORATORY 10.7 [phone] Red Blood Count 4.49 M/uL 3.90-5.40 Hemoglobin [...] RBC Morphology NORMAL Laboratory test finding 11/29/2013 [facility]. Amylase 23 U/L 18-98 82 LABORATORY [phone] Lipase 121 U/L 28-380 83 Comprehensive 11/29/2013 [facility]. Glucose 103 mg/dL 76- 115 Metabolic Panel LABORATORY [phone] BUN 17 mg/dL 5-23 Creatinine 0.8 mg/dL [...] 5 Kidney failure <15 (or dialysis) 2 [id number] 3 SEE RESULT BELOW Name: EILEEN BRADY : [address]: Gurinder Alston MD Acct: [id number] Unit: [id number] AGE: 53 Location: [facility] Re09/02/18 SEX: F Status: DEP ER SPEC: [id number] NATA: 09/02/18-[address] [facility] [address]: Gurinder Alston MD REQ: [id number] RECD: 09/03/18-1051 STATUS: JI CASTILLO DR: Krysta Nevaeh Lawson DO _ SOURCE: URINE SPDESC: ORDERED: Urine Culture COMMENTS: [id number] Procedure Result Reported Site Urine Culture Final 09/04/18- 1245 ML No Growth (<1,000 CFU/mL) * ML - Main Lab . END OF REPORT DEPARTMENT OF PATHOLOGY, [address] [place] [address] Cameron Rojas M.D. Director [facility] # [id number] 4 District Wildlife Manager: [id number] 5 void, clear, dark yellow 6 Because [...] 5 Kidney failure <15 (or dialysis) 7 [email or web address] Copy Result to: HATTIE LAWSON ([id number]) 8 [email or web address] Copy Result to: HATTIE LAWSON ([id number]) 9 [facility] Copy Result to: HATTIE LAWSON ([id number]) 10 [facility] Copy Result to: HATTIE LAWSON ([id number]) 11 Normal Range 180 to 914 Indeterminate Range 145 to 180 Deficient Range <145 12 [facility] Copy Result to: HATTIE LAWSON ([id number]) 13 SEE RESULT BELOW Name: EILEEN BRADY : [address]: Jc Eduardo MD Acct: [id number] Unit: [id number] AGE: 52 Location: [place] Re01/09/18 SEX: F Status: REG [facility] SPEC: [id number] NATA: 01/09/18-[address] [facility] [address]: Jc Eduardo MD REQ: [id number] RECD: 01/09/18-1411 STATUS: LINDA CASTILLO DR: Hattie Kapadia MD _ ORDERED: LEVEL 4 FINAL DIAGNOSIS Skin, left medial buttock, wide excision: -- Scar, widely excised. -- No evidence of residual malignant melanoma in situ. COMMENT: The previous lesion at this site ([id number]) has been completely excised. PRE-OPERATIVE DIAGNOSIS Melanoma [...] cassette A. Signed by and Reported on: Deolris Stanton MD 01/10/18 1022 END OF REPORT DEPARTMENT OF PATHOLOGY, [address] [place] [address] Cameron Rojas M.D. Director [facility] # [id number] 14 SEE RESULT BELOW Name: EILEEN BRADY : [address]: Rocio Aguilar MD Acct: [id number] Unit: [id number] AGE: 52 Location: [facility] Re12/08/17 SEX: F Status: REG REF SPEC: [id number] NATA: 12/08/171412 [facility] DR: Rocio Aguilar MD REQ: [id number] RECD: 12/08/17 STATUS: LINDA CASTILLO DR: Hattie Lawson DO _ ORDERED: LEVEL 4, IMMUNO-FIRST, IMMUNO-ADDL COMMENTS: [id number] THIS IS A CORRECTED REPORT 12/21/17 Corrected [...] 1422 END OF REPORT DEPARTMENT OF PATHOLOGY, [address] [place] [address] Cameron Rojas M.D. Director [facility] # [id number] 15 SEE RESULT BELOW Name: EILEEN BRADY : [address]: Rocio Aguilar MD Acct: [id number] Unit: [id number] AGE: 52 Location: [facility] Re12/05/17 SEX: F Status: REG REF SPEC: [id number] NATA: 12/05/[address] [facility] [address]: Rocio Aguilar MD REQ: [id number] RECD: 12/05/17 STATUS: LINDA CASTILLO DR: Hattie Lawson DO _ ORDERED: TP IMAGE ANALYS, HPV/Thin Prep COMMENTS: [id number] Negative for Intraepithelial lesion or Malignancy A. [...] Signed by and Reported on: BARBARA Flower(ASC) 7822 This Pap test was evaluated with the assistance of the [employer] Test Imaging System. Due to cytologic findings at the drivers license examiner microscope, comprehensive manual rescreening by a Bull Rider may be required. The Pap Smear is [...] years. END OF REPORT DEPARTMENT OF PATHOLOGY, [address] [place] [address] Cameron Rojas M.D. Director [facility] # [id number] 16 Test Performed by: [facility] [address] [place] [address] 17 M70.51,E83.42,F50.9, 18 Method: Sediplast Modified Westergren 19 Note: Persistent reduction for 3 months [...] Sm (anti-Alvarez) SLE 15 - 30% --------- DEVELOPING MACHINE OPERATOR Mixed Connective Tissue Disease 95% (U1 nRNP, SLE 30 - 50% anti-ribonucleoprotein) Polymyositis and/or Dermatomyositis 20% --------- Scl-70 (antiDNA Scleroderma (diffuse) 20 - 35% topoisomerase) Crest 13% --------- Radha-1 Polymyositis and/or Dermatomyositis 20 - 40% --------- Centromere B Scleroderma - Crest variant 80% Performed at: RN - [facility] [address] [id number] Hearing Examiner: Maryuri Mckeon MD, Phone: [phone] 22 Because ethnic data is not always [...] and in selective patients <6.0%.Please refer to [place] [employer] Association Diabetic care guidelines for further [...] Deficient Range <145 38 Test Performed by: [place] [id number] PSYCH SERVICES 40 Tests: RPR, FT4, [...] Acute inflammation: >10.00 53 Test Performed by: [facility] [address] [place] [address] Communications Tech: Cj Zuniga II, M.D., Ph.D. 54 QUERY: Is Patient Fasting? N 55 The specimen was not submitted to the testing laboratory in the preferred certified metal free transfer tube. As of February 29, 2016, serum or plasma samples not submitted in the certified metal free transfer tubes will be rejected for trace metal analysis. Detection Limit=5 56 Performed at: [facility] [employer] [id number] Hearing Examiner: Cj Henderson MD, Phone: [phone] 57 Vitamin D deficiency has been defined by the [place] [employer] and an Endocrine Society practice guideline as a level of serum 25-OH vitamin D less than 20 ng/mL (1,2). The Endocrine Society went on to further define vitamin D insufficiency as a level between 21 and 29 ng/mL (2). 1. IOM ([place] [employer]). 2010. Dietary reference intakes for calcium and D. [place]: The National Academies Press. 2. Urban MF, Bill NC, Shikha WINSTON, et al. Evaluation, treatment, and prevention of vitamin D deficiency: an Endocrine Society clinical practice guideline. JCEM. 2010; 96(7):1911-30. Performed at: - [facility] [address] [id number] Hearing Examiner: Maryuri Mckeon MD, Phone: [phone] 58 A negative result for either C. trachomatis and/or N. gonorrhoeae does not preclued an infection because results are dependent on adequate specimen collection, absence of inhibitors, and sufficient DNA to be detected. 59 FIRST MORNING SPECIMENS GENERALLY CONTAIN THE HIGHEST CONCENTRATION OF HCG AND ARE RECOMMENDED FOR EARLY DETECTION OF . 60 CULTURE TO FOLLOW 61 12/15/15 LAB.TOW Deleted by [facility] Group [facility] 62 Organism 1 ! MIXED [...] protein on serum electrophoresis. Test Performed by: [place] [address] Communications Tech: Cj Zuniga II, M.D., Ph.D. 65 [facility] Specimen Source: CERVICAL 66 [facility] Specimen Source: CERVICAL GC/Chlamydia Source?: Endocervical Trichomonas Source: Endocervical 67 SEE RESULT BELOW Name: EILEEN BRADY : [address]: Amy Cleveland MD Acct: [id number] Unit: [id number] AGE: 49 Location: [facility] Re05/25/15 SEX: F Status: DEP ER SPEC: [id number] NATA: 05/25/[address] [facility] [address]: Amy Cleveland MD REQ: [id number] RECD: 05/25/15 STATUS: JI CASTILLO DR: [facility] _ SOURCE: VAGINAL SPDESC: ORDERED: Jory,Yeast DNA [...] or failure. * ML - MAIN LAB ([facility]) . END OF REPORT * ML=Testing performed at Main Lab DEPARTMENT OF PATHOLOGY, [address] [place] [address] Cameron Rojas M.D. Director [facility] # [id number] 68 Female urine specimens have been self-validated by [facility] and have been granted conditional assay approval by [facility]. 69 [id number] 70 Because ethnic data is not always [...] <15 (or dialysis) 80 RUN DATE: 12/12/13 [facility] LAB LIVE PAGE 1 RUN TIME: 2987 [address] [place], [place] [address] Specimen Inquiry Name: EILEEN BRADY : [address]: Payal Anderson MD Acct: [id number] Unit: [id number] AGE: 48 Location: [facility] Re12/10/13 SEX: F Status: DEP ER SPEC: [id number] NATA: 12/10/13-[address] [facility] [address]: Ruth KRISHNAN REQ: [id number] RECD: 12/10/13 STATUS: JI KNOX DR: Payal KRISHNAN _ SOURCE: [facility]: ORDERED: Culture Stain Procedure Result Verified Site Wound/Misc Gram Stain Final 12/10/13- 1513 ML 3+ Polys 2+ Gram Positive Cocci Possible 1+ Gram Positive Bacilli Wound/Misc Culture Final 12/12/13- 1105 ML Organism 1 NORMAL RENAE Quantity 2+ END OF REPORT * ML=Testing performed at Main Lab DEPARTMENT OF PATHOLOGY, [address] [place] [address] Cameron Rojas M.D. Director [facility] # [id number] 81 FAX RESULTS TO CAROLYN Negron [phone] FAX RESULTS TO CAROLYN Negron [phone] FAX RESULTS TO CAROLYN Negron [phone] Note: Persistent reduction for 3 months [...] [email or web address]. Procedures Date Code Description Status 02/21/2018 06159 X-Ray Knee,Ap&Lateral Oblique Views Completed 01/05/2018 04477 Brief Emotional/Behav Assessment W/ Scoring Doc Per Completed Standard Inst 11/13/2017 50443 Brief Emotional/Behav Assessment W/ Scoring Doc Per Completed Standard Inst 05/31/2017 96731368 Mammogram Completed 04/14/2017 33610 SC/Im Injections Completed 05/11/2016 05057 Omt 3 To 4 Body Regions Involved Completed 04/26/2016 64602 Electrocardiogram Complete Completed 04/07/201629472 Inject/Drain Joint/Bursa Major Completed 05/16/2015 86310 SC/Im Injections Completed 05/16/201596744 Inject/Drain Joint/Bursa Major Completed 02/28/2015 48202720 Colonoscopy Completed 02/19/2015 66940 Dexa Bone Density Study One Or More Sites Axial Completed Skeleton 11/03/2014 14481 Bronchospasm Evaluation Pre & Post Completed 09/25/2014 59206 Electrocardiogram Complete Completed 07/07/2014 84585 X-Ray Knee,Ap&Lateral Oblique Views Completed Encounters Type Date Location Provider Dx Diagnosis Office Visit 09/03/2018 Main Office Hattie Lawson, R10.9 Unspecified abdominal 1:45p D.O. pain M72.2 Plantar fascial fibromatosis E66.01 Morbid (severe) obesity due to excess calories K21.9 Gastro-esophageal reflux disease without esophagitis Office Visit 08/13/2018 1:00p Main Office Carolyn Ng E66.9 Obesity, unspecified P.A. B37.9 Candidiasis, unspecified Z71.3 Dietary counseling and surveillance Z68.42 Body mass index (BMI) 45.0-49.9, adult Office Visit 08/06/2018 9:30a Main Office Hattie Lawson D.Ancelmo. M54.5 Low back pain M72.2 Plantar fascial [...] adult Office Visit 03/27/2018 9:20a Main Office Carolyn Marmarth, P.A. M79.672 Pain in left foot J45.21 Mild intermittent asthma with (acute) exacerbation R05 Cough I10 Essential (primary) hypertension Office Visit 03/23/2018 10:45a Main Office Hattie Lawson, M25.561 Pain in right D.O. knee M25.562 Pain in left knee G56.03 Carpal tunnel syndrome, bilateral upper limbs J45.21 Mild intermittent asthma with (acute) exacerbation R12 Heartburn Z79.891 FPC (current) use of opiate analgesic Office Visit [...] Office Visit 12/11/2017 8:40a Main Office Carolyn Ng, E66.01 Morbid ( severe) P.A. obesity due [...] Office Visit 10/30/2017 9:20a Main Office Carolyn Ng, E66.01 Morbid ( severe) P.A. 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 obstruction Office Visit 04/14/2017 9:15a Main Office Hattie Lawson D.OYen E83.42 Hypomagnesemia F50.9 Eating disorder, unspecified F41.9 [...] Z41.8 [facility] 04/24/2015 4:00p Main Office Maddi Loera, E66.01 Morbid (severe) RPA-C obesity due to excess calories I10 Essential (primary) hypertension R07.9 Chest pain, unspecified Z68.43 Body mass index (BMI) 50-59.9 , adult Office Visit 01/22/2015 9:40a Main Office Evaristo, V70.0 Examination [facility] V72.31 Routine Cargo Mate Examination V76.19 Screening Breast Exam Malignant Neoplasms Other V76.2 Screening Malignant Neoplasm Cervix V76.51 Special Screening For Malignant Neoplasms Colon 278.01 Obesity Morbid 401.1 Hypertension Benign V85.44 Body Mass Index 60.0-69.9, Adult 627.9 Menopausal & Postmenopausal Disorder Unspec 782.0 Skin Sensation Disturbance V41.1 Eye Problem Other 781.0 Abnormal Involuntary Movements Office Visit 12/16/2014 Main Office Eliseo, 465.0 Laryngopharyngitis Acute 2:30p Hattie D.Joe 786.2 Cough Office Visit 12/04/2014 3:45p Main Office Hattie Lawson, 493.00 Asthma Extrinsic D.O. Unspecified 401.1 Hypertension Benign 278.01 Obesity Morbid V85.44 Body Mass Index 60.0-69.9, Adult V65.3 Dietary Surveillance & Counseling Office Visit 11/03/2014 4:00p Main Office Hattie Lawson, D.O. 278.01 Obesity Morbid 493.00 Asthma Extrinsic [...] Office Visit 11/27/2013 4:20p Main Office Carolyn Ng 386.11 Vertigo Benign P.A. Paroxysmal Position 786.59 Pain Chest Other 278.00 Obesity Unspec 719.46 Pain Joint Lower Leg 715.16 Osteoarthrosis Localized Prim Lower Leg 789.06 Pain Abdominal Epigastric Plan of Treatment Future Appointment(s):09/25/2018 8:00 am - Jamil Escudero at Main Usiysn61 1:00 pm - Jamil Escudeor at Main Wgdylv1108/13/2018 - Jamil EscuderoE66.9 Obesity, unspecifiedComments:over 25 minutes was spent with pt discussing menu planning , portion sizes and choices.Meal planningsheet reviewed and pt and her wwere shown how to meal plan what they like using the planningtoolstrongly discouraged all cereals, and most breadsdeveloped couple quick breakfast, lunch and dinner meal plans w pt, with foods she likes.also discussed what is often invovled in bariatric surgery and that need to start to develop healthy habits before pursuing for the best longeterm niscxnsX48.9 Candidiasis, unspecifiedNew Medication:Clotrimazole Anti- Fungal 1 % - Apply to affected areas bidFluconazole 150 mg - 1 tabs by mouth 1 time per week x 2 weeks for rashFollow up:also can try some Desitin powder in the fold to help keep dryZ71.3 Dietary counseling and tmklrjyvfbiuT78.42 Body mass index (BMI) 45.0-49.9, adult
--- OUTSIDE RECORDS SUMMARY | 2018-10-09 12:29 | XMS REPORT | Continuity of Care Document ---
:1965 External Reference #:[id number] Author Name Hattie Lawson D.O. 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 B37.9 Liotgukve-Tdmmh-U34-Acetylcyst 08/06/2018 Active Tablets 6-90.314-2-600mg 90tabs Take 1 [...] 01 M.D. Nystatin 10/30/2017 - Hx Ointment [id number] 60 apply to R2 James, 08/13/2018 Unit/G [...] Hx Capsules 300mg 270caps Take One K80.10 [facility] , 08/30/2017 Capsule By Hattie, Mouth Three D.O. Times A Day For Gallstones Escitalopram Oxalate 12/07/2016 - Hx Tablets 10mg 90tabs 1 tablets F33.9 [place], 04/14/2017 by mouth Hattie, daily D.O. Citalopram 07/27/2016 - Hx Tablets 10mg 30tabs 1 by mouth F33.9 [facility] , Hydrobromide 08/16/2016 every day Hattie, D.O. Hydrochlorothiazide 07/16/2016 - Hx Tablets 25mg 90tabs take 1 I10 [place], 12/07/2016 tablet by Hattie, mouth daily D.O. Diclofenac Sodium 06/16/2016 - Hx Tablets DR 50mg 90tabs Take 1 M25.569 [facility], 11/13/2017 Tablet By Hattie, Mouth 3 D.O. [...] Hx Tablets 35mg 180tabs Take 2 E66.01 [facility], Tartrate 01/06/2016 tablets by Hattie, mouth 3 D.O. times per day 1 hour before a meal for weight loss Diflucan 09/02/2015 - Hx Tablets 150mg 2tabs 1 cap by [facility], 09/04/2015 mouth 3 Hattie, days apart. D.O. Singulair 11/03/2014 - Hx Tablets 10mg 30tabs 1 tablet by 493.00 [facility], 12/03/2014 mouth once Hattie, daily for D.O. allergies Irbesartan 11/03/2014 - Hx Tablets 75mg 30tabs 1 by mouth 401.1 [facility] , 12/03/2014 every day Vinayak Zazueta. Azithromycin 10/14/2014 - Hx Tablets 250mg 6tabs take 2 466.0 [facility], 10/19/2014 tablets by Hattie, mouth one D.O. time on the first day then take 1 tablet by mouth daily for 4 days Dulera 10/03/2014 - Hx Aerosol 100-5 2 puffs 493.00 [facility], 12/04/2014 mcg/A twice a day Hattie ct D.O. Diflucan 07/29/2014 - Hx Tablets 150mg 1tabs 1 cap by Eliseo, 2014 mouth once Hattie, D.O. Lisinopril 07/16/2014 - Hx Tablets 10mg 90tabs take 1 401.1 [facility], 11/03/2014 tablet by Gabriel, mouth daily M.D. for high blood pressure Tramadol HCL 07/07/2014 - Hx Tablets 50mg 90tabs 1 tab three M25.562 [facility], 08/31/2017 times a day Hattie, as needed D.O. for pain Prednisone 07/07/2014 - Hx Tablets 20mg 10tabs 2 tab every 719.46 [facility], 07/12/2014 morning for Hattie, 5 days D.O. Diclofenac Potassium 07/07/2014 - Hx Tablets 50mg 60tabs 1 by mouth M17.11 [facility], 04/26/2016 twice a day Vinayak [...] CPT Code Status Date Vaccine Lot # [id number] Given 04/20/2018 Influenza Virus Vaccine, Quadrivalent, Split, [id number] Preservative Free 67131 Given 04/20/2018 Prevnar 13 [id number] 55849 Given 04/14/2017 Influenza Virus Vaccine, Quadrivalent, Split, [id number] Preservative Free 65761 Given 04/07/2016 Influenza Virus Vaccine, Quadrivalent, Split, [id number] Preservative Free 68514 Given 05/16/2015 Influenza Virus Vaccine, Quadrivalent, Split, [id number] Preservative Free 34635 Given 06/10/2014 Flu, Split Virus 3Yrs [id number] 34632 Given 12/10/2013 Adacel or Boostrix, TDaP 86542 Given 06/22/2012 Adacel or Boostrix, TDaP 19728 Given 04/29/2011 Pneumococcal Immunization 68974 Given 04/29/2011 Flu, Split Virus 3Yrs 00215 Given 05/29/2009 Flu, Split Virus 3Yrs 21579 Ordered 11/28/2013 Adacel or Boostrix, TDaP Vital [...] H/L Range Note CBC Auto Diff 09/03/2018 [facility] White Blood 7.5 10^3/uL N 3.5- 10.8 [phone] Count Red Blood Count 4.83 10^6/uL N [...] Cells % 0 Comp Metabolic Panel 09/03/2018 [facility] Sodium 139 mmol/L N 135- 145 [phone] Potassium 4.3 mmol/L N 3.5-5.0 Chloride 103 [...] 102.1 >60 1 Laboratory test finding 09/03/2018 [facility] Amylase 20 U/L Low 29- 103 [phone] Lipase 17 U/L N 11.0-82.0 Magnesium 1.7 mg/dL Low 1.9-2.7 Erythrocyte Sed Rate 21 mm/Hr N 0-30 C Reactive Protein 2.40 mg/L N <8.01 Urine Culture And 09/02/2018 [facility] Urine SEE RESULT 2, 3 Sensitivities [phone] Culture BELOW Poc Urinalysis 09/02/2018 [facility] Poc Glucose, Negative Negative [phone] Urine Poc Bilirubin, Urine Negative Negative Poc Ketone, Urine Negative Negative Poc Specific [place], Urine 1.025 N 1.010-1.030 Poc Blood, Urine Negative Negative Poc pH, Urine 6.0 N 5-9 Poc Protein, Urine Negative Negative Poc Urobilinogen, Urine 0.2 Negative Poc Nitrite, Urine Negative Negative Poc Leukocytes, Urine Trace Abnormal Negative Poc Color, Urine Dark yellow Poc Clarity, Urine Clear 4 Ua Inhouse 03/15/2018 In House Ua Glucose - 5 Ua Bilirubin - Ua Ketones - Ua Specific [place] 1.030 Ua Blood - Ua PH 6.0 Ua Protein - Ua Urobilinogen - Ua Nitrite - Ua Leukocytes - Basic Metabolic Panel 03/09/2018 [facility] Sodium 140 mmol/L N 135- 145 [phone] Potassium 4.2 mmol/L N 3.5-5.0 Chloride 105 mmol/L N 101-111 Co2 Carbon Dioxide 28 mmol/L N 22-32 Anion Gap 7 mmol/L N 2-11 Glucose 83 mg/dL N 70-100 Blood Urea Nitrogen 18 mg/dL N 6-24 Creatinine 0.60 mg/dL N 0.51-0.95 BUN/Creatinine Ratio 30.0 High 8-20 Calcium 9.2 mg/dL N 8.6-10.3 Egfr Non- 104.6 >60 Egfr 126.5 >60 6 Laboratory test 03/09/2018 [facility] C Reactive Protein 1.35 mg/L N <8.01 7 finding [phone] TSH (Thyroid Stim Horm) 1.60 mcIU/mL N 0.34-5.60 8 Free T4 (Free Thyroxine) 1.02 ng/dL N 0.61-1.12 9 Folic Acid (Folate) > 20.00 ng/mL >3.99 10 Vitamin B12 336 pg/mL N 180-914 11 Erythrocyte Sed Rate 22 mm/Hr N 0-30 12 Laboratory test 01/09/2018 [facility] Surgical SEE RESULT 13 finding [phone] Pathology BELOW Laboratory test 12/08/2017 [facility] Surgical SEE RESULT 14 finding [phone] Pathology BELOW GC/Chlamydia 12/05/2017 [facility] Chlamydia Negative Negative Amplified Rna [phone] trachomatis Rna Neisseria gonorrhoeae (GC) Rna Negative Negative Laboratory test 12/05/2017 [facility] Cytology SEE RESULT 15 finding [phone] BELOW Laboratory test 10/30/2017 [facility] Insulin Level 6.6 2.6 16 finding [phone] mcIU/mL - 24.9 Laboratory test 10/17/2017 [facility]. Sedimentation Rate 17 mm /hr N 0-30 17, 18 finding LABORATORY [phone] C-Reactive Protein,Quant < 2.9 mg/L <3.0 Magnesium 1.9 mg/dL N 1.8-2.4 Thyroid Stim Hormone 1.46 uIU/mL N 0.30-4.20 Vitamin B12 460 pg/mL N [phone] CBC Auto Diff 10/17/2017 [facility]. White Blood 7.2 K/uL N 3.1-10.7 LABORATORY Count [phone] Red Blood Count 4.72 M/uL N 3.90-5.40 [...] 40.4-72.8 Lymph % 30.5 % N 20.0-42.0 [place] % 7.1 % N 4.3-13.2 Eo% 1.7 % N 0.0-6.6 Bas% 0.3 % N 0.0-1.1 Neut# 4.37 K/uL N 1.8-7.0 Lymph # 2.20 K/uL N 1.0-4.0 [place] # 0.51 K/uL N 0.3-0.9 Eos # 0.12 K/uL N 0.0-0.5 Baso # 0.02 K/uL N 0.0-0.1 Comp Metabolic Panel 10/17/2017 [facility]. Glucose 97 mg/dL N 74-106 LABORATORY [phone] BUN 16 mg/dL N 7-18 Creatinine 0.7 [...] 78 U/L N 45-117 Comprehensive Yovana 10/17/2017 [facility] Anti-Dna <1 IU/mL 0 -9 20 Panel LABORATORY Antibody [phone] (Pala) SM Antibody <0.2 AI 0.0-0.9 DISTILLERY MILLER Antibody <0.2 AI 0.0-0.9 Sjogrens Antibodies (Ssa) <0.2 AI 0.0-0.9 Antichromatin Antibodies <0.2 AI 0.0-0.9 Radha-1 Antibody <0.2 AI 0.0-0.9 Sjogrens Antibodies (SSB) <0.2 AI 0.0-0.9 Centromere B Antibodies < 0.2 AI 0.0-0.9 Scleroderma Antibodies, SCL-70 <0.2 AI 0.0-0.9 See below: (SEE NOTE) 21 CBC Auto Diff 08/31/2017 [facility] White Blood Count 6.7 10^3/uL N 3.5-10.8 [phone] Red Blood Count 4.51 10^6/uL N 4.0-5.4 [...] Cells % 0.1 Comp Metabolic Panel 08/31/2017 [facility] Sodium 139 mmol/L N 133- 145 [phone] Potassium 4.1 mmol/L N 3.5-5.0 Chloride 102 [...] Egfr 112.6 >60 22 Laboratory test 08/31/2017 [facility] C Reactive < 1.00 mg/L N < 5.00 23 finding [phone] Protein Erythrocyte Sed Rate 19 mm/Hr N 0-30 Magnesium 1.7 mg/dL Low 1.9-2.7 TSH (Thyroid Stim Horm) 2.82 mcIU/mL N 0.34-5.60 Uric Acid 5.0 mg/dL N 2.3-6.6 Vitamin B12 362 pg/mL N 180-914 24 Laboratory test 04/14/2017 [facility] Magnesium 1.8 mg/dL Low 1.9- 2.7 finding [phone] CBC Auto Diff 04/14/2017 [facility] White Blood 6.2 10^3/uL N 3.5- 10.8 [phone] Count Red Blood Count 4.50 10^6/uL N [...] % 0.1 N Comp Metabolic Panel 04/14/2017 [facility] Sodium 140 mmol/L N 133- 145 [phone] Potassium 3.3 mmol/L Low 3.5-5.0 Chloride 100 [...] 109.4 N >60 25 Laboratory test 04/14/2017 [facility] Erythrocyte Sed Rate 19 mm/Hr N 0-30 finding [phone] TSH (Thyroid Stim Horm) 1.36 mcIU/mL N 0.34-5.60 Phosphorus 3.2 mg/dL N 2.5-5.0 Vitamin B12 > 1450 pg/mL High 180-914 26 Vitamin D Total 25(Oh) 26.5 ng/mL N 20-50 Folic Acid (Folate) 17.43 ng/mL N >3.99 CBS W/Automated 04/03/2017 [facility]. White Blood 7.6 K/uL N 3.1-10.7 27 Diff LABORATORY Count [phone] Red Blood Count 4.51 M/uL N 3.90-5.40 [...] 40.4-72.8 Lymph % 45.1 % High 20.0-42.0 [place] % 8.2 % N 4.3-13.2 Eo% 1.1 % N 0.0-6.6 Bas% 0.3 % N 0.0-1.1 Neut# 3.43 K/uL N 1.8-7.0 Lymph # 3.41 K/uL N 1.0-4.0 [place] # 0.62 K/uL N 0.3-0.9 Eos # 0.08 K/uL N 0.0-0.5 Baso # 0.02 K/uL N 0.0-0.1 Laboratory test 04/03/2017 [facility]. D-Dimer, 0.25 28 finding LABORATORY Quantitative ug/mL [phone] Comprehensive 04/03/2017 [facility]. Glucose 118 mg/dL High 74-1 Metabolic Panel LABORATORY 06 [phone] BUN 25 mg/dL High 7-18 Creatinine 0.8 [...] U/L N 45-117 Laboratory test finding 04/03/2017 Replaced By [facility] Lipase 120 U/L N 73-393 LABORATORY [phone] HCG,Serum (Qualitative) NEGATIVE (Negative) Ua RFX Micro & 04/03/2017 Replaced By [facility] Urine Color YELLOW Yellow Culture II LABORATORY [phone] Urine Clarity CLEAR Clear Urine Glucose - Dipstick NEGATIVE mg/dL Negative Urine Bilirubin - Dipstick NEGATIVE Negative Urine Ketone NEGATIVE mg/dL Negative Urine Specific [place] 1.025 N 1.010-1.030 Urine Blood NEGATIVE Negative Urine PH 5.5 Low 6.5-7.5 Urine Protein - Dipstick NEGATIVE mg/dL Negative Urine Urobilinogen - Dipstick 0.2 E.U./dL N 0.2-1.0 Urine Nitrite - Dipstick NEGATIVE Negative Urine Leuk Esterase NEGATIVE Negative Source: URINE, CLEAN CAT <SEE NOTE> 30 CBC No Diff 12/09/2016 [facility] White Blood Count 8.3 10^3/uL N 3.5 -10.8 [phone] Red Blood Count 4.56 10^6/uL N 4.0-5.4 Hemoglobin 14.1 g/dL N 12.0-16.0 Hematocrit 42 % N 35-47 Mean Corpuscular Volume 92 fL N 80-97 Mean Corpuscular Hemoglobin 31 pg N 27-31 Mean Corpuscular HGB Conc 34 g/dL N 31-36 Red Cell Distribution Width 14 % N 10.5-15 Platelet Count 304 10^3/uL N 150-450 Mean Platelet Volume 9 um3 N 7.4-10.4 Laboratory test 12/09/2016 [facility] Hemoglobin A1c 5.0 % N Less than 31 finding [phone] (Glyco HGB) 6.0 Comp Metabolic 12/09/2016 [facility] Sodium 142 mmol/L N 133-145 Panel [phone] Potassium 3.3 mmol/L Low 3.5-5.0 Chloride 102 [...] 102.8 N >60 32 Lipid Profile 12/09/2016 [facility] Triglycerides 109 mg/dL N 33 (Trig/Chol/HDL) [phone] Cholesterol 211 mg/dL N 34 HDL Cholesterol 40.8 mg/dL N 35 LDL Cholesterol 148 mg/dL N 36 Laboratory test finding 12/09/2016 [facility] Magnesium 1.6 mg/dL Low 1.9-2.7 [phone] TSH (Thyroid Stim Horm) 2.28 mcIU/mL N 0.34-5.60 T3 Free 3.10 pg/mL N 2.5-3.9 Free T4 (Free Thyroxine) 1.03 ng/dL N 0.61-1.12 Vitamin B12 118 pg/mL Low 180-914 37 Vitamin D Total 25(Oh) 17.2 ng/mL Low 30-50 Insulin Level 11.3 mcIU/mL N 2.6 - 24.9 38 Aot Request 07/13/2016 [facility]. Aot Request Test(s) added N 39, 40 LABORATORY [phone] Tests to be added: RPR, FT4, TSH Instructions: ADD ON TO ER BLO <SEE NOTE> 41 Urinalysis With 07/12/2016 [facility]. Urine Color YELLOW N Yellow Microscopic LABORATORY [phone] Urine Clarity SL CLOUDY N Clear Urine Glucose - Dipstick NEGATIVE mg/dL N Negative Urine Bilirubin - Dipstick NEGATIVE N Negative Urine Ketone NEGATIVE mg/dL N Negative Urine Specific [place] >=1.030 N 1.010-1.030 Urine Blood MODERATE Abnormal [...] Negative N Negative Martha, Urine LABORATORY Trachomatis,Ur [phone] -Martha Neisseria Gonorrhoeae,Ur -Martha Negative N Negative 44 CBS W/Automated 07/12/2016 [facility]. White Blood 7.1 K/uL N 3.1-10.7 Diff LABORATORY Count [phone] Red Blood Count 4.67 M/uL N 3.90-5.40 [...] 40.4-72.8 Lymph % 34.1 % N 17.0-46.1 [place] % 9.3 % N 4.3-13.2 Eo% 1.4 % N 0.0-6.6 Bas% 0.3 % N 0.0-1.1 Neut# 3.89 K/uL N 1.8-7.0 Lymph # 2.42 K/uL N 1.8-7.0 [place] # 0.66 K/uL N 0.3-0.9 Eos # 0.10 K/uL N 0.0-0.5 Baso # 0.02 K/uL N 0.0-0.1 Laboratory test 07/12/2016 [facility]. Ethyl Alcohol < 3.0 mg/ dL N finding LABORATORY [phone] Comprehensive 07/12/2016 [facility]. Glucose 100 mg/dL N 74- 106 Metabolic Panel LABORATORY [phone] BUN 12 mg/dL N 7-18 Creatinine 0.8 [...] Phosphatase 64 U/L N 45-117 Laboratory 07/12/2016 Replaced By [facility] Treponema Nonreactive N Nonreactive 46 test finding LABORATORY Antibody [phone] Heard Urine Culture 07/12/2016 Replaced By [facility] Urine URETHRAL RENAE LABORATORY Culture [phone] Quantity > 100,000 CFU/mL N 47 Laboratory test 07/12/2016 [facility]. Ethyl Alcohol < 3.0 mg/ dL N 48 finding LABORATORY [phone] Drugs Of 07/12/2016 [facility]. Amphetamines Negative N Abuse-Urine LABORATORY (Urine) Screen 7 [phone] Barbiturates (Urine) Negative N Benzodiazepines (Urine) Negative N Cannabinoids (Urine) Negative N Cocaine Metabolite (Urine) Negative N Methadone (Urine) Negative N Opiates (Urine) Negative N Urine Cutoffs * N 49 Basic Metabolic Panel 07/05/2016 [facility] Sodium 139 mmol/L N 133- 145 [phone] Potassium 4.1 mmol/L N 3.5-5.0 Chloride 102 [...] N >60 50 Basic Metabolic Panel 04/07/2016 [facility] Sodium 140 mmol/L N 133- 145 [phone] Potassium 3.4 mmol/L Low 3.5-5.0 Chloride 101 mmol/L N 101-111 Co2 Carbon Dioxide 28 mmol/L N 22-32 Anion Gap 11 mmol/L N 2-11 Glucose 98 mg/dL N 70-100 Blood Urea Nitrogen 14 mg/dL N 6-24 Creatinine 0.84 mg/dL N 0.51-0.95 BUN/Creatinine Ratio 16.7 N 8-20 Calcium 9.5 mg/dL N 8.6-10.3 Egfr Non- 71.5 N >60 Egfr 91.9 N >60 51 Laboratory test 01/26/2016 [facility] C Reactive 5.31 mg/L High < 5.00 52 finding [phone] Protein Methylmalonic Acid Mma 0.12 nmol/mL N <=0.40 53 Laboratory test 01/07/2016 Replaced By [facility] Vitamin B12 475 pg/mL [phone] 54 finding LABORATORY [phone] Magnesium 1.8 mg/dL 1.8-2.4 Vitamin B1 (Thiamine),WB 93.1 nmol/L 66.5-200.0 Copper, Serum 132 g/dL 72-166 55 Zinc, Whole Blood 676 g/dL 440-860 56 Vitamin D,25-Hydroxy 22.0 ng/mL Low 30.0-100.0 57 Chlamydia/GC 12/16/2015 [facility]. Chlamydia Negative Negative Martha, Urine LABORATORY Trachomatis,Ur [phone] -Martha Neisseria Gonorrhoeae,Ur -Martha Negative Negative 58 Laboratory test 12/15/2015 Replaced By [facility] Urine HCG NEGATIVE Negative 59 finding LABORATORY (Evzrohpvuey) [phone] Urinalysis With 12/15/2015 Replaced By [facility] Urine Color RED Yellow Microscopic LABORATORY [phone] Urine Clarity CLOUDY Clear Urine Glucose - Dipstick 100 mg/dL High Negative Urine Bilirubin - Dipstick MODERATE High Negative Urine Ketone TRACE mg/dL High Negative Urine Specific [place] 1.010 1.010-1.030 Urine Blood LARGE High Negative [...] See Note 60 finding LABORATORY Indicated Comment [phone] Ua RFX Micro + Culture II See Note 61 Urine Culture See Note 62 Comp Metabolic Panel 12/02/2015 [facility] Sodium 138 mmol/L N 133- 145 [phone] Potassium 3.6 mmol/L N 3.5-5.0 Chloride 98 [...] Egfr 95.9 N >60 63 Protein 12/02/2015 [facility] Total 7.4 g/dL N 6.3 - Electrophoresis [phone] Protein(Pep) 7.9 Albumin 3.2 g/dL Abnormal 3.4-4.7 Alpha-1 Globulin 0.3 g/dL N 0.1-0.3 Alpha-2 Globulin 1.1 g/dL Abnormal 0.6-1.0 Beta Globulin 1.5 g/dL Abnormal 0.7-1.2 Gamma Globulin 1.3 g/dL N 0.6-1.6 Albumin/Globulin Ratio 0.78 N Impression See Comment N 64 Laboratory test 05/25/2015 [facility] Trichomonas Negative N Negative 65, 66 finding [phone] vaginalis Rna Gardnerella/Yeast: Vaginal Dna SEE RESULT BELOW 67 GC/Chlamydia 05/25/2015 [facility] Chlamydia Negative N Negative Amplified Rna [phone] trachomatis Rna Neisseria gonorrhoeae (GC) Rna Negative N Negative 68 Urine Micro Inhouse 01/22/2015 In House Ua WBC - 69 Ua RBC - Ua Casts - Ua Epi - Ua Other - Ua Glucose - Ua Bilirubin - Ua Ketones - Ua Specific [place] 1.010 Ua Blood - Ua PH 5.0 Ua Protein - Ua Urobilinogen - Ua Nitrite - Ua Leukocytes - Comp Metabolic Panel 01/15/2015 [facility] Sodium 138 mmol/L N 133- 145 [phone] Potassium 4.3 mmol/L N 3.5-5.0 Chloride 103 [...] 110.3 N >60 70 Lipid Profile 01/15/2015 [facility] Triglycerides 102 mg/dL N 71 (Trig/Chol/HDL) [phone] Cholesterol 189 mg/dL N 72 HDL Cholesterol 39.4 mg/dL N 73 LDL Cholesterol 129 mg/dL N 74 Comprehensive 09/25/2014 [facility]. Glucose 108 mg/dL High 74-106 Metabolic Panel LABORATORY [phone] BUN 12 mg/dL 7-18 Creatinine 0.8 mg/dL [...] Troponin-I < 0.02 ng/mL 77 finding LABORATORY [phone] Thyroid Stim Hormone 2.45 uIU/mL 0.36-3.74 CBC/Manual 09/25/2014 [facility]. White Blood 8.0 K/uL 3.1- 10.7 Differential LABORATORY Count [phone] Red Blood Count 4.47 M/uL 3.90-5.40 Hemoglobin [...] 1.09 ug/mL High 78 finding LABORATORY Quantitative [phone] CBC Auto Diff 07/07/2014 [facility] White Blood Count 7.5 N 4.8-3 [phone] 10^3/uL 0.8 Red Blood Count 4.40 10^6/uL [...] % 0.1 N Comp Metabolic Panel 07/07/2014 [facility] Sodium 139 mmol/L N 133- 145 [phone] Potassium 3.8 mmol/L N 3.5-5.0 Chloride 104 [...] 116.3 N >60 79 Laboratory test 07/07/2014 [facility] Erythrocyte Sed 29 mm/Hr High 0 -14 finding [phone] Rate Uric Acid 6.6 mg/dL N 2.3-6.6 Laboratory test 06/10/2014 [facility] Erythrocyte Sed 27 mm/Hr High 0 -14 finding [phone] Rate CBC Auto Diff 06/10/2014 [facility] White Blood Count 7.8 N 4.8-10.8 [phone] 10^3/uL Red Blood Count 4.38 10^6/uL N [...] Blood Cells % 0.1 N Wound 12/10/2013 [facility] Wound/Misc (SEE 80 Culture/Sensi [phone] Culture-Gram NOTE) Stain Laboratory test 11/29/2013 [facility]. Sedimentation 30 mm/hr High 0-20 81 finding LABORATORY Rate [phone] CBC/Manual 11/29/2013 [facility]. White Blood Count 7.2 K/uL 3.1- Differential LABORATORY 10.7 [phone] Red Blood Count 4.49 M/uL 3.90-5.40 Hemoglobin [...] Campus. Amylase 23 U/L 18-98 82 LABORATORY [phone] Lipase 121 U/L 28-380 83 Comprehensive 11/29/2013 [facility]. Glucose 103 mg/dL 76- 115 Metabolic Panel LABORATORY [phone] BUN 17 mg/dL 5-23 Creatinine 0.8 mg/dL [...] 5 Kidney failure <15 (or dialysis) 2 [id number] 3 SEE RESULT BELOW Name: EILEEN BRADY : [address]: Gurinder Alston MD Acct: [id number] Unit: [id number] AGE: 53 Location: [facility] Re09/02/18 SEX: F Status: DEP ER SPEC: [id number] NATA: 09/02/18-[address] [facility] [address]: Gurinder Alston MD REQ: [id number] RECD: 09/03/18-1051 STATUS: JI CASTILLO DR: Krysta Nevaeh Lawson DO _ SOURCE: URINE SPDESC: ORDERED: Urine Culture COMMENTS: [id number] Procedure Result Reported Site Urine Culture Final 09/04/18- 1245 ML No Growth (<1,000 CFU/mL) * ML - Main Lab . END OF REPORT DEPARTMENT OF PATHOLOGY, [address] [place] [address] Cameron Rojas M.D. Director [facility] # [id number] 4 Rate Engineer: [id number] 5 void, clear, dark yellow 6 Because [...] 5 Kidney failure <15 (or dialysis) 7 RenewData Copy Result to: HATTIE LAWSON ([id number]) 8 RenewData Copy Result to: HATTIE LAWSON ([id number]) 9 Lexim lab Copy Result to: HATTIE LAWSON ([id number]) 10 Lexim lab Copy Result to: HATTIE LAWSON ([id number]) 11 Normal Range 180 to 914 Indeterminate Range 145 to 180 Deficient Range <145 12 Lexim lab Copy Result to: HATTIE LAWSON ([id number]) 13 SEE RESULT BELOW Name: EILEEN BRADY : [address]: Jc Eduardo MD Acct: [id number] Unit: [id number] AGE: 52 Location: [place] Re01/09/18 SEX: F Status: REG [facility] SPEC: [id number] NATA: 01/09/18-[address] [facility] [address]: Jc Eduardo MD REQ: [id number] RECD: 01/09/18-1411 STATUS: LINDA CASTILLO DR: Hattie Kapadia MD _ ORDERED: LEVEL 4 FINAL DIAGNOSIS Skin, left medial buttock, wide excision: -- Scar, widely excised. -- No evidence of residual malignant melanoma in situ. COMMENT: The previous lesion at this site ([id number]) has been completely excised. PRE-OPERATIVE DIAGNOSIS Melanoma [...] 1022 END OF REPORT DEPARTMENT OF PATHOLOGY, [address] [place] [address] Cameron Rojas M.D. Director [facility] # [id number] 14 SEE RESULT BELOW Name: EILEEN BRADY : [address]: Rocio Aguilar MD Acct: [id number] Unit: [id number] AGE: 52 Location: [facility] Re12/08/17 SEX: F Status: REG REF SPEC: [id number] NATA: 12/08/171412 [facility] DR: Rocio Aguilar MD REQ: [id number] RECD: 12/08/17 STATUS: LINDA CASTILLO DR: Hattie Lawson DO _ ORDERED: LEVEL 4, IMMUNO-FIRST, IMMUNO-ADDL COMMENTS: [id number] THIS IS A CORRECTED REPORT 12/21/17 Corrected [...] 1422 END OF REPORT DEPARTMENT OF PATHOLOGY, [address] [place] [address] Cameron Rojas M.D. Director [facility] # [id number] 15 SEE RESULT BELOW Name: EILEEN BRADY : [address]: Rocio Aguilar MD Acct: [id number] Unit: [id number] AGE: 52 Location: [facility] Re12/05/17 SEX: F Status: REG REF SPEC: [id number] NATA: 12/05/[address] [facility] [address]: Rocio Aguilar MD REQ: [id number] RECD: 12/05/17 STATUS: LINDA CASTILLO DR: Hattie Lawson DO _ ORDERED: TP IMAGE ANALYS, HPV/Thin Prep COMMENTS: [id number] Negative for Intraepithelial lesion or Malignancy A. [...] Signed by and Reported on: BARBARA Flower(ASC) [id number] This Pap test was evaluated with the assistance of the [employer] Test Imaging System. Due to cytologic findings at the cyber forensics analyst microscope, comprehensive manual rescreening by a Graphic Design Intern may be required. The Pap Smear is [...] years. END OF REPORT DEPARTMENT OF PATHOLOGY, [address] [place] [address] Cameron Rojas M.D. Director [facility] # [id number] 16 Test Performed by: [facility] [place][Note 2] [address] [place] [id number] M70.51,E83.42,F50.9, 18 Method: Sediplast Modified Westergren [...] Sm (anti-Alvarez) SLE 15 - 30% --------- DISTILLERY MILLER Mixed Connective Tissue Disease 95% (U1 nRNP, SLE 30 - 50% anti-ribonucleoprotein) Polymyositis and/or Dermatomyositis 20% --------- Scl-70 (antiDNA Scleroderma (diffuse) 20 - 35% topoisomerase) Crest 13% --------- Radha-1 Polymyositis and/or Dermatomyositis 20 - 40% --------- Centromere B Scleroderma - Crest variant 80% Performed at: RN - [facility] [address] [id number] Grants Specialist: Maryuri Mckeon MD, Phone: [phone] 22 Because ethnic data is not always [...] DVT, or Pulmonary embolism as clinically indicated. ([facility] has established a 97.89% negative predictive [...] and in selective patients <6.0%.Please refer to [place] [employer] Diabetic care guidelines for further [...] Deficient Range <145 38 Test Performed by: [place] [address] 39 [facility]YCH SERVICES 40 Tests: RPR, FT4, [...] >10.00 53 Test Performed by: [facility] [address] [place] [address] Gauge Maker: Cj Zuniga II, M.D., Ph.D. 54 QUERY: Is Patient Fasting? N 55 The specimen was not submitted to the testing laboratory in the preferred certified metal free transfer tube. As of February 29, 2016, serum or plasma samples not submitted in the certified metal free transfer tubes will be rejected for trace metal analysis. Detection Limit=5 56 Performed at: [facility] [employer] [id number] Grants Specialist: Cj Henderson MD, Phone: [phone] 57 Vitamin D deficiency has been defined by the [place] [employer] and an Endocrine Society practice guideline as a level of serum 25-OH vitamin D less than 20 ng/mL (1,2). The Endocrine Society went on to further define vitamin D insufficiency as a level between 21 and 29 ng/mL (2). 1. IOM ([place] [employer]). 2010. Dietary reference intakes for calcium and D. [place]: The National Academies Press. 2. Urban MF, Bill NC, Shikha WINSTON, et al. Evaluation, treatment, and prevention of vitamin D deficiency: an Endocrine Society clinical practice guideline. JCEM. 2010; 96(7):1911-30. Performed at: - [facility] [address] [id number] Grants Specialist: Maryuri Mckeon MD, Phone: [phone] 58 A negative result for either C. trachomatis and/or N. gonorrhoeae does not preclued an infection because results are dependent on adequate specimen collection, absence of inhibitors, and sufficient DNA to be detected. 59 FIRST MORNING SPECIMENS GENERALLY CONTAIN THE HIGHEST CONCENTRATION OF HCG AND ARE RECOMMENDED FOR EARLY DETECTION OF . 60 CULTURE TO FOLLOW 61 12/15/15 LAB.TOW Deleted by Reflex Group [facility] [place] [place] 62 Organism 1 ! MIXED URETHRAL RENAE [...] protein on serum electrophoresis. Test Performed by: [place] [address] Gauge Maker: Cj Zuniga II, M.D., Ph.D. 65 [facility] Specimen Source: CERVICAL 66 [facility] Specimen Source: CERVICAL GC/Chlamydia Source?: Endocervical Trichomonas Source: Endocervical 67 SEE RESULT BELOW Name: EILEEN BRADY : [address]: Amy Cleveland MD Acct: [id number] Unit: [id number] AGE: 49 Location: [facility] Re05/25/15 SEX: F Status: DEP ER SPEC: [id number] NATA: 05/25/[address] [facility] [address]: Amy Cleveland MD REQ: [id number] RECD: 05/25/15 STATUS: JI CASTILLO DR: Madd[facility] Loera [facility] _ SOURCE: VAGINAL SPDESC: ORDERED: Jory,Yeast [...] performed at Main Lab DEPARTMENT OF PATHOLOGY, [address] [place] [address] Cameron Rojas M.D. Director [facility] # [id number] 68 Female urine specimens have been self-validated by [facility] and have been granted conditional assay approval by [facility]. 69 [id number] 70 Because ethnic data is not always [...] DVT, or Pulmonary embolism as clinically indicated. ([facility] has established a 97.89% negative predictive [...] <15 (or dialysis) 80 RUN DATE: 12/12/13 [facility] LAB LIVE PAGE 1 RUN TIME: [id number] [place], [place] [address] Specimen Inquiry Name: EILEEN BRADY : [address]: Payal Anderson MD Acct: [id number] Unit: [id number] AGE: 48 Location: [facility] Re12/10/13 SEX: F Status: DEP ER SPEC: [id number] NATA: 12/10/13-[address] [facility] [address]: Ruth KRISHNAN REQ: [id number] RECD: 12/10/13 STATUS: JI KNOX DR: Payal KRISHNAN _ SOURCE[facility] ORDERED: Culture Stain Procedure Result Verified Site Wound/Misc Gram Stain Final 12/10/13- 1513 ML 3+ Polys 2+ Gram Positive Cocci Possible 1+ Gram Positive Bacilli Wound/Misc Culture Final 12/12/13- 1105 ML Organism 1 NORMAL RENAE Quantity 2+ END OF REPORT * ML=Testing performed at Main Lab DEPARTMENT OF PATHOLOGY, [address] [place] [address] Cameron Rojas M.D. Director [facility] # [id number] FAX RESULTS TO CAROLYN Negron [phone] FAX RESULTS TO CAROLYN Negron [phone] FAX RESULTS TO CAROLYN Negron [phone] Note: Persistent reduction for 3 months [...] [email or web address]. Procedures Date Code Description Status 02/21/2018 72157 X-Ray Knee,Ap&Lateral Oblique Views Completed 01/05/2018 89083 Brief Emotional/Behav Assessment W/ Scoring Doc Per Completed Standard Inst 11/13/2017 09743 Brief Emotional/Behav Assessment W/ Scoring Doc Per Completed Standard Inst 05/31/2017 12591051 Mammogram Completed 04/14/2017 68010 SC/Im Injections Completed 05/11/2016 56428 Omt 3 To 4 Body Regions Involved Completed 04/26/2016 22554 Electrocardiogram Complete Completed 04/07/201660396 Inject/Drain Joint/Bursa Major Completed 05/16/2015 63615 SC/Im Injections Completed 05/16/201580801 Inject/Drain Joint/Bursa Major Completed 02/28/2015 73148402 Colonoscopy Completed 02/19/2015 03426 Dexa Bone Density Study One Or More Sites Axial Completed Skeleton 11/03/2014 44284 Bronchospasm Evaluation Pre & Post Completed 09/25/2014 15087 Electrocardiogram Complete Completed 07/07/2014 40686 X-Ray Knee,Ap&Lateral Oblique Views Completed Encounters Type [...] Office Visit 03/27/2018 9:20a Main Office Carolyn [place], P.A. M79.672 Pain in left foot J45.21 Mild intermittent asthma with (acute) exacerbation R05 Cough I10 Essential (primary) hypertension Office Visit 03/23/2018 10:45a Main Office Hattie Lawson, M25.561 Pain in right D.O. knee M25.562 Pain in left knee G56.03 Carpal tunnel syndrome, bilateral upper limbs J45.21 Mild intermittent asthma with (acute) exacerbation R12 Heartburn Z79.891 group home (current) use of opiate analgesic Office Visit [...] Z41.8 [facility] 04/24/2015 4:00p Main Office Maddi Loera, E66.01 Morbid (severe) RPA-C obesity due to excess calories I10 Essential (primary) hypertension R07.9 Chest pain, unspecified Z68.43 Body mass index (BMI) 50-59.9 , adult Office Visit 01/22/2015 9:40a Main Office Evaristo, V70.0 Examination [facility] 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9, adult
--- OUTSIDE RECORDS SUMMARY | 2018-10-09 12:30 | XMS REPORT | Continuity of Care Document ---
:1965 External Reference #:[id number] Author Name Hattie Lawson D.O. Address [address] [place] [id number] Care Team Providers Name Role Phone HCP given Primary Care Physician Unavailable Payers Date Identification Numbers Payment Provider Subscriber Policy Number: [id number] [facility] Eileen Brady PayID: [id number] [address] [place] [address] Advance Directives Description No Information Available Problems [...] Active Onset: 02/24/2016 Other idiopathic peripheral Hattie Lwason D.O. 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 B37.9 Zpygwggse-Dovqn-U61-Acetylcyst 08/06/2018 Active Tablets 6-90.314-2-600mg 90tabs Take 1 [...] 01 M.D. Nystatin 10/30/2017 - Hx Ointment [id number] 60 apply to R2 James, 08/13/2018 Unit/G [...] Tablets 875-1 20tabs 1 by mouth J01.00 Elieso te Potassium 06/05/2017 25mg twice a day [...] Hx Capsules 300mg 270caps [facility] 08/30[facility]2017 Capsule By Hattie, Mouth Three D.O. Times A Day For Gallstones Escitalopram Oxalate 12/07/2016 - Hx Tablets 10mg 90tabs 1 tablets F33.9 [place], 04/14/2017 by mouth Hattie, daily D.O. Citalopram 07/27/2016 - Hx Tablets 10mg 30tabs 1 by mouth F33.9 [facility] , Hydrobromide 08/16/2016 every day Hattie, D.O. Hydrochlorothiazide 07/16/2016 - Hx Tablets 25mg 90tabs take 1 I10 [place], 12/07/2016 tablet by Hattie, mouth daily D.O. Diclofenac Sodium 06/16/2016 - Hx Tablets DR 50mg 90tabs Take 1 M25.569 [facility], 11/13/2017 Tablet By Hattie, Mouth 3 [...] Hx Tablets 35mg 180tabs Take 2 E66.01 [facility], Tartrate 01/06/2016 tablets by Hattie, mouth 3 D.O. times per day 1 hour before a meal for weight loss Diflucan 09/02/2015 - Hx Tablets 150mg 2tabs 1 cap by [facility], 09/04/2015 mouth 3 Hattie, days apart. D.O. Singulair 11/03/2014 - Hx Tablets 10mg 30tabs 1 tablet by 493.00 [facility], 12/03/2014 mouth once Hattie, daily for D.O. allergies Irbesartan 11/03/2014 - Hx Tablets 75mg 30tabs 1 by mouth 401.1 [facility] , 12/03/2014 every day Vinayak Zazueta. Azithromycin 10/14/2014 - Hx Tablets 250mg 6tabs take 2 466.0 [facility], 10/19/2014 tablets by Hattie, mouth one D.O. time on the first day then take 1 tablet by mouth daily for 4 days Dulera 10/03/2014 - Hx Aerosol 100-5 2 puffs 493.00 [facility], 12/04/2014 mcg/A twice a day Hattie ct D.O. Diflucan 07/29/2014 - Hx Tablets 150mg 1tabs 1 cap by Eliseo, 2014 mouth once Hattie, D.O. Lisinopril 07/16/2014 - Hx Tablets 10mg 90tabs take 1 401.1 [facility], 11/03/2014 tablet by Gabriel, mouth daily M.D. for high blood pressure Tramadol HCL 07/07/2014 - Hx Tablets 50mg 90tabs 1 tab three M25.562 [facility], 08/31/2017 times a day Hattie, as needed D.O. for pain Prednisone 07/07/2014 - Hx Tablets 20mg 10tabs 2 tab every 719.46 [facility], 07/12/2014 morning for Hattie, 5 days D.O. Diclofenac Potassium 07/07/2014 - Hx Tablets 50mg 60tabs 1 by mouth M17.11 [facility], 04/26/2016 twice a day Vinayak Zazueta. M72.2 [...] CPT Code Status Date Vaccine Lot # [id number] Given 04/20/2018 Influenza Virus Vaccine, Quadrivalent, Split, [id number] Preservative Free 06674 Given 04/20/2018 Prevnar 13 [id number] 59728 Given 04/14/2017 Influenza Virus Vaccine, Quadrivalent, Split, [id number] Preservative Free 61668 Given 04/07/2016 Influenza Virus Vaccine, Quadrivalent, Split, [id number] Preservative Free 58770 Given 05/16/2015 Influenza Virus Vaccine, Quadrivalent, Split, [id number] Preservative Free 98113 Given 06/10/2014 Flu, Split Virus 3Yrs [id number] 80896 Given 12/10/2013 Adacel or Boostrix, TDaP 44336 Given 06/22/2012 Adacel or Boostrix, TDaP 74007 Given 04/29/2011 Pneumococcal Immunization 12755 Given 04/29/2011 Flu, Split Virus 3Yrs 69046 Given 05/29/2009 Flu, Split Virus 3Yrs 70480 Ordered 11/28/2013 Adacel or Boostrix, TDaP Vital [...] H/L Range Note CBC Auto Diff 09/03/2018 [facility] White Blood 7.5 10^3/uL N 3.5- 10.8 [phone] Count Red Blood Count 4.83 10^6/uL N [...] Cells % 0 Comp Metabolic Panel 09/03/2018 [facility] Sodium 139 mmol/L N 135- 145 [phone] Potassium 4.3 mmol/L N 3.5-5.0 Chloride 103 [...] 102.1 >60 1 Laboratory test finding 09/03/2018 [facility] Amylase 20 U/L Low 29- 103 [phone] Lipase 17 U/L N 11.0-82.0 Magnesium 1.7 mg/dL Low 1.9-2.7 Erythrocyte Sed Rate 21 mm/Hr N 0-30 C Reactive Protein 2.40 mg/L N <8.01 Urine Culture And 09/02/2018 [facility] Urine SEE RESULT 2, 3 Sensitivities [phone] Culture BELOW Poc Urinalysis 09/02/2018 [facility] Poc Glucose, Negative Negative [phone] Urine Poc Bilirubin, Urine Negative Negative Poc Ketone, Urine Negative Negative Poc Specific [place], Urine 1.025 N 1.010-1.030 Poc Blood, Urine Negative Negative Poc pH, Urine 6.0 N 5-9 Poc Protein, Urine Negative Negative Poc Urobilinogen, Urine 0.2 Negative Poc Nitrite, Urine Negative Negative Poc Leukocytes, Urine Trace Abnormal Negative Poc Color, Urine Dark yellow Poc Clarity, Urine Clear 4 Ua Inhouse 03/15/2018 In House Ua Glucose - 5 Ua Bilirubin - Ua Ketones - Ua Specific [place] 1.030 Ua Blood - Ua PH 6.0 Ua Protein - Ua Urobilinogen - Ua Nitrite - Ua Leukocytes - Basic Metabolic Panel 03/09/2018 [facility] Sodium 140 mmol/L N 135- 145 [phone] Potassium 4.2 mmol/L N 3.5-5.0 Chloride 105 mmol/L N 101-111 Co2 Carbon Dioxide 28 mmol/L N 22-32 Anion Gap 7 mmol/L N 2-11 Glucose 83 mg/dL N 70-100 Blood Urea Nitrogen 18 mg/dL N 6-24 Creatinine 0.60 mg/dL N 0.51-0.95 BUN/Creatinine Ratio 30.0 High 8-20 Calcium 9.2 mg/dL N 8.6-10.3 Egfr Non- 104.6 >60 Egfr 126.5 >60 6 Laboratory test 03/09/2018 [facility] C Reactive Protein 1.35 mg/L N <8.01 7 finding [phone] TSH (Thyroid Stim Horm) 1.60 mcIU/mL N 0.34-5.60 8 Free T4 (Free Thyroxine) 1.02 ng/dL N 0.61-1.12 9 Folic Acid (Folate) > 20.00 ng/mL >3.99 10 Vitamin B12 336 pg/mL N 180-914 11 Erythrocyte Sed Rate 22 mm/Hr N 0-30 12 Laboratory test 01/09/2018 [facility] Surgical SEE RESULT 13 finding [phone] Pathology BELOW Laboratory test 12/08/2017 [facility] Surgical SEE RESULT 14 finding [phone] Pathology BELOW GC/Chlamydia 12/05/2017 [facility] Chlamydia Negative Negative Amplified Rna [phone] trachomatis Rna Neisseria gonorrhoeae (GC) Rna Negative Negative Laboratory test 12/05/2017 [facility] Cytology SEE RESULT 15 finding [phone] BELOW Laboratory test 10/30/2017 [facility] Insulin Level 6.6 2.6 16 finding [phone] mcIU/mL - 24.9 Laboratory test 10/17/2017 [facility]. Sedimentation Rate 17 mm /hr N 0-30 17, 18 finding LABORATORY [phone] C-Reactive Protein,Quant < 2.9 mg/L <3.0 Magnesium 1.9 mg/dL N 1.8-2.4 Thyroid Stim Hormone 1.46 uIU/mL N 0.30-4.20 Vitamin B12 460 pg/mL N [phone] CBC Auto Diff 10/17/2017 [facility]. White Blood 7.2 K/uL N 3.1-10.7 LABORATORY Count [phone] Red Blood Count 4.72 M/uL N 3.90-5.40 [...] 40.4-72.8 Lymph % 30.5 % N 20.0-42.0 [place] % 7.1 % N 4.3-13.2 Eo% 1.7 % N 0.0-6.6 Bas% 0.3 % N 0.0-1.1 Neut# 4.37 K/uL N 1.8-7.0 Lymph # 2.20 K/uL N 1.0-4.0 [place] # 0.51 K/uL N 0.3-0.9 Eos # 0.12 K/uL N 0.0-0.5 Baso # 0.02 K/uL N 0.0-0.1 Comp Metabolic Panel 10/17/2017 [facility]. Glucose 97 mg/dL N 74-106 LABORATORY [phone] BUN 16 mg/dL N 7-18 Creatinine 0.7 [...] N 45-117 Comprehensive Yovana 10/17/2017 [facility] Anti-Dna <1 IU/mL 0 -9 20 Panel LABORATORY Antibody [phone] ([place]) SM Antibody <0.2 AI 0.0-0.9 VARNISHING MACHINE OPERATOR Antibody <0.2 AI 0.0-0.9 Sjogrens Antibodies (Ssa) <0.2 AI 0.0-0.9 Antichromatin Antibodies <0.2 AI 0.0-0.9 Radha-1 Antibody <0.2 AI 0.0-0.9 Sjogrens Antibodies (SSB) <0.2 AI 0.0-0.9 Centromere B Antibodies < 0.2 AI 0.0-0.9 Scleroderma Antibodies, SCL-70 <0.2 AI 0.0-0.9 See below: (SEE NOTE) 21 CBC Auto Diff 08/31/2017 [facility] White Blood Count 6.7 10^3/uL N 3.5-10.8 [phone] Red Blood Count 4.51 10^6/uL N 4.0-5.4 [...] Cells % 0.1 Comp Metabolic Panel 08/31/2017 [facility] Sodium 139 mmol/L N 133- 145 [phone] Potassium 4.1 mmol/L N 3.5-5.0 Chloride 102 [...] Egfr 112.6 >60 22 Laboratory test 08/31/2017 [facility] C Reactive < 1.00 mg/L N < 5.00 23 finding [phone] Protein Erythrocyte Sed Rate 19 mm/Hr N 0-30 Magnesium 1.7 mg/dL Low 1.9-2.7 TSH (Thyroid Stim Horm) 2.82 mcIU/mL N 0.34-5.60 Uric Acid 5.0 mg/dL N 2.3-6.6 Vitamin B12 362 pg/mL N 180-914 24 Laboratory test 04/14/2017 [facility] Magnesium 1.8 mg/dL Low 1.9- 2.7 finding [phone] CBC Auto Diff 04/14/2017 [facility] White Blood 6.2 10^3/uL N 3.5- 10.8 [phone] Count Red Blood Count 4.50 10^6/uL N [...] % 0.1 N Comp Metabolic Panel 04/14/2017 [facility] Sodium 140 mmol/L N 133- 145 [phone] Potassium 3.3 mmol/L Low 3.5-5.0 Chloride 100 [...] 109.4 N >60 25 Laboratory test 04/14/2017 [facility] Erythrocyte Sed Rate 19 mm/Hr N 0-30 finding [phone] TSH (Thyroid Stim Horm) 1.36 mcIU/mL N 0.34-5.60 Phosphorus 3.2 mg/dL N 2.5-5.0 Vitamin B12 > 1450 pg/mL High 180-914 26 Vitamin D Total 25(Oh) 26.5 ng/mL N 20-50 Folic Acid (Folate) 17.43 ng/mL N >3.99 CBS W/Automated 04/03/2017 [facility]. White Blood 7.6 K/uL N 3.1-10.7 27 Diff LABORATORY Count [phone] Red Blood Count 4.51 M/uL N 3.90-5.40 [...] 40.4-72.8 Lymph % 45.1 % High 20.0-42.0 [place] % 8.2 % N 4.3-13.2 Eo% 1.1 % N 0.0-6.6 Bas% 0.3 % N 0.0-1.1 Neut# 3.43 K/uL N 1.8-7.0 Lymph # 3.41 K/uL N 1.0-4.0 [place] # 0.62 K/uL N 0.3-0.9 Eos # 0.08 K/uL N 0.0-0.5 Baso # 0.02 K/uL N 0.0-0.1 Laboratory test 04/03/2017 [facility]. D-Dimer, 0.25 28 finding LABORATORY Quantitative ug/mL [phone] Comprehensive 04/03/2017 [facility]. Glucose 118 mg/dL High 74-1 Metabolic Panel LABORATORY 06 [phone] BUN 25 mg/dL High 7-18 Creatinine 0.8 [...] 45-117 Laboratory test finding 04/03/2017 [facility] Lipase 120 U/L N 73-393 LABORATORY [phone] HCG,Serum (Qualitative) NEGATIVE (Negative) Ua RFX Micro & 04/03/2017 [facility] Urine Color YELLOW Yellow Culture II LABORATORY [phone] Urine Clarity CLEAR Clear Urine Glucose - Dipstick NEGATIVE mg/dL Negative Urine Bilirubin - Dipstick NEGATIVE Negative Urine Ketone NEGATIVE mg/dL Negative Urine Specific [place] 1.025 N 1.010-1.030 Urine Blood NEGATIVE Negative Urine PH 5.5 Low 6.5-7.5 Urine Protein - Dipstick NEGATIVE mg/dL Negative Urine Urobilinogen - Dipstick 0.2 E.U./dL N 0.2-1.0 Urine Nitrite - Dipstick NEGATIVE Negative Urine Leuk Esterase NEGATIVE Negative Source: URINE, CLEAN CAT <SEE NOTE> 30 CBC No Diff 12/09/2016 [facility] White Blood Count 8.3 10^3/uL N 3.5 -10.8 [phone] Red Blood Count 4.56 10^6/uL N 4.0-5.4 Hemoglobin 14.1 g/dL N 12.0-16.0 Hematocrit 42 % N 35-47 Mean Corpuscular Volume 92 fL N 80-97 Mean Corpuscular Hemoglobin 31 pg N 27-31 Mean Corpuscular HGB Conc 34 g/dL N 31-36 Red Cell Distribution Width 14 % N 10.5-15 Platelet Count 304 10^3/uL N 150-450 Mean Platelet Volume 9 um3 N 7.4-10.4 Laboratory test 12/09/2016 [facility] Hemoglobin A1c 5.0 % N Less than 31 finding [phone] (Glyco HGB) 6.0 Comp Metabolic 12/09/2016 [facility] Sodium 142 mmol/L N 133-145 Panel [phone] Potassium 3.3 mmol/L Low 3.5-5.0 Chloride 102 [...] 102.8 N >60 32 Lipid Profile 12/09/2016 [facility] Triglycerides 109 mg/dL N 33 (Trig/Chol/HDL) [phone] Cholesterol 211 mg/dL N 34 HDL Cholesterol 40.8 mg/dL N 35 LDL Cholesterol 148 mg/dL N 36 Laboratory test finding 12/09/2016 [facility] Magnesium 1.6 mg/dL Low 1.9-2.7 [phone] TSH (Thyroid Stim Horm) 2.28 mcIU/mL N 0.34-5.60 T3 Free 3.10 pg/mL N 2.5-3.9 Free T4 (Free Thyroxine) 1.03 ng/dL N 0.61-1.12 Vitamin B12 118 pg/mL Low 180-914 37 Vitamin D Total 25(Oh) 17.2 ng/mL Low 30-50 Insulin Level 11.3 mcIU/mL N 2.6 - 24.9 38 Aot Request 07/13/2016 [facility]. Aot Request Test(s) added N 39, 40 LABORATORY [phone] Tests to be added: RPR, FT4, TSH Instructions: ADD ON TO ER BLO <SEE NOTE> 41 Urinalysis With 07/12/2016 [facility]. Urine Color YELLOW N Yellow Microscopic LABORATORY [phone] Urine Clarity SL CLOUDY N Clear Urine Glucose - Dipstick NEGATIVE mg/dL N Negative Urine Bilirubin - Dipstick NEGATIVE N Negative Urine Ketone NEGATIVE mg/dL N Negative Urine Specific [place] >=1.030 N 1.010-1.030 Urine Blood MODERATE Abnormal [...] CAT <SEE NOTE> 43 Chlamydia/GC 07/12/2016 [facility]. Chlamydia Negative N Negative Martha, Urine LABORATORY Trachomatis,Ur [phone] -Martha Neisseria Gonorrhoeae,Ur -Martha Negative N Negative 44 CBS W/Automated 07/12/2016 [facility]. White Blood 7.1 K/uL N 3.1-10.7 Diff LABORATORY Count [phone] Red Blood Count 4.67 M/uL N 3.90-5.40 [...] 40.4-72.8 Lymph % 34.1 % N 17.0-46.1 [place] % 9.3 % N 4.3-13.2 Eo% 1.4 % N 0.0-6.6 Bas% 0.3 % N 0.0-1.1 Neut# 3.89 K/uL N 1.8-7.0 Lymph # 2.42 K/uL N 1.8-7.0 [place] # 0.66 K/uL N 0.3-0.9 Eos # 0.10 K/uL N 0.0-0.5 Baso # 0.02 K/uL N 0.0-0.1 Laboratory test 07/12/2016 [facility]. Ethyl Alcohol < 3.0 mg/ dL N finding LABORATORY [phone] Comprehensive 07/12/2016 [facility]. Glucose 100 mg/dL N 74- 106 Metabolic Panel LABORATORY [phone] BUN 12 mg/dL N 7-18 Creatinine 0.8 [...] U/L N 45-117 Laboratory 07/12/2016 [facility] Treponema Nonreactive N Nonreactive 46 test finding LABORATORY Antibody [phone] [place] Urine Culture 07/12/2016 [facility] Urine URETHRAL RENAE LABORATORY Culture [phone] Quantity > 100,000 CFU/mL N 47 Laboratory test 07/12/2016 [facility]. Ethyl Alcohol < 3.0 mg/ dL N 48 finding LABORATORY [phone] Drugs Of 07/12/2016 [facility]. Amphetamines Negative N Abuse-Urine LABORATORY (Urine) Screen 7 [phone] Barbiturates (Urine) Negative N Benzodiazepines (Urine) Negative N Cannabinoids (Urine) Negative N Cocaine Metabolite (Urine) Negative N Methadone (Urine) Negative N Opiates (Urine) Negative N Urine Cutoffs * N 49 Basic Metabolic Panel 07/05/2016 [facility] Sodium 139 mmol/L N 133- 145 [phone] Potassium 4.1 mmol/L N 3.5-5.0 Chloride 102 [...] N >60 50 Basic Metabolic Panel 04/07/2016 [facility] Sodium 140 mmol/L N 133- 145 [phone] Potassium 3.4 mmol/L Low 3.5-5.0 Chloride 101 mmol/L N 101-111 Co2 Carbon Dioxide 28 mmol/L N 22-32 Anion Gap 11 mmol/L N 2-11 Glucose 98 mg/dL N 70-100 Blood Urea Nitrogen 14 mg/dL N 6-24 Creatinine 0.84 mg/dL N 0.51-0.95 BUN/Creatinine Ratio 16.7 N 8-20 Calcium 9.5 mg/dL N 8.6-10.3 Egfr Non- 71.5 N >60 Egfr 91.9 N >60 51 Laboratory test 01/26/2016 [facility] C Reactive 5.31 mg/L High < 5.00 52 finding [phone] Protein Methylmalonic Acid Mma 0.12 nmol/mL N <=0.40 53 Laboratory test 01/07/2016 [facility] Vitamin B12 475 pg/mL [phone] 54 finding LABORATORY [phone] Magnesium 1.8 mg/dL 1.8-2.4 Vitamin B1 (Thiamine),WB 93.1 nmol/L 66.5-200.0 Copper, Serum 132 g/dL 72-166 55 Zinc, Whole Blood 676 g/dL 440-860 56 Vitamin D,25-Hydroxy 22.0 ng/mL Low 30.0-100.0 57 Chlamydia/GC 12/16/2015 [facility]. Chlamydia Negative Negative Martha, Urine LABORATORY Trachomatis,Ur [phone] -Martha Neisseria Gonorrhoeae,Ur -Martha Negative Negative 58 Laboratory test 12/15/2015 [facility] Urine HCG NEGATIVE Negative 59 finding LABORATORY ([id number]) [phone] Urinalysis With 12/15/2015 [facility] Urine Color RED Yellow Microscopic LABORATORY [phone] Urine Clarity CLOUDY Clear Urine Glucose - Dipstick 100 mg/dL High Negative Urine Bilirubin - Dipstick MODERATE High Negative Urine Ketone TRACE mg/dL High Negative Urine Specific [place] 1.010 1.010-1.030 Urine Blood LARGE High Negative [...] Sediment SMALL Negative Laboratory test 12/15/2015 [facility]. Culture If See Note 60 finding LABORATORY Indicated Comment [phone] Ua RFX Micro + Culture II See Note 61 Urine Culture See Note 62 Comp Metabolic Panel 12/02/2015 [facility] Sodium 138 mmol/L N 133- 145 [phone] Potassium 3.6 mmol/L N 3.5-5.0 Chloride 98 [...] Egfr 95.9 N >60 63 Protein 12/02/2015 [facility] Total 7.4 g/dL N 6.3 - Electrophoresis [phone] Protein(Pep) 7.9 Albumin 3.2 g/dL Abnormal 3.4-4.7 Alpha-1 Globulin 0.3 g/dL N 0.1-0.3 Alpha-2 Globulin 1.1 g/dL Abnormal 0.6-1.0 Beta Globulin 1.5 g/dL Abnormal 0.7-1.2 Gamma Globulin 1.3 g/dL N 0.6-1.6 Albumin/Globulin Ratio 0.78 N Impression See Comment N 64 Laboratory test 05/25/2015 [facility] Trichomonas Negative N Negative 65, 66 finding [phone] vaginalis Rna Gardnerella/Yeast: Vaginal Dna SEE RESULT BELOW 67 GC/Chlamydia 05/25/2015 [facility] Chlamydia Negative N Negative Amplified Rna [phone] trachomatis Rna Neisseria gonorrhoeae (GC) Rna Negative N Negative 68 Urine Micro Inhouse 01/22/2015 In House Ua WBC - 69 Ua RBC - Ua Casts - Ua Epi - Ua Other - Ua Glucose - Ua Bilirubin - Ua Ketones - Ua Specific [place] 1.010 Ua Blood - Ua PH 5.0 Ua Protein - Ua Urobilinogen - Ua Nitrite - Ua Leukocytes - Comp Metabolic Panel 01/15/2015 [facility] Sodium 138 mmol/L N 133- 145 [phone] Potassium 4.3 mmol/L N 3.5-5.0 Chloride 103 [...] 110.3 N >60 70 Lipid Profile 01/15/2015 [facility] Triglycerides 102 mg/dL N 71 (Trig/Chol/HDL) [phone] Cholesterol 189 mg/dL N 72 HDL Cholesterol 39.4 mg/dL N 73 LDL Cholesterol 129 mg/dL N 74 Comprehensive 09/25/2014 [facility]. Glucose 108 mg/dL High 74-106 Metabolic Panel LABORATORY [phone] BUN 12 mg/dL 7-18 Creatinine 0.8 mg/dL [...] 104 U/L 45-117 Laboratory test 09/25/2014 [facility]. Troponin-I < 0.02 ng/mL 77 finding LABORATORY [phone] Thyroid Stim Hormone 2.45 uIU/mL 0.36-3.74 CBC/Manual 09/25/2014 [facility]. White Blood 8.0 K/uL 3.1- 10.7 Differential LABORATORY Count [phone] Red Blood Count 4.47 M/uL 3.90-5.40 Hemoglobin [...] % 0-2 Stomatocyte 2+ Laboratory test 09/25/2014 [facility]. D-Dimer, 1.09 ug/mL High 78 finding LABORATORY Quantitative [phone] CBC Auto Diff 07/07/2014 [facility] White Blood Count 7.5 N 4.8-6 [phone] 10^3/uL 0.8 Red Blood Count 4.40 10^6/uL [...] % 0.1 N Comp Metabolic Panel 07/07/2014 [facility] Sodium 139 mmol/L N 133- 145 [phone] Potassium 3.8 mmol/L N 3.5-5.0 Chloride 104 [...] 116.3 N >60 79 Laboratory test 07/07/2014 [facility] Erythrocyte Sed 29 mm/Hr High 0 -14 finding [phone] Rate Uric Acid 6.6 mg/dL N 2.3-6.6 Laboratory test 06/10/2014 [facility] Erythrocyte Sed 27 mm/Hr High 0 -14 finding [phone] Rate CBC Auto Diff 06/10/2014 [facility] White Blood Count 7.8 N 4.8-10.8 [phone] 10^3/uL Red Blood Count 4.38 10^6/uL N [...] Blood Cells % 0.1 N Wound 12/10/2013 [facility] Wound/Misc (SEE 80 Culture/Sensi [phone] Culture-Gram NOTE) Stain Laboratory test 11/29/2013 [facility]. Sedimentation 30 mm/hr High 0-20 81 finding LABORATORY Rate [phone] CBC/Manual 11/29/2013 [facility]. White Blood Count 7.2 K/uL 3.1- Differential LABORATORY 10.7 [phone] Red Blood Count 4.49 M/uL 3.90-5.40 Hemoglobin [...] Morphology NORMAL Laboratory test finding 11/29/2013 [facility]. Amylase 23 U/L 18-98 82 LABORATORY [phone] Lipase 121 U/L 28-380 83 Comprehensive 11/29/2013 [facility]. Glucose 103 mg/dL 76- 115 Metabolic Panel LABORATORY [phone] BUN 17 mg/dL 5-23 Creatinine 0.8 mg/dL [...] 5 Kidney failure <15 (or dialysis) 2 [id number] 3 SEE RESULT BELOW Name: EILEEN BRADY : [address]: Gurinder Alston MD Acct: [id number] Unit: [id number] AGE: 53 Location: [facility] Re09/02/18 SEX: F Status: DEP ER SPEC: [id number] NATA: 09/02/18-1341 [facility] DR: Gurinder Alston MD REQ: [id number] RECD: 09/03/18-1051 STATUS: JI CASTILLO DR: Krysta Nevaeh Lawson DO _ SOURCE: URINE SPDESC: ORDERED: Urine Culture COMMENTS: [id number] Procedure Result Reported Site Urine Culture Final 09/04/18- 1245 ML No Growth (<1,000 CFU/mL) * ML - Main Lab . END OF REPORT DEPARTMENT OF PATHOLOGY, [address] [place] [address] Cameron Rojas M.D. Director [facility] # [id number] 4 Blending Machine Operator: [id number] 5 void, clear, dark yellow 6 Because [...] 5 Kidney failure <15 (or dialysis) 7 [employer] Copy Result to: HATTIE LAWSON ([id number]) 8 [employer] Copy Result to: HATTIE LAWSON ([id number]) 9 [facility] Copy Result to: HATTIE LAWSON ([id number]) 10 [facility] Copy Result to: HATTIE LAWSON ([id number]) 11 Normal Range 180 to 914 Indeterminate Range 145 to 180 Deficient Range <145 12 [facility] Copy Result to: HATTIE LAWSON ([id number]) 13 SEE RESULT BELOW Name: EILEEN BRADY : [address]: Jc Eduardo MD Acct: [id number] Unit: [id number] AGE: 52 Location: [place] Re01/09/18 SEX: F Status: REG [facility] SPEC: [id number] NATA: 01/09/18-1204 [facility] DR: Jc Eduardo MD REQ: [id number] RECD: 01/09/18-1411 STATUS: LINDA CASTILLO DR: Hattie Kapadia MD _ ORDERED: LEVEL 4 FINAL DIAGNOSIS Skin, left medial buttock, wide excision: -- Scar, widely excised. -- No evidence of residual malignant melanoma in situ. COMMENT: The previous lesion at this site ([id number]) has been completely excised. PRE-OPERATIVE DIAGNOSIS Melanoma [...] 1022 END OF REPORT DEPARTMENT OF PATHOLOGY, [address] [place] [address] Cameron Rojas M.D. Director [facility] # [id number] 14 SEE RESULT BELOW Name: EILEEN BRADY : [address]: Rocio Aguilar MD Acct: [id number] Unit: [id number] AGE: 52 Location: [facility] Re12/08/17 SEX: F Status: REG REF SPEC: [id number] NTAA: 12/08/171412 [facility] DR: Rocio Aguilar MD REQ: [id number] RECD: 12/08/17 STATUS: LINDA CASTILLO DR: Hattie Lawson DO _ ORDERED: LEVEL 4, IMMUNO-FIRST, IMMUNO-ADDL COMMENTS: [id number] THIS IS A CORRECTED REPORT 12/21/17 Corrected [...] 1422 END OF REPORT DEPARTMENT OF PATHOLOGY, [address] [place] [address] Cameron Rojas M.D. Director [facility] # [id number] 15 SEE RESULT BELOW Name: EILEEN BRADY : [address]: Rocio Aguilar MD Acct: [id number] Unit: [id number] AGE: 52 Location: [facility] Re12/05/17 SEX: F Status: REG REF SPEC: [id number] NATA: 12/05/17 [facility] DR: Rocio Aguilar MD REQ: [id number] RECD: 12/05/17 STATUS: LINDA CASTILLO DR: Hattie Lawson DO _ ORDERED: TP IMAGE ANALYS, HPV/Thin Prep COMMENTS: [id number] Negative for Intraepithelial lesion or Malignancy A. [...] Signed by and Reported on: BARBARA Flower(ASC) 0953 This Pap test was evaluated with the assistance of the Urbitap Test Imaging System. Due to cytologic findings at the custom clothier microscope, comprehensive manual rescreening by a Labor Delivery Rn may be required. The Pap Smear is [...] years. END OF REPORT DEPARTMENT OF PATHOLOGY, [address] [place] [address] Cameron Rojas M.D. Director [facility] # [id number] 16 Test Performed by: [facility] [address] [place] [id number] 17 M70.51,E83.42,F50.9, 18 Method: Sediplast Modified Westergren [...] Sm (anti-Alvarez) SLE 15 - 30% --------- VARNISHING MACHINE OPERATOR Mixed Connective Tissue Disease 95% (U1 nRNP, SLE 30 - 50% anti-ribonucleoprotein) Polymyositis and/or Dermatomyositis 20% --------- Scl-70 (antiDNA Scleroderma (diffuse) 20 - 35% topoisomerase) Crest 13% --------- Radha-1 Polymyositis and/or Dermatomyositis 20 - 40% --------- Centromere B Scleroderma - Crest variant 80% Performed at: RN - [facility] [address] [id number] Disease Case Manager: Maryuri Mckeon MD, Phone: [phone] 22 Because ethnic data is not always [...] DVT, or Pulmonary embolism as clinically indicated. ([facility] has established a 97.89% negative [...] and in selective patients <6.0%.Please refer to [place] Diabetes Association Diabetic care guidelines for further [...] Deficient Range <145 38 Test Performed by: [place] [id number] 39 PSYCH SERVICES 40 Tests: RPR, FT4, [...] Acute inflammation: >10.00 53 Test Performed by: [facility] [address] [place] [address] Climatology Teacher: Cj Zuniga II, M.D., Ph.D. 54 QUERY: Is Patient Fasting? N 55 The specimen was not submitted to the testing laboratory in the preferred certified metal free transfer tube. As of February 29, 2016, serum or plasma samples not submitted in the certified metal free transfer tubes will be rejected for trace metal analysis. Detection Limit=5 56 Performed at: [facility] [address] [id number] Disease Case Manager: Cj Henderson MD, Phone: [phone] 57 Vitamin D deficiency has been defined by the [place] of Medicine and an Endocrine Society practice guideline as a level of serum 25-OH vitamin D less than 20 ng/mL (1,2). The Endocrine Society went on to further define vitamin D insufficiency as a level between 21 and 29 ng/mL (2). 1. IOM ([place] of Medicine). 2010. Dietary reference intakes for calcium and D. [place]: The National Academies Press. 2. Urban MF, Bill NC, Shikha WINSTON, et al. Evaluation, treatment, and prevention of vitamin D deficiency: an Endocrine Society clinical practice guideline. JCEM. 2010; 96(7):1911-30. Performed at: - [facility] [address] [id number] Disease Case Manager: Maryuri Mckeon MD, Phone: [phone] 58 A negative result for either C. trachomatis and/or N. gonorrhoeae does not preclued an infection because results are dependent on adequate specimen collection, absence of inhibitors, and sufficient DNA to be detected. 59 FIRST MORNING SPECIMENS GENERALLY CONTAIN THE HIGHEST CONCENTRATION OF HCG AND ARE RECOMMENDED FOR EARLY DETECTION OF . 60 CULTURE TO FOLLOW 61 12/15/15 LAB.TOW Deleted by Reflex Group [facility] 62 Organism 1 ! MIXED URETHRAL RENAE [...] protein on serum electrophoresis. Test Performed by: [place] [address] Climatology Teacher: Cj Zuniga II, M.D., Ph.D. 65 [facility] Specimen Source: CERVICAL 66 [facility] Specimen Source: CERVICAL GC/Chlamydia Source?: Endocervical Trichomonas Source: Endocervical 67 SEE RESULT BELOW Name: EILEEN BRADY : [address]: Amy Cleveland MD Acct: [id number] Unit: [id number] AGE: 49 Location: [facility] Re05/25/15 SEX: F Status: DEP ER SPEC: [id number] NATA: 05/25/150 [facility] DR: Amy Cleveland MD REQ: [id number] RECD: 05/25/15 STATUS: JI CASTILLO DR: Maddi Loera [facility] _ SOURCE: VAGINAL SPDESC: ORDERED: Jory,Yeast [...] or failure. * ML - MAIN LAB ([facility]) . END OF REPORT * ML=Testing performed at Main Lab DEPARTMENT OF PATHOLOGY, [address] [place] [address] Cameron Rojas M.D. Director [facility] # [id number] 68 Female urine specimens have been self-validated by [facility] and have been granted conditional assay approval by [facility]. 69 [id number] 70 Because ethnic data is not always [...] DVT, or Pulmonary embolism as clinically indicated. ([facility] has established a 97.89% negative [...] <15 (or dialysis) 80 RUN DATE: 12/12/13 [facility] LAB LIVE PAGE 1 RUN TIME: 3858 [address] [place], [place] [address] Specimen Inquiry Name: EILEEN BRADY : [address]: Payal Anderson MD Acct: [id number] Unit: [id number] AGE: 48 Location: [facility] Re12/10/13 SEX: F Status: DEP ER SPEC: [id number] NATA: 12/10/13-1140 [facility] DR: Ruth KRISHNAN REQ: [id number] RECD: 12/10/13 STATUS: JI KNOX DR: Payal KRISHNAN _ SOURCE: DESHAUN [facility]: ORDERED: Culture Stain Procedure Result Verified Site Wound/Misc Gram Stain Final 12/10/13- 1513 ML 3+ Polys 2+ Gram Positive Cocci Possible 1+ Gram Positive Bacilli Wound/Misc Culture Final 12/12/13- 1105 ML Organism 1 NORMAL RENAE Quantity 2+ END OF REPORT * ML=Testing performed at Main Lab DEPARTMENT OF PATHOLOGY, [address] [place] [address] Cameron Rojas M.D. Director [facility] # [id number] FAX RESULTS TO CAROLYN Negron [phone] FAX RESULTS TO CAROLYN Negron [phone] FAX RESULTS TO CAROLYN Negron [phone] Note: Persistent reduction for 3 months [...] [email or web address]. Procedures Date Code Description Status 02/21/2018 29628 X-Ray Knee,Ap&Lateral Oblique Views Completed 01/05/2018 05259 Brief Emotional/Behav Assessment W/ Scoring Doc Per Completed Standard Inst 11/13/2017 48276 Brief Emotional/Behav Assessment W/ Scoring Doc Per Completed Standard Inst 05/31/2017 64429725 Mammogram Completed 04/14/2017 61502 SC/Im Injections Completed 05/11/2016 98957 Omt 3 To 4 Body Regions Involved Completed 04/26/2016 05885 Electrocardiogram Complete Completed 04/07/201661945 Inject/Drain Joint/Bursa Major Completed 05/16/2015 64672 SC/Im Injections Completed 05/16/201510437 Inject/Drain Joint/Bursa Major Completed 02/28/2015 38013995 Colonoscopy Completed 02/19/2015 43630 Dexa Bone Density Study One Or More Sites Axial Completed Skeleton 11/03/2014 14475 Bronchospasm Evaluation Pre & Post Completed 09/25/2014 34254 Electrocardiogram Complete Completed 07/07/2014 39861 X-Ray Knee,Ap&Lateral Oblique Views Completed Encounters Type [...] Office Visit 03/27/2018 9:20a Main Office Carolyn [place]ance[place], P.A. M79.672 Pain in left foot J45.21 Mild intermittent asthma with (acute) exacerbation R05 Cough I10 Essential (primary) hypertension Office Visit 03/23/2018 10:45a Main Office Hattie Lawson, M25.561 Pain in right D.O. knee M25.562 Pain in left knee G56.03 Carpal tunnel syndrome, bilateral upper limbs J45.21 Mild intermittent asthma with (acute) exacerbation R12 Heartburn Z79.891 retirement (current) use of opiate analgesic Office Visit [...] Z41.8 Encntr for oth proc [facility] Office Visit 04/24/2015 4:00p Main Office Maddi Loera, E66.01 Morbid (severe) RPA-C obesity due to excess calories I10 Essential (primary) hypertension R07.9 Chest pain, unspecified Z68.43 Body mass index (BMI) 50-59.9 , adult Office Visit 01/22/2015 9:40a Main Office Evaristo, V70.0 Examination [facility] V72.31 Routine Supervisor Cellars Examination V76.19 Screening Breast Exam Malignant Neoplasms [...] 8:00 am - Jamil Escudero at Main Npfvqt77 1:00 pm - Jamil Escudero at Main Tldlor3008/13/2018 - Jamil EscuderoE66.9 Obesity, unspecifiedComments:over 25 minutes [...] habits before pursuing for the best longeterm pxswzrbW60.9 Candidiasis, unspecifiedNew Medication:Clotrimazole Anti- Fungal 1 % - Apply to affected areas bidFluconazole 150 mg - 1 tabs by mouth 1 time per week x 2 weeks for rashFollow up:also can try some Desitin powder in the fold to help keep dryZ71.3 Dietary counseling and smdwtwpxlvxeQ42.42 Body mass index (BMI) 45.0-49.9, adult
[2018-10-09] MEDS ORDERED: celeCOXIB CAP* 100 MG ONE (12:40)
[2018-10-09] MEDS ORDERED: Dexamethasone IV* 4 MG/ML 1 ML (4 MG) ONE (12:40)
[2018-10-09] MEDS ORDERED: Buffered Lidocaine 1% SYRIN* 1 ML/SYRINGE INTRADERM ONE (12:40)
[2018-10-09] MEDS ORDERED: ceFAZolin 2 GM in NS PREMIX(*) 2 GM/100 ML BAG IVPB ONE (12:40)
[2018-10-09] MEDS ORDERED: fentaNYL* 50 MCG/ML 2 ML VIAL (100 MCG VIAL) ONE ×2 (12:46→20:16)
[2018-10-09] MEDS ORDERED: Propofol* 10 MG/ML 20 ML BTL ONE (12:57)
[2018-10-09] MEDS ORDERED: Bupivacaine 0.5% SDV PF* 30ML VIAL ONE (12:57)
[2018-10-09] MEDS ORDERED: Ondansetron INJ* 2 MG/ML VIAL ONE (12:57)
[2018-10-09] MEDS ORDERED: Acetaminophen IV 1GM/100ML * 100 ML ONE (13:01)
[2018-10-09] MEDS ORDERED: Midazolam* 1 MG/ML 5 ML VIAL (5 MG) ONE ×2 (13:11→14:27)
[2018-10-09] MEDS ORDERED: KETAMINE HCL* 50 MG/ML 10 ML VIAL ONE (13:12)
[2018-10-09] MEDS ORDERED: ROPIVACAINE 5 MG/ML 30 ML BTL (0.5%) ONE (13:36)
[2018-10-09] MEDS ORDERED: Bupivacaine 0.5%* 50 ML VIAL ONE (13:37)
[2018-10-09] MEDS ORDERED: Lidocaine 2% PF * 5 ML VIAL ONE (14:45)
[2018-10-09] MEDS ORDERED: Ondansetron INJ* 2 MG/ML VIAL IV PRN ×2 (16:13→16:23)
[2018-10-09] MEDS ORDERED: fentaNYL* 50 MCG/ML 2 ML VIAL (100 MCG VIAL) IV PRN (16:13)
[2018-10-09] MEDS ORDERED: DiMENhydriNATE IV* 50 MG/ML VIAL IV PUSH PRN (16:13)
[2018-10-09] MEDS ORDERED: HYDROmorphone INJ1* 1 MG/ML SYRINGE IV PRN (16:13)
[2018-10-09] MEDS ORDERED: Naloxone* 0.4 MG/ML 1 ML VIAL IV PRN (16:13)
[2018-10-09] MEDS ORDERED: Cyclobenzaprine TAB* 10 MG PO PRN (16:23)
[2018-10-09] MEDS ORDERED: Bisacodyl SUPP* 10 MG SUPP PR PRN (16:23)
[2018-10-09] MEDS ORDERED: diPHENhydraMINE IV* 50 MG/ML 1 ml VIAL (BENADRYL) IV PRN (16:23)
[2018-10-09] MEDS ORDERED: oxyCODONE/Acetamin 5/325 MG* TAB PO PRN (16:23)
[2018-10-09] MEDS ORDERED: Magnesium Hydroxide LIQ* 30 ML UDC PO PRN (16:23)
[2018-10-09] MEDS ORDERED: Acetaminophen TAB* 325 MG PO PRN (16:23)
[2018-10-09] MEDS ORDERED: Clindamycin 600 MG IVPREMIX(* 600 MG/50 ML SDV IV SCH (17:00)
[2018-10-09] MEDS ORDERED: oxyCODONE/Acetamin 5/325 MG* TAB ONE (20:16)
[2018-10-09] MEDS: Lactated Ringers 1000 ML Bag* 1,000 ML IV SCH (21:14)
[2018-10-09] MEDS: oxyCODONE TAB* 5 MG TAB PO PRN (22:17)
[2018-10-09] MEDS: Gabapentin CAP(*) 100 MG PO SCH (22:18)
[2018-10-09] MEDS: hydrOXYzine HCL TAB* 25 MG PO SCH (22:18)
[2018-10-09] MEDS: Docusate CAP* 100 MG PO SCH (22:18)
[2018-10-09] MEDS: Magnesium Hydroxide LIQ* 30 ML UDC PO SCH (22:19)
[2018-10-09] MEDS: Clindamycin 600 MG IVPREMIX(* 600 MG/50 ML SDV IV SCH (22:44)
[2018-10-09] MEDS: Morphine INJ* 2 MG/ML 1 ML SYRINGE (TWO MG - NEW SYRINGE VERSION) IV PRN (22:46)
--- NOTE | 2018-10-09 22:47 | OP ---
DATE OF OPERATION: 10/09/18 - ROOM #340 DATE OF : 63 ATTENDING SURGEON: Saray Cummings MD METAL MODEL BUILDER: EULOGIO Chen. Ms. Watson did help throughout the procedure with preparation of the leg, wound retraction, manipulation of the knee, and wound closure. ANESTHESIOLOGIST: Dr. Gregory. ANESTHESIA: Spinal. PRE-OP DIAGNOSIS: Severe end-stage degenerative osteoarthritis of the left knee joint. POST-OP DIAGNOSIS: Severe end-stage degenerative osteoarthritis of the left knee joint. OPERATIVE PROCEDURE: Left total knee arthroplasty. TOURNIQUET TIME: 55 minutes. COMPLICATIONS: None. ESTIMATED BLOOD LOSS: 200 cc. SPECIMEN: Left knee bone and cartilage sent to Pathology. HARDWARE USED: This is a cemented Alvarez and Nephew total knee arthroplasty hardware. Two packages of Simplex bone cement. For the femur, a Legion size 5 narrow left Oxinium femoral component. For the tibia, a size 3 left tibial base plate, Paz II. For the insert, a 9 mm posterior stabilized articular insert, size 3-4. For the patella, 32 mm 3-peg all poly patella with 7.5 thickness. BRIEF HISTORY/INDICATION: Ms. Carpenter is a 53-year-old female with years of increasingly severe left knee pain. She failed conservative treatment with antiinflammatories, pain medications, intraarticular injections, and physical therapy. Due to continued pain and decreased quality of life, she elected to undergo left total knee arthroplasty. Radiographs showed [id number] arthritis. Informed consent was obtained from the patient. She understood the risks of surgery included, but were not limited to, bleeding, infection, damage to nearby structures, continued pain, need for further surgery, intraoperative fracture, nerve palsy, hardware failure or loosening, knee stiffness, loss of motion, stroke, heart attack, blood clot, and . She wished to proceed. INTRAOPERATIVE FINDINGS: Intraoperatively, the patient was noted to have full- thickness loss of cartilage in the medial and patellofemoral compartments. She had significant osteophyte formation. DESCRIPTION OF PROCEDURE: Ms. Carpenter was identified in the preanesthesia unit. Her left lower extremity was marked as the correct operative site. Informed consent was signed and placed in the chart. The patient was taken to the operating room and placed under anesthesia without complication. A Arndt catheter was placed. Tourniquet was placed on the left thigh. Left lower extremity was prepped and draped in the usual sterile fashion. Preop time-out was made to correctly identify the patient, side, and site. Appropriate perioperative antibiotics were given within 1 hour of incision. Tourniquet was inflated and total tourniquet time for this procedure was 55 minutes. A midline incision was made with a 10-blade and carried down to the extensor mechanism. A new 10-blade was used to make a standard medial parapatellar arthrotomy. Patella was subluxed laterally. Electrocautery was used to subperiosteally elevate the soft tissue off the superomedial tibia to the mid sagittal plane. Knee was flexed up. The anterior horn of the lateral meniscus and ACL were sharply released. A drill was used to enter the distal femur. Intramedullary distal femoral cutting guide was pinned on the distal femur. Oscillating saw was used to make the distal femoral cut. The external rotation guide was pinned on the distal femur and the distal femur was sized to a size 5. The size 5 multi-cutting jig was pinned on the distal femur. Oscillating saw was used to make the appropriate 4 chamfer cuts. The PCL was completely released. The tibia was subluxed anteriorly. Extramedullary tibial cutting guide was pinned on the proximal tibia. Oscillating saw was used to make the proximal tibial cut perpendicular to the mechanical axis of the tibia. The bone was carefully removed. The knee was brought out into full extension. Spacer block had good fit with the knee in full extension. Medial and lateral ligaments were well balanced. Flexion and extension gap was well balanced. The knee was flexed up. Lamina skoog machine operator placed both medially and laterally. Any remaining meniscus was carefully removed using electrocautery. Curved osteotome was used to remove any posterior osteophytes. Tibial tray and drop kristy were placed and once again confirmed a satisfactory tibial cut. Size 5 left narrow femoral trial was impacted onto the distal femur and had excellent fit and stability. The box for the posterior stabilized implant was prepared using a reamer and box-cut osteotome. Size 3 tibial tray trial with a 9 mm insert trial was placed and the knee was taken through range of motion. The knee had full extension to 125 degrees of flexion with satisfactory patellofemoral tracking. Patella was everted. 7 mm of patellar bone and cartilage was carefully removed using an oscillating saw. The patella was sized to a size 32. Three peg holes were drilled through the 32 peg guide. A 32 trial patella was placed and the knee was taken through range of motion. Satisfactory patellofemoral tracking was noted. All trials were carefully removed. Tibia was subluxed anteriorly and sized to a size 3. Proximal tibia was prepared using a size 3 keel punch. All bony cut surfaces were copiously irrigated with sterile saline and dried. Final implants were cemented into place starting with the tibia, followed by the femur, and last the patella. A 9 mm insert trial was placed and the knee was brought out into full extension. Tourniquet was turned down at 55 minutes. The knee was copiously irrigated with sterile saline. Electrocautery was used to obtain meticulous hemostasis. Once the cement had fully cured, the insert trial was removed. Any excess cement was removed from around the capsule and hardware. Final insert chosen was a 9 mm posterior stabilized articular insert, size 3-4. This was locked into position on the tibial tray. Stability of the insert was checked and rechecked and noted to be stable. The extensor mechanism was closed using interrupted #1 Vicryl. The rest of the incision was closed in a layered fashion using 0 and 2-0 Vicryl. Skin was closed using running 3-0 nylon suture. Sterile Xeroform, 4x4's, and Webril were used to cover the incision. Fred wrap and cold pack were placed over this. The patient's anesthesia was reversed without difficulty. She was taken to the PACU in stable condition. Intended weightbearing will be weightbearing as tolerated. Intended DVT prophylaxis will be Eliquis. [id number]/[facility] #: [id number] ANISA
[2018-10-10] MEDS: oxyCODONE/Acetamin 5/325 MG* TAB PO PRN ×5 (00:20→19:19)
[2018-10-10] MEDS: Morphine INJ* 2 MG/ML 1 ML SYRINGE (TWO MG - NEW SYRINGE VERSION) IV PRN ×4 (00:49→09:02)
[2018-10-10] MEDS: oxyCODONE TAB* 5 MG TAB PO PRN ×5 (02:21→23:45)
--- NOTE | 2018-10-10 02:51 | CONS ---
[facility] MEDICINE CONSULTATION REPORT: DATE OF CONSULT: 10/09/18 PROVIDER: Sweetie Demarco NP ATTENDING PHYSICIAN: Dr. Cummings. CONSULTING PHYSICIAN: Sasha Rojas DO REASON FOR CONSULT: Co-management of chronic medical conditions. HISTORY OF PRESENT ILLNESS: Ms. Carpenter is a 53-year-old female with a past medical history significant for DVT, hypertension, asthma, anxiety, depression, GERD, and sleep apnea, who presented to the hospital for an elective left total knee arthroplasty with Dr. Cummings. Please see dictated H and P from EULOGIO Chen for complete details. In brief, the patient has ongoing pain and failed conservative measures, therefore opted for an elective left total knee arthroplasty with Dr. Cummings. In the immediate postoperative period, the patient has no complaints. Due to her history of DVT, hypertension, and asthma , we were asked to see and evaluate her for consultation. PAST MEDICAL HISTORY: 1. DVT. 2. Hypertension. 3. Asthma. 4. Anxiety. 5. Depression. 6. GERD. 7. Melanoma. 8. History of sleep apnea. PAST SURGICAL HISTORY: 1. . 2. Cholecystectomy. 3. Hiatal hernia repair. 4. Melanoma surgery. 5. Right total knee arthroplasty. HOME MEDICATIONS: 1. Clotrimazole topically b.i.d. 2. Celexa 40 mg p.o. q.a.m. 3. Multivitamin 1 tab p.o. q.a.m. 4. Metoprolol 50 mg p.o. q.a.m. 5. Magnesium oxide 800 mg p.o. at bedtime. 6. 1 tab p.o. q.a.m. 7. Gabapentin 200 mg p.o. t.i.d. 8. Vitamin B12 500 mcg p.o. daily. 9. Omeprazole 20 mg p.o. b.i.d. 10. Atarax 25 mg p.o. b.i.d. 11. Acetaminophen 2 tabs p.o. as needed for pain. 12. Lidocaine cream topically as needed. 13. Tramadol 50 mg p.o. 4 times a day. 14. Fluticasone nasal spray, 2 sprays both nares daily and p.r.n. 15. Ventolin inhaler 2 puffs q.4 hours as needed for shortness of breath. 16. Albuterol nebulizer 1 neb as needed. ALLERGIES: HYDROCODONE, ORANGES, CECLOR, and ENVIRONMENTAL ALLERGIES. FAMILY HISTORY: Grandfather with a history of stroke, no reported history of diabetes. Father with a history of Hodgkin's disease. SOCIAL HISTORY: Denies any tobacco use. Does report rare alcohol use. Denies any illicit drug use. She is unemployed. She is . Surrogate decision maker in the event she is unable to make her own decisions is Tunde, phone number is [phone]. She is a full code. REVIEW OF SYSTEMS: She denies any fever or chills. Denies any unintended weight loss. Denies any chest pain or edema. Denies any cough, hemoptysis or shortness of breath. Denies any nausea, vomiting, diarrhea, abdominal pain, gross hematuria or dysuria. Denies any focal weakness or sensory loss. Denies any visual complaints, dysphagia, arthralgias, myalgias, rashes, lesions or open sores. Denies any psychosis or anxiety. PHYSICAL EXAMINATION: General: At this time, Ms. Carpenter is a 53-year-old female. She is resting on a stretcher in PACU. She is alert and oriented x3. She is well developed, well nourished. No acute distress. Vital Signs: Blood pressure 127/77, heart rate 52, respirations 20, O2 saturation 97%, temperature was 97.7. HEENT Head is atraumatic, normocephalic. Eyes: EOMs are intact. Sclerae anicteric and not pale. Oral mucosa appeared to be moist. Neck is supple. Lungs are clear to auscultation bilaterally. No wheezes, rales or rhonchi. Cardiac: S1, S2. Regular rate and rhythm. No murmurs, rubs, or gallops. Abdomen: Soft and nontender. Bowel sounds are present x4. Extremities: Pedal pulses are +2 bilaterally. She is able to move all 4 extremities. She does have limited range of motion of the left leg. She does have a dressing that is dry and intact to the left knee. Neurologic: She is alert and oriented x3. Speech is clear. Thought process is intact. There are no gross focal deficits. Skin: She has a dressing that is dry, intact to her left knee. LABORATORY DATA AND DIAGNOSTIC STUDIES PREOPERATIVELY: On 09/26/18, WBCs were 7.1, RBCs 4.68, hemoglobin of 14.2, hematocrit was 44, platelet count was 354. INR 0.96. Sodium 140, potassium 4.0, chloride 103, carbon dioxide was 30, anion gap was 7, BUN was 17, creatinine 0.74, glucose was 84. Urine was within normal limits. ASSESSMENT AND PLAN: Ms. Carpenter is a 53-year-old female with past medical history significant for deep vein thrombosis, hypertension, asthma, anxiety, depression, gastroesophageal reflux disease, history of melanoma and sleep apnea who presented to [facility] [place] [place] for an elective left total knee arthroplasty with Dr. Cummings. In the immediate postoperative period, the patient has no complaints. Our recommendations are as follows: 1. Status post left total knee arthroplasty. Management per Orthopedics. PT/ OT per Orthopedics. Bowel regimen per Orthopedics. DVT prophylaxis per Orthopedics. 2. Hypertension. The patient should resume her metoprolol 50 mg p.o. daily. I will start holding parameters for systolic blood pressure less than 110. 3. History of deep vein thrombosis. The patient should be placed on Eliquis as soon as possible for DVT prophylaxis given her history of deep vein thrombosis. 4. Depression. The patient should continue on Celexa 40 mg p.o. daily. 5. FEN. The patient can have a regular diet. 6. DVT prophylaxis per Orthopedics. 7. Code status. She is a full code. TIME SPENT: Time spent on this consultation was 45 minutes, greater than half of that time was spent at the bedside reviewing events leading thus far to her hospitalization, performing my physical exam, and implementing my plan of care. I have discussed this with my attending, Dr. Sara Kenny; she is in agreement with my plan. SWEETIE DEMARCO, CYTOGENETIC TECHNOLOGIST [id number]/[facility] #: [id number] ANISA
[2018-10-10] MEDS: Clindamycin 600 MG IVPREMIX(* 600 MG/50 ML SDV IV SCH ×2 (06:24→14:28)
[2018-10-10 06:58] LABS: Hematocrit 34 % (35-47); Hemoglobin 11.6 g/dl (12.0-16.0); Mean Platelet Volume 7.4 fL (7.4-10.4); Platelet Count 320 10^3/ul (150-450)
[2018-10-10 07:13] LABS: BUN/Creatinine Ratio 21.4 (8-20); Calcium 8.4 mg/dL (8.6-10.3); EGFR African American 105.5 (>60); EGFR Non-African American 87.2 (>60); Potassium 4.2 mmol/L (3.5-5.0)
[2018-10-10] MEDS: Magnesium Hydroxide LIQ* 30 ML UDC PO SCH ×2 (08:30→21:04)
[2018-10-10] MEDS: hydrOXYzine HCL TAB* 25 MG PO SCH ×2 (08:31→21:01)
[2018-10-10] MEDS: Vitamin THERAPEUTIC TAB PO SCH (08:31)
[2018-10-10] MEDS: Docusate CAP* 100 MG PO SCH ×2 (08:31→21:01)
[2018-10-10] MEDS: Apixaban* 2.5 MG TAB PO SCH ×2 (08:31→21:00)
[2018-10-10] MEDS: Metoprolol Succinate XL TAB* 50 MG PO SCH (08:31)
[2018-10-10] MEDS: Citalopram TAB* 40 MG PO SCH (08:31)
[2018-10-10] MEDS: Gabapentin CAP(*) 100 MG PO SCH ×3 (08:31→21:02)
[2018-10-10] MEDS: Lactated Ringers 1000 ML Bag* 1,000 ML IV SCH (09:07)
--- NOTE | 2018-10-10 09:30 | PN ---
Progress Note - Progress Note Date of Service: 10/10/18 SOAP: Subjective: []Patient seen and examined at bedside. Her knee pain is tolerable at this time. Confirms dizziness and nausea with physical therapy, resolved with rest. Denies CP, SOB. Objective: []General: NAD LLE: left knee dressing CDI, thigh is soft, DF/PF intact, DP2+, sensation intact to light touch distally. Calve supple and nontender without erythema, edema or palpable cords Assessment: []left total knee replacement POD1 Dr Cummings Plan: []WBAT PT/OT scop patch ordered HX DVT. DVT prophy: eliquis 2.5 mg po BID x 30 days Reeval this afternoon to determine if patient desires DC today if feeling better Vital Signs Temp 98.2 F 10/10/18 08:28 Pulse 73 10/10/18 08:28 Resp 18 10/10/18 09:02 BP 138/61 10/10/18 08:28 Pulse Ox 98 10/10/18 08:28 Intake & Output 10/09/18 10/10/18 10/10/18 18:59 06:59 18:59 Intake Total 1700 1330 1313 Output Total 550 425 Balance 0828 544 0249 Weight 258 lb Intake: IV Fluids 1700 958 LR 1700 958 IVPB 115 LR 115 Oral 1330 240 Output: Arndt 550 425 Laboratory Last Values Hgb 11.6 g/dl (12.0-16.0) L 10/10/18 06:04 Hct 34 % (35-47) L 10/10/18 06:04 Plt Count 320 10^3/ul (150-450) 10/10/18 06:04 MPV 7.4 fL (7.4-10.4) 10/10/18 06:04 Sodium 136 mmol/L (135-145) 10/10/18 06:04 Potassium 4.2 mmol/L (3.5-5.0) 10/10/18 06:04 Chloride 102 mmol/L (101-111) 10/10/18 06:04 Carbon Dioxide 27 mmol/L (22-32) 10/10/18 06:04 Anion Gap 7 mmol/L (2-11) 10/10/18 06:04 BUN 15 mg/dL (6-24) 10/10/18 06:04 Creatinine 0.70 mg/dL (0.51-0.95) 10/10/18 06:04 Est GFR ( Amer) 105.5 (>60) 10/10/18 06:04 Est GFR (Non-Af Amer) 87.2 (>60) 10/10/18 06:04 BUN/Creatinine Ratio 21.4 (8-20) H 10/10/18 06:04 Glucose 139 mg/dL (70-100) H 10/10/18 06:04 Calcium 8.4 mg/dL (8.6-10.3) L 10/10/18 06:04
[2018-10-10] MEDS ORDERED: Scopolamine 1.5 mg* PATCH TRANSDERM SCH (10:00)
[2018-10-10] MEDS: Morphine TAB Extended Release (*) 15 MG TAB.ER PO SCH ×2 (12:12→23:45)
--- NOTE | 2018-10-10 16:05 | PN ---
Subjective Date of Service: 10/10/18 Interval History: Patient is experiencing left knee pain today, she is postop day 1 s/p left knee arthroplasty. She was experiencing nausea earlier today which has been relieved by scopolomine patch. She denies headache, chest pain, and SOB. Objective Active Medications: Acetaminophen (Tylenol Tab*) 650 mg PO Q8H PRN PRN Reason: PAIN OR TEMPERATURE Apixaban (Eliquis*) 2.5 mg PO BID [facility] Last Admin: 10/10/18 08:31 Dose: 2.5 mg Bisacodyl (Dulcolax Supp*) 10 mg MS DAILY PRN PRN Reason: constipation Citalopram Hydrobromide (Celexa Tab*) 40 mg PO QAM [facility] Last Admin: 10/10/18 08:31 Dose: 40 mg Cyclobenzaprine HCl (Flexeril Tab*) 5 mg PO TID PRN PRN Reason: SPASMS Last Admin: 10/10/18 00:20 Dose: 5 mg Diphenhydramine HCl (Benadryl Iv*) 25 mg IV Q6H PRN PRN Reason: itching Docusate Sodium (Colace Cap*) 100 mg PO BID [facility] Last Admin: 10/10/18 08:31 Dose: 100 mg Gabapentin (Neurontin Cap(*)) 200 mg PO TID [facility] Last Admin: 10/10/18 13:36 Dose: Not Given Hydroxyzine HCl (Atarax Tab*) 25 mg PO BID [facility] Last Admin: 10/10/18 08:31 Dose: 25 mg Lactated Ringer's (Lactated Ringers 1000 Ml Bag*) 1,000 mls @ 100 mls/hr IV PER RATE [facility] Last Admin: 10/10/18 09:07 Dose: 100 mls/hr Lactulose (Lactulose*) 30 ml PO Q6H PRN PRN Reason: constipation Lisinopril (Prinivil Tab*) 10 mg PO DAILY [facility] Magnesium Hydroxide (Milk Of Magnesia Liq*) 30 ml PO BID [facility] Last Admin: 10/10/18 08:30 Dose: 30 ml Magnesium Hydroxide (Milk Of Magnesia Liq*) 30 ml PO Q6H PRN PRN Reason: constipation Metoprolol Succinate (Toprol Xl Tab*) 50 mg PO QAM [facility] Last Admin: 10/10/18 08:31 Dose: 50 mg Morphine Sulfate (Morphine Inj ((Syringe))*) 2 mg IV Q2H PRN PRN Reason: PAIN Last Admin: 10/10/18 09:02 Dose: 2 mg Morphine Sulfate (Ms Contin(*)) 15 mg PO Q12H [facility] Last Admin: 10/10/18 12:12 Dose: 15 mg Multivitamins (Theragran Tab*) 1 tab PO DAILY [facility] Last Admin: 10/10/18 08:31 Dose: 1 tab Ondansetron HCl (Zofran Inj*) 4 mg IV Q6H PRN PRN Reason: nausea Oxycodone HCl (Roxycodone Tab*) 10 mg PO Q4H PRN PRN Reason: PAIN - SEVERE Last Admin: 10/10/18 10:55 Dose: 10 mg Oxycodone/Acetaminophen (Percocet 5/325 Tab*) 1 tab PO Q4H PRN PRN Reason: PAIN Last Admin: 10/09/18 20:19 Dose: 1 tab Oxycodone/Acetaminophen (Percocet 5/325 Tab*) 2 tab PO Q4H PRN PRN Reason: PAIN Last Admin: 10/10/18 13:16 Dose: 2 tab Pharmacy Profile Note (Scopolamine Patch Remove*) 1 note PATCH OFF Q72H [facility] Scopolamine (Transderm-Scop 1.5 Mg Patch*) 1 patch TRANSDERM Q72H [facility] Last Admin: 10/10/18 10:05 Dose: 1 patch Vital Signs - 8 hr 10/10/18 10/10/18 10/10/18 08:28 08:29 08:31 Temperature 98.2 F Pulse Rate 73 Respiratory 16 18 18 Rate Blood Pressure 138/61 (mmHg) O2 Sat by Pulse 98 Oximetry 10/10/18 10/10/18 10/10/18 09:02 10:08 10:09 Temperature Pulse Rate Respiratory 18 18 18 Rate Blood Pressure (mmHg) O2 Sat by Pulse Oximetry 10/10/18 10/10/18 10/10/18 10:55 12:12 13:15 Temperature 97.6 F Pulse Rate 64 Respiratory 18 20 16 Rate Blood Pressure (mmHg) O2 Sat by Pulse 98 Oximetry 10/10/18 10/10/18 10/10/18 13:16 13:25 13:36 Temperature Pulse Rate Respiratory 18 18 Rate Blood Pressure 148/96 (mmHg) O2 Sat by Pulse Oximetry 10/10/18 10/10/18 10/10/18 14:25 15:44 15:51 Temperature Pulse Rate Respiratory 18 18 Rate Blood Pressure (mmHg) O2 Sat by Pulse 98 Oximetry Oxygen Devices in Use Now: None Appearance: Patient laying comfortably in bed, appearing in NAD Eyes: No Scleral Icterus, PERRLA Ears/Nose/Mouth/Throat: Mucous Membranes Moist Neck: NL Appearance and Movements; NL JVP Respiratory: Symmetrical Chest Expansion and Respiratory Effort, Clear to Auscultation Cardiovascular: NL Sounds; No Murmurs; No JVD, RRR Abdominal: - - abdomen obese, soft Extremities: No Edema, No Clubbing, Cyanosis, - - left leg in brace Skin: No Rash or Ulcers Neurological: Alert and Oriented x 3, NL Sensation, NL Muscle Strength and Tone Result Diagrams: 10/10/18 06:04 10/10/18 06:04 Assess/Plan/Problems-Billing Assessment: 53 yo female with PMHx HTN, hx of DVT, asthma, anxiety, depression, GERD, and BONITA who is s/p left knee arthroplasty. - Patient Problems (1) Status post total left knee replacement using cement Current Visit: Yes Status: Acute Code(s): Z96.652 - PRESENCE OF LEFT ARTIFICIAL KNEE JOINT SNOMED Code(s): 3296088174780 Comment: -pain is controlled at time of visit -pain mgmt/bowel regimen/PT/OT as per ortho surg (2) HTN (hypertension) Code(s): I10 - ESSENTIAL (PRIMARY) HYPERTENSION SNOMED Code(s): 92005487 Comment: -BP has been elevated on multiple readings today -started lisinopril 10mg -checking BMP tomorrow to monitor K -continue home Metoprolol with holding parameters (3) Asthma Current Visit: No Status: Acute Code(s): J45.909 - UNSPECIFIED ASTHMA, UNCOMPLICATED SNOMED Code(s): 992924235 Comment: - Continue home inhalers, prn albuterol nebs while in hosiptal (4) GERD (gastroesophageal reflux disease) Current Visit: No Status: Acute Code(s): K21.9 - GASTRO-ESOPHAGEAL REFLUX DISEASE WITHOUT ESOPHAGITIS SNOMED Code(s): 224098525 Comment: - Continue home PPI (5) BONITA (obstructive sleep apnea) Current Visit: Yes Status: Acute Code(s): G47.33 - OBSTRUCTIVE SLEEP APNEA ( ADULT) (PEDIATRIC) SNOMED Code(s): 21795654 Comment: -continue CPAP while asleep (6) Depression Current Visit: Yes Status: Acute Code(s): F32.9 - MAJOR DEPRESSIVE DISORDER , SINGLE EPISODE, UNSPECIFIED SNOMED Code(s): 21447783 Comment: -continue home celexa (7) DVT prophylaxis Code(s): HHQ4988 - SNOMED Code(s): 052745298 Comment: -continue eliquis -pt has hx of DVT (8) Full code status Code(s): Z78.9 - OTHER SPECIFIED HEALTH STATUS SNOMED Code(s): 039448508
[2018-10-10] MEDS: Lisinopril TAB* 10 MG PO SCH (16:25)
[2018-10-10] MEDS ORDERED: Magnesium Oxide TAB* 400 MG PO SCH (21:00)
[2018-10-11] MEDS: oxyCODONE/Acetamin 5/325 MG* TAB PO PRN ×2 (04:58→12:22)
[2018-10-11 06:58] LABS: Hematocrit 31 % (35-47); Hemoglobin 10.5 g/dl (12.0-16.0); Mean Platelet Volume 6.8 fL (7.4-10.4); Platelet Count 266 10^3/ul (150-450)
[2018-10-11 07:13] LABS: BUN/Creatinine Ratio 14.9 (8-20); Calcium 8.5 mg/dL (8.6-10.3); EGFR Non-African American 91.7 (>60); Potassium 4.3 mmol/L (3.5-5.0)
[2018-10-11] MEDS: oxyCODONE TAB* 5 MG TAB PO PRN (08:36)
[2018-10-11] MEDS: Lisinopril TAB* 10 MG PO SCH (08:36)
[2018-10-11] MEDS: Vitamin THERAPEUTIC TAB PO SCH (08:36)
[2018-10-11] MEDS: Apixaban* 2.5 MG TAB PO SCH (08:36)
[2018-10-11] MEDS: Docusate CAP* 100 MG PO SCH (08:37)
[2018-10-11] MEDS: hydrOXYzine HCL TAB* 25 MG PO SCH (08:37)
[2018-10-11] MEDS: Citalopram TAB* 40 MG PO SCH (08:37)
[2018-10-11] MEDS: Metoprolol Succinate XL TAB* 50 MG PO SCH (08:37)
[2018-10-11] MEDS: Magnesium Hydroxide LIQ* 30 ML UDC PO SCH (08:40)
[2018-10-11] MEDS: Gabapentin CAP(*) 100 MG PO SCH (08:40)
--- NOTE | 2018-10-11 08:44 | PN ---
Progress Note - Progress Note Date of Service: 10/11/18 SOAP: Subjective: []Patient seen and examined at bedside. Her pain is well controlled, she desires DC to home. Denies CP, SOB, dizziness, nausea. Does complain of left calf pain and has a history of DVT s/p knee surgery. Objective: [] General: NAD LLE: left knee dressing changed, incision CDI, thigh is soft, DF/PF intact, DP2+ , sensation intact to light touch distally. Calves supple without erythema, edema or palpable cords. Right calf nontender, left calf is tender. Assessment: []left total knee replacement POD2 Dr Cummings Plan: []WBAT PT/OT Pain and nausea well controlled HX DVT. DVT prophy: eliquis 2.5 mg po BID x 30 days Low suspicion for DVT with exam findings but due to hx and risk factors dopplar ordered, DC home this afternoon once test results back Vital Signs Temp 98.6 F 10/11/18 07:17 Pulse 70 10/11/18 07:17 Resp 18 10/11/18 07:24 BP 141/72 10/11/18 07:17 Pulse Ox 95 10/11/18 07:17 Intake & Output 10/10/18 10/11/18 10/11/18 18:59 06:59 18:59 Intake Total 2769 460 Output Total 1350 850 500 Balance 1419 -390 -500 Intake: IV Fluids 1234 LR 1234 IVPB 115 LR 115 Oral 1420 460 Output: Urine 1350 850 500 Other: Estimated Void Medium Medium # Bowel Movements 1 Estimated Stool Amount Medium # Voids 2 Laboratory Last Values Hgb 10.5 g/dl (12.0-16.0) L 10/11/18 06:49 Hct 31 % (35-47) L 10/11/18 06:49 Plt Count 266 10^3/ul (150-450) 10/11/18 06:49 MPV 6.8 fL (7.4-10.4) L 10/11/18 06:49 Sodium 137 mmol/L (135-145) 10/11/18 06:49 Potassium 4.3 mmol/L (3.5-5.0) 10/11/18 06:49 Chloride 102 mmol/L (101-111) 10/11/18 06:49 Carbon Dioxide 31 mmol/L (22-32) 10/11/18 06:49 Anion Gap 4 mmol/L (2-11) 10/11/18 06:49 BUN 10 mg/dL (6-24) 10/11/18 06:49 Creatinine 0.67 mg/dL (0.51-0.95) 10/11/18 06:49 Est GFR ( Amer) 111.0 (>60) 10/11/18 06:49 Est GFR (Non-Af Amer) 91.7 (>60) 10/11/18 06:49 BUN/Creatinine Ratio 14.9 (8-20) 10/11/18 06:49 Glucose 125 mg/dL (70-100) H 10/11/18 06:49 Calcium 8.5 mg/dL (8.6-10.3) L 10/11/18 06:49
[2018-10-11 11:36] VITALS: BP 147/79
[2018-10-11] MEDS: Morphine TAB Extended Release (*) 15 MG TAB.ER PO SCH (11:38)
[2018-10-13] MEDS ORDERED: Scopolamine PATCH Remove* 1 NOTE MISC PATCH OFF SCH (10:00)
== END 2018-10-11 12:45 | disposition home health service (06) | DRG 302 ==
LOC: AA 12:19 → SSU 21:00
PROVIDERS: ADMIT Orthopaedic Surgery Adult Reconstructive Orthopaedic Surgery; ATTEND Orthopaedic Surgery Adult Reconstructive Orthopaedic Surgery
PROC: 0SRD069 Replacement of Left Knee Joint with Oxidized Zirconium on Polyethylene Synthetic Substitute, Cemented, Open Approach (ICD-10-PCS; principal; 2018-10-09 15:00)
DX: M17.12 Unilateral primary osteoarthritis, left knee (principal); Z68.42 Body mass index [BMI] 45.0-49.9, adult; I10 Essential (primary) hypertension; J45.909 Unspecified asthma, uncomplicated; F41.9 Anxiety disorder, unspecified; F32.9 Major depressive disorder, single episode, unspecified; K21.9 Gastro-esophageal reflux disease without esophagitis; Z96.651 Presence of right artificial knee joint; G62.9 Polyneuropathy, unspecified; G56.03 Carpal tunnel syndrome, bilateral upper limbs; G47.33 Obstructive sleep apnea (adult) (pediatric); E66.01 Morbid (severe) obesity due to excess calories; M25.762 Osteophyte, left knee; M25.462 Effusion, left knee; Z88.8 Allergy status to other drugs, medicaments and biological substances; Z91.018 Allergy to other foods; Z85.820 Personal history of malignant melanoma of skin; Z86.718 Personal history of other venous thrombosis and embolism; Z88.5 Allergy status to narcotic agent; Z83.3 Family history of diabetes mellitus; Z82.49 Family history of ischemic heart disease and other diseases of the circulatory system; Z82.3 Family history of stroke; Z90.49 Acquired absence of other specified parts of digestive tract; Z98.51 Tubal ligation status; Z80.7 Family history of other malignant neoplasms of lymphoid, hematopoietic and related tissues; R11.0 Nausea; R42 Dizziness and giddiness
CPT/HCPCS: 36415; 80048; 85014; 85018; 85049; 88305; 88311; A9270-GY; G8978-GP-CJ; G8979-GP-CI; J0690; J1100; J2250; J2270; J2405; J2704; J2795; J3010

== ENCOUNTER 2019-01-26 09:14 | Emergency (ER) | payer OTHER ==
--- OUTSIDE RECORDS SUMMARY | 2019-01-26 09:20 | XMS REPORT | Continuity of Care Document ---
:1965 External Reference #:[id number] Author Name Hattie Lawson D.O. Address [address] [place] [id number] Care Team Providers Name Role Phone HCP given Primary Care Physician Unavailable Payers Date Identification Numbers Payment Provider Subscriber Policy Number: [id number] [facility] Eileen Brady PayID: [id number] [address] [place] [id number] Problems Active Problems Provider Date Benign essential hypertension Hattie Lawson D.O. Onset: 07/16/2014 Allergic asthma without status Hattie Lawson D.O. Onset: 10/03/2014 asthmaticus Acute laryngopharyngitis Hattie Lawson D.O. Onset: 12/16/2014 Cough Hattie Lawson D.O. Onset: 12/16/2014 Essential hypertension Maddi Loera RPA-C Onset: 04/24/2015 Essential hypertension Maddi Loera RPA-C Onset: 03/19/2015 Morbid obesity Hattie Lawson D.O. Onset: 12/02/2015 Gastroesophageal reflux disease Hattie Lawson D.O. Onset: 12/02/2015 Disorder of magnesium metabolism Hattie Lawson D.O. Onset: 02/24/2016 Enthesopathy of knee Hattie Lawson D.O. Onset: 02/24/2016 Vitamin D deficiency Hattie Laswon D.O. Onset: 02/24/2016 Other idiopathic peripheral autonomic Hattie Lawson D.O. Onset: 02/24/2016 neuropathy Eating disorder Marivel Varela PA Onset: 05/04/2016 Anxiety state Hattie Lawson D.O. Onset: 07/27/2016 Recurrent major depressive episodes Hattie Lawson D.O. Onset: 07/27/2016 Plantar fascial fibromatosis Hattie Lawson D.O. Onset: 04/25/2017 Gallbladder calculus with acute Hattie Lawson D.O. Onset: 04/25/2017 cholecystitis and no obstruction Osteoarthritis Marivel Varela PA Onset: 11/27/2017 Uncomplicated moderate persistent asthma Hattie Lawson D.O. 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 Work Status Currently Working [employer] 10/23/2018 Right-handed Abuse No history of abuse Tobacco Use Start: Unknown Denies Cigarette Use ETOH Use Rarely consumes alcohol Recreational Drug Use Denies Drug Use Tobacco Use Start: Unknown Patient has never smoked Smoking Status Reviewed: 12/06/18 Patient has never smoked Enjoy Exercising Enjoys exercising but infreq due to bilateral knee pain Sun Exposure Does not use sunscreen Seat Belt/Car Seat always uses seat belt Guns in Home No Smoke Alarms Yes smoke alarm Currently Active Patient is currently sexually active Age 1[age] [place] 17 Years Old STD's No STD History Additional Info Sexual preference is men Allergies, Adverse Reactions, Alerts Active Allergies Reaction Severity Comments Date Vicodin Gives pt "asthma attack" 11/27/2013 Medications Active Medications SIG Qnty Indications Ordering Date Provider Losartan Potassium take 1 tablet 90tabs Hattie Lawson, 01/04/2019 daily in the D.O. 50mg Tablets morning for high blood pressure Gabapentin take one capsule 270caps Hattie Lawson 01/04/2019 400mg by mouth three D.O. Capsules times a day Ibu 1 tablet every 6 20tabs Unknown 10/01/2018 600mg Tablets hours as needed [facility] Clotrimazole Apply 2 times a 14.200gm B37.9 Silcoff, 09/23/2018 1% day to control Justin Rios Cream rash, discontinue 2 days after rash resolves Citalopram 1 by mouth every 90tabs F43.23 Hattie Lawson, 09/11/2018 Hydrobromide day D.O. 20mg Tablets Omeprazole 1 by mouth twice 60caps Hattie Lawson, 09/03/2018 40mg every day D.O. Capsules DR Tramadol HCL 1 tab po four Unknown 09/02/2018 50mg times daily per Tablets Clotrimazole Apply to affected 56gm R21 co, 08/13/2018 Anti-Fungal areas bid Justin Rios 1% Cream B37.9 Wrklobski-Ztwkh-R19-Acetylcyst Take 1 tablet 90tabs [facility]53.8 [facility] 6-90.314-2-600mg by mouth daily Hattie D.OYen Tablets for nutritional support F50.9 Cane Use to assist with 1units Gabriel Ramirez, 03/27/2018 Standard walking and M.D. balance Proair HFA 2 puff Every 4-6 8.5units R06.00 Hattie Lawson, 01/30/2018 108(90Base) Hours, as Needed D.O. mcg/Act Aerosol Flonase Allergy Relief 2 sprays twice a 47.400ml J01.00 Hattie Lawson, day until better. D.O. 50mcg/Act Suspension Magox 400 2 tablets every 180tabs E66.01 Hattie Lawson, 02/24/2016 400(241.3mg) mg night at bedtime D.O. Tablets as directed Vitamin D3 1 tab by mouth 90tabs Hattie Lawson, 02/24/2016 5000Unit every day or 7 D.O. Tablets tabs once a week Multivitamin Adult 1 by mouth every 90tabs E66.01 Hattie Lawson, 2015 day D.O. Tablets History Medications Gabapentin 1 po tid Unknown 01/03/2019 - 300mg Capsules 01/04/2019 Fluconazole 2 tabs on day 1 the 1 15tabs Eliseo, 12/06/2018 - 200mg Tablets tab daily for 2 weeks. Karan Zazueta 12/20/2018 Famotidine take 1 tablet by mouth 14tabs Eliseo, 12/06/2018 - 40mg Tablets 2 times per day for Karan Zazueta 12/13/2018 gastroesophageal reflux disease Amoxicillin/Clavulanat 1 by mouth twice a day 20tabs Eliseo, 11/21/2018 - e Potassium Karan Zazueta 12/01/2018 875-125mg Tablets Benzonatate 1 by mouth three times 30caps [facility] - 200mg a day as needed cough Karan Zazueta 01/03/2019 Capsules Gabapentin 2 caps three times Unknown 11/20/2018 - 100mg Capsules daily 01/04/2019 Fluconazole 1 tab PO 1 time a 2tabs B37.9 Silcokimberli, 11/12/2018 - 150mg Tablets week, repeat in one Justin Rios 11/19/2018 week if rash recurs Sulindac Take 1 Tablet By Mouth 180tab Eliseo, 11/01/2018 - 150mg Tablets Twice Daily s Karan Zazueta 11/20/2018 Oxycodone-Acetaminophe Emiliano, 10/22/2018 - cynthia So MD 11/20/2018 5-325mg Tablets Eliquis Unknown 10/11/2018 - 2.5mg Tablets 11/20/2018 Dok Unknown 10/11/2018 - 100mg Capsules 12/05/2018 Amoxicillin 1 capsule by mouth 21caps Unknown 10/01/2018 - 500mg three times a day x 7 10/08/2018 Capsules days Fluconazole 1 tabs by mouth x 3 6tabs B37.9 Silcoff, 09/23/2018 - 150mg Tablets days, repeat in one Justin Rios 10/03/2018 week, also x 3 days for severe rash Vistaril take one capsule by Unknown 08/27/2018 - 25mg Capsules mouth for sleep at 10/23/2018 night Fluconazole 1 tabs by mouth 1 time 2tabs B37.9 James, 08/13/2018 - 150mg Tablets per week x 2 weeks for Justin Rios 08/30/2018 rash Cyclobenzaprine HCL TK 1 T PO 2 To 3 Times Unknown 05/01/2018 - 10mg A Day as Needed. MDD 3 11/20/2018 Tablets Xarelto one po daily Unknown 05/01/2018 - 10mg Tablets 06/27/2018 Oxycodone-Acetaminophe 1 every 4 hours as Unknown 05/01/2018 - n needed severe pain 08/05/2018 5-325mg Tablets Symbicort inhale 2 puffs by 1units James, 03/27/2018 - 160-4.5mcg/Act mouth twice daily Justin Rios 08/05/2018 Aerosol gargle after use for exacerbations (sample) Azithromycin take 2 tablets by 6tabs J45.21 James, 03/23/2018 - 250mg mouth one time on the Justin Rios 03/28/2018 Tablets first day then take 1 tablet by mouth daily for 4 days Advair Diskus 1 puff inhalation by 28unit J45.21 Eliseo, 02/21/2018 - mouth every 12 hours s Hattie DYenOYen 03/07/2018 100-50mcg/Dose Aerosol rinse mouth after use Citalopram 1 by mouth every day 90tabs F43.23 James, 01/05/2018 - Hydrobromide Justin Rios 09/11/2018 40mg Tablets Ventolin HFA inhale 2 puffs by 18unit R06.00 Eliseo, 12/19/2017 - 108(90Base) mouth every 4 hours as s Belinda Zazueta.OYen 01/30/2018 mcg/Act Aerosol needed for bronchospasm Tramadol HCL 1 tab three times a 90tabs M17.12 Eliseo, 12/15/2017 - 50mg Tablets day as needed for pain Hattie D.OYen 05/09/2018 Metformin HCL Take 1 Tablet Twice 60tabs E66.01 James, 12/11/2017 - 500mg Daily Justin Rios 09/02/2018 Tablets Sulindac 150 mg orally twice 180tab M25.56 Eliseo, 11/13/2017 - 150mg Tablets daily s 9 Hattie, D.O. 10/23/2018 Nystatin apply to affected 60gm R21 Dibladimirkimberli, 10/30/2017 - [id number] areas (not feet) 2-3 Justin Rios 08/13/2018 Ointment times a day until rash has gone for at least 2 days B37.9 Citalopram Hydrobromide 1 by mouth every 90tabs F43.23 [facility] - 20mg day Hattie, D.O. 01/05/2018 Tablets Citalopram Hydrobromide 1 by mouth every 90tabs F43.23 [facility] - 10mg day Hattie, D.O. 10/20/2017 Tablets Escitalopram Oxalate 1/2 tablets by 90tabs F43.23 James, 10/09/2017 - 10mg mouth daily Justin Rios 10/12/2017 Tablets Citalopram Hydrobromide 1 tab every 60tabs F43.23 [facility] - 10mg morning x 5 days Justin Rios 10/09/2017 Tablets then can increased to 2 tabs every morning Escitalopram Oxalate 1 tablets by 90tabs Eliseo, 08/31/2017 - 10mg mouth daily Hattie, D.O. 10/02/2017 Tablets Oxycodone HCL Take 1 capsule 60caps M54.16 [facility], 08/31/2017 - 5mg Capsules by mouth every 6 Hattie, D.O. 10/12/2017 hours as needed for pain Potassium Chloride ER 1 by mouth every 90caps [facility], 05/30/2017 - 10Meq day with each Hattie, D.O. 08/30/2017 Capsules ER tablet of furosemide Amoxicillin/Clavulanate 1 by mouth twice 20tabs J01.00 [facility] - Potassium a day Hattie, D.O. 06/05/2017 875-125mg Tablets Afrin Sinus inhale 2 sprays 15ml J01.00 [facility], 05/26/2017 - 0.05% Solution into nostril 2 Hattie, D.O. 05/29/2017 times per day every 10 to 12 hours as needed for stuffy nose for 3 days only! Hydrochlorothiazide take 1 tablet Unknown 04/24/2017 - 25mg every morning 04/25/2017 Tablets for high blood pressure Metoprolol Succinate ER Take 1 Tablet By 30tabs [place], 04/14/2017 - 50mg Mouth Every Day Hattie, D.O. 01/04/2019 Tablets ER 24HR Actigall Take One Capsule 270caps K80.10 [place], 04/14/2017 - 300mg Capsules By Mouth Three Hattie, D.O. 08/30/2017 Times A Day For Gallstones Escitalopram Oxalate 1 by mouth every 90tabs [place], 04/14/2017 - 20mg day Hattie, D.O. 08/31/2017 Tablets Escitalopram Oxalate 1 tablets by 90tabs [place], 12/07/2016 - 10mg mouth daily Hattie, D.O. 04/14/2017 Tablets Citalopram Hydrobromide 1 by mouth every 30tabs [place], 07/27/2016 - 10mg day Hattie, D.O. 08/16/2016 Tablets Hydrochlorothiazide take 1 tablet by 90tabs [place], 07/16/2016 - 25mg mouth daily Hattie, D.O. 12/07/2016 Tablets Diclofenac Sodium Take 1 Tablet By 90tabs [facility]25.569 [facility], 06/16/2016 - 50mg Tablets Mouth 3 Times Hattie, D.O. 11/13/2017 DR Per Day With Food Or Milk For Arthritis Metoprolol Succinate ER 1 by mouth every 30tabs [place], 04/26/2016 - 50mg day Hattie, D.O. 04/14/2017 Tablets ER 24HR Potassium Chloride ER 1 by mouth every 90caps [place], 04/12/2016 - 10Meq day with each Hattie, D.O. 07/27/2016 Capsules ER tablet of furosemide Metoprolol Succinate ER take one tablet 90tabs [place], 02/24/2016 - 100mg by mouth every Hattie, D.O. 04/26/2016 Tablets ER 24HR morning for blood pressure Phendimetrazine Tartrate Take 2 tablets 180tabs E66.01 [place], 2015 - 35mg by mouth 3 times Hattie, D.O. 01/06/2016 Tablets per day 1 hour before a meal for weight loss Diflucan 1 cap by mouth 3 2tabs [facility], 09/02/2015 - 150mg Tablets days apart. Melba ZazuetaO. 09/04/2015 Irbesartan 1 by mouth every 30tabs 401.1 [facility], 11/03/2014 - 75mg Tablets day Melba ZazuetaO. 12/03/2014 Singulair 1 tablet by 30tabs 493.00 [facility], 11/03/2014 - 10mg Tablets mouth once daily Melba ZazuetaO. 12/03/2014 for allergies Azithromycin take 2 tablets 6tabs 466.0 [facility], 10/14/2014 - 250mg Tablets by mouth one Melba ZazuetaO. 10/19/2014 time on the first day then take 1 tablet by mouth daily for 4 days Dulera 2 puffs twice a 493.00 [facility], 10/03/2014 - 100-5mcg/Act Aerosol day Melba ZazuetaO. 12/04/2014 Diflucan 1 cap by mouth 1tabs [facility], 07/29/2014 - 150mg Tablets once Belinda Zazueta.O. 2014 Lisinopril take 1 tablet by 90tabs 401.1 [facility], 07/16/2014 - 10mg Tablets mouth daily for Justin Rios 11/03/2014 high blood pressure Tramadol HCL 1 tab three 90tabs M17.12 [facility], 07/07/2014 - 50mg Tablets times a day as Belinda Zazueta.O. 08/31/2017 needed for pain Prednisone 2 tab every 10tabs 719.46 [facility], 07/07/2014 - 20mg Tablets morning for 5 Belinda Zazueta.O. 07/12/2014 days Blood Pressure Monitor [facility], 07/07/2014 - Digital/Automatic Belinda Zazueta.O. 11/20/2018 Misc Diclofenac Potassium 1 by mouth twice 60tabs M17.11 [facility], 07/07/2014 - 50mg a day Belinda Zazueta.O. 04/26/2016 Tablets M72.2 Z01.818 Valium 1 po 1 hour prior 2tabs Cj A. 06/16/2014 - 5mg Tablets to procedure, november Klepack, M.D. 07/06/2014 repeat 1 hour later as need. Potassium Chloride 3 tsp po qd 450ml James, 12/20/2013 - Justin Rios 08/27/2014 20Meq/15ML (10%) Solution Potassium Acetate 1 tsp qd 150ml James, 12/02/2013 - 4Meq/ML Justin Rios 12/20/2013 Solution Furosemide 1 by mouth every 60tabs R60.0 Hattie Lawson, 11/26/2013 - 20mg Tablets day for fluid D.O. 04/26/[address] 1 qd Unknown 11/26/2013 - 75mg 07/07/[address] Jarvis HFA 2 puff every 4-6 8.500gm R06.00 Hattie Lawson, 11/26/2013 - 108(90Base) hours, as needed D.O. 12/19/2017 mcg/Act Aerosol Tramadol HCL 2 by mouth every 60tabs Unknown 11/26/2013 - 50mg Tablets 4- 6 hours as 07/06/2014 needed for pain Potassium Chloride Takes prn leg 90tabs Unknown 11/26/2013 - 20Meq cramps 12/02/2013 Tablets ER Omeprazole 1 By Mouth Every 90caps James, 11/26/2013 - 20mg Capsules Day Justin Rios 09/03/2018 Phendimetrazine 1 by mouth 2-3 90tabs 278.00 James, 05/15/2013 - Tartrate times a day Justin Rios 06/03/2014 35mg Tablets before meals for weight loss Metoprolol Tartrate 1 by mouth every 180tabs Cj A. - 50mg day for blood Justin Saleh 02/24/2016 Tablets pressure control Amoxicillin/Clavulanat TK 1 T PO bid Unknown - e Potassium 2014 875-125mg Tablets Medications Administered in Office Medication SIG Qnty Indications Ordering Provider Date B12 Injection Hattie Lawson D.O. 04/14/2017 Injection SC/Im Injections Hattie Lawson D.O. 04/14/2017 Injection injection, kenalog, 10 mg Hattie Lawson D.O. 04/07/2016 Injection injection, kenalog, 10 mg Hattie Lawson D.O. 05/16/2015 Injection SC/Im Injections Hattie Lawson D.O. 05/16/2015 Injection H1N1 Swine Flu Vaccine Unknown 06/05/2007 Injection Immunizations CPT Code Status Date Vaccine Lot # 11612 Given 04/20/2018 Influenza Virus Vaccine, Quadrivalent, Split, [id number] Preservative Free 47104 Given 04/20/2018 Prevnar 13 [id number] 94242 Given 04/14/2017 Influenza Virus Vaccine, Quadrivalent, Split, [id number] Preservative Free 40485 Given 04/07/2016 Influenza Virus Vaccine, Quadrivalent, Split, [id number] Preservative Free 36760 Given 05/16/2015 Influenza Virus Vaccine, Quadrivalent, Split, [id number] Preservative Free 06920 Given 06/10/2014 Flu, Split Virus 3Yrs [id number] 18789 Given 12/10/2013 Adacel or Boostrix, TDaP 79373 Given 06/22/2012 Adacel or Boostrix, TDaP 45741 Given 04/29/2011 Pneumococcal Immunization 35213 Given 04/29/2011 Flu, Split Virus 3Yrs 64502 Given 05/29/2009 Flu, Split Virus 3Yrs [id number] Ordered 11/28/2013 Adacel or Boostrix, TDaP Vital Signs Date Vital Result Comment 01/11/2019 11:04am BP Systolic 170 mmHg BP Diastolic 100 mmHg 01/04/2019 1:01pm BP Systolic 164 mmHg BP Diastolic 94 mmHg BP Systolic Recheck 178 mmHg BP Diastolic Recheck 92 mmHg Weight 262.00 lb 12/06/2018 1:22pm BP Systolic 128 mmHg BP Diastolic 86 mmHg 11/21/2018 4:47pm BP Systolic 140 mmHg BP Diastolic 82 mmHg Body Temperature 98.1 F Weight 260.00 lb 10/23/2018 1:26pm BP Systolic 128 mmHg BP Diastolic 86 mmHg 10/04/2018 1:47pm BP Systolic 146 mmHg BP Diastolic 84 mmHg 09/25/2018 8:21am BP Systolic 160 mmHg BP [...] Facility Test Result H/L Range Note Urinalysis With 01/10/2019 [facility]. Urine Color YELLOW Yellow 1 Microscopic LABORATORY [phone] Urine Clarity CLEAR Clear Urine Glucose - Dipstick NEGATIVE mg/dL Negative Urine Bilirubin - Dipstick NEGATIVE Negative Urine Ketone NEGATIVE mg/dL Negative Urine Specific [place] <=1.005 Low 1.010-1.030 Urine Blood NEGATIVE Negative Urine PH 7.0 N 6.5-7.5 Urine Protein - Dipstick NEGATIVE mg/dL Negative Urine Urobilinogen - Dipstick 0.2 E.U./dL N 0.2-1.0 Urine Nitrite - Dipstick NEGATIVE Negative Urine Leuk Esterase TRACE Abnormal Negative Urine RBC NONE SEEN rbc/hpf 0-2 Urine WBC 0-2 wbc/hpf 0-7 Urine Epithelial Cells FEW /lpf None Seen Urine Bacteria VERY FEW None Seen Source: URINE, CLEAN CAT <SEE NOTE> 2 CBS W/Automated 01/10/2019 [facility]. White Blood 6.6 K/uL N 3.1-10.7 Diff LABORATORY Count [phone] Red Blood Count 4.69 M/uL N 3.90-5.40 Hemoglobin 13.7 gm/dL N 11.6-15.8 Hematocrit 41.3 % N 36.0-46.1 Mean Cell Volume 88.1 fl N 80.9-99.0 Mean Corpuscular HGB 29.2 pg N 25.9-32.7 Mean Corpuscular HGB Conc 33.2 g/dL N 30.8-34.3 Platelet Count 322 K/uL N 155-360 Red Cell Distri Width SD 44.7 fl N 36-47 Red Cell Distri Width %CV 14.1 % N 11.7-14.4 Mean Platelet Volume 9.3 fl N 8.9-12.4 Neut% 53.1 % N 40.4-72.8 Lymph % 39.1 % N 20.0-42.0 [place] % 6.4 % N 4.3-13.2 Eo% 0.8 % N 0.0-6.6 Bas% 0.3 % N 0.0-1.1 Immature Grans 0.3 % N 0.0-5.0 NRBC % 0.0 /100WBC < 10/ 100 WBC Neut# 3.48 K/uL N 1.8-7.0 Lymph # 2.56 K/uL N 1.0-4.0 [place] # 0.42 K/uL N 0.3-0.9 Eos # 0.05 K/uL N 0.0-0.5 Baso # 0.02 K/uL N 0.0-0.1 Immature Grans Absolute 0.02 K/uL NRBC # 0.00 K/uL Rubeola Measles Igg 12/06/2018 [facility] Rubeola (Measles) IgG Positive 3 AB [phone] Antibody Rubeola IgG Antibody Index >8.0 4 CBC Auto Diff 11/22/2018 [facility] White Blood Count 7.7 10^3/uL N 3.5-10.8 [phone] Red Blood Count 4.28 10^6/uL N 3.70-4.87 Hemoglobin 12.6 g/dL N 12.0-16.0 Hematocrit 37 % N 33-41 Mean Corpuscular Volume 87 fL N 80-97 Mean Corpuscular Hemoglobin 29 pg N 27-31 Mean Corpuscular HGB Conc 34 g/dL N 31-36 Red Cell Distribution Width 14 % N 10.5-15 Platelet Count 376 10^3/uL N 150-450 Mean Platelet Volume 6.9 fL Low 7.4-10.4 Abs Neutrophils 5.1 10^3/uL N 1.5-7.7 Abs Lymphocytes 1.7 10^3/uL N 1.0-4.8 Abs Monocytes 0.6 10^3/uL N 0-0.8 Abs Eosinophils 0.2 10^3/uL N 0-0.6 Abs Basophils 0.1 10^3/uL N 0-0.2 Abs Nucleated RBC 0 10^3/uL Granulocyte % 66.8 % Lymphocyte % 22.1 % Monocyte % 8.0 % Eosinophil % 2.4 % Basophil % 0.7 % Nucleated Red Blood Cells % 0 Comp Metabolic Panel 11/22/2018 [facility] Sodium 139 mmol/L N 135- 145 [phone] Potassium 4.6 mmol/L N 3.5-5.0 Chloride 104 mmol/L N 101-111 Co2 Carbon Dioxide 27 mmol/L N 22-32 Anion Gap 8 mmol/L N 2-11 Glucose 103 mg/dL High 70-100 Blood Urea Nitrogen 19 mg/dL N 6-24 Creatinine 0.78 mg/dL N 0.51-0.95 BUN/Creatinine Ratio 24.4 High 8-20 Calcium 9.1 mg/dL N 8.6-10.3 Total Protein 6.6 g/dL N 6.4-8.9 Albumin 3.7 g/dL N 3.2-5.2 Globulin 2.9 g/dL N 2-4 Albumin/Globulin Ratio 1.3 N 1-3 Total Bilirubin 0.40 mg/dL N 0.2-1.0 Alkaline Phosphatase 71 U/L N 34-104 Alt 18 U/L N 7-52 Ast 18 U/L N 13-39 Egfr Non- 77.0 >60 Egfr 93.1 >60 5 Iron & Iron Binding Capacity 11/22/2018 [facility] Iron 53 g/dL N 50-212 [phone] Unsaturated Iron Binding < 349 g/dL Total Iron Binding Capacity 364 g/dL N 250-450 Transferrin 260 mg/dL N 203-362 % Iron Saturation 15 % N 15-55 Laboratory test 11/22/2018 [facility] Ferritin 57.9 ng/mL N 11-307 finding [phone] Retic Count 11/22/2018 [facility] Retic Count 2.2 % High 0.5-1.5 [phone] Corrected Retic Count 1.8 % High 0.5-1.5 Maturation Factor Retic 1.5 Retic Index 1.20 Mean Retic Volume 106.5 Immature Retic Fraction 0.45 RBC Retic Count 4.28 10^6/uL N 3.70-4.87 Hematocrit for Retic CNT 37 % N 33-41 Laboratory test 11/21/2018 In House Hemoglobin 10.6 finding Laboratory test 10/25/2018 [facility]. Magnesium 1.9 mg/dL N 1.8-2.4 6 finding LABORATORY [phone] Vitamin B1 (Thiamine),WB 162.4 nmol/L 66.5-200.0 7 Vitamin D,25-Hydroxy 31.5 ng/mL 30.0-100.0 8 Comp Metabolic Panel 10/25/2018 [facility]. Glucose 98 mg/dL N 74-106 LABORATORY [phone] BUN 24 mg/dL High 7-18 Creatinine 0.7 mg/dL N 0.6-1.3 Glom Filtration Rate, Estimate >60 mL/min >60 If >60 mL/min >60 9 BUN/Creat 34.2 ratio Sodium 138 mmol/L N 136-145 Potassium 3.8 mmol/L N 3.5-5.1 Chloride 106 mmol/L N 98-107 Carbon Dioxide 28 mmol/L N 21-32 Anion Gap 4 mEq/L Low 8-16 Calcium 9.1 mg/dL N 8.5-10.1 Total Protein 7.6 g/dL N 6.4-8.2 Albumin 3.3 g/dL Low 3.4-5.0 Globulin 4.3 g/dL N 1.9-4.3 Alb/Glob 0.8 ratio Bilirubin,Total 0.4 mg/dL N 0.2-1.0 Sgot/Ast 11 U/L Low 15-37 10 SGPT/Alt 23 U/L N 12-78 Alkaline Phosphatase 91 U/L N 45-117 Vitamin B12 And 10/25/2018 [facility]. Vitamin B12 1921 pg/mL High [phone] Folate LABORATORY [phone] Folic Acid > 20.0 ng/mL High 3.1-17.5 Urine Culture And 09/26/2018 [facility] Urine Culture SEE RESULT BELOW 11 Sensitivities [phone] Type & Screen 09/26/2018 [facility] Patient Blood O Positive [phone] Type Antibody Screen NEGATIVE Comp Metabolic Panel 09/26/2018 [facility] Sodium 140 mmol/L N 135- 145 [phone] Potassium 4.0 mmol/L N 3.5-5.0 Chloride 103 [...] Egfr Non- 81.8 >60 Egfr 99.0 >60 12 Laboratory test 09/26/2018 [facility] Partial 33.1 seconds N 26.0- 36.3 finding [phone] Thrombo Time PTT Inr/Protime 09/26/2018 [facility] Inr 0.96 N 0.77-1.02 [phone] CBC Auto Diff 09/26/2018 [facility] White Blood 7.1 10^3/uL N 3.5- 10.8 [phone] Count Red Blood Count 4.68 10^6/uL N 4.00-5.40 [...] % Nucleated Red Blood Cells % 0.1 Urinalysis Profile 09/26/2018 [facility] Urine Color Yellow [phone] Urine Appearance Cloudy Urine Specific [place] 1.011 N 1.010-1.030 Urine pH 5.0 N 5-9 Urine Urobilinogen Negative Negative Urine Ketones Negative Negative Urine Protein Negative Negative Urine Leukocytes Negative Negative Urine Blood Negative Negative Urine Nitrite Negative Negative Urine Bilirubin Negative Negative Urine Glucose Negative Negative HIV 1/2 AB 09/26/2018 [facility] HIV 1 2 Nonreactive Nonreactive 13 Evaluation [phone] Antibody CBC Auto Diff 09/03/2018 [facility] White Blood 7.5 10^3/uL N 3.5- 10.8 [phone] Count Red Blood Count 4.83 10^6/uL N [...] Cells % 0 Comp Metabolic Panel 09/03/2018 [facility] Sodium 139 mmol/L N 135- 145 [phone] Potassium 4.3 mmol/L N 3.5-5.0 Chloride 103 [...] Egfr Non- 84.4 >60 Egfr 102.1 >60 14 Laboratory test finding 09/03/2018 [facility] Amylase 20 U/L Low 29- 103 [phone] Lipase 17 U/L N 11.0-82.0 Magnesium 1.7 mg/dL Low 1.9-2.7 Erythrocyte Sed Rate 21 mm/Hr N 0-30 C Reactive Protein 2.40 mg/L N <8.01 Urine Culture And 09/02/2018 [facility] Urine SEE RESULT 15, 16 Sensitivities [phone] Culture BELOW Poc Urinalysis 09/02/2018 [facility] Poc Negative Negative [phone] Glucose, Urine Poc Bilirubin, Urine Negative Negative Poc Ketone, Urine Negative Negative Poc Specific [place], Urine 1.025 N 1.010-1.030 Poc Blood, Urine Negative Negative Poc pH, Urine 6.0 N 5-9 Poc Protein, Urine Negative Negative Poc Urobilinogen, Urine 0.2 Negative Poc Nitrite, Urine Negative Negative Poc Leukocytes, Urine Trace Abnormal Negative Poc Color, Urine Dark yellow Poc Clarity, Urine Clear 17 Ua Inhouse 03/15/2018 In House Ua Glucose - 18 Ua Bilirubin - Ua Ketones - Ua Specific [place] 1.030 Ua Blood - Ua PH 6.0 Ua Protein - Ua Urobilinogen - Ua Nitrite - Ua Leukocytes - Basic Metabolic Panel 03/09/2018 [facility] Sodium 140 mmol/L N 135- 145 [phone] Potassium 4.2 mmol/L N 3.5-5.0 Chloride 105 mmol/L N 101-111 Co2 Carbon Dioxide 28 mmol/L N 22-32 Anion Gap 7 mmol/L N 2-11 Glucose 83 mg/dL N 70-100 Blood Urea Nitrogen 18 mg/dL N 6-24 Creatinine 0.60 mg/dL N 0.51-0.95 BUN/Creatinine Ratio 30.0 High 8-20 Calcium 9.2 mg/dL N 8.6-10.3 Egfr Non- 104.6 >60 Egfr 126.5 >60 19 Laboratory test 03/09/2018 [facility] C Reactive Protein 1.35 mg/L N <8.01 20 finding [phone] TSH (Thyroid Stim Horm) 1.60 mcIU/mL N 0.34-5.60 21 Free T4 (Free Thyroxine) 1.02 ng/dL N 0.61-1.12 22 Folic Acid (Folate) > 20.00 ng/mL >3.99 23 Vitamin B12 336 pg/mL N 180-914 24 Erythrocyte Sed Rate 22 mm/Hr N 0-30 25 Laboratory test 01/09/2018 [facility] Surgical SEE RESULT 26 finding [phone] Pathology BELOW Laboratory test 12/08/2017 [facility] Surgical SEE RESULT 27 finding [phone] Pathology BELOW GC/Chlamydia 12/05/2017 [facility] Chlamydia Negative Negative Amplified Rna [phone] trachomatis Rna Neisseria gonorrhoeae (GC) Rna Negative Negative Laboratory test 12/05/2017 [facility] Cytology SEE RESULT 28 finding [phone] BELOW Laboratory test 10/30/2017 [facility] Insulin Level 6.6 2.6 29 finding [phone] mcIU/mL - 24.9 Laboratory test 10/17/2017 [facility]. Sedimentation Rate 17 mm /hr N 0-30 30, 31 finding LABORATORY [phone] C-Reactive Protein,Quant < 2.9 mg/L <3.0 Magnesium 1.9 mg/dL N 1.8-2.4 Thyroid Stim Hormone 1.46 uIU/mL N 0.30-4.20 Vitamin B12 460 pg/mL N [phone] CBC Auto Diff 10/17/2017 [facility]. White Blood 7.2 K/uL N 3.1-10.7 LABORATORY Count [phone] Red Blood Count 4.72 M/uL N 3.90-5.40 [...] 40.4-72.8 Lymph % 30.5 % N 20.0-42.0 [place] % 7.1 % N 4.3-13.2 Eo% 1.7 % N 0.0-6.6 Bas% 0.3 % N 0.0-1.1 Neut# 4.37 K/uL N 1.8-7.0 Lymph # 2.20 K/uL N 1.0-4.0 [place] # 0.51 K/uL N 0.3-0.9 Eos # 0.12 K/uL N 0.0-0.5 Baso # 0.02 K/uL N 0.0-0.1 Comp Metabolic Panel 10/17/2017 [facility]. Glucose 97 mg/dL N 74-106 LABORATORY [phone] BUN 16 mg/dL N 7-18 Creatinine 0.7 mg/dL N 0.6-1.3 Glom Filtration Rate, Estimate >60 mL/min >60 If >60 mL/min >60 32 BUN/Creat 22.8 ratio Sodium 140 mmol/L N [...] 78 U/L N 45-117 Comprehensive Yovana 10/17/2017 [facility]. Anti-Dna <1 IU/mL 0 -9 33 Panel LABORATORY Antibody [phone] (Jamul) SM Antibody <0.2 AI 0.0-0.9 [employer] ARCHITECT Antibody <0.2 AI 0.0-0.9 Sjogrens Antibodies (Ssa) <0.2 AI 0.0-0.9 Antichromatin Antibodies <0.2 AI 0.0-0.9 Radha-1 Antibody <0.2 AI 0.0-0.9 Sjogrens Antibodies (SSB) <0.2 AI 0.0-0.9 Centromere B Antibodies < 0.2 AI 0.0-0.9 Scleroderma Antibodies, SCL-70 <0.2 AI 0.0-0.9 See below: (SEE NOTE) 34 CBC Auto Diff 08/31/2017 [facility] White Blood Count 6.7 10^3/uL N 3.5-10.8 [phone] Red Blood Count 4.51 10^6/uL N 4.0-5.4 [...] Cells % 0.1 Comp Metabolic Panel 08/31/2017 [facility] Sodium 139 mmol/L N 133- 145 [phone] Potassium 4.1 mmol/L N 3.5-5.0 Chloride 102 [...] Egfr Non- 87.5 >60 Egfr 112.6 >60 35 Laboratory test 08/31/2017 [facility] C Reactive < 1.00 mg/L N < 5.00 36 finding [phone] Protein Erythrocyte Sed Rate 19 mm/Hr N 0-30 Magnesium 1.7 mg/dL Low 1.9-2.7 TSH (Thyroid Stim Horm) 2.82 mcIU/mL N 0.34-5.60 Uric Acid 5.0 mg/dL N 2.3-6.6 Vitamin B12 362 pg/mL N 180-914 37 Laboratory test 04/14/2017 [facility] Magnesium 1.8 mg/dL Low 1.9- 2.7 finding [phone] CBC Auto Diff 04/14/2017 [facility] White Blood 6.2 10^3/uL N 3.5- 10.8 [phone] Count Red Blood Count 4.50 10^6/uL N [...] % 0.1 N Comp Metabolic Panel 04/14/2017 [facility] Sodium 140 mmol/L N 133- 145 [phone] Potassium 3.3 mmol/L Low 3.5-5.0 Chloride 100 [...] 85.1 N >60 Egfr 109.4 N >60 38 Laboratory test 04/14/2017 [facility] Erythrocyte Sed Rate 19 mm/Hr N 0-30 finding [phone] TSH (Thyroid Stim Horm) 1.36 mcIU/mL N 0.34-5.60 Phosphorus 3.2 mg/dL N 2.5-5.0 Vitamin B12 > 1450 pg/mL High 180-914 39 Vitamin D Total 25(Oh) 26.5 ng/mL N 20-50 Folic Acid (Folate) 17.43 ng/mL N >3.99 CBS W/Automated 04/03/2017 [facility]. White Blood 7.6 K/uL N 3.1-10.7 40 Diff LABORATORY Count [phone] Red Blood Count 4.51 M/uL N 3.90-5.40 [...] 40.4-72.8 Lymph % 45.1 % High 20.0-42.0 [place] % 8.2 % N 4.3-13.2 Eo% 1.1 % N 0.0-6.6 Bas% 0.3 % N 0.0-1.1 Neut# 3.43 K/uL N 1.8-7.0 Lymph # 3.41 K/uL N 1.0-4.0 [place] # 0.62 K/uL N 0.3-0.9 Eos # 0.08 K/uL N 0.0-0.5 Baso # 0.02 K/uL N 0.0-0.1 Laboratory test 04/03/2017 [facility]. D-Dimer, 0.25 41 finding LABORATORY Quantitative ug/mL [phone] Comprehensive 04/03/2017 [facility]. Glucose 118 mg/dL High 74-1 Metabolic Panel LABORATORY 06 [phone] BUN 25 mg/dL High 7-18 Creatinine 0.8 mg/dL N 0.6-1.3 Glom Filtration Rate, Estimate >60 mL/min >60 If >60 mL/min >60 42 BUN/Creat 31.2 ratio Sodium 141 mmol/L N [...] U/L N 45-117 Laboratory test finding 04/03/2017 [facility]. Lipase 120 U/L N 73-393 LABORATORY [phone] HCG,Serum (Qualitative) NEGATIVE (Negative) Ua RFX Micro & 04/03/2017 [facility] Urine Color YELLOW Yellow Culture II LABORATORY [phone] Urine Clarity CLEAR Clear Urine Glucose - Dipstick NEGATIVE mg/dL Negative Urine Bilirubin - Dipstick NEGATIVE Negative Urine Ketone NEGATIVE mg/dL Negative Urine Specific [place] 1.025 N 1.010-1.030 Urine Blood NEGATIVE Negative Urine PH 5.5 Low 6.5-7.5 Urine Protein - Dipstick NEGATIVE mg/dL Negative Urine Urobilinogen - Dipstick 0.2 E.U./dL N 0.2-1.0 Urine Nitrite - Dipstick NEGATIVE Negative Urine Leuk Esterase NEGATIVE Negative Source: URINE, CLEAN CAT <SEE NOTE> 43 CBC No Diff 12/09/2016 [facility] White Blood Count 8.3 10^3/uL N 3.5 -10.8 [phone] Red Blood Count 4.56 10^6/uL N 4.0-5.4 Hemoglobin 14.1 g/dL N 12.0-16.0 Hematocrit 42 % N 35-47 Mean Corpuscular Volume 92 fL N 80-97 Mean Corpuscular Hemoglobin 31 pg N 27-31 Mean Corpuscular HGB Conc 34 g/dL N 31-36 Red Cell Distribution Width 14 % N 10.5-15 Platelet Count 304 10^3/uL N 150-450 Mean Platelet Volume 9 um3 N 7.4-10.4 Laboratory test 12/09/2016 [facility] Hemoglobin A1c 5.0 % N Less than 44 finding [phone] (Glyco HGB) 6.0 Comp Metabolic 12/09/2016 [facility] Sodium 142 mmol/L N 133-145 Panel [phone] Potassium 3.3 mmol/L Low 3.5-5.0 Chloride 102 [...] 79.9 N >60 Egfr 102.8 N >60 45 Lipid Profile 12/09/2016 [facility] Triglycerides 109 mg/dL N 46 (Trig/Chol/HDL) [phone] Cholesterol 211 mg/dL N 47 HDL Cholesterol 40.8 mg/dL N 48 LDL Cholesterol 148 mg/dL N 49 Laboratory test finding 12/09/2016 [facility] Magnesium 1.6 mg/dL Low 1.9-2.7 [phone] TSH (Thyroid Stim Horm) 2.28 mcIU/mL N 0.34-5.60 T3 Free 3.10 pg/mL N 2.5-3.9 Free T4 (Free Thyroxine) 1.03 ng/dL N 0.61-1.12 Vitamin B12 118 pg/mL Low 180-914 50 Vitamin D Total 25(Oh) 17.2 ng/mL Low 30-50 Insulin Level 11.3 mcIU/mL N 2.6 - 24.9 51 Aot Request 07/13/2016 [facility] Aot Request Test(s) added N 52, 53 LABORATORY [phone] Tests to be added: RPR, FT4, TSH Instructions: ADD ON TO ER BLO <SEE NOTE> 54 Drugs Of 07/12/2016 [facility]. Amphetamines Negative N 55 Abuse-Urine Screen LABORATORY (Urine) 7 [phone] Barbiturates (Urine) Negative N Benzodiazepines (Urine) Negative N Cannabinoids (Urine) Negative N Cocaine Metabolite (Urine) Negative N Methadone (Urine) Negative N Opiates (Urine) Negative N Urine Cutoffs * N 56 Laboratory test 07/12/2016 [facility]. Ethyl Alcohol < 3.0 mg/ dL N finding LABORATORY [phone] Urine Culture 07/12/2016 [facility] Urine Culture URETHRAL RENAE 57 LABORATORY [phone] Quantity > 100,000 CFU/mL N 58 Laboratory test 07/12/2016 [facility]. Treponema Nonreactive N Nonreactive 59 finding LABORATORY Antibody [phone] Ord Comprehensive 07/12/2016 [facility] Glucose 100 mg/dL N 74- 106 Metabolic Panel LABORATORY [phone] BUN 12 mg/dL N 7-18 Creatinine 0.8 mg/dL N 0.6-1.3 Glom Filtration Rate, Estimate >60 mL/min N >60 If >60 mL/min N >60 60 BUN/Creat 15.0 ratio N Sodium 143 mmol/L [...] Alkaline Phosphatase 64 U/L N 45-117 Laboratory test 07/12/2016 [facility]. Ethyl Alcohol < 3.0 mg/ dL N finding LABORATORY [phone] CBS W/Automated 07/12/2016 [facility]. White Blood 7.1 K/uL N 3.1-10 Diff LABORATORY Count .7 [phone] Red Blood Count 4.67 M/uL N 3.90-5.40 [...] 40.4-72.8 Lymph % 34.1 % N 17.0-46.1 [place] % 9.3 % N 4.3-13.2 Eo% 1.4 % N 0.0-6.6 Bas% 0.3 % N 0.0-1.1 Neut# 3.89 K/uL N 1.8-7.0 Lymph # 2.42 K/uL N 1.8-7.0 [place] # 0.66 K/uL N 0.3-0.9 Eos # 0.10 K/uL N 0.0-0.5 Baso # 0.02 K/uL N 0.0-0.1 Chlamydia/GC 07/12/2016 [facility]. Chlamydia Negative N Negative Martha, Urine LABORATORY Trachomatis,Ur [phone] -Martha Neisseria Gonorrhoeae,Ur -Martha Negative N Negative 61 Urinalysis With 07/12/2016 [facility]. Urine Color YELLOW N Yellow Microscopic LABORATORY [phone] Urine Clarity SL CLOUDY N Clear Urine Glucose - Dipstick NEGATIVE mg/dL N Negative Urine Bilirubin - Dipstick NEGATIVE N Negative Urine Ketone NEGATIVE mg/dL N Negative Urine Specific [place] >=1.030 N 1.010-1.030 Urine Blood MODERATE Abnormal Negative Urine PH 5.0 Low 6.5-7.5 Urine Protein - Dipstick NEGATIVE mg/dL N Negative Urine Urobilinogen - Dipstick 0.2 E.U./dL N 0.2-1.0 Urine Nitrite - Dipstick NEGATIVE N Negative Urine Leuk Esterase TRACE Abnormal Negative Urine RBC 2-5 rbc/hpf N 0-2 Urine WBC 0-2 wbc/hpf N 0-7 Urine Epithelial Cells MANY /lpf N None Seen 62 Urine Bacteria FEW N None Seen Urine Fine Gran Cast 0-2 #/lpf N None Seen Source: URINE, CLEAN CAT <SEE NOTE> 63 Basic Metabolic Panel 07/05/2016 [facility] Sodium 139 mmol/L N 133- 145 [phone] Potassium 4.1 mmol/L N 3.5-5.0 Chloride 102 mmol/L N 101-111 Co2 Carbon Dioxide 31 mmol/L N 22-32 Anion Gap 6 mmol/L N 2-11 Glucose 122 mg/dL High 70-100 Blood Urea Nitrogen 16 mg/dL N 6-24 Creatinine 0.75 mg/dL N 0.51-0.95 BUN/Creatinine Ratio 21.3 High 8-20 Calcium 10.0 mg/dL N 8.6-10.3 Egfr Non- 81.5 N >60 Egfr 104.8 N >60 64 Basic Metabolic Panel 04/07/2016 [facility] Sodium 140 mmol/L N 133- 145 [phone] Potassium 3.4 mmol/L Low 3.5-5.0 Chloride 101 mmol/L N 101-111 Co2 Carbon Dioxide 28 mmol/L N 22-32 Anion Gap 11 mmol/L N 2-11 Glucose 98 mg/dL N 70-100 Blood Urea Nitrogen 14 mg/dL N 6-24 Creatinine 0.84 mg/dL N 0.51-0.95 BUN/Creatinine Ratio 16.7 N 8-20 Calcium 9.5 mg/dL N 8.6-10.3 Egfr Non- 71.5 N >60 Egfr 91.9 N >60 65 Laboratory test 01/26/2016 [facility] C Reactive 5.31 mg/L High < 5.00 66 finding [phone] Protein Methylmalonic Acid Mma 0.12 nmol/mL N <=0.40 67 Laboratory test 01/07/2016 [facility]. Vitamin B12 475 pg/mL [phone] 68 finding LABORATORY [phone] Magnesium 1.8 mg/dL 1.8-2.4 Vitamin B1 (Thiamine),WB 93.1 nmol/L 66.5-200.0 Copper, Serum 132 g/dL 72-166 69 Zinc, Whole Blood 676 g/dL [phone] 70 Vitamin D,25-Hydroxy 22.0 ng/mL Low 30.0-100.0 71 Chlamydia/GC 12/16/2015 [facility]. Chlamydia Negative Negative Martha, Urine LABORATORY Trachomatis,Ur [phone] -Martha Neisseria Gonorrhoeae,Ur -Martha Negative Negative 72 Laboratory test 12/15/2015 [facility]. Culture If See Note 73 finding LABORATORY Indicated Comment [phone] Ua RFX Micro + Culture II See Note 74 Urine Culture See Note 75 Urinalysis With 12/15/2015 [facility]. Urine Color RED Yellow Microscopic LABORATORY [phone] Urine Clarity CLOUDY Clear Urine Glucose - Dipstick 100 mg/dL High Negative Urine Bilirubin - Dipstick MODERATE High Negative Urine Ketone TRACE mg/dL High Negative Urine Specific [place] 1.010 1.010-1.030 Urine Blood LARGE High Negative [...] High Urine Amorph Sediment SMALL Negative Laboratory 12/15/2015 [facility]. Urine HCG NEGATIVE Negative 76 test finding LABORATORY (Qualitative) [phone] Comp Metabolic 12/02/2015 [facility] Sodium 138 mmol/L N 133-145 Panel [phone] Potassium 3.6 mmol/L N 3.5-5.0 Chloride 98 [...] 74.5 N >60 Egfr 95.9 N >60 77 Protein 12/02/2015 [facility] Total 7.4 g/dL N 6.3 - Electrophoresis [phone] Protein(Pep) 7.9 Albumin 3.2 g/dL Abnormal 3.4-4.7 Alpha-1 Globulin 0.3 g/dL N 0.1-0.3 Alpha-2 Globulin 1.1 g/dL Abnormal 0.6-1.0 Beta Globulin 1.5 g/dL Abnormal 0.7-1.2 Gamma Globulin 1.3 g/dL N 0.6-1.6 Albumin/Globulin Ratio 0.78 N Impression See Comment N 78 GC/Chlamydia 05/25/2015 [facility] Chlamydia Negative N Negative 79 Amplified Rna [phone] trachomatis Rna Neisseria gonorrhoeae (GC) Rna Negative N Negative 80 Laboratory test 05/25/2015 [facility] Trichomonas Negative N Negative 81 finding [phone] vaginalis Rna Gardnerella/Yeast: Vaginal Dna SEE RESULT BELOW 82 Urine Micro Inhouse 01/22/2015 In House Ua WBC - 83 Ua RBC - Ua Casts - Ua Epi - Ua Other - Ua Glucose - Ua Bilirubin - Ua Ketones - Ua Specific [place] 1.010 Ua Blood - Ua PH 5.0 Ua Protein - Ua Urobilinogen - Ua Nitrite - Ua Leukocytes - Comp Metabolic Panel 01/15/2015 [facility] Sodium 138 mmol/L N 133- 145 [phone] Potassium 4.3 mmol/L N 3.5-5.0 Chloride 103 [...] 85.7 N >60 Egfr 110.3 N >60 84 Lipid Profile 01/15/2015 [facility] Triglycerides 102 mg/dL N 85 (Trig/Chol/HDL) [phone] Cholesterol 189 mg/dL N 86 HDL Cholesterol 39.4 mg/dL N 87 LDL Cholesterol 129 mg/dL N 88 CBC/Manual 09/25/2014 [facility]. White Blood 8.0 K/uL 3.1- 10.7 Differential LABORATORY Count [phone] Red Blood Count 4.47 M/uL 3.90-5.40 Hemoglobin [...] [facility] D-Dimer, 1.09 High 89 finding LABORATORY Quantitative ug/mL [phone] Comprehensive 09/25/2014 [facility] Glucose 108 mg/dL High 74-1 Metabolic Panel LABORATORY 06 [phone] BUN 12 mg/dL 7-18 Creatinine 0.8 mg/dL 0.6-1.3 Glom Filtration Rate, Estimate >60 mL/min >60 If >60 mL/min >60 90 BUN/Creat 15.0 ratio Sodium 143 mmol/L 136-145 Potassium 4.1 mmol/L 3.5-5.1 Chloride 106 mmol/L 98-107 Carbon Dioxide 30 mmol/L 21-32 Anion Gap 7 mEq/L Low 8-16 Calcium 8.8 mg/dL 8.5-10.1 Total Protein 7.3 g/dL 6.4-8.2 Albumin 3.5 g/dL 3.4-5.0 Globulin 3.8 g/dL 1.9-4.3 Alb/Glob 0.9 ratio Bilirubin,Total 0.4 mg/dL 0.2-1.0 Sgot/Ast 13 U/L Low 15-37 91 SGPT/Alt 31 U/L 12-78 Alkaline Phosphatase 104 U/L 45-117 Laboratory test 09/25/2014 [facility]. Troponin-I < 0.02 ng/mL 92 finding LABORATORY [phone] Thyroid Stim Hormone 2.45 uIU/mL 0.36-3.74 Laboratory test 07/07/2014 [facility] Erythrocyte Sed 29 mm/Hr High 0 -14 finding [phone] Rate Uric Acid 6.6 mg/dL N 2.3-6.6 Comp Metabolic Panel 07/07/2014 [facility] Sodium 139 mmol/L N 133- 145 [phone] Potassium 3.8 mmol/L N 3.5-5.0 Chloride 104 [...] 90.4 N >60 Egfr 116.3 N >60 93 CBC Auto Diff 07/07/2014 [facility] White Blood Count 7.5 10^3/uL N 4.8-10.8 [phone] Red Blood Count 4.40 10^6/uL N 4.0-5.4 [...] Nucleated Red Blood Cells % 0.1 N Laboratory test 06/10/2014 [facility] Erythrocyte Sed 27 mm/Hr High 0 -14 finding [phone] Rate CBC Auto Diff 06/10/2014 [facility] White Blood Count 7.8 N 4.8-10.8 [phone] 10^3/uL Red Blood Count 4.38 10^6/uL N [...] Blood Cells % 0.1 N Wound 12/10/2013 [facility] Wound/Misc (SEE 94 Culture/Sensi [phone] Culture-Gram NOTE) Stain Laboratory test 11/29/2013 [facility] Sedimentation 30 mm/hr High 0-20 95 finding LABORATORY Rate [phone] CBC/Manual 11/29/2013 [facility] White Blood Count 7.2 K/uL 3.1- Differential LABORATORY 10.7 [phone] Red Blood Count 4.49 M/uL 3.90-5.40 Hemoglobin [...] RBC Morphology NORMAL Laboratory test finding 11/29/2013 [facility] Amylase 23 U/L 18-98 96 LABORATORY [phone] Lipase 121 U/L 28-380 97 Comprehensive 11/29/2013 [facility] Glucose 103 mg/dL 76- 115 Metabolic Panel LABORATORY [phone] BUN 17 mg/dL 5-23 Creatinine 0.8 mg/dL 0.5-1.4 Glom Filtration Rate, Estimate >60 mL/min >60 If >60 mL/min >60 98 BUN/Creat 21.2 ratio Sodium 141 mmol/L 136-145 [...] 30-65 Alkaline Phosphatase 92 U/L 50-136 1 HYPERTENSIVE AFTER PT 2 URINE, CLEAN CATCH 3 Results suggest response to immunization or prior exposure to the virus. REFERENCE VALUE Vaccinated: Positive (>=1.1 AI) Unvaccinated: Negative (<=0.8 AI) 4 Test Performed by: [facility] [id number] [place] [address] 5 Because ethnic data is not always [...] 5 Kidney failure <15 (or dialysis) 6 G90.09, R42, E55.9 7 This test was developed and its performance characteristics determined by [employer]. It has not been cleared or approved by the Food and Drug Administration. Performed at: [address] [id number] .Net Architect: Chantale Crawford MD, Phone: [phone] 8 Vitamin D deficiency has been defined by the [place] of [employer] and an Endocrine Society practice guideline as a level of serum 25-OH vitamin D less than 20 ng/mL (1,2). The Endocrine Society went on to further define vitamin D insufficiency as a level between 21 and 29 ng/mL (2). 1. IOM ([place] of [employer]). 2010. Dietary reference intakes for calcium and D. [place]: The National Academies Press. 2. Urban MF, Bill BENITES, Shikha WINSTON, et al. Evaluation, treatment, and prevention of vitamin D deficiency: an Endocrine Society clinical practice guideline. JCEM. 2010; 96(7):1911-30. Performed at: RN - [facility] [address] [id number] .Net Architect: Maryuri Mckeon MD, Phone: [phone] 9 Note: Persistent reduction for 3 months or more in an eGFR <60 mL/min/1.73 m2 defines CKD. Patients with eGFR values >/=60 mL/min/1.73 m2 may also have CKD if evidence of persistent proteinuria is present. The original MDRD equation for estimated GFR is not valid for patients less than 18 years of age. Additional information may be found at www.kdoqi.org. 10 Values below the stated reference ranges of AST and ALT can be seen in normal populations. Clinical correlation is suggested. 11 SEE RESULT BELOW Name: EILEEN BRADY : [address]: Carolyn KRISHNAN Acct: [id number] Unit: [id number] AGE: 53 Location: LAB Re09/26/18 SEX: F Status: REG REF SPEC: [id number] NATA: 09/26/18 [facility] DR: Saray Cummings MD REQ: [id number] RECD: 09/26/18 STATUS: JI CASTILLO DR: Hattie Lawson DO _ SOURCE: URINE SPDESC: ORDERED: Urine Culture QUERIES: Urine Source: Clean Catch Procedure Result Reported Site Urine Culture Final 09/27/18- 1234 ML No Growth (<1,000 CFU/mL) * ML - Main Lab . END OF REPORT DEPARTMENT OF PATHOLOGY, [address] [place] [address] Cameron Rojas M.D. Director [facility] # [id number] 12 Because ethnic data is not always readily [...] 15-29 5 Kidney failure <15 (or dialysis) 13 It is recognized that currently available assays [...] 95% confidence interval of 99.78 to 99.96%. 14 Because ethnic data is not always readily [...] 15-29 5 Kidney failure <15 (or dialysis) 15 [id number] 16 SEE RESULT BELOW Name: EILEEN BRADY : [address]: Gurinder Alston MD Acct: [id number] Unit: [id number] AGE: 53 Location: [facility] Re09/02/18 SEX: F Status: DEP ER SPEC: [id number] NATA: 09/02/18-1341 [facility] [address]: Gurinder Alston MD REQ: [id number] RECD: 09/03/18-1051 STATUS: JI CASTILLO DR: [employer] Hattie Lawson DO _ SOURCE: URINE SPDESC: ORDERED: Urine Culture COMMENTS: [id number] Procedure Result Reported Site Urine Culture Final 09/04/18- 1245 ML No Growth (<1,000 CFU/mL) * ML - Main Lab . END OF REPORT DEPARTMENT OF PATHOLOGY, [address] [place] [address] Cameron Rojas M.D. Director [facility] # [id number] 17 Insurance Compliance Analyst: [id number] 18 void, clear, dark yellow 19 Because ethnic data is not always [...] 5 Kidney failure <15 (or dialysis) 20 [employer] lab Copy Result to: HATTIE LAWSON ([id number]) 21 [employer] lab Copy Result to: HATTIE LAWSON ([id number]) 22 [employer] lab Copy Result to: HATTIE LAWSON ([id number]) 23 [employer] lab Copy Result to: HATTIE LAWSON ([id number]) 24 Normal Range 180 to 914 Indeterminate Range 145 to 180 Deficient Range <145 25 [employer] lab Copy Result to: HATTIE LAWSON ([id number]) 26 SEE RESULT BELOW Name: EILEEN BRADY : [address]: Jc Eduardo MD Acct: [id number] Unit: [id number] AGE: 52 Location: [place] Re01/09/18 SEX: F Status: REG [facility] SPEC: [id number] NATA: 01/09/18-12[address] [facility] [address]: Jc Eduardo MD REQ: [id number] RECD: 01/09/18-141 STATUS: LINDA CASTILLO DR: Hattie Kapadia MD _ ORDERED: LEVEL 4 FINAL DIAGNOSIS Skin, left medial buttock, wide excision: -- Scar, widely excised. -- No evidence of residual malignant melanoma in situ. COMMENT: The previous lesion at this site ([id number]) has been completely excised. PRE-OPERATIVE DIAGNOSIS Melanoma [...] 1022 END OF REPORT DEPARTMENT OF PATHOLOGY, [address] [place] [address] Cameron Rojas M.D. Director [facility] # [id number] 27 SEE RESULT BELOW Name: EILEEN BRADY : [address]: Rocio Aguilar MD Acct: [id number] Unit: [id number] AGE: 52 Location: [facility] Re12/08/17 SEX: F Status: REG REF SPEC: [id number] NATA: 12/08/17-0182 [facility] [address]: Rocio Aguilar MD REQ: [id number] RECD: 12/08/17 STATUS: LINDA CASTILLO DR: Hattie Lawson DO _ ORDERED: LEVEL 4, IMMUNO-FIRST, IMMUNO-ADDL COMMENTS: [id number] THIS IS A CORRECTED REPORT 12/21/17 Corrected [...] by and Reported on: Deloris Stanton MD 12/21/171421 END OF REPORT DEPARTMENT OF PATHOLOGY, [address] [place] [address] Cameron Rojas M.D. Director [facility] # [id number] 28 SEE RESULT BELOW Name: EILEEN BRADY : [address]: Rocio Aguilar MD Acct: [id number] Unit: [id number] AGE: 52 Location: [facility] Re12/05/17 SEX: F Status: REG REF SPEC: [id number] NATA: 12/05/17 [facility] [address]: Rocio Aguilar MD REQ: [id number] RECD: 12/05/17 STATUS: LINDA CASTILLO DR: Hattie Lawson DO _ ORDERED: TP IMAGE ANALYS, HPV/Thin Prep COMMENTS: [id number] Negative for Intraepithelial lesion or Malignancy A. [...] and 68. Signed by and Reported on: ROXIE Flower(ASC) 1553 This Pap test was evaluated with the assistance of the SuperGenPrep Test Imaging System. Due to cytologic findings at the engineer gas pumping station microscope, comprehensive manual rescreening by a Survey Researcher may be required. The Pap Smear is [...] years. END OF REPORT DEPARTMENT OF PATHOLOGY, [address] [place] [address] Cameron Rojas M.D. Director [facility] # [id number] 29 Test Performed by: [facility] [address] [place] [id number] M70.51,E83.42,F50.9, 31 Method: Sediplast Modified Eitanren 32 Note: Persistent reduction for 3 months or more in an eGFR <60 mL/min/1.73 m2 defines CKD. Patients with eGFR values >/=60 mL/min/1.73 m2 may also have CKD if evidence of persistent proteinuria is present. The original MDRD equation for estimated GFR is not valid for patients less than 18 years of age. Additional information may be found at [email or web address]. 33 Negative <5 Equivocal 5 - 9 Positive >9 34 Autoantibody Disease Association Condition Frequency --------- Antinuclear Antibody, SLE, mixed connective Direct (YOVANA-D) tissue diseases --------- dsDNA SLE 40 - 60% --------- Chromatin Drug induced SLE 90% SLE 48 - 97% --------- SSA (Ro) SLE 25 - 35% Sjogren's Syndrome 40 - 70% Lupus 100% --------- SSB (La) SLE 10% Sjogren's Syndrome 30% --------- Sm (anti-Alvarez) SLE 15 - 30% --------- SAP HANA ARCHITECT Mixed Connective Tissue Disease 95% (U1 nRNP, SLE 30 - 50% anti-ribonucleoprotein) Polymyositis and/or Dermatomyositis 20% --------- Scl-70 (antiDNA Scleroderma (diffuse) 20 - 35% topoisomerase) Crest 13% --------- Radha-1 Polymyositis and/or Dermatomyositis 20 - 40% --------- Centromere B Scleroderma - Crest variant 80% Performed at: - [facility] [id number] .Net Architect: Maryuri Mckeon MD, Phone: [phone] 35 Because ethnic data is not always [...] 5 Kidney failure <15 (or dialysis) 36 Acute inflammation: >10.00 37 Normal Range 180 to 914 Indeterminate Range 145 to 180 Deficient Range <145 38 Because ethnic data is not always readily [...] 15-29 5 Kidney failure <15 (or dialysis) 39 Normal Range 180 to 914 Indeterminate Range 145 to 180 Deficient Range <145 40 RT SIDE ABD PAIN SHOOTS TO BACK,NAUSEA,CHILLS 41 <=0.49 ug/mL - Low likelihood of DIC, DVT or Pulmonary Embolism >0.49 ug/mL - Additional testing should be done to rule out DIC, DVT, or Pulmonary embolism as clinically indicated. ([facility] has established a 97.89% negative predictive value for thrombotic disease when a cutoff value of 0.5 ug/mL is used.) 42 Note: Persistent reduction for 3 months or more in an eGFR <60 mL/min/1.73 m2 defines CKD. Patients with eGFR values >/=60 mL/min/1.73 m2 may also have CKD if evidence of persistent proteinuria is present. The original MDRD equation for estimated GFR is not valid for patients less than 18 years of age. Additional information may be found at www.kdoqi.org. 43 URINE, CLEAN CATCH 44 Therapeutic target for the treatment of diabetes Mellitus patients is <7% HBA1C, and in selective patients <6.0%.Please refer to [place] [employer] Diabetic care guidelines for further information. 45 Because ethnic data is not always readily [...] 15-29 5 Kidney failure <15 (or dialysis) 46 Desirable <150 Borderline high 150-199 High 200-499 Very High >500 47 Desirable <200 Borderline high 200-239 High >239 48 Low <40 Desirable: 40-60 High: >60 49 Desirable: <100 mg/dL Near Optimal: 100-129 mg/dL Borderline High: 130-159 mg/dL High: 160-189 mg/dL Very High: >189 mg/dL 50 Normal Range 180 to 914 Indeterminate Range 145 to 180 Deficient Range <145 51 Test Performed by: [place] [id number] PSYCH SERVICES 53 Tests: RPR, FT4, TSH Instructions: ADD ON TO ER BLOOD WORK 54 ADD ON TO ER BLOOD WORK 55 EVAL 56 URINE SPECIMENS ARE SCREENED AT THE LISTED CUTOFFS DRUG CLASS INITIAL TEST LEVEL Amphetamines 1000 ng/mL Barbiturates 200 ng/mL Benzodiazepines 200 ng/mL Cannabinoids 50 ng/mL Cocaine Metabolite 300 ng/mL Methadone 300 ng/mL Opiates 300 ng/mL Any PRESUMPTIVE POSITIVE findings are UNCONFIRMED. Confirmatory testing is suggested if findings are unexpected. Please contact laboratory if confirmatory testing is desired. SPECIMENS ARE HELD FOR 72 HOURS. 57 PSYCH SERVICES 58 > 100,000 CFU/mL 59 Please Note: A nonreactive test result does not exclude the possibility of exposure to, or infection with syphilis. T. pallidum antibodies may be undetectable in some stages of the infection and in some clinical conditions. 60 Note: Persistent reduction for 3 months or more in an eGFR <60 mL/min/1.73 m2 defines CKD. Patients with eGFR values >/=60 mL/min/1.73 m2 may also have CKD if evidence of persistent proteinuria is present. The original MDRD equation for estimated GFR is not valid for patients less than 18 years of age. Additional information may be found at www.kdoqi.org. 61 A negative result for either C. trachomatis and/or N. gonorrhoeae does not preclued an infection because results are dependent on adequate specimen collection, absence of inhibitors, and sufficient DNA to be detected. 62 POSSIBLE UROGENITAL CONTAMINATION. 63 URINE, CLEAN CATCH 64 Because ethnic data is not always readily [...] 15-29 5 Kidney failure <15 (or dialysis) 65 Because ethnic data is not always readily [...] 15-29 5 Kidney failure <15 (or dialysis) 66 Acute inflammation: >10.00 67 Test Performed by: [facility] [address] [place] [address] Treating Engineer: Cj Zuniga II, M.D., Ph.D. 68 QUERY: Is Patient Fasting? N 69 The specimen was not submitted to the testing laboratory in the preferred certified metal free transfer tube. As of February 29, 2016, serum or plasma samples not submitted in the certified metal free transfer tubes will be rejected for trace metal analysis. Detection Limit=5 70 Performed at: [address] [id number] .Net Architect: Cj Henderson MD, Phone: [phone] 71 Vitamin D deficiency has been defined by the [place] [employer] and an Endocrine Society practice guideline as a level of serum 25-OH vitamin D less than 20 ng/mL (1,2). The Endocrine Society went on to further define vitamin D insufficiency as a level between 21 and 29 ng/mL (2). 1. IOM ([place] [employer]). 2010. Dietary reference intakes for calcium and D. [place]: The National Academies Press. 2. Urban MF, Bill BENITES, Shikha WINSTON, et al. Evaluation, treatment, and prevention of vitamin D deficiency: an Endocrine Society clinical practice guideline. JCEM. 2010; 96(7):1911-30. Performed at: [facility] [id number] .Net Architect: Maryuri Mckeon MD, Phone: [phone] 72 A negative result for either C. trachomatis and/or N. gonorrhoeae does not preclued an infection because results are dependent on adequate specimen collection, absence of inhibitors, and sufficient DNA to be detected. 73 CULTURE TO FOLLOW 74 12/15/15 LAB.TOW Deleted by Reflex Group [facility] [place] Organism 1 ! MIXED URETHRAL RENAE Quantity ! 10,000 - 50,000 CFU/mL SPECIMEN IS A MIX OF GRAM NEGATIVE AND GRAM POSITIVE ORGANISMS. UNABLE TO DETERMINE WHICH ORGANISMS ARE FROM THE URINARY TRACT OR THE RESULT OF SKIN/VAGINAL/PERIANAL CONTAMINATION DURING COLLECTION. SUGGEST REPEAT SPECIMEN IF CLINICALLY INDICATED. 76 FIRST MORNING SPECIMENS GENERALLY CONTAIN THE HIGHEST CONCENTRATION OF HCG AND ARE RECOMMENDED FOR EARLY DETECTION OF . 77 Because ethnic data is not always readily [...] 15-29 5 Kidney failure <15 (or dialysis) 78 RESULT: No apparent monoclonal protein on serum electrophoresis. Test Performed by: [address] [address] Treating Engineer: Cj Zuniga II, M.D., Ph.D. 79 [facility] Specimen Source: CERVICAL 80 Female urine specimens have been self-validated by [facility] and have been granted conditional assay approval by [facility]. 81 [facility] Specimen Source: CERVICAL GC/Chlamydia Source?: Endocervical Trichomonas Source: Endocervical 82 SEE RESULT BELOW Name: EILEEN BRADY : [address]: Amy Cleveland MD Acct: [id number] Unit: [id number] AGE: 49 Location: [facility] Re05/25/15 SEX: F Status: DEP ER SPEC: [id number] NATA: 05/25/15 [facility] [address]: Amy Cleveland MD REQ: [id number] RECD: 05/25/15 STATUS: JI CASTILLO DR: Maddi [...] or failure. * ML - MAIN LAB ([facility]) . END OF REPORT * ML=Testing performed at Main Lab DEPARTMENT OF PATHOLOGY, [address] [place] [address] Cameron Rojas M.D. Director [facility] # [id number] 84 Because ethnic data is not always readily [...] 15-29 5 Kidney failure <15 (or dialysis) 85 Desirable <150 Borderline high 150-199 High 200-499 Very High >500 86 Desirable <200 Borderline high 200-239 High >239 87 Low <40 Desirable: 40-60 High: >60 88 Desirable: <100 mg/dL Near Optimal: 100-129 mg/dL Borderline High: 130-159 mg/dL High: 160-189 mg/dL Very High: >189 mg/dL 89 <=0.49 ug/mL - Low likelihood of DIC, DVT or Pulmonary Embolism >0.49 ug/mL - Additional testing should be done to rule out DIC, DVT, or Pulmonary embolism as clinically indicated. ([facility] has established a 97.89% negative predictive value for thrombotic disease when a cutoff value of 0.5 ug/mL is used.) 90 Note: Persistent reduction for 3 months or more in an eGFR <60 mL/min/1.73 m2 defines CKD. Patients with eGFR values >/=60 mL/min/1.73 m2 may also have CKD if evidence of persistent proteinuria is present. The original MDRD equation for estimated GFR is not valid for patients less than 18 years of age. Additional information may be found at www.kdoqi.org. 91 Values below the stated reference ranges of AST and ALT can be seen in normal populations. Clinical correlation is suggested. 92 0.0 - 0.045 ng/mL: Normal 0.046 - 0.5 ng/mL: Suggestive 0.6 - 1.5 ng/mL: Consistent 93 Because ethnic data is not always readily [...] 15-29 5 Kidney failure <15 (or dialysis) 94 RUN DATE: 12/12/13 [facility] LIVE PAGE 1 RUN TIME: [address] [place], [place] [address] Specimen Inquiry Name: EILEEN BRADY : [address]: Payal Anderson MD Acct: [id number] Unit: [id number] AGE: 48 Location: [facility] Re12/10/13 SEX: F Status: DEP ER SPEC: [id number] NATA: 12/10/13-1140 [facility] [address]: Ruth KRISHNAN REQ: [id number] RECD: 12/10/13 STATUS: JI CASTILLO DR: Payal KRISHNAN _ SOURCE: [facility]: ORDERED: Culture Stain Procedure Result Verified Site Wound/Misc Gram Stain Final 12/10/13- 1513 ML 3+ Polys 2+ Gram Positive Cocci Possible 1+ Gram Positive Bacilli Wound/Misc Culture Final 12/12/13- 1105 ML Organism 1 NORMAL RENAE Quantity 2+ END OF REPORT * ML=Testing performed at Main Lab DEPARTMENT OF PATHOLOGY, [address] [place] [address] Cameron Rojas M.D. Director [facility] # [id number] FAX RESULTS TO CAROLYN Negron [phone] FAX RESULTS TO CAROLYN Negron [phone] FAX RESULTS TO CAROLYN Negron [phone] Note: Persistent reduction for 3 months or [...] [email or web address]. Procedures Date Code Description Status 09/13/2018 92114 Brief Emotional/Behav Assessment W/ Scoring Doc Per Completed Standard Inst 02/21/2018 19295 X-Ray Knee,Ap&Lateral Oblique Views Completed 01/05/2018 80789 Brief Emotional/Behav Assessment W/ Scoring Doc Per Completed Standard Inst 11/13/2017 59079 Brief Emotional/Behav Assessment W/ Scoring Doc Per Completed Standard Inst 05/31/2017 82388156 Mammogram Completed 04/14/2017 57946 SC/Im Injections Completed 05/11/2016 51601 Omt 3 To 4 Body Regions Involved Completed 04/26/2016 52360 Electrocardiogram Complete Completed 04/07/2016 72783 Inject/Drain Joint/Bursa Major Completed 05/16/2015 95591 SC/Im Injections Completed 05/16/2015 11760 Inject/Drain Joint/Bursa Major Completed 02/28/2015 [id number] Colonoscopy Completed 02/19/2015 06503 Dexa Bone Density Study One Or More Sites Axial Completed Skeleton 11/03/2014 51662 Bronchospasm Evaluation Pre & Post Completed 09/25/2014 12712 Electrocardiogram Complete Completed 07/07/2014 03207 X-Ray Knee,Ap&Lateral Oblique Views Completed Encounters Type Date Location Provider Dx Diagnosis Office Visit 01/04/2019 Main Office Hattie Lawson D.O. R42 Dizziness and 12:55p giddiness E66.01 Morbid (severe) obesity due to excess calories M72.2 Plantar fascial fibromatosis I10 Essential (primary) hypertension M54.5 Low back pain M76.821 Posterior tibial tendinitis, right leg Office Visit 12/06/2018 1:30p Main Office Hattie Lawson, R42 Dizziness and D.O. giddiness E66.01 Morbid (severe) obesity due to excess calories M79.671 Pain in right foot M79.672 Pain in left foot M72.2 Plantar fascial fibromatosis R10.9 Unspecified abdominal pain G47.69 Other sleep related movement disorders K21.9 Gastro-esophageal reflux disease without esophagitis B37.9 Candidiasis, unspecified Office Visit 11/21/2018 4:30p Main Office Hattie Lawson, R42 Dizziness and D.O. giddiness R10.9 Unspecified abdominal pain R50.9 Fever, unspecified J01.00 Acute maxillary sinusitis, unspecified R05 Cough J02.9 Acute pharyngitis, unspecified R53.83 Other fatigue Office Visit 10/23/2018 1:30p Main Office Hattie Lawson, M17.12 Unilateral primary D.O. osteoarthritis, left knee R42 Dizziness and giddiness G47.69 Other sleep related movement disorders R21 Rash and other nonspecific skin eruption Office Visit 10/04/2018 1:40p Main Office Cassy Escudero.12 Unilateral primary P.A. osteoarthritis, left knee Z01.818 Encounter for other preprocedural examination B37.9 Candidiasis, unspecified E66.01 Morbid (severe) obesity due to excess calories Z68.42 Body mass index (BMI) 45.0-49.9, adult Office Visit 09/25/2018 8:00a Main Office Melanie Escudero7.12 Unilateral primary P.A. osteoarthritis, left knee M25.562 Pain in left knee M25.462 Effusion, left knee Z01.818 Encounter for other preprocedural examination B37.9 Candidiasis, unspecified E66.01 Morbid (severe) obesity due to excess calories Z11.3 Encntr screen for infections w sexl mode of transmiss F43.23 Adjustment disorder with mixed anxiety and depressed mood Z68.42 Body mass index (BMI) 45.0-49.9, adult Office Visit 09/13/2018 1:00p Main Office Carolyn Ng, E66.01 Morbid ( [...] Office Visit 06/28/2018 9:20a Main Office Carolyn Ng, M79.604 Pain in right P.A. 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 of other [...] adult Office Visit 11/13/2017 10:45a Main Office Eliseo Hattie, E66.01 Morbid ( severe) D.O. obesity due [...] Office Visit 10/09/2017 11:20a Main Office Carolyn Ng F43.23 Adjustment disorder [...] Office Visit 05/11/2016 3:00p Main Office Hattie Lawsno, M54.32 Sciatica , left D.O. 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 278.00 Obesity Unspec 457.1 Lymphedema Other V65.3 Dietary Surveillance & Counseling Office Visit 12/16/2013 4:20p Main Office Carolyn Ng, 682.8 Cellulitis & P.A. Abscess Other Spec Sites Office Visit 12/02/2013 3:20p Main Office Carolyn Ng 729.5 Pain In Limb P.A. 401.9 Hypertension [...] Pain Abdominal Epigastric Plan of Treatment Future Appointment(s):02/07/2019 3:45 pm - Hattie Lawson D.O. at Main Lwuchf0003/08/2019 10:30 am - Hattie Lawson D.O. at Main Office
--- NOTE | 2019-01-26 09:41 | UC ---
UC General HPI - HPI Summary HPI Summary: patient got sunburned 4 days ago and that ernesto started feeling nauseous, also saw swelling in lower legs. She continued getting sun burned over next 3 days. next day she developed diarrhea (intermittent, brown, no blood or dark stool). she stopped taking hypertension meds because of nausea. today feels like urine is dark. has tried no meds for N/D - History of Current Complaint Chief Complaint: UCAbdominalPain Stated Complaint: ABDOMINAL PAIN Time Seen by Provider: 01/26/19 09:17 Hx Obtained From: Patient Hx Last Menstrual Period: 08/21/15 Onset/Duration: Gradual Onset Onset Severity: Mild Current Severity: Moderate Pain Intensity: 9 Associated Signs & Symptoms: Positive: Abdominal Pain, Diarrhea, Nausea. Negative: Back Pain, Dizziness, Fever, Vomiting - Allergy/Home Medications Allergies/Adverse Reactions: Allergies Allergy/AdvReac Type Severity Reaction Status Date / Time hydrocodone [From Vicodin] Allergy Severe Airway Verified 01/26/19 09:21 Obstruction orange Allergy Severe facial Verified 01/26/19 09:21 swelling, eyes, lips cefaclor [From Ceclor] Allergy Hives Verified 01/26/19 09:21 environmental Allergy Unknown Uncoded 01/26/19 09:21 Reaction Details Home Medications: Home Medications Famotidine TAB* [Pepcid 20 MG TAB*] 40 mg PO DAILY 01/26/19 [History Confirmed 01/26/19] Losartan TAB* [Cozaar TAB*] 50 mg PO DAILY 01/26/19 [History Confirmed 01/26/19] Metoprolol Succinate XL TAB* [Toprol XL TAB*] 1 tab PO DAILY 01/26/19 [History Confirmed 01/26/19] PMH/Surg Hx/FS Hx/Imm Hx Previously Healthy: Yes Cardiovascular History: Hypertension Respiratory History: Asthma GI/ History: Gastroesophageal Reflux Psychological History: Depression - Surgical History Surgical History: Yes Surgery Procedure, Year, and [place] [facility] [place] [facility] [place] [facility] [place] [facility] [place] [facility] [place] - Family History Known Family History: Positive: None, Hypertension - Social History Occupation: Unemployed Lives: With Family Alcohol Use: Rare Substance Use Type: None Smoking Status (MU): Never Smoked Tobacco - Immunization History Most Recent Influenza Vaccination: 04/20/2018 Most Recent Tetanus Shot: 12/10/13 Most Recent Pneumonia Vaccination: 04/20/2018 Review of Systems All Other Systems Reviewed And Are Negative: Yes Constitutional: Positive: Negative. Negative: Fever, Chills Skin: Positive: Negative. Negative: Rash Respiratory: Positive: Negative Cardiovascular: Positive: Negative Gastrointestinal: Positive: Abdominal Pain, Diarrhea, Nausea Genitourinary: Positive: Other - dark urine Musculoskeletal: Positive: Negative Neurological: Positive: Negative. Negative: Headache Psychological: Positive: Negative Is Patient Immunocompromised?: No Physical Exam Triage Information Reviewed: Yes Appearance: Well-Appearing, Well-Nourished, Obese Vital Signs: Initial Vital Signs Temp 98.4 F 01/26/19 09:18 Pulse 80 01/26/19 09:18 Resp 18 01/26/19 09:18 BP 164/101 01/26/19 09:18 Pulse Ox 98 01/26/19 09:18 Vital Signs Reviewed: Yes Respiratory Exam: Normal Respiratory: Positive: Lungs clear Cardiovascular Exam: Normal Cardiovascular: Positive: RRR Abdominal Exam: Normal Abdomen Description: Positive: Nontender, No Organomegaly, Soft, Other: - obese Bowel Sounds: Positive: Present - all 4 quads Neurological Exam: Normal Psychological Exam: Normal Skin Exam: Normal Re-Evaluation - Re-Evaluation First Eval Change: Improved - denies nausea, B/P 130/90 Course/Dx - Differential Dx - Multi-Symptom Differential Diagnoses: Urinary Tract Infection, Other - gastroenteritis - Diagnoses Provider Diagnosis: Gastroenteritis Discharge - Sign-Out/Discharge Documenting (check all that apply): Patient Departure All imaging exams completed and their final reports reviewed: No Studies - Discharge Plan Condition: Stable Disposition: HOME Prescriptions: Ondansetron ODT TAB* [Zofran 4 MG Odt TAB*] 4 mg PO Q6H PRN #12 tab.odt PRN Reason: Nausea Patient Education Materials: Gastroenteritis (DC) Referrals: Marbin Gomes DO [Primary Care Provider] - 2 Days (for recheck blood pressure and abdominal pain) Additional Instructions: take nausea medication as directed drink plenty of fluids and eat a bland diet You must take your blood pressure medication every day as directed report to ER if your symptoms worsen or change at any time - Billing Disposition and Condition Condition: STABLE Disposition: Home
[2019-01-26] MEDS ORDERED: Ondansetron ODT TAB* 4 MG PO ONE (09:42)
[2019-01-26 10:22] VITALS: BP 130/90
== END 2019-01-26 10:30 | disposition home or self-care (01) ==
LOC: UCEAST 09:14
DX: K52.9 Noninfective gastroenteritis and colitis, unspecified (principal); I10 Essential (primary) hypertension; K21.9 Gastro-esophageal reflux disease without esophagitis; F32.9 Major depressive disorder, single episode, unspecified; E66.9 Obesity, unspecified; Z88.5 Allergy status to narcotic agent
CPT/HCPCS: 81003; 99212; A9270-GY; G0463

== ENCOUNTER 2019-09-10 10:34 | Emergency (ER) | payer OTHER ==
--- OUTSIDE RECORDS SUMMARY | 2019-09-10 11:07 | XMS REPORT | Continuity of Care Document ---
:1965 External Reference #:[id number] Author Name Marbin Gomes D.O. Address [address] [place] [address] Care Team Providers Name Role Phone HCP given Care Team Information Probation And Parole Officer Unavailable Bradford Vaz MD - Orthopaedic Care Team Information Probation And Parole Officer [phone] CDN Cde - Care Team Information Probation And Parole Officer [phone] Dietitian, Registered Hayden Donaldson MD - Orthopaedic Care Team Information Probation And Parole Officer [facility] - Sleep Disorder Care Team Information Probation And Parole Officer [phone] Diagnostic Problems Active Problems Provider Date Benign essential hypertension Marbin Gomes D.O. Onset: 07/16/2014 Allergic asthma without status Marbin Gomes D.O. Onset: 10/03/2014 asthmaticus Acute laryngopharyngitis Marbin Gomes D.O. Onset: 12/16/2014 Cough Marbin Gomes D.O. Onset: 12/16/2014 Essential hypertension Maddi Loera RPA-C Onset: 04/24/2015 Essential hypertension Maddi Loera RPA-C Onset: 03/19/2015 Morbid obesity Marbin Gomes D.O. Onset: 12/02/2015 Gastroesophageal reflux disease Marbin Gomes D.O. Onset: 12/02/2015 Disorder of magnesium metabolism Marbin Gomes D.O. Onset: 02/24/2016 Enthesopathy of knee Marbin Gomes D.O. Onset: 02/24/2016 Vitamin D deficiency Marbin Gomes D.O. Onset: 02/24/2016 Other idiopathic peripheral autonomic Marbin Gomes D.O. Onset: 02/24/2016 neuropathy Eating disorder Marivel Varela PA Onset: 05/04/2016 Anxiety state Marbin Gomes D.O. Onset: 07/27/2016 Recurrent major depressive episodes Marbin Gomes D.O. Onset: 07/27/2016 Plantar fascial fibromatosis Marbin Gomes D.O. Onset: 04/25/2017 Gallbladder calculus with acute Marbin Gomes D.O. Onset: 04/25/2017 cholecystitis and no obstruction Osteoarthritis Marivel Varela PA Onset: 11/27/2017 Uncomplicated moderate persistent asthma Marbin Gomes D.O. Onset: 2017 Social History Type Date Description Comments Sex Unknown Tobacco Use Start: Unknown Denies Cigarette Use ETOH Use Rarely consumes alcohol Recreational Drug Use Denies Drug Use Tobacco Use Start: Unknown Patient has never smoked Smoking Status Reviewed: 09/05/19 Patient has never smoked Enjoy Exercising Enjoys exercising but infreq due to bilateral knee pain Sun Exposure Does not use sunscreen Seat Belt/Car Seat always uses seat belt Guns in Home No Smoke Alarms Yes smoke alarm Allergies, Adverse Reactions, Alerts Active Allergies Reaction Severity Comments Date Vicodin Gives pt "asthma attack" 11/27/2013 Medications Active Medications SIG Qnty Indications Ordering Date Provider Bupropion Take One Tablet By Unknown 08/21/2019 Hydrochloride ER (XL) Mouth Every Morning With 150MG 300mg Tablets ER 24HR Bupropion Take One Tablet By Unknown 08/21/2019 Hydrochloride ER (XL) Mouth Every Day With 300MG 150mg Tablets ER 24HR Vitamin D3 1 tab by mouth 90tabs Marbin Gomes, 06/21/2019 5000Unit every day or 7 D.O. Tablets tabs once a week Chlorthalidone 1 by mouth every 90tabs Marbin Gomes, 04/11/2019 25mg day D.O. Tablets Gabapentin 1 by mouth in the 180tabs G90.09 Marbin Gomes, 04/11/2019 600mg morning and at D.O. Tablets night in addition to 400mg at noon. Nystatin apply twice a day 90gm Marbin Gomes, 03/11/2019 355288Pcgg/GM to affected area D.O. Powder Atenolol 1 by mouth every 90tabs I10 Marbin Gomes, 03/11/2019 100mg Tablets day D.O. Blood Pressure Use to monitor 1units I10 Marbin Gomes, 02/15/2019 Monitor blood pressure D.O. Digital/Auto-Inflatio daily n Misc Losartan Potassium 1 tablet by mouth 90tabs I10 MichaellarryMarbin almendarez, 02/07/2019 daily for blood D.O. 100mg Tablets pressure Gabapentin take one capsule 90caps Eliseo Marbin, 01/04/2019 400mg by mouth at noon D.O. Capsules in addition to 600mg tablets morning and night. Ibu 1 tablet every 6 20tabs Unknown 10/01/2018 600mg Tablets hours as needed [facility] Clotrimazole Apply 2 times a 14.200gm B37.9 MichaelMarbin house, 09/23/2018 1% day to control D.O. Cream rash, discontinue 2 days after rash resolves Citalopram 1 by mouth every 90tabs F43.23 EliseoMarbin, 09/11/2018 Hydrobromide day D.O. 20mg Tablets Omeprazole take one capsule 180caps EliseoMarbin, 09/03/2018 40mg by mouth twice a D.O. Capsules DR day Tramadol HCL 1 tab po four Unknown 09/02/2018 50mg times daily as Tablets needed Ymicmivxc-Ezbuc-D41-A take 1 tablet by 90tabs E53.8 Eliseo Marbin, 2018 cetylcyst mouth daily for D.O. nutritional 6-90.314-2-600mg support Tablets F50.9 Cane Use to assist with 1units Gabriel Ramirez, 03/27/2018 Standard walking and M.D. balance Proair HFA 2 puff Every 4-6 8.5units R06.00 Eliseo Marbin, 01/30/2018 108(90Base) Hours, as Needed D.O. mcg/Act Aerosol Flonase Allergy Relief 2 sprays twice a 47.400ml J01.00 Marbin Gomes, day until better. D.O. 50mcg/Act Suspension Magox 400 2 tablets every 180tabs E66.01 Marbin Gomes, 02/24/2016 400(241.3mg) mg night at bedtime D.O. Tablets as directed Multivitamin Adult 1 by mouth every 90tabs E66.01 Marbin Gomes, 2015 day D.O. Tablets History Medications Gabapentin 2 caps po 3x/day Unknown 07/26/2019 - 100mg 10/23/2018 Capsules Doxycycline Hyclate 1 twice a day for 60caps Marbin Gomes, 06/21/2019 - 30 days D.O. 07/21/2019 100mg Capsules Imodium A-D take 1 tablet by 90tabs Marbin Gomes, 05/17/2019 - 2mg Tablets mouth 8 times per D.O. 06/21/2019 day after each loose stool for diarrhea Medications Administered in Office Medication SIG Qnty Indications Ordering Provider Date B12 Injection Marbin Gomes D.O. 04/14/2017 Injection SC/Im Injections Marbin Gomes D.OYen 04/14/2017 Injection injection, kenalog, 10 mg Marbin Gomes D.OYen 04/07/2016 Injection injection, kenalog, 10 mg Marbin Gomes D.O. 05/16/2015 Injection SC/Im Injections Marbin Gomes D.O. 05/16/2015 Injection H1N1 Swine Flu Vaccine Unknown 06/05/2007 Injection Immunizations CPT Code Status Date Vaccine Lot # [id number] Given 04/11/2019 Influenza Virus Vaccine, Quadrivalent, Split, [id number] Preservative Free 16169 Given 04/20/2018 Influenza Virus Vaccine, Quadrivalent, Split, [id number] Preservative Free 93553 Given 04/20/2018 Prevnar 13 [id number] 18808 Given 04/14/2017 Influenza Virus Vaccine, Quadrivalent, Split, [id number] Preservative Free 42071 Given 04/07/2016 Influenza Virus Vaccine, Quadrivalent, Split, [id number] Preservative Free 15560 Given 05/16/2015 Influenza Virus Vaccine, Quadrivalent, Split, [id number] Preservative Free 41072 Given 06/10/2014 Flu, Split Virus 3Yrs [id number] 31077 Given 12/10/2013 Adacel or Boostrix, TDaP 41284 Given 06/22/2012 Adacel or Boostrix, TDaP 52335 Given 04/29/2011 Pneumococcal Immunization 96520 Given 04/29/2011 Flu, Split Virus 3Yrs 07653 Given 05/29/2009 Flu, Split Virus 3Yrs 69891 Ordered 11/28/2013 Adacel or Boostrix, TDaP Vital Signs Date Vital Result Comment 09/05/2019 8:51am BP Systolic 122 mmHg BP Diastolic 80 mmHg Height 60 inches 5'0" Weight 263.00 lb BMI (Body Mass Index) 51.4 kg/m2 08/28/2019 4:03pm BP Systolic 120 mmHg BP Diastolic 80 mmHg Results Test Acquired Date Facility Test Result H/L Range Note Laboratory test 08/27/2019 [facility]. Troponin-I < 0.015 1, 2 finding LABORATORY ng/mL [phone] Ua RFX Micro & 08/27/2019 [facility]. Urine Color Yellow Yellow Culture II LABORATORY [phone] Urine Clarity Clear Clear Urine Glucose - Dipstick NEGATIVE mg/dL Negative Urine Bilirubin - Dipstick NEGATIVE Negative Urine Ketone NEGATIVE mg/dL Negative Urine Specific [place] 1.036 High 1.010-1.030 Urine Blood NEGATIVE Negative Urine PH 5.5 Low 6.5-7.5 Urine Protein - Dipstick NEGATIVE mg/dL Negative Urine Urobilinogen - Dipstick < 2.0 mg/dL < 2.0 Urine Nitrite - Dipstick NEGATIVE Negative Urine Leuk Esterase NEGATIVE Negative Source: URINE, CLEAN CAT <SEE NOTE> 3 CBS W/Automated 08/27/2019 [facility]. White 8.6 K/uL Normal 3.1-10.7 Diff LABORATORY Blood [phone] Count Red Blood Count 4.40 M/uL Normal 3.90-5.40 Hemoglobin 13.4 gm/dL Normal 11.6-15.8 Hematocrit 41.5 % Normal 36.0-46.1 Mean Cell Volume 94.3 fl Normal 80.9-99.0 Mean Corpuscular HGB 30.5 pg Normal 25.9-32.7 Mean Corpuscular HGB Conc 32.3 g/dL Normal 30.8-34.3 Platelet Count 325 K/uL Normal 155-360 Red Cell Distri Width SD 47.4 fl High 36-47 Red Cell Distri Width %CV 13.9 % Normal 11.7-14.4 Mean Platelet Volume 9.5 fl Normal 8.9-12.4 Neut% 61.2 % Normal 40.4-72.8 Lymph % 28.4 % Normal 20.0-42.0 [place] % 8.7 % Normal 4.3-13.2 Eo% 1.2 % Normal 0.0-6.6 Bas% 0.2 % Normal 0.0-1.1 Immature Grans 0.3 % Normal 0.0-5.0 NRBC % 0.0 /100WBC < 10/ 100 WBC Neut# 5.24 K/uL Normal 1.8-7.0 Lymph # 2.44 K/uL Normal 1.0-4.0 [place] # 0.75 K/uL Normal 0.3-0.9 Eos # 0.10 K/uL Normal 0.0-0.5 Baso # 0.02 K/uL Normal 0.0-0.1 Immature Grans Absolute 0.03 K/uL NRBC # 0.00 K/uL Laboratory test 08/27/2019 [facility]. D-Dimer, 0.39 ug/mL 4 finding LABORATORY Quantitative [phone] Celiac Hla 08/02/2019 [facility] Hla-Dqa1 SEE BELOW 5 [phone] Hla-DQB1 SEE BELOW 6 Celiac Gene Pairs Present? No Celiac Gene Interpretation See Comment 7 Celiac Panel 08/02/2019 [facility] Immunoglobulin A 563 mg/dL Abnormal 61 - 356 [phone] Tissue Transglutaminase IgA Ab <1.2 U/mL 8 Celiac Interpretation See Comment 9 Laboratory test 08/02/2019 [facility] Vitamin B12 434 pg/mL Normal 180-914 10 finding [phone] Lyme Disease AB 08/02/2019 [facility] IgG Immunoblot Negative Negative Immunoblot WB [phone] IgG detected against p41 kDa IgM Immunoblot Negative Negative IgM detected against None kDa Lyme Disease Interpretation See Comment 11 Tick-Borne Panel PCR 08/02/2019 [facility] Babesia microti Negative Negative Blood [phone] PCR Babesia ducani Negative Negative Babesia divergens/Mo-1 Negative Negative 12 Anaplasma phagocytophilum Negative Negative Ehrlichia chaffeensis Negative Negative Ehrlichia ewingii/canis Negative Negative Ehrlichia muris eauclairensis Negative Negative 13 B. miyamotoi PCR, B Negative Negative 14 Laboratory test finding 08/02/2019 [facility] Magnesium 1.8 mg/dL Low 1.9-2.7 [phone] Folic Acid (Folate) > 20.00 ng/mL >3.99 MTHFR 08/02/2019 [facility] MTHFR C677T Heterozygous Abnormal Negative Mutation [phone] Mutation Detection MTHFR Interpretation See Comment 15 MTHFR Reviewed By See Comment 16 MTHFR Y1242q Mutation Heterozygous Abnormal Negative Mthac Interpretation See Comment 17 Mthac Reviewed By See Comment 18 Laboratory test 05/27/2019 [facility] Erythrocyte Sed 35 mm/Hr High 0 -29 finding [phone] Rate C Reactive Protein 5.21 mg/L Normal <8.01 Iron & Iron Binding Capacity 05/27/2019 [facility] Iron 66 g/dL Normal 50-212 [phone] Unsaturated Iron Binding < 416 g/dL Total Iron Binding Capacity 431 g/dL Normal 250-450 Transferrin 308 mg/dL Normal 203-362 % Iron Saturation 15 % Normal 15-55 Laboratory test 05/27/2019 [facility] Folic Acid 17.19 ng/mL >3.99 finding [phone] (Folate) Comp Metabolic 05/27/2019 [facility] Sodium 140 mmol/L Normal 135- 145 Panel [phone] Potassium 3.5 mmol/L Normal 3.5-5.0 Chloride 102 mmol/L Normal 101-111 Co2 Carbon Dioxide 30 mmol/L Normal 22-32 Anion Gap 8 mmol/L Normal 2-11 Glucose 110 mg/dL High 70-100 Blood Urea Nitrogen 20 mg/dL Normal 6-24 Creatinine 0.92 mg/dL Normal 0.51-0.95 BUN/Creatinine Ratio 21.7 High 8-20 Calcium 9.5 mg/dL Normal 8.6-10.3 Total Protein 6.7 g/dL Normal 6.4-8.9 Albumin 3.9 g/dL Normal 3.2-5.2 Globulin 2.8 g/dL Normal 2-4 Albumin/Globulin Ratio 1.4 Normal 1-3 Total Bilirubin 0.60 mg/dL Normal 0.2-1.0 Alkaline Phosphatase 76 U/L Normal 34-104 Alt 12 U/L Normal 7-52 Ast 12 U/L Low 13-39 Egfr Non- 63.6 >60 Egfr 77.0 >60 19 CBC Auto Diff 05/27/2019 [facility] White Blood 6.9 10^3/uL Normal 3.5-10.8 [phone] Count Red Blood Count 4.73 10^6/uL Normal 3.70-4.87 Hemoglobin 14.0 g/dL Normal 12.0-16.0 Hematocrit 42 % Normal 35-47 Mean Corpuscular Volume 88 fL Normal 80-97 Mean Corpuscular Hemoglobin 30 pg Normal 27-31 Mean Corpuscular HGB Conc 34 g/dL Normal 31-36 Red Cell Distribution Width 15 % Normal 10-15 Platelet Count 309 10^3/uL Normal 150-450 Mean Platelet Volume 8.3 fL Normal 7.4-10.4 Abs Neutrophils 4.7 10^3/uL Normal 1.5-7.7 Abs Lymphocytes 1.6 10^3/uL Normal 1.0-4.8 Abs Monocytes 0.5 10^3/uL Normal 0-0.8 Abs Eosinophils 0.1 10^3/uL Normal 0-0.6 Abs Basophils 0.0 10^3/uL Normal 0-0.2 Abs Nucleated RBC 0.0 10^3/uL Granulocyte % 68.4 % Lymphocyte % 22.7 % Monocyte % 7.0 % Eosinophil % 1.3 % Basophil % 0.6 % Nucleated Red Blood Cells % 0.1 Basic Metabolic Panel 04/24/2019 [facility] Sodium 140 mmol/L Normal 135-145 [phone] Potassium 3.7 mmol/L Normal 3.5-5.0 Chloride 102 mmol/L Normal 101-111 Co2 Carbon Dioxide 29 mmol/L Normal 22-32 Anion Gap 9 mmol/L Normal 2-11 Glucose 132 mg/dL High 70-100 Blood Urea Nitrogen 26 mg/dL High 6-24 Creatinine 0.90 mg/dL Normal 0.51-0.95 BUN/Creatinine Ratio 28.9 High 8-20 Calcium 9.4 mg/dL Normal 8.6-10.3 Egfr Non- 65.2 >60 Egfr 79.0 >60 20 Laboratory test finding 04/24/2019 [facility] Magnesium 1.7 mg/dL Low 1.9-2.7 [phone] Vitamin B12 878 pg/mL Normal 180-914 21 TSH (Thyroid Stim Horm) 2.23 mcIU/mL Normal 0.34-5.60 GC/Chlamydia 04/05/2019 [facility] Chlamydia Negative Negative Amplified Rna [phone] trachomatis Martha Neisseria gonorrhoeae (GC) Martha Negative Negative Laboratory test 04/05/2019 [facility] Trichomonas Negative Negative 22 finding [phone] Vaginalis Rna Laboratory test 04/05/2019 [facility] Gardnerella/Yeas SEE RESULT 23 finding [phone] t: Vaginal Dna BELOW 1 CP FOR THREE DAYS, DIARRHEA, CHILLS 2 0.0 - 0.045 ng/mL: Normal 0.046 - 0.5 ng/mL: Suggestive 0.6 - 1.5 ng/mL: Consistent 3 URINE, CLEAN CATCH 4 <=0.49 ug/mL - Low likelihood of DIC, DVT or Pulmonary Embolism >0.49 ug/mL - Additional testing should be done to rule out DIC, DVT, or Pulmonary embolism as clinically indicated. ([facility] has established a 97.89% negative predictive value for thrombotic disease when a cutoff value of 0.5 ug/mL is used.) 5 RESULT: ,05 REFERENCE VALUE Not Applicable 6 RESULT: 03:01,03:01 DQ Serologic Equivalent: 7,7 REFERENCE VALUE Not Applicable 7 The absence of HLA celiac permissive genes would make the presence of celiac disease unlikely. ADDITIONAL INFORMATION Method: Molecular typing of HLA antigens performed using reverse SSOP and/or SSP methods, reported as serological equivalents and low to medium resolution molecular values. Test Performed by: [facility] - [address] [address] Assistant Superintendent For Curriculum: Cj Zuniga M.D. Ph.D.; CLIA# [id number] 8 REFERENCE VALUE <4.0 (Negative) Test Performed by: [facility] [place] [address] Assistant Superintendent For Curriculum: Cj Zuniga M.D. Ph.D.; CLIA# [id number] 9 Negative serology. Celiac disease unlikely. However, approximately 10% of patients with celiac disease are seronegative. Also, patients who are already adhering to a gluten-free diet may be seronegative. If celiac disease is highly clinically suspected, consider HLA-DQ typing. Test Performed by: [facility] [place] [address] Assistant Superintendent For Curriculum: Cj Zuniga M.D. Ph.D.; CLIA# [id number] 10 Normal Range 180 to 914 Indeterminate Range 145 to 180 Deficient Range <145 11 Specific serologic response to B. burgdorferi infection is not detected, but cannot rule out early infection during which low or undetectable antibody levels to B. burgdorferi may be present. If clinically indicated, a new serum specimen should be submitted in 7-14 days. ADDITIONAL INFORMATION Per CDC criteria, the Lyme IgG Immunoblot is interpreted as positive if IgG-class antibodies are detected to >=5 B. burgdorferi proteins, and the Lyme IgM Immunoblot is interpreted as positive if IgM-class antibodies are detected to >=2 B. burgdorferi proteins. Immunoblot patterns not meeting these criteria should not be interpreted as positive. Epitopes from certain B. burgdorferi proteins (e.g., p41) are conserved across other bacteria, which may lead to the detection of IgM- and/or IgG-class antibodies on the Lyme disease immunoblots in patients without Lyme disease. Immunoblot should only be ordered on specimens that are positive or equivocal by a FDA-licensed Lyme disease antibody screening test (e.g., EIA). Results of the Lyme IgM immunoblot should not be considered in patients with >= 30 days of symptoms. Test Performed by: [facility] - [facility] [address] [place] [address] Assistant Superintendent For Curriculum: Cj Zuniga M.D. Ph.D.; CLIA# [id number] 12 ADDITIONAL INFORMATION This test was developed and its performance characteristics determined by [facility] in a manner consistent with CLIA requirements. This test has not been cleared or approved by the U.S. Food and Drug Administration. 13 ADDITIONAL INFORMATION This test was developed and its performance characteristics determined by [facility] in a manner consistent with CLIA requirements. This test has not been cleared or approved by the U.S. Food and Drug Administration. 14 ADDITIONAL INFORMATION This test was developed and its performance characteristics determined by [facility] in a manner consistent with CLIA requirements. This test has not been cleared or approved by the U.S. Food and Drug Administration. Test Performed by: [facility] - [address] [address] Assistant Superintendent For Curriculum: Cj Zuniga M.D. 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 MTHFR C677T carriers are not at increased risk for thrombosis in the absence of hyperhomocysteinemia. In the absence of alternative causes, heterozygous carriers of MTHFR C677T are not at increased risk for hyperhomocysteinemia. Hyperhomocysteinemia is a relatively weak risk factor for both venous thromboembolism and arterial thrombosis. The MTHFR C677T gene mutation test does not detect other causes of hyperhomocysteinemia due to acquired disorders (renal failure, zinc deficiency, leukemia, psoriasis, or antifolate drug therapy). If clinically indicated, suggest Coagulation Consultation 99575 (Thrombophila Profile) to complete the evaluation for an inherited or acquired thrombosing disorder (i.e., thrombophilia). Consider genetic consultation and counseling of potentially affected family members regarding laboratory testing. ADDITIONAL INFORMATION This test is a direct mutation analysis using PCR amplification, signal generation and release by cleavage of sequence specific alleles ([employer], [employer], [place], [place]). This test has been modified from the oil gauger's instructions. Its performance characteristics were determined by [facility] in a manner consistent with CLIA requirements. This test has not been cleared or approved by the U.S. Food and Drug Administration. 16 RESULT: Riri Arango M.D. 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 MTHAC W6182G carriers are not at increased risk for thrombosis in the absence of hyperhomocysteinemia. In the absence of alternative causes, heterozygous carriers of MTHAC Z9194A are not at increased risk for hyperhomocysteinemia. Hyperhomocysteinemia is a relatively weak risk factor for both venous thromboembolism and arterial thrombosis. The MTHAC D9485A gene mutation test does not detect other causes of hyperhomocysteinemia due to acquired disorders (renal failure, zinc deficiency, leukemia, psoriasis, or antifolate drug therapy). If clinically indicated, suggest Coagulation Consultation 49798 (Thrombophila Profile) to complete the evaluation for an inherited or acquired thrombosing disorder (i.e., thrombophilia). Consider genetic consultation and counseling of potentially affected family members regarding laboratory testing. ADDITIONAL INFORMATION This test is a direct mutation analysis using PCR amplification, signal generation and release by cleavage of sequence specific alleles ([employer], [employer], [place], [place]). This test has been modified from the oil gauger's instructions. Its performance characteristics were determined by [facility] in a manner consistent with CLIA requirements. This test has not been cleared or approved by the U.S. Food and Drug Administration. 18 RESULT: Riri Arango M.D. This test is a direct mutation analysis using PCR amplification, signal generation and release by cleavage of sequence specific alleles ([employer], [employer], [place], [place]). This test has been modified from the oil gauger's instructions. Its performance characteristics were determined by [facility] in a manner consistent with CLIA requirements. This test has not been cleared or approved by the U.S. Food and Drug Administration. Test Performed by: [place] [address] Assistant Superintendent For Curriculum: Cj Zuniga M.D. Ph.D.; CLIA# [id number] 19 Because ethnic data is not always [...] 145 to 180 Deficient Range <145 22 [id number] Copy Result to: Marbin GOMES ([id number]) GC/Chlamydia Source?: Endocervical Trichomonas Source: Endocervical 23 SEE RESULT BELOW Name: EILEEN BRADY : [address]: Dhruv Patel DO Acct: [id number] Unit: [id number] AGE: 53 Location: [facility] Re04/05/19 SEX: F Status: REG REF SPEC: [id number] NATA: 04/05/19-1550 [facility] DR: Dhruv Patel DO REQ: [id number] RECD: 04/08/199520 STATUS: JI CASTILLO DR: Marbin Gomes DO _ SOURCE: VAGINAL SPDESC: ORDERED: Jory,Yeast DNA COMMENTS: Copy Result to: Marbin GOMES ([id number]) Would you like to order Trichomonas Vaginalis testing? Yes Procedure Result Reported Site Gardnerella/Yeast: Vaginal DNA Final 04/08/19- 1534 ML Organism 1 Negative Gardnerella Organism 2 Negative Saritha The presence of G. vaginalis, although suggestive, [...] therapeutic success or failure. * [facility] - Main Lab . END OF REPORT DEPARTMENT OF PATHOLOGY, [address] [place] [address] Cameron Rojas M.D. Director [facility] # [id number] Procedures Date Code Description Status 05/17/2019 32269 X-Ray Knee,Ap&Lateral Oblique Views Completed 05/17/2019 44626 X-Ray Knee,Ap&Lateral Oblique Views Completed 02/07/2019 [id number] Mammogram Completed 02/28/2015 [id number] Colonoscopy Completed Medical Devices Description No Information Available Encounters Type Date Location Provider Dx Diagnosis Office Visit 09/05/2019 Main Office Marbin Gomes, I10 Essential (primary ) 8:45a D.O. hypertension R07.89 Other chest pain G47.30 Sleep apnea, unspecified R12 Heartburn M72.2 Plantar fascial fibromatosis M54.5 Low back pain M79.671 Pain in right foot M79.672 Pain in left foot M79.604 Pain in right leg M79.605 Pain in left leg R10.9 Unspecified abdominal pain E66.01 Morbid (severe) obesity due to excess calories I71.2 Thoracic aortic aneurysm, without rupture R68.2 Dry mouth, unspecified Z68.43 Body mass index (BMI) 50.0-59.9, adult Office Visit 08/28/2019 3:30p Main Office Marbin Gomes, R07.89 Other chest pain D.O. I10 Essential (primary) hypertension G47.30 Sleep apnea, unspecified R12 Heartburn Z68.42 Body mass index (BMI) 45.0-49.9, adult Office Visit 08/02/2019 10:30a Main Office Marbin Gomes, I10 Essential ( primary) D.O. hypertension M72.2 Plantar fascial fibromatosis M54.5 Low back pain M79.671 Pain in right foot M79.672 Pain in left foot M79.604 Pain in right leg M79.605 Pain in left leg K21.9 Gastro-esophageal reflux disease without esophagitis R10.9 Unspecified abdominal pain Office Visit 06/21/2019 10:00a Main Office Marbin Gomes, E66.01 Morbid ( severe) D.O. obesity due to excess calories I10 Essential (primary) hypertension M72.2 Plantar fascial fibromatosis T15.12xA Foreign body in conjunctival sac, left eye, init encntr M54.5 Low back pain B35.4 Tinea corporis Office Visit 05/17/2019 2:45p Main Office Marbin Gomes, E66.01 Morbid ( severe) D.O. obesity due to excess calories I10 Essential (primary) hypertension M72.2 Plantar fascial fibromatosis M79.671 Pain in right foot M79.672 Pain in left foot R42 Dizziness and giddiness M79.604 Pain in right leg M79.605 Pain in left leg R19.7 Diarrhea, unspecified M25.561 Pain in right knee M25.562 Pain in left knee Office Visit 04/11/2019 2:45p Main Office Marbin Gomes, E66.01 Morbid ( severe) D.O. obesity due to excess calories I10 Essential (primary) hypertension K21.9 Gastro-esophageal reflux disease without esophagitis M72.2 Plantar fascial fibromatosis M79.671 Pain in right foot M79.672 Pain in left foot M79.604 Pain in right leg M79.605 Pain in left leg M54.5 Low back pain B35.4 Tinea corporis R42 Dizziness and giddiness Z23 Encounter for immunization Z41.8 [facility] 03/11/2019 4:30p Main Office Marbin Gomes, E66.01 Morbid ( severe) D.O. obesity due to excess calories I10 Essential (primary) hypertension K21.9 Gastro-esophageal reflux disease without esophagitis M72.2 Plantar fascial fibromatosis M79.671 Pain in right foot M79.672 Pain in left foot M79.604 Pain in right leg M79.605 Pain in left leg B35.4 Tinea corporis Z68.43 Body mass index (BMI) 50.0-59.9, adult Assessments Date Code Description Provider 09/05/2019 I10 Essential (primary) hypertension Marbin Gomes D.O. 09/05/2019 R07.89 Other chest pain Marbin Gomes D.O. 09/05/2019 G47.30 Sleep apnea, unspecified Marbin Gomes D.O. 09/05/2019 R12 Heartburn Marbin Gomes D.O. 09/05/2019 M72.2 Plantar fascial fibromatosis Marbin Gomes D.O. 09/05/2019 M54.5 Low back pain Marbin Gomes D.O. 09/05/2019 M79.671 Pain in right foot Marbin Gomes D.O. 09/05/2019 M79.672 Pain in left foot Marbin Gomes D.O. 09/05/2019 M79.604 Pain in right leg Marbin Gomes D.O. 09/05/2019 M79.605 Pain in left leg Marbin Gomes, D.O. 09/05/2019 R10.9 Unspecified abdominal pain Marbin Gomes, D.O. 09/05/2019 E66.01 Morbid (severe) obesity due to excess Marbin GomesBelinda.O. calories 09/05/2019 I71.2 Thoracic aortic aneurysm, without rupture Marbin Gomes D.O. 09/05/2019 R68.2 Dry mouth, unspecified Marbin Gomes, D.O. 09/05/2019 Z68.43 Body mass index (BMI) 50.0-59.9, adult Marbin Gomes, D.O. 08/28/2019 R07.89 Other chest pain Marbin Gomes, D.O. 08/28/2019 I10 Essential (primary) hypertension Marbin Gomes, D.O. 08/28/2019 G47.30 Sleep apnea, unspecified Marbin Gomes D.O. 08/28/2019 R12 Heartburn Marbin Gomes D.O. 08/28/2019 Z68.42 Body mass index (BMI) 45.0-49.9, adult Marbin Gomes, D.O. 08/02/2019 I10 Essential (primary) hypertension Marbin Gomes D.O. 08/02/2019 M72.2 Plantar fascial fibromatosis Marbin Gmoes, D.O. 08/02/2019 M54.5 Low back pain Marbin Gomes D.O. 08/02/2019 M79.671 Pain in right foot Marbin Gomes D.O. 08/02/2019 M79.672 Pain in left foot EliseoMarbin D.O. 08/02/2019 M79.604 Pain in right leg Eliseo Belinda Zazueta.O. 08/02/2019 M79.605 Pain in left leg Eliseo Belinda Zazueta.O. 08/02/2019 K21.9 Gastro-esophageal reflux disease without Marbin Gomes D.O. esophagitis 08/02/2019 R10.9 Unspecified abdominal pain Marbin Gomes D.O. 06/21/2019 E66.01 Morbid (severe) obesity due to excess Marbin Gomes D.O. calories 06/21/2019 I10 Essential (primary) hypertension Marbin Gomes D.O. 06/21/2019 M72.2 Plantar fascial fibromatosis Marbin Gomes D.O. 06/21/2019 T15.12xA Foreign body in conjunctival sac, left eye, Marbin Gomes D.O. initial encounter 06/21/2019 M54.5 Low back pain Marbin Gomes D.O. 06/21/2019 B35.4 Tinea corporis Marbin Gomes D.O. 05/17/2019 E66.01 Morbid (severe) obesity due to excess Marbin Gomes D.O. calories 05/17/2019 I10 Essential (primary) hypertension Marbin Gomes D.O. 05/17/2019 M72.2 Plantar fascial fibromatosis Marbin Gomes D.O. 05/17/2019 M79.671 Pain in right foot EliseoMarbin D.O. 05/17/2019 M79.672 Pain in left foot EliseoMarbin D.O. 05/17/2019 R42 Dizziness and giddiness Marbin Gomes D.O. 05/17/2019 M79.604 Pain in right leg SulyericksonMarbin D.O. 05/17/2019 M79.605 Pain in left leg Marbin Gomes D.O. 05/17/2019 R19.7 Diarrhea, unspecified Marbin Gomes D.O. 05/17/2019 M25.561 Pain in right knee MichaelharshMarbin D.O. 05/17/2019 M25.562 Pain in left knee Eliseo Belinda Zazueta.O. 04/11/2019 E66.01 Morbid (severe) obesity due to excess Marbin Gomes D.O. calories 04/11/2019 I10 Essential (primary) hypertension Marbin Gomes D.O. 04/11/2019 K21.9 Gastro-esophageal reflux disease without Marbin Gomes D.O. esophagitis 04/11/2019 M72.2 Plantar fascial fibromatosis Marbin Gomes D.O. 04/11/2019 M79.671 Pain in right foot Marbin Gomes D.O. 04/11/2019 M79.672 Pain in left foot Marbin Gomes D.O. 04/11/2019 M79.604 Pain in right leg Marbin Gomes D.O. 04/11/2019 M79.605 Pain in left leg Marbin Gomes D.O. 04/11/2019 M54.5 Low back pain Marbin Gomes D.O. 04/11/2019 B35.4 Tinea corporis Marbin Gomes D.O. 04/11/2019 R42 Dizziness and giddiness Marbin Gomes D.O. 04/11/2019 Z23 Encounter for immunization Marbin Gomes D.O. 04/11/2019 Z41.8 Encounter for other procedures for purposes Marbin Gomes D.O. other than remedying health state 03/11/2019 E66.01 Morbid (severe) obesity due to excess Marbin Gomes D.O. calories 03/11/2019 I10 Essential (primary) hypertension Marbin Gomes D.O. 03/11/2019 K21.9 Gastro-esophageal reflux disease without Marbin Gomes D.O. esophagitis 03/11/2019 M72.2 Plantar fascial fibromatosis Marbin Gomes D.O. 03/11/2019 M79.671 Pain in right foot Marbin Gomes D.O. 03/11/2019 M79.672 Pain in left foot Marbin Gomes D.O. 03/11/2019 M79.604 Pain in right leg Marbin Gomes D.O. 03/11/2019 M79.605 Pain in left leg Marbin Gomes D.O. 03/11/2019 B35.4 Tinea corporis Marbin Gomes D.O. 03/11/2019 Z68.43 Body mass index (BMI) 50.0-59.9, adult Marbin Gomes D.O. Plan of Treatment Future Appointment(s):11/04/2019 8:30 am - Marbin Gomes D.O. at Main Office Functional Status Description No Information Available Mental Status Description No Information Available Referrals Refer to Reason for Referral Status Appt Date Sleep Clinic Diagnosed with sleep apnea failed 3 masks during CPAP Sent titration. May need extra slow titration with initially lower than usual pressure. airway pressure was the part not tolerated on titration. Consider starting a half of normal CPAP pressure for titration. Consult and Treat [facility] [address], [address] [place], [place] [id number] [phone] Uriah Barton MD Thoracic aortic aneurysm Consult and Treat Sent [facility] [address], [place] [id number] [phone] [facility] EGD for refractory GERD worsening despite Sent omeprazole BID 40 mg. Consult and Testing - [facility] [address] [place], [place] [id number] [phone] [facility] Closed [address], [place] [address] [phone] [facility] Eating Disorder Anorexia in morbidly obese 53year Sent Service old. Consult and Treat [address] [place] [address] [phone]
--- OUTSIDE RECORDS SUMMARY | 2019-09-10 11:07 | XMS REPORT | Continuity of Care Document ---
:1965 External Reference #:[id number] Author Name Adi Kimbrough DO FACC (transmitted by agent of provider Sera Caldwell) Address [address] [place] [address] Care Team Providers Name Role Phone Hermelindo Dominguez MD - Emergency Medical Care Team Information [employer] Agent Services Marbin Gomes DO - Family Care Team Information [employer] Agent Medicine Problems Active Problems Provider Date Carpal tunnel syndrome Velma Perez M.D. Onset: 02/26/2015 Muscle twitch Velma Perez M.D. Onset: 02/26/2015 Localized, primary osteoarthritis Saray Cummings M.D. Onset: 11/27/2017 Skin sensation disturbance Waldo Mcconnell M.D. Onset: 03/01/2018 Neck pain Waldo Mcconnell M.D. Onset: 03/01/2018 Abnormal results function studies of central Waldo Mcconnell M.D. Onset: nervous system Chronic fatigue syndrome Waldo Mcconnell M.D. Onset: 03/01/2018 Polyneuropathy Waldo Mcconnell M.D. Onset: 07/11/2018 Arthroplasty of knee Saray Cummings M.D. Onset: 05/11/2018 Social History Type Date Description Comments Sex Unknown Tobacco Use Start: Unknown Never Smoked Cigarettes Smoking Status Reviewed: 09/04/19 Never Smoked Cigarettes ETOH Use Rarely consumes alcohol Tobacco Use Start: Unknown Patient has never smoked Recreational Drug Use Denies Drug Use Exercise Type/Frequency Exercises sporadically Allergies, Adverse Reactions, Alerts Active Allergies Reaction Severity Comments Date Ceclor 09/24/2004 Vicodin "Asthma attack" Severe 02/25/2015 Oranges 04/28/2015 Inactive Allergies NKDA 04/03/2007 Medications Active Medications SIG Qnty Indications Ordering Provider Date Amoxicillin 4 tabs 1 hour 4tabs Maico Narayan MD 04/12/2019 500mg prior to dental Tablets procedures Wrist Brace l and r wrist 2units Waldo Mcconnell, 08/22/2018 Ultra-Lite Carpal braces for carpal M.D. Tunnel/One Size tunnel symptoms Misc Bupropion 1 by mouth every Unknown Hydrochloride ER day (takes with (XL) 15o mg tab) 300mg Tablets ER 24HR Bupropion HCL ER 1 by mouth every Unknown (XL) day takes with 150mg Tablets ER 300 mg tab 24HR Vitamin D3 1 by mouth every Unknown 125mcg day (5000 Ut) Capsules Gabapentin take one capsule Unknown 400mg by mouth on the Capsules afternoon Gabapentin take one tablet Unknown 600mg by mouth in am Tablets and 1tab po @hs Citalopram Take One Tablet Unknown Hydrobromide By Mouth Every 20mg Day Tablets Atenolol Take One Tablet Unknown 100mg By Mouth Every Tablets Day Losartan Potassium 1 tab by mouth Marbin Gomes twice daily DO [place] 100mg Tablets Hydroxyzine Pamoate 1-2 caps by mouth Unknown bid as needed for 25mg Capsules anxiety Multi Vitamin Daily 1 by mouth every Unknown day Tablets Tylenol 2 po as needed Unknown 325mg Tablets Proair HFA 2 puffs by mouth Unknown every 4 - 6 hours 108(90Base) mcg/Act as needed Aerosol Omeprazole 1 by mouth twice Unknown 40mg daily Capsules Tramadol HCL 1 tab by mouth 60tabs Saray Cummings M.D. 50mg every 4 hours as Tablets needed for pain History Medications Cephalexin 4 tabs by mouth 1 4caps Maico Narayan MD 03/22/2019 - 500mg hour prior to 04/12/2019 Capsules dental procedure Medications Administered in Office Medication SIG Qnty Indications Ordering Provider Date Inj, Regadenoson, 0.1 MG Uriah Barton M.D., 05/04/2015 Injection DANIELLE, FASNC Inj, Regadenoson, 0.1 MG Laly Hathaway M.D. 05/04/2015 Injection Technetium TC 99M Uriah Alfonso Barton M.D., 05/04/2015 Tetrofosmin, Per Unit Dose FACC, FASNC Up To 40 Millicuries Injection Technetium TC 99M Laly Hathaway M.D. 05/04/2015 Tetrofosmin, Per Unit Dose Up To 40 Millicuries Injection Immunizations Description No Information Available Vital Signs Date Vital Result Comment 09/04/2019 9:31am Height 60 inches 5'0" Heart Rate 64 /min BP Systolic 132 mmHg LA, large BP Diastolic 74 mmHg LA, large BP Systolic Sitting 122 mmHg Ra, large BP Diastolic Sitting 74 mmHg Ra, large BP Systolic Standing 122 mmHg LA, large BP Diastolic Standing 72 mmHg LA, large Ejection Fraction 55%-60% echo 10/27/2009 08/05/2019 1:26pm Height 60 inches 5'0" Weight 260.00 lb Heart Rate 59 /min BP Systolic Sitting 128 mmHg BP Diastolic Sitting 84 mmHg Respiratory Rate 16 /min Pain Level 0 O2 % BldC Oximetry 97 % BMI (Body Mass Index) 50.8 kg/m2 Results Description No Information Available Procedures Date Code Description Status 09/04/2019 90094 EKG Tracing & Interpretation Completed Medical Devices Description No Information Available Encounters Type Date Location Provider Dx Diagnosis Office Visit 08/07/2019 [facility] Dermatology AT Gaston Hernandez MD L82.1 Other seborrheic 8:40a Giuseppe keratosis D23.71 Oth benign neoplasm skin/ right lower limb, including hip D23.72 Oth benign neoplasm skin/ left lower limb, including hip L30.8 Other specified dermatitis Z08 Encntr for follow-up exam after trtmt for malignant neoplasm Z85.820 Personal history of malignant melanoma of skin Office Visit 08/05/2019 1:45p [facility] Saray Cummings M25.561 Pain in right at Samara Anderson knee M25.562 Pain in left knee Z96.651 Presence of right artificial knee joint Z96.652 Presence of left artificial knee joint Office Visit 06/18/2019 10:00a Krysta Blake M76.821 Posterior tibial Orthopedics [facility] tendinitis, right [place] leg M76.822 Posterior tibial tendinitis, left leg Office Visit 05/16/2019 9:00a Krysta [email or web address].821 Posterior tibial [facility] tendinimik, right [place] leg Office Visit 04/04/2019 9:00a Krysta [email or web address].821 Posterior tibial [facility] tendinimik, right [place] leg Assessments Date Code Description Provider 08/07/2019 L82.1 Other seborrheic keratosis Gaston Hernandez MD 08/07/2019 D23.71 Other benign neoplasm of skin of right lower Gaston Hernandez MD limb, including hip 08/07/2019 D23.72 Other benign neoplasm of skin of left lower Gaston Hernandez MD limb, including hip 08/07/2019 L30.8 Other specified dermatitis Gaston Hernandez MD 08/07/2019 Z08 Encounter for follow-up examination after Gaston Hernandez MD completed treatment for malignant neoplasm 08/07/2019 Z85.820 Personal history of malignant melanoma of Gaston Hernandez MD skin 08/05/2019 M25.561 Pain in right knee Saray Cummings M.D. 08/05/2019 M25.562 Pain in left knee Saray Cummings M.D. 08/05/2019 Z96.651 Presence of right artificial knee joint Saray Cummings M.D. 08/05/2019 Z96.652 Presence of left artificial knee joint Saray Cummings M.D. 06/18/2019 M76.821 Posterior tibial tendinitis, right leg Hayden Donaldson M.D. 06/18/2019 M76.822 Posterior tibial tendinitis, left leg Hayden Donaldson M.D. 05/16/2019 M76.821 Posterior tibial tendinitis, right leg Hayden Donaldson M.D. 04/04/2019 M76.821 Posterior tibial tendinitis, right leg Hayden Donaldson M.D. Plan of Treatment Future Appointment(s):10/11/2019 7:30 am - Crystal Montoya MD at [facility]09/10/2019 11:30 am - Hayden Donaldson M.D. at [facility] at [id number]/30/2019 8:00 am - Waldo Mcconnell M.D. at [facility] Functional Status Description No Information Available Mental Status Description No Information Available Referrals Description No Information Available
--- OUTSIDE RECORDS SUMMARY | 2019-09-10 11:08 | XMS REPORT | Continuity of Care Document ---
:1965 External Reference #:[id number] Author Name Marbin Gomes D.O. Address [address] [place] [address] Care Team Providers Name Role Phone HCP given Care Team Information Filling Hand Unavailable Bradford Vaz MD - Orthopaedic Care Team Information Filling Hand Surgery Radha Vaz RD CDN Cde - Care Team Information Filling Hand [phone] Dietitian, Registered Hayden Donaldson MD - Orthopaedic Care Team Information Filling Hand Surgery Problems Active Problems Provider Date Benign essential [...] Patient has never smoked Smoking Status Reviewed: 08/02/19 Patient has never smoked Enjoy Exercising Enjoys exercising but infreq due to bilateral knee pain Sun Exposure Does not use sunscreen Seat Belt/Car Seat always uses seat belt Guns in Home No Smoke Alarms Yes smoke alarm Allergies, Adverse Reactions, Alerts Active Allergies Reaction Severity Comments Date Vicodin Gives pt "asthma attack" 11/27/2013 Medications Active Medications SIG Qnty Indications Ordering Date Provider Vitamin D3 1 tab by mouth 90tabs Marbin Gomes, 06/21/2019 5000Unit every day or 7 D.O. Tablets tabs once a week Chlorthalidone 1 by mouth every 90tabs Marbin Gomes, 04/11/2019 25mg day D.O. Tablets Gabapentin 1 by mouth in the 180tabs Marbin Gomes, 04/11/2019 600mg morning and at D.O. Tablets night in addition to 400mg at noon. Nystatin apply twice a day 90gm Marbin Gomes, 03/11/2019 [id number]/GM to affected area D.O. Powder Atenolol 1 by mouth every 90tabs I10 Marbin Gomes, 03/11/2019 100mg Tablets day D.O. Blood Pressure Use to monitor 1units I10 Marbin Gomes, 02/15/2019 Monitor blood pressure D.O. Digital/Auto-Inflatio daily n Misc Losartan Potassium 1 tablet by mouth 90tabs I10 Marbin Gomes, 02/07/2019 daily for blood D.O. 100mg Tablets pressure Gabapentin take one capsule 90caps Marcello Gomeson, 01/04/2019 400mg by mouth at noon D.O. Capsules in addition to 600mg tablets morning and night. Ibu 1 tablet every 6 20tabs Unknown 10/01/2018 600mg Tablets hours as needed [facility] Clotrimazole Apply 2 times a 14.200gm B37.9 Marbin Gomes, 09/23/2018 1% day to control D.O. Cream rash, discontinue 2 days after rash resolves Citalopram 1 by mouth every 90tabs F43.23 Marbin Gomes, 09/11/2018 Hydrobromide day D.O. 20mg Tablets Omeprazole take one capsule 180caps Marbin Gomes, 09/03/2018 40mg by mouth twice a D.O. Capsules DR day Tramadol HCL 1 tab po four Unknown 09/02/2018 50mg times daily as Tablets needed Xzdolocrb-Ykdgq-H11-A take 1 tablet by 90tabs E53.8 Marbin Gomes, 2018 cetylcyst mouth daily for D.O. nutritional 6-90.314-2-600mg support Tablets F50.9 Cane Use to assist with 1units Gabriel Ramirez, 03/27/2018 Standard walking and M.D. balance Proair HFA 2 puff Every 4-6 8.5units R06.00 Marbin Gomes, 01/30/2018 108(90Base) Hours, as Needed D.O. mcg/Act [...] day after each loose stool for diarrhea Atenolol take one tablet by 90tabs I10 Marbin Gomes, 02/07/2019 - 50mg Tablets mouth every D.O. 03/11/2019 morning for high blood pressure Medications Administered in Office Medication SIG Qnty Indications Ordering Provider Date B12 Injection Marbin Gomes D.OYen 04/14/2017 Injection SC/Im Injections Marbin Gomes D.OYen 04/14/2017 Injection injection, kenalog, 10 mg Marbin Gomes D.O. 04/07/2016 Injection injection, kenalog, 10 mg Marbin Gomes D.O. 05/16/2015 Injection SC/Im Injections Marbin Gomes D.OYen 05/16/2015 Injection H1N1 Swine Flu Vaccine Unknown 06/05/2007 Injection Immunizations CPT Code Status Date Vaccine Lot # [id number] Given 04/11/2019 Influenza Virus Vaccine, Quadrivalent, Split, [id number] Preservative Free 51011 Given 04/20/2018 Influenza Virus Vaccine, Quadrivalent, Split, [id number] Preservative Free 61581 Given 04/20/2018 Prevnar 13 [id number] 48320 Given 04/14/2017 Influenza Virus Vaccine, Quadrivalent, Split, [id number] Preservative Free 05784 Given 04/07/2016 Influenza Virus Vaccine, Quadrivalent, Split, [id number] Preservative Free 86772 Given 05/16/2015 Influenza Virus Vaccine, Quadrivalent, Split, [id number] Preservative Free 46814 Given 06/10/2014 Flu, Split Virus 3Yrs [id number] 52822 Given 12/10/2013 Adacel or Boostrix, TDaP 94873 Given 06/22/2012 Adacel or Boostrix, TDaP 37582 Given 04/29/2011 Pneumococcal Immunization 75257 Given 04/29/2011 Flu, Split Virus 3Yrs 14358 Given 05/29/2009 Flu, Split Virus 3Yrs 33712 Ordered 11/28/2013 Adacel or Boostrix, TDaP Vital Signs Date Vital Result Comment 08/02/2019 10:47am BP Systolic 122 mmHg BP Diastolic 80 mmHg Weight 262.00 lb 06/21/2019 10:31am BP Systolic 154 mmHg BP Diastolic 98 mmHg Weight 253.00 lb Results Test Acquired Date Facility Test Result H/L Range Note Celiac Hla 08/02/2019 [facility] Hla-Dqa1 SEE BELOW 6 [phone] Hla-DQB1 SEE BELOW 2 Celiac Gene Pairs Present? No Celiac Gene Interpretation See Comment 3 Celiac Panel 08/02/2019 [facility] Immunoglobulin A 563 mg/dL Abnormal 61 - 356 [phone] Tissue Transglutaminase IgA Ab <1.2 U/mL 4 Celiac Interpretation See Comment 5 Laboratory test 08/02/2019 [facility] Vitamin B12 434 pg/mL Normal 180-914 6 finding [phone] Lyme Disease AB 08/02/2019 [facility] IgG Immunoblot Negative Negative Immunoblot WB [phone] IgG detected against p41 kDa IgM Immunoblot Negative Negative IgM detected against None kDa Lyme Disease Interpretation See Comment 7 Tick-Borne Panel PCR 08/02/2019 [facility] Babesia microti Negative Negative Blood [phone] PCR Babesia ducani Negative Negative Babesia divergens/Mo-1 Negative Negative 8 Anaplasma phagocytophilum Negative Negative Ehrlichia chaffeensis Negative Negative Ehrlichia ewingii/canis Negative Negative Ehrlichia muris eauclairensis Negative Negative 9 B. 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 [phone] Mutation Detection MTHFR Interpretation See Comment 11 MTHFR Reviewed By See Comment 12 MTHFR I1731f Mutation Heterozygous Abnormal Negative Mthac Interpretation See Comment 13 Mthac Reviewed By See Comment 14 Laboratory test 05/27/2019 [facility] Erythrocyte Sed 35 mm/Hr High 0 -29 finding [phone] Rate C Reactive Protein 5.21 mg/L Normal <8.01 Iron & Iron Binding Capacity 05/27/2019 [facility] Iron 66 g/dL Normal 50-212 [phone] Unsaturated Iron Binding < 416 g/dL Total Iron Binding Capacity 431 g/dL Normal 250-450 Transferrin 308 mg/dL Normal 203-362 % Iron Saturation 15 % Normal 15-55 Laboratory test 05/27/2019 [facility] Folic Acid 17.19 ng/mL >3.99 finding [phone] (Folate) Comp Metabolic 05/27/2019 [facility] Sodium 140 mmol/L Normal 135- 145 Panel [phone] Potassium 3.5 mmol/L Normal 3.5-5.0 Chloride 102 [...] Egfr Non- 63.6 >60 Egfr 77.0 >60 15 CBC Auto Diff 05/27/2019 [facility] White Blood 6.9 10^3/uL Normal 3.5-10.8 [phone] Count Red Blood Count 4.73 10^6/uL Normal [...] Cells % 0.1 Basic Metabolic Panel 04/24/2019 [facility] Sodium 140 mmol/L Normal 135-145 [phone] Potassium 3.7 mmol/L Normal 3.5-5.0 Chloride 102 mmol/L Normal 101-111 Co2 Carbon Dioxide 29 mmol/L Normal 22-32 Anion Gap 9 mmol/L Normal 2-11 Glucose 132 mg/dL High 70-100 Blood Urea Nitrogen 26 mg/dL High 6-24 Creatinine 0.90 mg/dL Normal 0.51-0.95 BUN/Creatinine Ratio 28.9 High 8-20 Calcium 9.4 mg/dL Normal 8.6-10.3 Egfr Non- 65.2 >60 Egfr 79.0 >60 16 Laboratory test finding 04/24/2019 [facility] Magnesium 1.7 mg/dL Low 1.9-2.7 [phone] Vitamin B12 878 pg/mL Normal 180-914 17 TSH (Thyroid Stim Horm) 2.23 mcIU/mL Normal 0.34-5.60 GC/Chlamydia 04/05/2019 [facility] Chlamydia Negative Negative Amplified Rna [phone] trachomatis Martha Neisseria gonorrhoeae (GC) Martha Negative Negative Laboratory test 04/05/2019 [facility] Trichomonas Negative Negative 18 finding [phone] Vaginalis Rna Laboratory test 04/05/2019 [facility] Gardnerella/Clementerosemary SEE RESULT 19 finding [phone] t: Vaginal Dna BELOW 1 RESULT: 03,05 REFERENCE VALUE Not Applicable 2 RESULT: 03:01,03:01 DQ Serologic Equivalent: 7,7 REFERENCE VALUE Not Applicable 3 The absence of HLA celiac permissive genes would make the presence of celiac disease unlikely. ADDITIONAL INFORMATION Method: Molecular typing of HLA antigens performed using reverse SSOP and/or SSP methods, reported as serological equivalents and low to medium resolution molecular values. Test Performed by: [place] [address] Electronic Publishing Specialist: Cj Zuniga M.D. Ph.D.; CLIA# [id number] 4 REFERENCE VALUE <4.0 (Negative) Test Performed by: [place] [address] Electronic Publishing Specialist: Cj Zuniga M.D. Ph.D.; CLIA# [id number] 5 Negative serology. Celiac disease unlikely. However, approximately 10% of patients with celiac disease are seronegative. Also, patients who are already adhering to a gluten-free diet may be seronegative. If celiac disease is highly clinically suspected, consider HLA-DQ typing. Test Performed by: [place] [address] Electronic Publishing Specialist: Cj Zuniga M.D. Ph.D.; CLIA# [id number] 6 Normal Range 180 to 914 Indeterminate Range 145 to 180 Deficient Range <145 7 Specific serologic response to B. burgdorferi infection [...] 30 days of symptoms. Test Performed by: [facility] [place] [address] Electronic Publishing Specialist: Cj Zuniga M.D. Ph.D.; CLIA# [id number] 8 ADDITIONAL INFORMATION This test was developed and its performance characteristics determined by [facility] in a manner consistent with CLIA requirements. This test has not been cleared or approved by the U.S. Food and Drug Administration. 9 ADDITIONAL INFORMATION This test was developed and its performance characteristics determined by [facility] in a manner consistent with CLIA requirements. This test has not been cleared or approved by the U.S. Food and Drug Administration. 10 ADDITIONAL INFORMATION This test was developed and its performance characteristics determined by [facility] in a manner consistent with CLIA requirements. This test has not been cleared or approved by the U.S. Food and Drug Administration. Test Performed by: [address] [address] Electronic Publishing Specialist: Cj Zuniga M.D. 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 If clinically indicated, suggest Coagulation Consultation 60279 (Thrombophila Profile) to complete the evaluation for an inherited or acquired thrombosing disorder (i.e., thrombophilia). Consider genetic consultation and counseling of potentially affected family members regarding laboratory testing. ADDITIONAL INFORMATION This test is a direct mutation analysis using PCR amplification, signal generation and release by cleavage of sequence specific alleles ([employer], [employer], [place], [place]). This test has been modified from the customer success intern's instructions. Its performance characteristics were determined by [facility] in a manner consistent with CLIA requirements. This test has not been cleared or approved by the U.S. Food and Drug Administration. 12 RESULT: Riri Arango M.D. 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 MTHAC U2542W carriers are not at increased risk for thrombosis in the absence of hyperhomocysteinemia. In the absence of alternative causes, heterozygous carriers of MTHAC V8187E are not at increased risk for hyperhomocysteinemia. Hyperhomocysteinemia is a relatively weak risk factor for both venous thromboembolism and arterial thrombosis. The MTHAC K0644G gene mutation test does not detect other causes of hyperhomocysteinemia due to acquired disorders (renal failure, zinc deficiency, leukemia, psoriasis, or antifolate drug therapy). If clinically indicated, suggest Coagulation Consultation 96053 (Thrombophila Profile) to complete the evaluation for an inherited or acquired thrombosing disorder (i.e., thrombophilia). Consider genetic consultation and counseling of potentially affected family members regarding laboratory testing. ADDITIONAL INFORMATION This test is a direct mutation analysis using PCR amplification, signal generation and release by cleavage of sequence specific alleles ([employer], [employer], [place], [place]). This test has been modified from the customer success intern's instructions. Its performance characteristics were determined by [facility] in a manner consistent with CLIA requirements. This test has not been cleared or approved by the U.S. Food and Drug Administration. 14 RESULT: Riri Arango M.D. This test is a direct mutation analysis using PCR amplification, signal generation and release by cleavage of sequence specific alleles ([employer], [employer], [place], [place]). This test has been modified from the customer success intern's instructions. Its performance characteristics were determined by [facility] in a manner consistent with CLIA requirements. This test has not been cleared or approved by the U.S. Food and Drug Administration. Test Performed by: [place] [address] Electronic Publishing Specialist: Cj Zuniga M.D. Ph.D.; CLIA# [id number] 15 Because ethnic data is not always [...] 5 Kidney failure <15 (or dialysis) 16 Because ethnic data is not always readily [...] 15-29 5 Kidney failure <15 (or dialysis) 17 Normal Range 180 to 914 Indeterminate Range 145 to 180 Deficient Range <145 18 [id number] Copy Result to: Marbin GOMES ([id number]) GC/Chlamydia Source?: Endocervical Trichomonas Source: Endocervical 19 SEE RESULT BELOW Name: EILEEN BRADY : [address]: Dhruv Patel DO Acct: [id number] Unit: [id number] AGE: 53 Location: [facility] Re04/05/19 SEX: F Status: REG REF SPEC: [id number] NATA: 04/05/19-[address]: Dhruv Patel DO REQ: [id number] RECD: 04/08/19 STATUS: [facility] DR: Marbin Gomes DO _ SOURCE: VAGINAL SPDESC: ORDERED: Jory,Yeast DNA COMMENTS: Copy Result to: Marbin OGMES ([id number]) Would you like to order Trichomonas Vaginalis [...] test for therapeutic success or failure. * - Main Lab . END OF REPORT DEPARTMENT OF PATHOLOGY, [address] [place] [address] Cameron Rojas M.D. Director [facility] # [id number] Procedures Date Code Description Status 05/17/2019 64372 X-Ray Knee,Ap&Lateral Oblique Views Completed 05/17/2019 50487 X-Ray Knee,Ap&Lateral Oblique Views Completed 02/07/2019 [id number] Mammogram Completed 02/28/2015 [id number] Colonoscopy Completed Medical Devices Description No Information Available Encounters Type Date Location Provider Dx Diagnosis Office Visit 08/02/2019 Main Office Marbin Gomes, I10 Essential (primary ) 10:30a D.O. hypertension M72.2 Plantar fascial fibromatosis M54.5 [...] Z41.8 Encntr for oth proc for [facility] Office Visit 03/11/2019 4:30p Main Office [...] mass index (BMI) 50.0-59.9, adult Office Visit 02/07/2019 3:45p Main Office Marbin Gomes, E66.01 Morbid ( severe) D.O. obesity due to excess calories I10 Essential (primary) hypertension K21.9 Gastro-esophageal reflux disease without esophagitis R31.9 Hematuria, unspecified N32.9 Bladder disorder, unspecified Assessments Date Code Description Provider 08/02/2019 I10 Essential (primary) hypertension Marbin Gomes D.O. 08/02/2019 M72.2 Plantar fascial fibromatosis Marbin Gomes D.O. 08/02/2019 M54.5 Low back pain Marbin Gomes D.O. 08/02/2019 M79.671 Pain in right foot Sopchak, Marbin, D.O. 08/02/2019 M79.672 Pain in left foot Marbin Gomes D.O. 08/02/2019 M79.604 Pain in right leg Eliseo Belinda Zazueta.O. 08/02/2019 M79.605 Pain in left leg Michaelharsh Melba ZazuetaO. 08/02/2019 K21.9 Gastro-esophageal reflux disease without Marbin [...] D.O. 05/17/2019 M79.671 Pain in right foot Marbin Gomes D.O. 05/17/2019 M79.672 Pain in left foot Marbin Gomes D.O. 05/17/2019 R42 Dizziness and giddiness Marbin Gomes D.O. 05/17/2019 M79.604 Pain in right leg Marbin Gomes D.O. 05/17/2019 M79.605 Pain in left leg Marbin Gomes D.O. 05/17/2019 R19.7 Diarrhea, unspecified Marbin Gomes D.O. 05/17/2019 M25.561 Pain in right knee SulyericksonMarbin D.O. 05/17/2019 M25.562 Pain in left knee Marbin Gomes D.O. 04/11/2019 E66.01 Morbid (severe) obesity due to [...] index (BMI) 50.0-59.9, adult Marbin Gomes D.O. 02/07/2019 E66.01 Morbid (severe) obesity due to excess Marbin Gomes D.O. calories 02/07/2019 I10 Essential (primary) hypertension Marbin Gomes D.O. 02/07/2019 K21.9 Gastro-esophageal reflux disease without Marbin Gomes D.O. esophagitis 02/07/2019 R31.9 Hematuria, unspecified Marbin Gomes D.O. 02/07/2019 N32.9 Bladder disorder, unspecified Marbin Gomes D.O. Plan of Treatment Future Appointment(s):09/05/2019 8:45 am - Marbin Gomes D.O. at Main Ksmlwd3208/02/2019 - Marbin Gomes D.O.I10 Essential (primary) wyytlnkkccjeG22.2 Plantar fascial fibromatosisNew Xrays:[facility], Scheduled: 08/20/19M54.5 Low back painM79.671 Pain in right footFollow up:1 month leg/foot pain, pgrxfxvszL15.672 Pain in left footM79.604 Pain in right legNew Xrays:[facility] VL Ankle Brachial Indices, Scheduled: 08/20/19M79.605 Pain in left legNew Xrays:US VL Ankle Brachial Indices, Scheduled: K21.9 Gastro-esophageal reflux disease without esophagitisReferral:[facility] GyxtcgdbwpsvrhghP16.9 Unspecified abdominal pain Functional Status Description No Information Available Mental Status Description No Information Available Referrals Refer to Reason for Referral Status Appt Date [facility] EGD for refractory GERD worsening despite Created omeprazole BID 40 mg. [address] [place] [address] [phone] [facility] Closed [address], [place] [address] [phone] [facility] Eating Disorder Anorexia in morbidly obese 53year [employer] old. Consult and Treat [address] [place] [address] [phone]
--- OUTSIDE RECORDS SUMMARY | 2019-09-10 11:08 | XMS REPORT | Continuity of Care Document ---
:1965 External Reference #:[id number] Author Name Marbin Gomes D.O. Address [address] [place] [address] Care Team Providers Name Role Phone HCP given Care Team Information S[employer] Operator Unavailable Bradford Vaz MD - Orthopaedic Care Team Information [employer] Operator Surgery Radha Vaz RD CDN Cde - Care Team Information S[employer] Operator [phone] Dietitian, Registered Hayden Donaldson MD - Orthopaedic Care Team Information S[employer] Operator [phone] Surgery Problems Active Problems Provider Date Benign [...] twice a day 90gm Marbin Gomes, 03/11/2019 094009Pxzz/GM to affected area D.O. Powder Atenolol 1 [...] 09/02/2018 50mg times daily as Tablets needed Ncrckxjea-Tgatu-V72-A take 1 tablet by 90tabs E53.8 Marbin [...] D.OYen 04/14/2017 Injection SC/Im Injections Marbin Gomes D.O. 04/14/2017 Injection injection, kenalog, 10 mg Marbni Gomes D.OYen 04/07/2016 Injection injection, kenalog, 10 mg Marbin Gomes D.OYen 05/16/2015 Injection SC/Im Injections Marbin Gomes D.OYen 05/16/2015 Injection H1N1 Swine Flu Vaccine Unknown 06/05/2007 Injection Immunizations CPT Code Status Date Vaccine Lot # [id number] Given 04/11/2019 Influenza Virus Vaccine, Quadrivalent, Split, [id number] Preservative Free 70347 Given 04/20/2018 Influenza Virus Vaccine, Quadrivalent, Split, [id number] Preservative Free 94069 Given 04/20/2018 Prevnar 13 [id number] 99639 Given 04/14/2017 Influenza Virus Vaccine, Quadrivalent, Split, [id number] Preservative Free 01433 Given 04/07/2016 Influenza Virus Vaccine, Quadrivalent, Split, [id number] Preservative Free 39096 Given 05/16/2015 Influenza Virus Vaccine, Quadrivalent, Split, [id number] Preservative Free 13667 Given 06/10/2014 Flu, Split Virus 3Yrs [id number] 56277 Given 12/10/2013 Adacel or Boostrix, TDaP 98069 Given 06/22/2012 Adacel or Boostrix, TDaP 10686 Given 04/29/2011 Pneumococcal Immunization 60092 Given 04/29/2011 Flu, Split Virus 3Yrs 70806 Given 05/29/2009 Flu, Split Virus 3Yrs 46860 Ordered 11/28/2013 Adacel or Boostrix, TDaP Vital Signs Date Vital Result Comment 08/28/2019 4:03pm BP Systolic 120 mmHg BP Diastolic 80 mmHg 08/02/2019 10:47am BP Systolic 122 mmHg BP Diastolic 80 mmHg Weight 262.00 lb Results Test Acquired Date Facility Test Result H/L Range Note Laboratory test 08/27/2019 [facility]. Troponin-I < 0.015 1, 2 finding LABORATORY ng/mL [phone] Ua RFX Micro & 08/27/2019 [facility]. Urine Color Yellow Yellow Culture II LABORATORY [phone] Urine Clarity Clear Clear Urine Glucose - Dipstick NEGATIVE mg/dL Negative Urine Bilirubin - Dipstick NEGATIVE Negative Urine Ketone NEGATIVE mg/dL Negative Urine Specific Ambrose 1.036 High 1.010-1.030 Urine Blood NEGATIVE Negative Urine PH 5.5 Low 6.5-7.5 Urine Protein - Dipstick NEGATIVE mg/dL Negative Urine Urobilinogen - Dipstick < 2.0 mg/dL < 2.0 Urine Nitrite - Dipstick NEGATIVE Negative Urine Leuk Esterase NEGATIVE Negative Source: URINE, CLEAN CAT <SEE NOTE> 3 CBS W/Automated 08/27/2019 [facility]. White 8.6 K/uL Normal 3.1-10.7 Diff LABORATORY Blood [phone] Count Red Blood Count 4.40 M/uL Normal [...] 40.4-72.8 Lymph % 28.4 % Normal 20.0-42.0 [place]ata[place]ba % 8.7 % Normal 4.3-13.2 Eo% 1.2 % Normal 0.0-6.6 Bas% 0.2 % Normal 0.0-1.1 Immature Grans 0.3 % Normal 0.0-5.0 NRBC % 0.0 /100WBC < 10/ 100 WBC Neut# 5.24 K/uL Normal 1.8-7.0 Lymph # 2.44 K/uL Normal 1.0-4.0 [place]ata[place]ba # 0.75 K/uL Normal 0.3-0.9 Eos # 0.10 K/uL Normal 0.0-0.5 Baso # 0.02 K/uL Normal 0.0-0.1 Immature Grans Absolute 0.03 K/uL NRBC # 0.00 K/uL Laboratory test 08/27/2019 [facility]. D-Dimer, 0.39 ug/mL 4 finding LABORATORY Quantitative [phone] Celiac Hla 08/02/2019 [facility] Hla-Dqa1 SEE BELOW 5 [phone] Hla-DQB1 SEE BELOW 6 Celiac Gene Pairs Present? No Celiac Gene Interpretation See Comment 7 Celiac Panel 08/02/2019 [facility] Immunoglobulin A 563 mg/dL Abnormal 61 - 356 [phone] Tissue Transglutaminase IgA Ab <1.2 U/mL 8 Celiac Interpretation See Comment 9 Laboratory test 08/02/2019 [facility] Vitamin B12 434 pg/mL Normal 180-914 10 finding [phone] Lyme Disease AB 08/02/2019 [facility] IgG Immunoblot Negative Negative Immunoblot WB [phone] IgG detected against p41 kDa IgM Immunoblot Negative Negative IgM detected against None kDa Lyme Disease Interpretation See Comment 11 Tick-Borne Panel PCR 08/02/2019 [facility] Babesia microti Negative Negative Blood [phone] PCR Babesia ducani Negative Negative Babesia divergens/Mo-1 Negative Negative 12 Anaplasma phagocytophilum Negative Negative Ehrlichia chaffeensis Negative Negative Ehrlichia ewingii/canis Negative Negative Ehrlichia muris eauclairensis Negative Negative 13 B. 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 Mutation [phone] Mutation Detection MTHFR Interpretation See Comment 15 MTHFR Reviewed By See Comment 16 MTHFR C3377d Mutation Heterozygous Abnormal Negative Mthac Interpretation See Comment 17 Mthac Reviewed By See Comment 18 Laboratory test 05/27/2019 [facility] Erythrocyte Sed 35 mm/Hr High 0 -29 finding [phone] Rate C Reactive Protein 5.21 mg/L Normal <8.01 Iron & Iron Binding Capacity 05/27/2019 [facility] Iron 66 g/dL Normal 50-212 [phone] Unsaturated Iron Binding < 416 g/dL Total Iron Binding Capacity 431 g/dL Normal 250-450 Transferrin 308 mg/dL Normal 203-362 % Iron Saturation 15 % Normal 15-55 Laboratory test 05/27/2019 [facility] Folic Acid 17.19 ng/mL >3.99 finding [phone] (Folate) Comp Metabolic 05/27/2019 [facility] Sodium 140 mmol/L Normal 135- 145 Panel [phone] Potassium 3.5 mmol/L Normal 3.5-5.0 Chloride 102 [...] 77.0 >60 19 CBC Auto Diff 05/27/2019 [facility] White Blood 6.9 10^3/uL Normal 3.5-10.8 [phone] Count Red Blood Count 4.73 10^6/uL Normal [...] Cells % 0.1 Basic Metabolic Panel 04/24/2019 [facility] Sodium 140 mmol/L Normal 135-145 [phone] Potassium 3.7 mmol/L Normal 3.5-5.0 Chloride 102 mmol/L Normal 101-111 Co2 Carbon Dioxide 29 mmol/L Normal 22-32 Anion Gap 9 mmol/L Normal 2-11 Glucose 132 mg/dL High 70-100 Blood Urea Nitrogen 26 mg/dL High 6-24 Creatinine 0.90 mg/dL Normal 0.51-0.95 BUN/Creatinine Ratio 28.9 High 8-20 Calcium 9.4 mg/dL Normal 8.6-10.3 Egfr Non- 65.2 >60 Egfr 79.0 >60 20 Laboratory test finding 04/24/2019 [facility] Magnesium 1.7 mg/dL Low 1.9-2.7 [phone] Vitamin B12 878 pg/mL Normal 180-914 21 TSH (Thyroid Stim Horm) 2.23 mcIU/mL Normal 0.34-5.60 GC/Chlamydia 04/05/2019 [facility] Chlamydia Negative Negative Amplified Rna [phone] trachomatis Martha Neisseria gonorrhoeae (GC) Martha Negative Negative Laboratory test 04/05/2019 [facility] Trichomonas Negative Negative 22 finding [phone] Vaginalis Rna Laboratory test 04/05/2019 [facility] Gardnerella/Yeas SEE RESULT 23 finding [phone] t: Vaginal Dna BELOW 1 CP FOR [...] of 0.5 ug/mL is used.) 5 RESULT: 03,05 REFERENCE VALUE Not Applicable 6 RESULT: 03:01,03:01 DQ Serologic Equivalent: 7,7 REFERENCE VALUE Not Applicable 7 The absence of HLA celiac permissive genes would make the presence of celiac disease unlikely. ADDITIONAL INFORMATION Method: Molecular typing of HLA antigens performed using reverse SSOP and/or SSP methods, reported as serological equivalents and low to medium resolution molecular values. Test Performed by: [facility] [employer] [address] [address] Retail Sales Representative: Cj Zuniga M.D. Ph.D.; CLIA# [id number] 8 REFERENCE VALUE <4.0 (Negative) Test Performed by: [facility] [place] [address] Retail Sales Representative: Cj Zuniga M.D. Ph.D.; CLIA# [id number] 9 Negative serology. Celiac disease unlikely. However, approximately 10% of patients with celiac disease are seronegative. Also, patients who are already adhering to a gluten-free diet may be seronegative. If celiac disease is highly clinically suspected, consider HLA-DQ typing. Test Performed by: [facility] [place] [address] Retail Sales Representative: Cj Zuniga M.D. Ph.D.; CLIA# [id number] 10 Normal Range 180 to 914 Indeterminate [...] 30 days of symptoms. Test Performed by: [facility] [place] [address] Retail Sales Representative: Cj Zuniga M.D. Ph.D.; CLIA# [id number] 12 ADDITIONAL INFORMATION This test was developed and its performance characteristics determined by [facility] in a manner consistent with CLIA requirements. This test has not been cleared or approved by the U.S. Food and Drug Administration. 13 ADDITIONAL INFORMATION This test was developed and its performance characteristics determined by [facility] in a manner consistent with CLIA requirements. This test has not been cleared or approved by the U.S. Food and Drug Administration. 14 ADDITIONAL INFORMATION This test was developed and its performance characteristics determined by [facility] in a manner consistent with CLIA requirements. This test has not been cleared or approved by the U.S. Food and Drug Administration. Test Performed by: [facility] [place] [address] Retail Sales Representative: Cj Zuniga M.D. Ph.D.; CLIA# [id number] 15 This individual DOES have the Methylenetetrahydrofolate [...] therapy). If clinically indicated, suggest Coagulation Consultation 12150 (Thrombophila Profile) to complete the evaluation for an inherited or acquired thrombosing disorder (i.e., thrombophilia). Consider genetic consultation and counseling of potentially affected family members regarding laboratory testing. ADDITIONAL INFORMATION This test is a direct mutation analysis using PCR amplification, signal generation and release by cleavage of sequence specific alleles ([employer], [employer], [place], [place]). This test has been modified from the recreation attendant's instructions. Its performance characteristics were determined by [facility] in a manner consistent with CLIA requirements. This test has not been cleared or approved by the U.S. Food and Drug Administration. 16 RESULT: Riri Arango M.D. 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 MTHAC J3554A carriers are not at increased risk for thrombosis in the absence of hyperhomocysteinemia. In the absence of alternative causes, heterozygous carriers of MTHAC P5699P are not at increased risk for hyperhomocysteinemia. Hyperhomocysteinemia is a relatively weak risk factor for both venous thromboembolism and arterial thrombosis. The MTHAC X0332S gene mutation test does not detect other causes of hyperhomocysteinemia due to acquired disorders (renal failure, zinc deficiency, leukemia, psoriasis, or antifolate drug therapy). If clinically indicated, suggest Coagulation Consultation 45874 (Thrombophila Profile) to complete the evaluation for an inherited or acquired thrombosing disorder (i.e., thrombophilia). Consider genetic consultation and counseling of potentially affected family members regarding laboratory testing. ADDITIONAL INFORMATION This test is a direct mutation analysis using PCR amplification, signal generation and release by cleavage of sequence specific alleles ([employer], [employer], [place], [place]). This test has been modified from the recreation attendant's instructions. Its performance characteristics were determined by [facility] in a manner consistent with CLIA requirements. This test has not been cleared or approved by the U.S. Food and Drug Administration. 18 RESULT: Riri Arango M.D. This test is a direct mutation analysis using PCR amplification, signal generation and release by cleavage of sequence specific alleles ([employer], [employer], [place], [place]). This test has been modified from the recreation attendant's instructions. Its performance characteristics were determined by [facility] in a manner consistent with CLIA requirements. This test has not been cleared or approved by the U.S. Food and Drug Administration. Test Performed by: [address] [address] Retail Sales Representative: Cj Zuniga M.D. Ph.D.; CLIA# [id number] 19 Because ethnic data is not always [...] 145 to 180 Deficient Range <145 22 [id number] Copy Result to: Marbin GOMES ([id number]) GC/Chlamydia Source?: Endocervical Trichomonas Source: Endocervical 23 SEE RESULT BELOW Name: EILEEN BRADY : [address]: Dhruv Patel DO Acct: [id number] Unit: [id number] AGE: 53 Location: [facility] Re04/05/19 SEX: F Status: REG REF SPEC: [id number] NATA: 04/05/19-[address]: Dhruv Patel DO REQ: [id number] RECD: 04/08/19-1301 STATUS: JI CASTILLO DR: Marbin Gomes DO _ SOURCE: VAGINAL SPDESC: ORDERED: Jory,Yeast DNA COMMENTS: Copy Result to: Marbin GOMES ([id number]) Would you like to order Trichomonas Vaginalis [...] . END OF REPORT DEPARTMENT OF PATHOLOGY, [address] [place] [address] Cameron Rojas M.D. Director [facility] # [id number] Procedures Date Code Description Status 05/17/2019 76723 X-Ray Knee,Ap&Lateral Oblique Views Completed 05/17/2019 17671 X-Ray Knee,Ap&Lateral Oblique Views Completed 02/07/2019 [id number] Mammogram Completed 02/28/2015 [id number] Colonoscopy Completed Medical Devices Description No Information [...] Z41.8 Encntr [facility]th [facility] Office Visit 03/11/2019 4:30p Main Office [...] 50.0-59.9, adult Assessments Date Code Description Provider 08/28/2019 R07.89 Other chest pain Marbin Gomes D.O. 08/28/2019 I10 Essential (primary) hypertension Marbin Gomes D.O. 08/28/2019 G47.30 Sleep apnea, unspecified Marbin Gomes D.O. 08/02/2019 I10 Essential (primary) hypertension Marbin Gomes D.O. 08/02/2019 M72.2 Plantar fascial fibromatosis Marbin Gomes D.O. 08/02/2019 M54.5 Low back pain Marbin Gomes D.O. 08/02/2019 M79.671 Pain in right foot Marbin Gomes D.O. 08/02/2019 M79.672 Pain in left foot Marbin Gomes D.O. 08/02/2019 M79.604 Pain in right leg Marbin Gomes D.O. 08/02/2019 M79.605 Pain in left leg Marbin Gomes D.O. 08/02/2019 K21.9 Gastro-esophageal reflux disease without Marbin [...] E66.01 Morbid (severe) obesity due to excess MichaelMarbin house D.O. calories 05/17/2019 I10 Essential (primary) hypertension Marbin Gomes D.O. 05/17/2019 M72.2 Plantar fascial fibromatosis MichaelMarbin house D.O. 05/17/2019 M79.671 Pain in right foot EliseoMarbin D.O. 05/17/2019 M79.672 Pain in left foot Eliseo Marbin, D.O. 05/17/2019 R42 Dizziness and giddiness SulyericksonMarbin, D.O. 05/17/2019 M79.604 Pain in right leg EliseoMarbin D.O. 05/17/2019 M79.605 Pain in left leg Eliseo Marbin D.O. 05/17/2019 R19.7 Diarrhea, unspecified Marbin Gomes D.O. 05/17/2019 M25.561 Pain in right knee Eliseo Marbin D.O. 05/17/2019 M25.562 Pain in left knee Eliseo Marbin, D.O. 04/11/2019 E66.01 Morbid (severe) obesity due to excess Marbin Gomes D.O. calories 04/11/2019 I10 Essential (primary) hypertension Marbin Gomes, D.O. 04/11/2019 K21.9 Gastro-esophageal reflux disease without Marbin Gomes D.O. esophagitis 04/11/2019 M72.2 Plantar fascial fibromatosis Marbin Gomes D.O. 04/11/2019 M79.671 Pain in right foot EliseoMarbin D.O. 04/11/2019 M79.672 Pain in left foot EliseoMarbin, D.O. 04/11/2019 M79.604 Pain in right leg EliseoMarbin D.O. 04/11/2019 M79.605 Pain in left leg Marbin Gomes D.O. 04/11/2019 M54.5 Low back pain Marbin Gomes D.O. 04/11/2019 B35.4 Tinea corporis Marbin Gomes D.OYen 04/11/2019 R42 Dizziness and giddiness Marbin Gomes [...] am - Marbin Gomes D.O. at Main Isslid5108/28/2019 - Marbin Gomes D.O.R07.89 Other chest painI10 Essential ( primary) pmcqngvmtsyfP14.30 Sleep apnea, unspecifiedReferral:Sleep Clinic, Sleep Disord,Diag/Clinic Functional Status Description No Information Available Mental Status Description No Information Available Referrals Refer to Dr Reason for Referral Status Appt Date Sleep Clinic Diagnosed with sleep apnea failed 3 masks during CPAP Created titration. May need extra slow titration with initially lower than usual pressure. airway pressure was the part not tolerated on titration. Consider starting a half of normal CPAP pressure for titration. [facility] [address], [address] [place] [address] [phone] Uriah Barton MD 3.8cm Thoracic aortic dialation noted on CT of Created chest when being evaluated for chest pain. Consider echo follow up. Also consider stress test follow up for chest pain. [facility] [place] [facility] [address] [place] [address] [phone] [facility] EGD for refractory GERD worsening despite Sent omeprazole BID 40 mg. Consult and Testing - [facility] [address] [place] [address] [phone] [facility] Closed [address] [facility], [place] [address] [phone] [facility] Eating Disorder Anorexia in morbidly obese 53year [employer] old. Consult and Treat [address] [place] [address] [phone]
--- OUTSIDE RECORDS SUMMARY | 2019-09-10 11:08 | XMS REPORT | Continuity of Care Document ---
:1965 External Reference #:[id number] Author Name Marbin Gomes D.O. Address [address] [place] [address] Care Team Providers Name Role Phone HCP given Care Team Information Director Plans Unavailable Bradford Vaz MD - Orthopaedic Care Team Information Director Plans [phone] CDN Cde - Care Team Information Director Plans [phone] Dietitian, Registered Hayden Donaldson MD - Orthopaedic Care Team Information Director Plans [phone] Surgery Problems Active Problems Provider Date Benign [...] twice a day 90gm Marbin Gomes, 03/11/2019 [id number] to affected area D.O. Powder Atenolol 1 [...] 09/02/2018 50mg times daily as Tablets needed Bjwpgqhpy-Mxyty-R20-A take 1 tablet by 90tabs E53.8 Marbin [...] CPT Code Status Date Vaccine Lot # [id number] Given 04/11/2019 Influenza Virus Vaccine, Quadrivalent, Split, [id number] Preservative Free 98797 Given 04/20/2018 Influenza Virus Vaccine, Quadrivalent, Split, [id number] Preservative Free 53477 Given 04/20/2018 Prevnar 13 [id number] 16748 Given 04/14/2017 Influenza Virus Vaccine, Quadrivalent, Split, [id number] Preservative Free 74730 Given 04/07/2016 Influenza Virus Vaccine, Quadrivalent, Split, [id number] Preservative Free 75755 Given 05/16/2015 Influenza Virus Vaccine, Quadrivalent, Split, [id number] Preservative Free 13586 Given 06/10/2014 Flu, Split Virus 3Yrs [id number] 14719 Given 12/10/2013 Adacel or Boostrix, TDaP 19496 Given 06/22/2012 Adacel or Boostrix, TDaP 63391 Given 04/29/2011 Pneumococcal Immunization 76703 Given 04/29/2011 Flu, Split Virus 3Yrs 00040 Given 05/29/2009 Flu, Split Virus 3Yrs 08541 Ordered 11/28/2013 Adacel or Boostrix, TDaP Vital Signs Date Vital Result Comment 08/02/2019 10:47am BP Systolic 122 mmHg BP Diastolic 80 mmHg Weight 262.00 lb 06/21/2019 10:31am BP Systolic 154 mmHg BP Diastolic 98 mmHg Weight 253.00 lb Results Test Acquired Date Facility Test Result H/L Range Note CBC Auto 05/27/2019 [facility] White Blood 6.9 10^3/uL Normal 3.5- 10.8 Diff [phone] Count Red Blood Count 4.73 10^6/uL Normal [...] % Nucleated Red Blood Cells % 0.1 Comp Metabolic Panel 05/27/2019 [facility] Sodium 140 mmol/L Normal 135-145 [phone] Potassium 3.5 mmol/L Normal 3.5-5.0 Chloride 102 [...] Egfr Non- 63.6 >60 Egfr 77.0 >60 1 Laboratory test 05/27/2019 [facility] Folic Acid 17.19 ng/mL >3.99 finding [phone] (Folate) Iron & Iron 05/27/2019 [facility] Iron 66 g/dL Normal 50-212 Binding Capacity [phone] Unsaturated Iron Binding < 416 g/dL Total Iron Binding Capacity 431 g/dL Normal 250-450 Transferrin 308 mg/dL Normal 203-362 % Iron Saturation 15 % Normal 15-55 Laboratory test 05/27/2019 [facility] Erythrocyte Sed 35 mm/Hr High 0 -29 finding [phone] Rate C Reactive Protein 5.21 mg/L Normal <8.01 Basic Metabolic Panel 04/24/2019 [facility] Sodium 140 mmol/L Normal 135-145 [phone] Potassium 3.7 mmol/L Normal 3.5-5.0 Chloride 102 mmol/L Normal 101-111 Co2 Carbon Dioxide 29 mmol/L Normal 22-32 Anion Gap 9 mmol/L Normal 2-11 Glucose 132 mg/dL High 70-100 Blood Urea Nitrogen 26 mg/dL High 6-24 Creatinine 0.90 mg/dL Normal 0.51-0.95 BUN/Creatinine Ratio 28.9 High 8-20 Calcium 9.4 mg/dL Normal 8.6-10.3 Egfr Non- 65.2 >60 Egfr 79.0 >60 2 Laboratory test finding 04/24/2019 [facility] Magnesium 1.7 mg/dL Low 1.9-2.7 [phone] Vitamin B12 878 pg/mL Normal 180-914 3 TSH (Thyroid Stim Horm) 2.23 mcIU/mL Normal 0.34-5.60 GC/Chlamydia 04/05/2019 [facility] Chlamydia Negative Negative Amplified Rna [phone] trachomatis Martha Neisseria gonorrhoeae (GC) Martha Negative Negative Laboratory test 04/05/2019 [facility] Trichomonas Negative Negative 4 finding [phone] Vaginalis Rna Laboratory test 04/05/2019 [facility] Gardnerella/Yeast SEE RESULT 5 finding [phone] : Vaginal Dna BELOW 1 Because ethnic data is not always [...] 5 Kidney failure <15 (or dialysis) 2 Because ethnic data is not always [...] 5 Kidney failure <15 (or dialysis) 3 Normal Range 180 to 914 Indeterminate Range 145 to 180 Deficient Range <145 4 [id number] Copy Result to: Marbin GOMES ([id number]) GC/Chlamydia Source?: Endocervical Trichomonas Source: Endocervical 5 SEE RESULT BELOW Name: EILEEN BRADY : [address]: Dhruv Patel DO Acct: [id number] Unit: [id number] AGE: 53 Location: [facility] Re04/05/19 SEX: F Status: REG REF SPEC: [id number] NATA: 04/05/19-1550 [facility] [address]: Dhruv Patel DO REQ: [id number] RECD: 04/08/19-1301 STATUS: JI KNO[facility] DR: Marbin Gomes DO _ SOURCE: VAGINAL SPDESC: ORDERED: Jory,Yeast DNA COMMENTS: Copy Result to: aMrbin GOMES ([id number]) Would you like to order Trichomonas Vaginalis [...] . END OF REPORT DEPARTMENT OF PATHOLOGY, [address] [place] [address] Cameron Rojas M.D. Director [facility] # [id number] Procedures Date Code Description Status 05/17/2019 66929 X-Ray Knee,Ap&Lateral Oblique Views Completed 05/17/2019 91723 X-Ray Knee,Ap&Lateral Oblique Views Completed 02/07/2019 [id number] Mammogram Completed 02/28/2015 [id number] Colonoscopy Completed Medical Devices Description No Information Available Encounters Type Date Location Provider Dx Diagnosis Office Visit 06/21/2019 Main Office Marbin Gomes, E66.01 Morbid (severe) 10:00a D.O. obesity due to excess calories I10 Essential (primary) hypertension M72.2 Plantar fascial fibromatosis T15.12xA Foreign body in conjunctival sac, left eye, init encntr M54.5 Low back pain B35.4 Tinea corporis Office Visit 05/17/2019 2:45p Main Office Marbin Gomes E66.01 Morbid ( severe) D.O. obesity due [...] Encntr for oth proc for purpose oth [facility] Office Visit 03/11/2019 4:30p Main Office Marbin [...] Provider 08/02/2019 I10 Essential (primary) hypertension Marbin Gomes, D.O. 08/02/2019 M72.2 Plantar fascial fibromatosis Marcello Gomeson, D.O. 08/02/2019 M54.5 Low back pain Marbin Gomes D.O. 08/02/2019 M79.671 Pain in right foot SulykMarcelloon, D.O. 08/02/2019 M79.672 Pain in left foot Sopchak, Marbin, D.O. 08/02/2019 M79.604 Pain in right leg Sulyk, Marbin, D.O. 08/02/2019 M79.605 Pain in left leg Sopchak, Marbin, D.O. 08/02/2019 K21.9 Gastro-esophageal reflux disease without Marbin Gomes, D.O. esophagitis 08/02/2019 R10.9 Unspecified abdominal pain Marbin Gomes, D.O. 06/21/2019 E66.01 Morbid (severe) obesity due to excess Marbin Gomes, D.O. calories 06/21/2019 I10 Essential (primary) hypertension Marbin Gomes, D.O. 06/21/2019 M72.2 Plantar fascial fibromatosis Marcello Gomeson, D.O. 06/21/2019 T15.12xA Foreign body in conjunctival sac, left eye, Marbin Gomes D.O. initial encounter 06/21/2019 M54.5 Low back pain Marbin Gomes D.O. 06/21/2019 B35.4 Tinea corporis Marbin Gomes D.O. 05/17/2019 E66.01 Morbid (severe) obesity due to excess Marbin Gomes D.O. calories 05/17/2019 I10 Essential (primary) hypertension Marbin Gomes D.O. 05/17/2019 M72.2 Plantar fascial fibromatosis EliseoMarcelloon D.O. 05/17/2019 M79.671 Pain in right foot Marbin Gomes D.O. 05/17/2019 M79.672 Pain in left foot Marbin Gomes D.O. 05/17/2019 R42 Dizziness and giddiness EliseoMarcelloon D.O. 05/17/2019 M79.604 Pain in right leg Marbin Gomes D.O. 05/17/2019 M79.605 Pain in left leg Eliseo Marbin D.O. 05/17/2019 R19.7 Diarrhea, unspecified Eliseo Marbin D.O. 05/17/2019 M25.561 Pain in right knee Eliseo Marbin D.O. 05/17/2019 M25.562 Pain in left knee Eliseo Marbin D.O. 04/11/2019 E66.01 Morbid (severe) obesity due to excess MichaellarryericksonMarbin D.O. calories 04/11/2019 I10 Essential (primary) hypertension Eliseo Marbin D.O. 04/11/2019 K21.9 Gastro-esophageal reflux disease without EliseoMarbin D.O. esophagitis 04/11/2019 M72.2 Plantar fascial fibromatosis MichaellarryericksonMarbin D.O. 04/11/2019 M79.671 Pain in right foot Eliseo Marbin D.O. 04/11/2019 M79.672 Pain in left foot Marbin Gomes D.O. 04/11/2019 M79.604 Pain in right leg Eliseo Marbin D.O. 04/11/2019 M79.605 Pain in left leg EliseoMarbin D.O. 04/11/2019 M54.5 Low back pain Marbin [...] 03/11/2019 M79.605 Pain in left leg Marbin oGmes D.O. 03/11/2019 B35.4 Tinea corporis Marbin Gomes [...] unspecified Marbin Gomes D.O. Plan of Treatment 08/02/2019 - Marbin Gomes D.O.I10 Essential (primary) ymysrddvpwfoI00.2 Plantar fascial fibromatosisNew Xrays:Patty with PVR, Ordered: 08/02/19M54.5 Low back painM79.671 Pain in right footNew Xrays:Patty with PVR, Ordered: Follow up:1 month leg/foot pain, utvsyjzpbZ53.672 Pain in left footNew Xrays: Patty with PVR, Ordered: 08/02/19M79.604 Pain in right legM79.605 Pain in left legK21.9 Gastro-esophageal reflux disease without esophagitisReferral:[facility], DnxtlgxhoxpltzbiX81.9 Unspecified abdominal pain Functional Status Description No Information Available Mental Status Description No Information Available Referrals Refer to Reason for Referral Status Appt Date [facility] EGD for refractory GERD worsening despite Created omeprazole BID 40 mg. [facility] [place] [address] [phone] [facility] Closed [address], [place] [address] [phone] [facility] Eating Disorder Anorexia in morbidly obese 53year [employer] old. Consult and Treat [address] [place] [address] [phone]
--- NOTE | 2019-09-10 11:23 | UC ---
Respiratory Complaint HPI - HPI Summary HPI Summary: 54 yo female presents with feelings of post nasal drip. She tells me that over the last 2 weeks she has noticed post nasal drip, irritant cough, and phlegm in her throat. She states it is worse at night when she lays down. She has a history of GERD for which she sees GI and is scheduled for an endoscopy in the coming weeks. She takes carafate and omeprazole. She has not been taking anything OTC for her symptoms. Denies fever, chills, sinus symptoms, sore throat , SOB, chest pain. She does not smoke. - History of Current Complaint Stated Complaint: COUGH CONGESTION Time Seen by Provider: 09/10/19 11:23 Hx Obtained From: Patient Hx Last Menstrual Period: 08/21/15 Onset/Duration: Gradual Onset Severity Currently: None - Allergies/Home Medications Allergies/Adverse Reactions: Allergies Allergy/AdvReac Type Severity Reaction Status Date / Time hydrocodone [From Vicodin] Allergy Severe Airway Verified 09/10/19 11:28 Obstruction orange Allergy Severe facial Verified 09/10/19 11:28 swelling, eyes, lips cefaclor [From Ceclor] Allergy Hives Verified 09/10/19 11:28 environmental Allergy Unknown Uncoded 09/10/19 11:28 Reaction Details PMH/Surg Hx/FS Hx/Imm Hx Cardiovascular History: Hypertension Respiratory History: Asthma GI/ History: Gastroesophageal Reflux - Surgical History Surgical History: Yes Surgery Procedure, Year, and Place: x3 1987, 1991 and 1992 [place]. tubal ligation 1992 [place]. right knee arthrsocopy 2008 [place]. hiatal hernia repair 1996 [place]. cholecystectomy 2016 [place] - Family History Known Family History: Positive: Hypertension - Social History Lives: With Family Alcohol Use: Rare Substance Use Type: None Smoking Status (MU): Never Smoked Tobacco - Immunization History Most Recent Influenza Vaccination: 04/20/2018 Most Recent Tetanus Shot: 12/10/13 Most Recent Pneumonia Vaccination: 04/20/2018 Review of Systems All Other Systems Reviewed And Are Negative: No Constitutional: Positive: Negative Skin: Positive: Negative Eyes: Positive: Negative ENT: Positive: Other - Post nasal drip Respiratory: Positive: Cough Cardiovascular: Positive: Negative Gastrointestinal: Positive: Negative Neurological/Mental Status: Positive: Negative Psychological: Positive: Negative Physical Exam - Summary Physical Exam Summary: GENERAL: NAD. WDWN. No pain distress. SKIN: No rashes, sores, lesions, or open wounds. HEENT: Head: AT/NC Eyes: EOM intact. Conjunctiva clear without inflammation or discharge. Ears: Hearing grossly normal. TMs intact, no bulging, erythema, or edema. Nose: Nasal mucosa pink and moist. NTTP maxillary and frontal sinus. Throat: Posterior oropharynx without exudates, erythema, or tonsillar enlargement. Uvula midline. Positive post nasal drip NECK: Supple. Nontender. No lymphadenopathy. CHEST: CTAB. No r/r/w. No accessory muscle use. Breathing comfortably and in no distress. CV: RRR. Pulses intact. Cap refill <2seconds NEURO: Alert. PSYCH: Age appropriate behavior. Triage Information Reviewed: Yes Vital Signs: Vital Signs: Temp Pulse Resp BP Pulse Ox 97.9 F 60 16 117/80 99 09/10/19 11:28 09/10/19 11:28 09/10/19 11:28 09/10/19 11:28 09/10/19 11:28 Vital Signs Reviewed: Yes Respiratory Course/Dx - Course Course Of Treatment: Suspect her symptoms are related to post nasal drip, but could also be due to worsening GERD as it appears she has quite a bit of trouble with this. Will try claritin for her post nasal drip and have her keep her appt with GI for her endoscopy. - Differential Dx/Diagnosis Provider Diagnosis: Post-nasal drip Discharge ED - Sign-Out/Discharge Documenting (check all that apply): Patient Departure All imaging exams completed and their final reports reviewed: No Studies - Discharge Plan Condition: Stable Disposition: HOME Prescriptions: Loratadine [Claritin] 10 mg PO DAILY #14 tablet predniSONE 20 mg TAB [Deltasone 20 MG TAB*] 40 mg PO DAILY #10 tab Patient Education Materials: Gastroesophageal Reflux Disease (ED), Postnasal Drip (DC) Referrals: Marbin Gomes DO [Primary Care Provider] - Additional Instructions: If you develop a fever, shortness of breath, chest pain, new or worsening symptoms - please call your PCP or go to the ED immediately. - Billing Disposition and Condition Condition: STABLE Disposition: Home
[2019-09-10 11:33] VITALS: BP 117/80
== END 2019-09-10 12:03 | disposition home or self-care (01) ==
LOC: UCCORT 10:34
DX: R09.82 Postnasal drip (principal); R05 Cough; I10 Essential (primary) hypertension; J45.909 Unspecified asthma, uncomplicated; K21.9 Gastro-esophageal reflux disease without esophagitis; Z79.899 Other long term (current) drug therapy; Z91.09 Other allergy status, other than to drugs and biological substances; Z88.1 Allergy status to other antibiotic agents; Z88.6 Allergy status to analgesic agent; Z91.018 Allergy to other foods
CPT/HCPCS: 99212; G0463

== ENCOUNTER 2021-07-17 11:31 | Inpatient (IN) ==
[2021-07-17 12:34] LABS: Venous Bicarbonate HCO3 29.3 mmol/L (24-28)
[2021-07-17 12:36] LABS: ABS Lymphocytes 0.5 10^3/ul (1.0-4.8); ABS Monocytes 0.4 10^3/ul (0-0.8); ABS Neutrophils 8.3 10^3/ul (1.5-7.7); Hematocrit 39 % (35-47); Hemoglobin 13.2 g/dL (12.0-16.0); Lymphocyte % 5.6 %; Mean Corpuscular HGB Conc 34 g/dL (31-36); Mean Corpuscular Hemoglobin 29 pg (27-31); Mean Corpuscular Volume 85 fL (80-97); Mean Platelet Volume 8.1 fL (7.4-10.4); Platelet Count 301 10^3/uL (150-450); Red Blood Count 4.56 10^6 /uL (3.70-4.87); Red Cell Distribution Width 15 % (10-15); White Blood Count 9.2 10^3/uL (3.5-10.8)
[2021-07-17 12:47] LABS: Activated Partial Thrombo Time 29.5 seconds (26.0-38.0); INR 1.25 (0.86-1.15)
[2021-07-17] MEDS ORDERED: Dexamethasone IV 4 MG/ML VIAL 1 ml VIAL IV SLOW PU ONE (13:11)
[2021-07-17 13:14] LABS: ALT 25 U/L (7-52); Albumin 3.4 g/dL (3.2-5.2); Albumin/Globulin Ratio 0.9 (1-3); Alkaline Phosphatase 42 U/L (35-149); Anion Gap 7 mmol/L (2-11); Blood Urea Nitrogen 19 mg/dL (6-24); C Reactive Protein 117.56 mg/L (<8.01); CO2 Carbon Dioxide 29 mmol/L (22-32); Calcium 8.4 mg/dL (8.6-10.3); Chloride 96 mmol/L (101-111); Globulin 3.8 g/dL (2-4); Glucose 139 mg/dL (70-100); Sodium 132 mmol/L (135-145); Total Protein 7.2 g/dL (6.4-8.9); Troponin I 0.03 ng/mL (<0.03); eGFR CKD-EPI 79.2 (>60)
[2021-07-17] MEDS ORDERED: Azithromycin 500 mg/250 ml NS 500 MG/250 ML BAG IVPB ONE (13:18)
[2021-07-17] MEDS ORDERED: cefTRIAXone 1 gm/50 mL NS BAG 1 GM/50 ML BAG IV ONE (13:18)
[2021-07-17 13:43] LABS: LDH 1074 U/L (140-271)
[2021-07-17 14:15] LABS: Potassium Redraw 3.2 mmol/L (3.5-5.0)
[2021-07-17] MEDS ORDERED: Potassium Chlor 20 meq TAB.ER PO ONE (14:46)
[2021-07-17 15:58] LABS: Magnesium 1.8 mg/dL (1.9-2.7)
[2021-07-17] MEDS ORDERED: Magnesium Sulfate 2 gm BAG 2 GM/50 ML BAG IVPB ONE (16:25)
[2021-07-17] MEDS: methylPREDNISolone SOD 40 mg/ml 1 ml VIAL IV SCH (17:16)
[2021-07-17] MEDS: Enoxaparin 40 MG/0.4 ML SYR SUBCUT SCH (17:23)
[2021-07-17] MEDS ORDERED: Remdesivir 100 mg Vial 200 MG in NS 0.9% 250 ml 210 ML IV ONE (18:00)
[2021-07-17 18:54] LABS: Urine Appearance Cloudy; Urine Bilirubin Negative (Negative); Urine Blood Negative (Negative); Urine Color Amber; Urine Glucose Negative (Negative); Urine Ketones Trace (Negative); Urine Nitrite Negative (Negative); Urine Protein 2+(100 mg/dL) (Negative); Urine Specific Gravity 1.028 (1.002-1.030); Urine Urobilinogen Negative (Negative)
[2021-07-17 19:02] LABS: Urine Bacteria Absent (Absent); Urine Red Blood Cell 1+(3-5/hpf) (Absent); Urine Squamous Epithelial Cell Present (Absent); Urine White Blood Cell 1+(6-10/hpf) (Absent)
[2021-07-18] MEDS ORDERED: Morphine 2 MG/ML SYRINGE IV ONE (01:21)
[2021-07-18 06:06] LABS: ABS Monocytes 0.4 10^3/ul (0-0.8); ABS Neutrophils 9.8 10^3/ul (1.5-7.7); Hematocrit 38 % (35-47); Lymphocyte % 9.1 %; Mean Corpuscular HGB Conc 35 g/dL (31-36); Mean Corpuscular Hemoglobin 29 pg (27-31); Mean Corpuscular Volume 85 fL (80-97); Mean Platelet Volume 7.8 fL (7.4-10.4); Nucleated Red Blood Cells % 0.1; Platelet Count 274 10^3/uL (150-450); Red Blood Count 4.46 10^6 /uL (3.70-4.87); Red Cell Distribution Width 15 % (10-15); White Blood Count 11.2 10^3/uL (3.5-10.8)
[2021-07-18 06:08] LABS: INR 1.25 (0.86-1.15)
[2021-07-18] MEDS: Ondansetron 4 mg VIAL 2 MG/ML 2 ml VIAL IV PRN (06:33)
[2021-07-18 06:40] LABS: Albumin 3.1 g/dL (3.2-5.2); C Reactive Protein 162.9 mg/L (<8.01); Calcium 8.4 mg/dL (8.6-10.3); Globulin 3.2 g/dL (2-4); Potassium 3.9 mmol/L (3.5-5.0); Total Bilirubin 0.6 mg/dL (0.2-1.0); Total Protein 6.3 g/dL (6.4-8.9); eGFR CKD-EPI 103.7 (>60)
[2021-07-18] MEDS: Vitamin THERAPEUTIC TAB PO SCH (08:10)
[2021-07-18] MEDS: methylPREDNISolone SOD 40 mg/ml 1 ml VIAL IV SCH ×2 (08:10→21:00)
[2021-07-18] MEDS: Albuterol HFA INHALER 8 gm MDI INH PRN (10:01)
[2021-07-18] MEDS: Calcium Carb (TUMS) 500 mg CHEW TAB PO PRN ×2 (12:30→21:02)
[2021-07-18] MEDS: cefTRIAXone 1 gm/50 mL NS BAG 1 GM/50 ML BAG IVPB SCH (15:06)
[2021-07-18] MEDS: Enoxaparin 40 MG/0.4 ML SYR SUBCUT SCH (18:07)
[2021-07-18] MEDS: Remdesivir 100 mg Vial 100 MG in NS 0.9% 250 ml 230 ML IV SCH (20:53)
[2021-07-18] MEDS: Nystatin TOP POWDER 15 GM BTL TOPICAL PRN (23:56)
[2021-07-19] MEDS: Albuterol HFA INHALER 8 gm MDI INH PRN (04:59)
[2021-07-19 05:42] LABS: PCO2 Arterial 36 mmHg (35-45); PO2 Arterial 144 mmHg (80-100)
[2021-07-19 07:11] LABS: ABS Lymphocytes 0.5 10^3/ul (1.0-4.8); ABS Monocytes 0.4 10^3/ul (0-0.8); ABS Neutrophils 7.6 10^3/ul (1.5-7.7); Hematocrit 39 % (35-47); Lymphocyte % 5.8 %; Mean Corpuscular HGB Conc 34 g/dL (31-36); Mean Corpuscular Hemoglobin 29 pg (27-31); Mean Corpuscular Volume 87 fL (80-97); Mean Platelet Volume 8.3 fL (7.4-10.4); Platelet Count 337 10^3/uL (150-450); Red Blood Count 4.43 10^6 /uL (3.70-4.87); Red Cell Distribution Width 15 % (10-15); White Blood Count 8.5 10^3/uL (3.5-10.8)
[2021-07-19 07:21] LABS: INR 1.28 (0.86-1.15)
[2021-07-19 07:28] LABS: Albumin 3.1 g/dL (3.2-5.2); Albumin/Globulin Ratio 0.8 (1-3); C Reactive Protein 126.76 mg/L (<8.01); Calcium 8.8 mg/dL (8.6-10.3); Globulin 3.7 g/dL (2-4); Potassium 3.7 mmol/L (3.5-5.0); Total Bilirubin 0.5 mg/dL (0.2-1.0); Total Protein 6.8 g/dL (6.4-8.9); eGFR CKD-EPI 91.9 (>60)
[2021-07-19] MEDS: Vitamin THERAPEUTIC TAB PO SCH (08:47)
[2021-07-19] MEDS: methylPREDNISolone SOD 40 mg/ml 1 ml VIAL IV SCH ×2 (08:47→19:47)
[2021-07-19] MEDS: cefTRIAXone 1 gm/50 mL NS BAG 1 GM/50 ML BAG IVPB SCH (12:43)
[2021-07-19] MEDS ORDERED: Perflutren Lipid Microsphere 3 ML VIAL ONE (14:41)
[2021-07-19] MEDS: Enoxaparin 40 MG/0.4 ML SYR SUBCUT SCH (16:25)
[2021-07-19] MEDS: CMCS: Baricitinib 2 MG TAB (NF) PO SCH (16:25)
[2021-07-19] MEDS: Remdesivir 100 mg Vial 100 MG in NS 0.9% 250 ml 230 ML IV SCH (20:17)
[2021-07-20 05:35] LABS: ABS Basophils 0.1 10^3/ul (0-0.2); ABS Lymphocytes 0.7 10^3/ul (1.0-4.8); ABS Monocytes 0.4 10^3/ul (0-0.8); ABS Neutrophils 7.4 10^3/ul (1.5-7.7); Hematocrit 38 % (35-47); Hemoglobin 12.7 g/dL (12.0-16.0); Lymphocyte % 8.5 %; Mean Corpuscular HGB Conc 34 g/dL (31-36); Mean Corpuscular Hemoglobin 29 pg (27-31); Mean Corpuscular Volume 87 fL (80-97); Nucleated Red Blood Cells % 0.1; Platelet Count 384 10^3/uL (150-450); Red Blood Count 4.36 10^6 /uL (3.70-4.87); Red Cell Distribution Width 15 % (10-15); White Blood Count 8.5 10^3/uL (3.5-10.8)
[2021-07-20 05:42] LABS: INR 1.25 (0.86-1.15)
[2021-07-20 05:59] LABS: Albumin 2.8 g/dL (3.2-5.2); Albumin/Globulin Ratio 0.8 (1-3); Calcium 8.5 mg/dL (8.6-10.3); Globulin 3.5 g/dL (2-4); Potassium 4.1 mmol/L (3.5-5.0); Total Bilirubin 0.4 mg/dL (0.2-1.0); Total Protein 6.3 g/dL (6.4-8.9); eGFR CKD-EPI 99.7 (>60)
[2021-07-20] MEDS: methylPREDNISolone SOD 40 mg/ml 1 ml VIAL IV SCH ×2 (07:57→21:08)
[2021-07-20] MEDS: Vitamin THERAPEUTIC TAB PO SCH (07:57)
[2021-07-20] MEDS ORDERED: Magnesium Hydroxide LIQ 30 ML UDC PO SCH (09:00)
[2021-07-20] MEDS ORDERED: Polyethylene Glycol 3350 17 GM PACKET PO PRN (09:00)
[2021-07-20] MEDS ORDERED: Magnesium Hydroxide LIQ 30 ML UDC PO PRN (09:00)
[2021-07-20] MEDS: Ondansetron 4 mg VIAL 2 MG/ML 2 ml VIAL IV PRN (09:11)
[2021-07-20] MEDS: cefTRIAXone 1 gm/50 mL NS BAG 1 GM/50 ML BAG IVPB SCH (13:35)
[2021-07-20] MEDS: Enoxaparin 40 MG/0.4 ML SYR SUBCUT SCH (15:49)
[2021-07-20] MEDS: CMCS: Baricitinib 2 MG TAB (NF) PO SCH (15:50)
[2021-07-20] MEDS: Remdesivir 100 mg Vial 100 MG in NS 0.9% 250 ml 230 ML IV SCH (20:52)
[2021-07-20] MEDS ORDERED: Senna TAB 8.6 mg TAB PO PRN (21:00)
[2021-07-21 04:43] LABS: ABS Lymphocytes 0.5 10^3/ul (1.0-4.8); ABS Monocytes 0.5 10^3/ul (0-0.8); ABS Neutrophils 8.3 10^3/ul (1.5-7.7); Eosinophil % 0.2 %; Hematocrit 38 % (35-47); Hemoglobin 12.4 g/dL (12.0-16.0); Lymphocyte % 5.8 %; Mean Corpuscular HGB Conc 33 g/dL (31-36); Mean Corpuscular Hemoglobin 29 pg (27-31); Mean Corpuscular Volume 87 fL (80-97); Mean Platelet Volume 7.7 fL (7.4-10.4); Nucleated Red Blood Cells % 0.1; Platelet Count 408 10^3/uL (150-450); Red Blood Count 4.34 10^6 /uL (3.70-4.87); Red Cell Distribution Width 15 % (10-15); White Blood Count 9.4 10^3/uL (3.5-10.8)
[2021-07-21 04:49] LABS: INR 1.2 (0.86-1.15)
[2021-07-21 05:01] LABS: Albumin 2.8 g/dL (3.2-5.2); Albumin/Globulin Ratio 0.9 (1-3); Calcium 8.4 mg/dL (8.6-10.3); Globulin 3.2 g/dL (2-4); Potassium 4.4 mmol/L (3.5-5.0); Total Bilirubin 0.4 mg/dL (0.2-1.0); eGFR CKD-EPI 99.7 (>60)
[2021-07-21] MEDS: Vitamin THERAPEUTIC TAB PO SCH (08:41)
[2021-07-21] MEDS: methylPREDNISolone SOD 40 mg/ml 1 ml VIAL IV SCH ×2 (08:41→20:20)
[2021-07-21] MEDS: Albuterol HFA INHALER 8 gm MDI INH PRN (09:52)
[2021-07-21] MEDS: Enoxaparin 40 MG/0.4 ML SYR SUBCUT SCH (16:24)
[2021-07-21] MEDS: CMCS: Baricitinib 2 MG TAB (NF) PO SCH (16:24)
[2021-07-21] MEDS: Remdesivir 100 mg Vial 100 MG in NS 0.9% 250 ml 230 ML IV SCH (20:01)
[2021-07-22 05:39] LABS: Albumin 2.7 g/dL (3.2-5.2); Albumin/Globulin Ratio 0.8 (1-3); Calcium 8.4 mg/dL (8.6-10.3); Globulin 3.2 g/dL (2-4); Potassium 4.7 mmol/L (3.5-5.0); Total Bilirubin 0.4 mg/dL (0.2-1.0); Total Protein 5.9 g/dL (6.4-8.9); eGFR CKD-EPI 102.2 (>60)
[2021-07-22 05:44] LABS: Hematocrit 38 % (35-47); Hemoglobin 12.6 g/dL (12.0-16.0); Mean Corpuscular HGB Conc 34 g/dL (31-36); Mean Corpuscular Hemoglobin 29 pg (27-31); Mean Corpuscular Volume 86 fL (80-97); Red Blood Count 4.35 10^6 /uL (3.70-4.87); Red Cell Distribution Width 15 % (10-15); White Blood Count 10.7 10^3/uL (3.5-10.8)
[2021-07-22 05:46] LABS: INR 1.14 (0.86-1.15)
[2021-07-22 06:13] LABS: ABS Lymphocytes 0.8 10^3/ul (1.0-4.8); ABS Monocytes 0.7 10^3/ul (0-0.8); ABS Neutrophils 9.2 10^3/ul (1.5-7.7); Lymphocyte % 7.7 %; Mean Platelet Volume 8.6 fL (7.4-10.4); Platelet Count 283 10^3/uL (150-450)
[2021-07-22] MEDS: methylPREDNISolone SOD 40 mg/ml 1 ml VIAL IV SCH (09:22)
[2021-07-22] MEDS: Vitamin THERAPEUTIC TAB PO SCH (09:22)
[2021-07-22] MEDS: Enoxaparin 40 MG/0.4 ML SYR SUBCUT SCH (17:45)
[2021-07-22] MEDS: CMCS: Baricitinib 2 MG TAB (NF) PO SCH (17:45)
[2021-07-23] MEDS ORDERED: Furosemide 20 mg/2 ml IV VIAL IV SLOW PU ONE (07:17)
[2021-07-23] MEDS: Vitamin THERAPEUTIC TAB PO SCH (07:48)
[2021-07-23] MEDS ORDERED: methylPREDNISolone SOD 40 mg/ml 1 ml VIAL IV SCH (09:00)
[2021-07-23] MEDS: Acetylcysteine 600mgCAP(RENAL) PO SCH ×2 (12:49→19:52)
[2021-07-23] MEDS: Cholecalciferol (VIT D3) 400 units TAB PO SCH ×2 (12:49→19:52)
[2021-07-23] MEDS: Enoxaparin 40 MG/0.4 ML SYR SUBCUT SCH (16:38)
[2021-07-23] MEDS: CMCS: Baricitinib 2 MG TAB (NF) PO SCH (16:39)
[2021-07-24] MEDS: Cholecalciferol (VIT D3) 400 units TAB PO SCH ×2 (08:02→22:02)
[2021-07-24] MEDS: Acetylcysteine 600mgCAP(RENAL) PO SCH ×2 (08:02→22:02)
[2021-07-24] MEDS: Vitamin THERAPEUTIC TAB PO SCH (08:03)
[2021-07-24] MEDS ORDERED: Furosemide 20 mg/2 ml IV VIAL IV SLOW PU ONE (08:58)
[2021-07-24] MEDS: CMCS: Baricitinib 2 MG TAB (NF) PO SCH (17:04)
[2021-07-24] MEDS: Enoxaparin 40 MG/0.4 ML SYR SUBCUT SCH (17:04)
[2021-07-25 07:09] LABS: Calcium 8.5 mg/dL (8.6-10.3); Potassium 3.7 mmol/L (3.5-5.0)
[2021-07-25 07:15] LABS: Phosphorus 3.7 mg/dL (2.5-5.0); eGFR CKD-EPI 85.1 (>60)
[2021-07-25] MEDS ORDERED: Furosemide 40 mg/4 ml IV VIAL IV SLOW PU ONE (07:40)
[2021-07-25] MEDS: Acetylcysteine 600mgCAP(RENAL) PO SCH ×2 (08:56→20:37)
[2021-07-25] MEDS: Vitamin THERAPEUTIC TAB PO SCH (08:56)
[2021-07-25] MEDS: Cholecalciferol (VIT D3) 400 units TAB PO SCH ×2 (08:56→20:37)
[2021-07-25] MEDS ORDERED: Lorazepam PYXIS KEY PRN (11:32)
[2021-07-25] MEDS ORDERED: LORazepam 2 mg VIAL 1 ml IV PUSH PRN (11:32)
[2021-07-25] MEDS: Enoxaparin 40 MG/0.4 ML SYR SUBCUT SCH (16:55)
[2021-07-25] MEDS: CMCS: Baricitinib 2 MG TAB (NF) PO SCH (16:55)
[2021-07-26] MEDS: Ondansetron 4 mg VIAL 2 MG/ML 2 ml VIAL IV PRN ×2 (05:27→21:09)
[2021-07-26 05:43] LABS: Calcium 8.5 mg/dL (8.6-10.3); Potassium 3.8 mmol/L (3.5-5.0); eGFR CKD-EPI 79.2 (>60)
[2021-07-26] MEDS: Vitamin THERAPEUTIC TAB PO SCH (08:46)
[2021-07-26] MEDS: Acetylcysteine 600mgCAP(RENAL) PO SCH ×2 (08:46→21:09)
[2021-07-26] MEDS: Cholecalciferol (VIT D3) 400 units TAB PO SCH (08:46)
[2021-07-26] MEDS ORDERED: Furosemide 40 mg/4 ml IV VIAL IV SLOW PU ONE (11:31)
[2021-07-26] MEDS ORDERED: Piperacillin/Tazobac ADVAN 3.375 GM in NS 0.9% 100 ml BAG 100 ML IV ONE (11:59)
[2021-07-26] MEDS ORDERED: Zosyn per Pharmacy NOTE FOLLOW UP SCH (12:00)
[2021-07-26] MEDS: CMCS: Baricitinib 2 MG TAB (NF) PO SCH ×2 (16:59→19:08)
[2021-07-26] MEDS: Enoxaparin 40 MG/0.4 ML SYR SUBCUT SCH (17:00)
[2021-07-26] MEDS: ZOSYN 3.375 GM Q8H per EXTENDED INFUSION IV SCH (17:03)
[2021-07-26] MEDS: Nystatin TOP POWDER 15 GM BTL TOPICAL PRN (17:07)
[2021-07-27] MEDS: ZOSYN 3.375 GM Q8H per EXTENDED INFUSION IV SCH ×3 (04:00→18:19)
[2021-07-27] MEDS: Vitamin THERAPEUTIC TAB PO SCH (08:35)
[2021-07-27] MEDS: Ondansetron 4 mg VIAL 2 MG/ML 2 ml VIAL IV PRN ×2 (08:40→18:24)
[2021-07-27] MEDS: Acetylcysteine 600mgCAP(RENAL) PO SCH ×2 (08:40→21:58)
[2021-07-27 10:52] LABS: ABS Eosinophils 0.2 10^3/ul (0-0.6); ABS Lymphocytes 1.3 10^3/ul (1.0-4.8); ABS Monocytes 0.7 10^3/ul (0-0.8); ABS Neutrophils 7.2 10^3/ul (1.5-7.7); Hematocrit 37 % (35-47); Hemoglobin 12.6 g/dL (12.0-16.0); Lymphocyte % 14.2 %; Mean Corpuscular HGB Conc 34 g/dL (31-36); Mean Corpuscular Hemoglobin 29 pg (27-31); Mean Corpuscular Volume 86 fL (80-97); Mean Platelet Volume 7.5 fL (7.4-10.4); Platelet Count 608 10^3/uL (150-450); Red Cell Distribution Width 15 % (10-15); White Blood Count 9.4 10^3/uL (3.5-10.8)
[2021-07-27 11:05] LABS: Albumin 3.1 g/dL (3.2-5.2); Albumin/Globulin Ratio 0.9 (1-3); Calcium 8.9 mg/dL (8.6-10.3); Globulin 3.4 g/dL (2-4); Potassium 3.1 mmol/L (3.5-5.0); Total Bilirubin 0.8 mg/dL (0.2-1.0); Total Protein 6.5 g/dL (6.4-8.9); eGFR CKD-EPI 65.3 (>60)
[2021-07-27] MEDS: CMCS: Baricitinib 2 MG TAB (NF) PO SCH (18:20)
[2021-07-27] MEDS: Enoxaparin 40 MG/0.4 ML SYR SUBCUT SCH (18:20)
[2021-07-27 18:27] LABS: C Reactive Protein 39.16 mg/L (<8.01)
[2021-07-27] MEDS ORDERED: Potassium Chlor 20 meq TAB.ER PO ONE (19:06)
[2021-07-27] MEDS: KCL 20 MEQ/100 ML IVPREMIX 20 MEQ/100 ML BAG IV SCH ×2 (22:07→23:49)
[2021-07-28] MEDS ORDERED: Potassium Chlor 20 meq TAB.ER PO ONE (00:35)
[2021-07-28] MEDS ORDERED: Calcium Carb (TUMS) 500 mg CHEW TAB PO ONE (03:52)
[2021-07-28 06:40] LABS: ABS Basophils 0.1 10^3/ul (0-0.2); ABS Eosinophils 0.2 10^3/ul (0-0.6); ABS Lymphocytes 1.9 10^3/ul (1.0-4.8); ABS Monocytes 0.7 10^3/ul (0-0.8); ABS Neutrophils 5.8 10^3/ul (1.5-7.7); Eosinophil % 1.9 %; Hematocrit 34 % (35-47); Hemoglobin 11.4 g/dL (12.0-16.0); Lymphocyte % 22.6 %; Mean Corpuscular HGB Conc 33 g/dL (31-36); Mean Corpuscular Hemoglobin 29 pg (27-31); Mean Corpuscular Volume 88 fL (80-97); Mean Platelet Volume 7.5 fL (7.4-10.4); Platelet Count 562 10^3/uL (150-450); Red Blood Count 3.89 10^6 /uL (3.70-4.87); Red Cell Distribution Width 15 % (10-15); White Blood Count 8.6 10^3/uL (3.5-10.8)
[2021-07-28 06:59] LABS: Calcium 8.7 mg/dL (8.6-10.3); Potassium 3.8 mmol/L (3.5-5.0); eGFR CKD-EPI 78.1 (>60)
[2021-07-28] MEDS: Vitamin THERAPEUTIC TAB PO SCH (08:17)
[2021-07-28] MEDS: Acetylcysteine 600mgCAP(RENAL) PO SCH (08:17)
[2021-07-28] MEDS: Enoxaparin 40 MG/0.4 ML SYR SUBCUT SCH (16:33)
[2021-07-28] MEDS: CMCS: Baricitinib 2 MG TAB (NF) PO SCH (16:33)
[2021-07-29] MEDS ORDERED: Calcium Carb (TUMS) 500 mg CHEW TAB ONE (02:19)
[2021-07-29 05:37] LABS: ABS Basophils 0.1 10^3/ul (0-0.2); ABS Eosinophils 0.2 10^3/ul (0-0.6); ABS Monocytes 0.7 10^3/ul (0-0.8); ABS Neutrophils 5.6 10^3/ul (1.5-7.7); Eosinophil % 2.2 %; Hematocrit 30 % (35-47); Hemoglobin 10.6 g/dL (12.0-16.0); Lymphocyte % 23.6 %; Mean Corpuscular HGB Conc 35 g/dL (31-36); Mean Corpuscular Hemoglobin 30 pg (27-31); Mean Corpuscular Volume 87 fL (80-97); Platelet Count 500 10^3/uL (150-450); Red Blood Count 3.47 10^6 /uL (3.70-4.87); Red Cell Distribution Width 15 % (10-15); White Blood Count 8.6 10^3/uL (3.5-10.8)
[2021-07-29 06:01] LABS: Albumin 2.9 g/dL (3.2-5.2); Calcium 8.7 mg/dL (8.6-10.3); Globulin 2.9 g/dL (2-4); Magnesium 1.9 mg/dL (1.9-2.7); Potassium 3.9 mmol/L (3.5-5.0); Total Bilirubin 0.3 mg/dL (0.2-1.0); Total Protein 5.8 g/dL (6.4-8.9); eGFR CKD-EPI 99.7 (>60)
[2021-07-29] MEDS: Vitamin THERAPEUTIC TAB PO SCH (09:25)
[2021-07-29] MEDS: Enoxaparin 40 MG/0.4 ML SYR SUBCUT SCH (17:12)
[2021-07-29] MEDS: CMCS: Baricitinib 2 MG TAB (NF) PO SCH (17:13)
[2021-07-29] MEDS: Albuterol HFA INHALER 8 gm MDI INH PRN (21:29)
[2021-07-30 06:47] LABS: Hematocrit 30 % (35-47); Mean Corpuscular HGB Conc 34 g/dL (31-36); Mean Corpuscular Hemoglobin 29 pg (27-31); Mean Corpuscular Volume 88 fL (80-97); Mean Platelet Volume 6.8 fL (7.4-10.4); Platelet Count 525 10^3/uL (150-450); Red Blood Count 3.39 10^6 /uL (3.70-4.87); Red Cell Distribution Width 15 % (10-15); White Blood Count 6.8 10^3/uL (3.5-10.8)
[2021-07-30 07:05] LABS: Calcium 8.7 mg/dL (8.6-10.3); Magnesium 1.9 mg/dL (1.9-2.7); eGFR CKD-EPI 93.4 (>60)
[2021-07-30 08:18] LABS: ABS Basophils 0.1 10^3/ul (0-0.2); ABS Eosinophils 0.1 10^3/ul (0-0.6); ABS Monocytes 0.6 10^3/ul (0-0.8); ABS Neutrophils 3.9 10^3/ul (1.5-7.7); Eosinophil % 1.8 %; Lymphocyte % 29.4 %; RBC Morphology Normal (Normal)
[2021-07-30] MEDS: Vitamin THERAPEUTIC TAB PO SCH (09:27)
[2021-07-30] MEDS: Enoxaparin 40 MG/0.4 ML SYR SUBCUT SCH (18:30)
[2021-07-30] MEDS: CMCS: Baricitinib 2 MG TAB (NF) PO SCH (18:30)
[2021-07-30] MEDS: Calcium Carb (TUMS) 500 mg CHEW TAB PO PRN (18:33)
[2021-07-31] MEDS: Albuterol HFA INHALER 8 gm MDI INH PRN (00:06)
[2021-07-31] MEDS: Saline NASAL SPRAY 0.65% BTL BOTH NARES PRN ×2 (03:35→17:41)
[2021-07-31] MEDS: Vitamin THERAPEUTIC TAB PO SCH (09:32)
[2021-07-31] MEDS: Calcium Carb (TUMS) 500 mg CHEW TAB PO PRN (11:46)
[2021-07-31] MEDS: Enoxaparin 40 MG/0.4 ML SYR SUBCUT SCH (17:35)
[2021-07-31] MEDS: CMCS: Baricitinib 2 MG TAB (NF) PO SCH (17:36)
[2021-08-01] MEDS: Vitamin THERAPEUTIC TAB PO SCH (08:12)
[2021-08-01] MEDS: Enoxaparin 40 MG/0.4 ML SYR SUBCUT SCH (17:38)
[2021-08-01] MEDS: CMCS: Baricitinib 2 MG TAB (NF) PO SCH (17:38)
[2021-08-02] MEDS: Vitamin THERAPEUTIC TAB PO SCH (08:34)
[2021-08-02 09:00] VITALS: BP 147/83
== END 2021-08-02 10:25 | DRG 177 ==
LOC: ED 11:31 → SUATTDRO 16:35 → EDHOLD 16:35 → MED 21:19 → ICU 07-19 08:32 → MED 07-26 16:25
PROVIDERS: ADMIT Nurse Practitioner Family; ATTEND Hospitalist

== ENCOUNTER 2021-08-02 08:41 | Inpatient (IN) ==
[2021-08-02] MEDS ORDERED: Senna TAB 8.6 mg TAB PO PRN (11:33)
[2021-08-02] MEDS ORDERED: Magnesium Hydroxide LIQ 30 ML UDC PO PRN (11:33)
[2021-08-02] MEDS: Enoxaparin 40 MG/0.4 ML SYR SUBCUT SCH (18:05)
[2021-08-02] MEDS ORDERED: Saline NASAL SPRAY 0.65% BTL BOTH NARES PRN (21:41)
[2021-08-02] MEDS: Calcium Carb (TUMS) 500 mg CHEW TAB PO PRN (21:50)
[2021-08-03] MEDS: Albuterol HFA INHALER 8 gm MDI INH PRN ×2 (09:20→18:13)
[2021-08-03] MEDS: Vitamin THERAPEUTIC TAB PO SCH (10:16)
[2021-08-03] MEDS: Enoxaparin 40 MG/0.4 ML SYR SUBCUT SCH (18:00)
[2021-08-03] MEDS ORDERED: Benzocaine/Menthol LOZ PO PRN (18:59)
[2021-08-03] MEDS: Nystatin TOP POWDER 15 GM BTL TOPICAL SCH (20:36)
[2021-08-04] MEDS: Albuterol HFA INHALER 8 gm MDI INH PRN ×3 (04:10→22:44)
[2021-08-04 06:26] LABS: ABS Eosinophils 0.1 10^3/ul (0-0.6); ABS Lymphocytes 0.9 10^3/ul (1.0-4.8); ABS Monocytes 0.5 10^3/ul (0-0.8); Hematocrit 30 % (35-47); Hemoglobin 10.3 g/dL (12.0-16.0); Lymphocyte % 19.7 %; Mean Corpuscular HGB Conc 34 g/dL (31-36); Mean Corpuscular Hemoglobin 30 pg (27-31); Mean Corpuscular Volume 88 fL (80-97); Mean Platelet Volume 7.1 fL (7.4-10.4); Platelet Count 344 10^3/uL (150-450); Red Blood Count 3.45 10^6 /uL (3.70-4.87); Red Cell Distribution Width 15 % (10-15); White Blood Count 4.5 10^3/uL (3.5-10.8)
[2021-08-04 06:56] LABS: Albumin 3.1 g/dL (3.2-5.2); Albumin/Globulin Ratio 1.1 (1-3); Calcium 8.7 mg/dL (8.6-10.3); Globulin 2.8 g/dL (2-4); Potassium 3.9 mmol/L (3.5-5.0); Total Bilirubin 0.5 mg/dL (0.2-1.0); Total Protein 5.9 g/dL (6.4-8.9); eGFR CKD-EPI 91.9 (>60)
[2021-08-04] MEDS: Vitamin THERAPEUTIC TAB PO SCH (09:00)
[2021-08-04] MEDS: Nystatin TOP POWDER 15 GM BTL TOPICAL SCH ×2 (11:59→20:44)
[2021-08-04] MEDS: Enoxaparin 40 MG/0.4 ML SYR SUBCUT SCH (17:54)
[2021-08-04] MEDS: Calcium Carb (TUMS) 500 mg CHEW TAB PO PRN (20:46)
[2021-08-05] MEDS: Albuterol HFA INHALER 8 gm MDI INH PRN ×3 (09:05→18:03)
[2021-08-05] MEDS: Mometasone/Formoter 200/5 MDI INH SCH ×2 (09:06→18:10)
[2021-08-05] MEDS: Nystatin TOP POWDER 15 GM BTL TOPICAL SCH ×3 (09:08→20:32)
[2021-08-05] MEDS: Vitamin THERAPEUTIC TAB PO SCH (09:08)
[2021-08-05] MEDS: Enoxaparin 40 MG/0.4 ML SYR SUBCUT SCH (17:59)
[2021-08-05] MEDS: Calcium Carb (TUMS) 500 mg CHEW TAB PO PRN (22:08)
[2021-08-06] MEDS: Mometasone/Formoter 200/5 MDI INH SCH (06:04)
[2021-08-06] MEDS: Albuterol HFA INHALER 8 gm MDI INH PRN (06:05)
[2021-08-06 06:16] VITALS: BP 147/90
[2021-08-06] MEDS: Vitamin THERAPEUTIC TAB PO SCH (09:33)
[2021-08-06] MEDS: Nystatin TOP POWDER 15 GM BTL TOPICAL SCH (09:35)
== END 2021-08-06 11:00 | disposition home or self-care (01) | DRG 945 ==
LOC: PMRU 10:48
PROVIDERS: ADMIT Physical Medicine & Rehabilitation; ATTEND Physical Medicine & Rehabilitation